=== PATIENT | male | born 1945 | race Caucasian/White ===

== ENCOUNTER 2019-12-05 07:46 | Outpatient (REF) | payer OTHER, SELFPAY ==
[2019-12-05 11:26] LABS: Estimated Average Glucose 100 mg/dL; Hemoglobin A1c % 5.1 %
[2019-12-05 11:37] LABS: Alanine Aminotransferase 22 U/L (0-40); Albumin Level 4.4 g/dL (3.5-5.0); Alkaline Phosphatase 109 U/L (39-117); Aspartate Amino Transferase 16 U/L (5-37); Bilirubin Direct 0.2 mg/dL (0.0-0.5); Bilirubin Total 0.6 mg/dL (0.0-1.0); Cholesterol 131 mg/dL; Glucose Fasting 94 mg/dL (60-99); HDL Cholesterol 46 mg/dL; LDL Cholesterol Calculated 72 mg/dl; Total Protein 6.6 g/dL (6.5-8.0); Triglycerides 68 mg/dL
[2019-12-05 13:56] LABS: Reflex LDLD? No
== END 2019-12-05 07:47 | disposition home or self-care (01) ==
LOC: HO.HMGCLDS 07:46
PROVIDERS: PCP Internal Medicine; Visit Provider Internal Medicine
DX: R73.03 Prediabetes (principal); E78.00 Pure hypercholesterolemia, unspecified
CPT/HCPCS: 80061; 80076; 82947; 83036

== ENCOUNTER 2020-03-18 10:19 | Outpatient (REF) | payer BC, SELFPAY ==
[2020-03-18 11:34] LABS: Estimated Average Glucose 103 mg/dL; Hemoglobin A1c % 5.2 %
[2020-03-18 11:42] LABS: Alanine Aminotransferase 14 U/L (0-40); Albumin Level 4.2 g/dL (3.5-5.0); Alkaline Phosphatase 122 U/L (39-117); Aspartate Amino Transferase 12 U/L (5-37); Bilirubin Direct 0.3 mg/dL (0.0-0.5); Bilirubin Total 0.4 mg/dL (0.0-1.0); Cholesterol 114 mg/dL; Glucose Fasting 106 mg/dL (60-99); HDL Cholesterol 47 mg/dL; LDL Cholesterol Calculated 57 mg/dl; Total Protein 6.6 g/dL (6.5-8.0); Triglycerides 53 mg/dL
[2020-03-18 12:26] LABS: Reflex LDLD? No
== END 2020-03-18 10:20 | disposition home or self-care (01) ==
LOC: HO.HMGCLDS 10:19
PROVIDERS: PCP Internal Medicine; Visit Provider Internal Medicine
DX: R73.03 Prediabetes (principal); E78.00 Pure hypercholesterolemia, unspecified
CPT/HCPCS: 36415; 80061; 80076; 82947; 83036

== ENCOUNTER 2020-04-26 10:26 | Outpatient (REF) | payer BC, SELFPAY ==
[2020-04-26 10:38] LABS: MANUAL DIFF FLAG NO
[2020-04-26 10:53] LABS: Basophils Percent Auto 0.3 % (0-2); Eosinophils Absolute Auto 0.2 X10*3/uL (0.0-0.4); Eosinophils Percent Auto 2.5 % (0-4); Hematocrit 43.3 % (42-52); Hemoglobin 14.3 g/dl (14.0-18.0); Imm Gran Abs Auto 0.01 X10*3/uL (0.00-0.03); Imm Gran Pct Auto 0.1 % (0.0-0.4); Lymphocytes Absolute Auto 2.3 X10*3/uL (1.2-4.9); Lymphocytes Percent Auto 34.5 % (20-40); Mean Corpuscular Hemoglobin 30.8 pg (27.0-33.0); Mean Corpuscular Volume 93.3 fL (80-98); Mean Platelet Volume 10.3 fL (9.4-12.4); Monocytes Absolute Auto 0.7 X10*3/uL (0.1-1.2); Monocytes Percent Auto 10.4 % (2-11); Neutrophils Absolute Auto 3.5 X10*3/uL (2.0-8.3); Neutrophils Percent Auto 52.2 % (45-73); Platelet Count 173 X10*3/uL (160-400); Red Blood Count 4.64 X10*6/uL (4.60-5.80); Red Cell Distribution Width 14.6 % (11.0-16.0); White Blood Count 6.7 X10*3/uL (4.8-10.8)
[2020-04-26 11:05] LABS: Estimated Average Glucose 103 mg/dL; Hemoglobin A1C 120.1109 umol/L; Hemoglobin A1c % 5.2 %
[2020-04-26 11:06] LABS: Glucose Urine UA NEG (NEG); Leukocyte Esterase Urine NEG (NEG); Nitrite Urine NEG (NEG); PH 6.5 (5.0-8.0); Urine Blood NEG (NEG); Urine Ketones NEG (NEG); Urine Protein NEG (NEG-TRACE)
[2020-04-26 11:09] LABS: Appearance Urine CLEAR; Color Urine YELLOW
[2020-04-26 11:37] LABS: Alanine Aminotransferase 16 U/L (0-40); Alkaline Phosphatase 110 U/L (39-117); Anion Gap 13 (12-20); Aspartate Amino Transferase 14 U/L (5-37); Bilirubin Total 0.5 mg/dL (0.0-1.0); Blood Urea Nitrogen 10 mg/dL (9-16); Calcium 8.4 mg/dL (8.4-10.2); Carbon Dioxide 28 mmol/L (22-29); Chloride 102 mmol/L (96-108); Cholesterol 117 mg/dL; Estimated Glomerular Filt Rate > 60; Glucose Fasting 90 mg/dL (60-99); HDL Cholesterol 45 mg/dL; LDL Cholesterol Calculated 59 mg/dl; Potassium 3.5 mmol/L (3.3-5.1); Sodium 139 mmol/L (135-145); Total Protein 6.2 g/dL (6.5-8.0); Triglycerides 68 mg/dL
[2020-04-26 11:58] LABS: PSA,Total (Free>4and<10) 0.81 ng/mL (0.00-4.00)
[2020-04-26 13:15] LABS: Reflex LDLD? No
== END 2020-04-26 10:27 | disposition home or self-care (01) ==
LOC: HO.LNP 10:26
PROVIDERS: Visit Provider Internal Medicine
DX: Z00.00 Encounter for general adult medical examination without abnormal findings (principal); R73.03 Prediabetes; E78.00 Pure hypercholesterolemia, unspecified; Z12.5 Encounter for screening for malignant neoplasm of prostate
CPT/HCPCS: 80053; 80061; 81003; 83036; 84153; 85025

== ENCOUNTER 2020-10-31 10:02 | Outpatient (REF) | payer BC, SELFPAY ==
[2020-10-31 11:52] LABS: Alanine Aminotransferase 8 U/L (0-40); Albumin Level 4.1 g/dL (3.5-5.0); Alkaline Phosphatase 98 U/L (39-117); Aspartate Amino Transferase 11 U/L (5-37); Bilirubin Direct 0.3 mg/dL (0.0-0.5); Bilirubin Total 0.7 mg/dL (0.0-1.0); Cholesterol 170 mg/dL; Glucose Fasting 97 mg/dL (60-99); HDL Cholesterol 45 mg/dL; LDL Cholesterol Calculated 109 mg/dl; Total Protein 6.3 g/dL (6.5-8.0); Triglycerides 83 mg/dL
[2020-10-31 11:59] LABS: Estimated Average Glucose 94 mg/dL; Hemoglobin A1c % 4.9 %
[2020-10-31 12:12] LABS: Reflex LDLD? No
== END 2020-10-31 10:03 | disposition home or self-care (01) ==
LOC: HO.HMGCLDS 10:02
PROVIDERS: PCP Internal Medicine; Visit Provider Internal Medicine
DX: R73.03 Prediabetes (principal); E78.00 Pure hypercholesterolemia, unspecified
CPT/HCPCS: 36415; 80061; 80076; 82947; 83036

== ENCOUNTER 2020-12-05 12:47 | Outpatient (REF) | payer BC, SELFPAY ==
--- NOTE | ~2020-12-05 | CT_ITS ---
EXAMINATION: CT CHEST WITHOUT CONTRAST CLINICAL INFORMATION: Solitary pulmonary nodule COMPARISON: Prior CT exams from 10/12/2017 and 10/10/2018 TECHNIQUE: Multidetector volumetric CT imaging of the chest was done. Axial MIP volume rendering provided. Sagittal and coronal reformatted images were obtained. This CT examination was performed using dose optimization techniques as appropriate, variously including the following: *Automated exposure control *Adjustment of mA and/or kV according to patient size (this includes techniques or standardized protocols for targeted exams where dose is matched to indication/reason for exam; i.e. extremities or head) *Use of iterative reconstruction technique DLP: 196 mGy-cm FINDINGS: LUNGS AND PLEURA: Chronic centrilobular and paraseptal emphysema. 0.2 cm noncalcified nodule of the posterior right upper lobe is unchanged compared to 10/12/2017 (image 271, series 7). Also, a 0.3 cm noncalcified nodule of the lateral basal segment right lower lobe at the costophrenic sulcus is stable compared to 10/12/2017 (image 521, series 7). No new nodules are seen. No pulmonary mass or pleural effusion. CARDIOVASCULAR: The heart size is normal. There is three-vessel coronary artery atherosclerotic calcification. No pericardial effusion. Pulmonary arteries are normal in size. Thoracic aorta atherosclerosis without aneurysm. MEDIASTINUM AND LOWER NECK: The esophagus and thyroid gland are grossly unremarkable. No mediastinal mass. LYMPHATICS: No pathologic sized lymph nodes. UPPER ABDOMEN: Adrenal glands are normal. Small, 0.6 cm cyst in the right hepatic lobe. Atherosclerotic calcification of the partially visualized abdominal aorta. Small calcified gallstone. No gallbladder wall thickening. SKELETAL AND CHEST WALL: Chronic multilevel disc vertebral changes of the visualized lower cervical and thoracic spine. No aggressive osseous lesions. 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 CT/CT chest wo con IMPRESSION: * Moderate pulmonary emphysema. * Small nodules of the right lung are stable compared to 10/12/2017, consistent with benign nodules. No additional follow-up imaging is recommended for these particular nodules. No new nodule, mass or lymphadenopathy. * Three-vessel coronary artery atherosclerotic calcification. * Cholelithiasis.
--- NOTE | 2020-12-05 13:08 | HM_ITS ---
ENROLLMENT PERIOD: 12/05/2020 to 01/04/2021-30 days. INDICATION: Syncope and collapse. FINDINGS: In the above monitoring period, the underlying rhythm is sinus. Recorded sample rate is 71 beats per minute. There were no arrhythmias or any other abnormalities recorded during this time. There is also no mention of any patient symptoms either. CONCLUSION: Normal 30-day cardiac cath rn showing sinus rhythm only and no arrhythmias. MD CORA Beckford/ANEL / [id number]
== END 2020-12-05 12:48 | disposition home or self-care (01) ==
LOC: HO.CT 12:47
PROVIDERS: PCP Internal Medicine; Visit Provider Internal Medicine
DX: R91.1 Solitary pulmonary nodule (principal); R55 Syncope and collapse
CPT/HCPCS: 71250; 93270

== ENCOUNTER 2020-12-27 17:09 | Outpatient (REF) | payer BC, SELFPAY ==
[2020-12-27 17:58] LABS: Influenza A PCR NEGATIVE (Negative); Influenza B PCR NEGATIVE (Negative); Resp Syncy Virus RNA Qual PCR NEGATIVE (Negative); SARS COV2 PCR INHOUSE POSITIVE (Negative)
== END 2020-12-27 17:10 | disposition home or self-care (01) ==
LOC: HO.LNP 17:09
PROVIDERS: Visit Provider Internal Medicine
DX: R05.9 Cough, unspecified (principal); Z20.822 Contact with and (suspected) exposure to COVID-19
CPT/HCPCS: 0241U

== ENCOUNTER 2021-01-03 12:31 | Inpatient (IN) | payer BC, SELFPAY ==
[2021-01-03] VITALS (11 sets, daily range): BP systolic 96–173; BP diastolic 49–74; PULSE 77–94; RESP 16–30; TEMP 36.7; O2SAT 86–96; BMI 26.6
--- NOTE | ~2021-01-03 | XR_ITS ---
EXAMINATION: XR CHEST CLINICAL INFORMATION: Shortness of breath COMPARISON: Chest radiographs 02/27/2019, 12/06/2018 TECHNIQUE: Portable upright AP view of the chest was obtained. FINDINGS: There are patchy bilateral predominantly perihilar airspace opacities, slightly greater in distribution on left. There is no associated effusion. No engorgement of the central vasculature or currently lines. The heart is within normal size. No acute bony abnormality. XR/XR chest 1V IMPRESSION: Nonspecific bilateral perihilar airspace opacities, slightly greater in distribution on left. No associated vascular engorgement or effusion.
--- NOTE | ~2021-01-03 | NM_ITS ---
EXAMINATION: NM LUNG IMAGE PERFUSION CLINICAL INFORMATION: Shortness of breath. COPD. Covid positive. COMPARISON: Chest x-ray 01/03/2021 TECHNIQUE: Perfusion imaging performed using 3 mCi of technetium 99m MAA. No ventilation performed. Chest x-ray available for comparison. FINDINGS: There are multiple perfusion defects involving both lungs. These are segmental and subsegmental defects. These did not however specifically correlate to the abnormality of the chest x-ray. Chest x-ray shows multifocal airspace disease in the mid and lower lungs: The perfusion defects are primarily involving the mid and upper lung bilaterally. By the modified PIOPED 2 criteria this is a high probability for pulmonary embolism. NM/NM pul perfusion IMPRESSION: Greater than 2 segmental mismatches between chest x-ray and perfusion imaging consistent with high probability of pulmonary embolism. This critical result was discussed with Dr Corral on 01/03/2021, 6:25 PM and it was ascertained that the content and urgency of the report was understood at the time of direct communication.
--- NOTE | ~2021-01-03 | US_ITS ---
EXAMINATION: US RETROPERITONEAL LIMITED (RENAL ONLY) CLINICAL INFORMATION: AYESHA. COMPARISON: CT abdomen and pelvis 12/20/2012. TECHNIQUE: Real-time imaging of the kidneys. Technically limited due to patient mobility and inability to suspend respirations. FINDINGS: RIGHT KIDNEY: 9.5 x 3.7 x 5.0 cm (SAG x AP x TRV). The kidney is normal in size, contour, and echogenicity. Renal cortical thickness is normal. No calculi or focal parenchymal lesions. No hydronephrosis. LEFT KIDNEY: 10.6 x 5.3 x 5.5 cm (SAG x AP x TRV). The kidney is normal in size, contour, and echogenicity. Renal cortical thickness is normal. No calculi or focal parenchymal lesions. No hydronephrosis. US/US renal BI IMPRESSION: Unremarkable exam.
--- NOTE | 2021-01-03 12:42 | ECG_ITS ---
Test Reason : SOB Blood Pressure : / mmHG Vent. Rate : 079 BPM Atrial Rate : 079 BPM P-R Int : 260 ms QRS Dur : 088 ms QT Int : 394 ms P-R-T Axes : 057 046 052 degrees QTc Int : 451 ms Sinus rhythm with 1st degree A-V block with occasional Premature ventricular complexes Abnormal ECG When compared with ECG of 13-MAY-2018 15:52, Premature ventricular complexes are now Present Referred By: Nikki Valdez Electronically Signed By:MARGARET RICH MD
[2021-01-03 13:02] LABS: Hematocrit 39.5 % (42.0-52.0); Hemoglobin 14.1 g/dl (14.0-18.0); Mean Corpuscular HGB Conc 35.7 g/dl (31.0-36.0); Mean Corpuscular Hemoglobin 31.1 pg (27.0-33.0); Red Blood Count 4.54 X10*6/uL (4.60-5.80)
[2021-01-03 13:03] LABS: WBC ABN SCTR FOR CBC 1
--- NOTE | 2021-01-03 13:05 | ED.SOB ---
HPI - SOB/Dyspnea General Chief Complaint: Dyspnea Stated Complaint: copd, covid + Time Seen by Provider: 01/03/21 13:00 History of Present Illness HPI Narrative: Patient is 75 years old with a history of COPD long history of smoking quit approximately 1 week ago. Presents today with having coughing congestion upper respiratory symptoms that been ongoing for about a week. Patient had a COVID test done about a week ago it was positive. Patient also received full vaccination in May. Baseline not on oxygen at home. Never been intubated in the past. No history of congestive heart failure. No history of heart attack. No fever no chills. Positive coughing upper respiratory symptoms positive generalized malaise. No leg swelling noted. Related Data Home Medications Medication Instructions Recorded Confirmed omeprazole 20 mg capsule,delayed 20 mg PO DAILY 12/27/20 01/03/21 release albuterol sulfate 90 mcg/actuation 2 puff INHALATION Q4H PRN 01/03/21 01/03/21 aerosol inhaler atorvastatin 80 mg tablet 80 mg PO DAILY 01/03/21 01/03/21 dexamethasone 4 mg tablet 4 mg PO TID 01/03/21 01/03/21 fluticasone 250 mcg-salmeterol 50 1 puff INHALATION BID 01/03/21 01/03/21 mcg/dose blistr powdr for inhalation (Advair Diskus) zinc 50 mg tablet 50 mg PO DAILY 01/03/21 01/03/21 Allergies Allergy/AdvReac Type Severity Reaction Status Date / Time No Known Allergies Allergy Unverified 12/27/20 14:01 [No Known Allergies*] Review of Systems Review of Systems: Positive shortness of breath Positive coughing upper respiratory symptoms Yes all other systems are reviewed and are negative [facility] Past Medical History Attestation statement: The following information was validated with the patient. Medical History COPD (chronic obstructive pulmonary disease) Social History Social History Alcohol intake: current Alcohol intake frequency: 0-2 drinks per day Alcohol type: beer Patient Tobacco Use Status: Former Tobacco user Smoked in Last 30 Days: Yes Use of substances other than those prescribed or required for medical reasons: No Advance Directives: No Advance Directives Information Provided: No Physical Exam Vital Signs: Vital Signs: Last Vital Signs Temp 98.1 F 01/03/21 12:38 Pulse 78 01/03/21 13:57 Resp 18 01/03/21 13:57 BP 103/54 L 01/03/21 13:57 Pulse Ox 90 L 01/03/21 13:57 Oxygen Flow Rate 6 01/03/21 12:38 Body Mass Index 26.6 Appearance: Alert. Oriented X3. No acute distress. Eyes: Pupils equal, round and reactive to light. ENT: Pharynx normal. Neck: Normal inspection. Neck supple. No lymph nodes noted. No crepitus CVS: Normal heart rate and rhythm. Pulses normal. Normal S1 and S2 Respiratory: Diminished breath sounds bilaterally with crackles at the bases. Abdomen: Soft and nontender. No rigidity. No distention. good BS x4 Skin: Skin warm and dry. Normal skin color. Normal skin turgor. Extremities: No lower extremity edema. Neurovascular intact to all extremities. No Lacerations. No Rash Neuro: Oriented X 3. No motor deficit. No sensory deficit. Moving all extermities. No slurred speech MDM - SOB/Dyspnea MDM Narrative Medical decision making narrative: Patient's chest x-ray consistent with COVID. Patient's BUN and creatinine elevated consistent with dehydration. In the settin of tachycardic generalized malaise cultures obtained antibiotics started patient given Rocephin for possible pneumonia. More likely consistent with having COVID. Steroids started for COPD and for COVID. Patient lactate came back to be 4.0 30 cc/kilos IV fluid given. Patient case discussed with hospitalist team. Patient will require admission. EKG showed a sinus rhythm heart rate is 80 first-degree heart block noted. PVC noted. QRS QT within normal limits is no acute ST segment elevation noted Differential Diagnosis Differential diagnosis: Likely acute exacerbation of chronic obstructive airways disease, pneumonia and asthma with exacerbation Medical Records Attestation: I reviewed the patient's medical records. Lab Data Attestation: I reviewed the patient's lab results. Result diagrams: 01/03/21 12:52 01/03/21 12:52 Labs: Lab Results 01/03/21 01/03/21 01/03/21 Range/Units 12:52 12:52 12:52 WBC 3.6 L (4.8-10.8) X10*3/uL RBC 4.54 L (4.60-5.80) X10*6/uL Hgb 14.1 (14.0-18.0) g/dl Hct 39.5 L (42.0-52.0) % MCV 87.0 (80.0-98.0) fL MCH 31.1 (27.0-33.0) pg MCHC 35.7 (31.0-36.0) g/dl RDW 14.0 (11.0-16.0) % Plt Count 74 L (160-400) X10*3/uL MPV 11.7 (9.4-12.4) fL Immature Gran % (Auto) Cancelled Neut % (Auto) Cancelled Lymph % (Auto) Cancelled [place] % (Auto) Cancelled Eos % (Auto) Cancelled Baso % (Auto) Cancelled Lymph # (Auto) Cancelled [place] # (Auto) Cancelled Eos # (Auto) Cancelled Baso # (Auto) Cancelled Abs Immat Gran (auto) Cancelled Absolute Neuts (auto) Cancelled Absolute Nucleated RBC 0.000 (0.0-0.012) X10*3/uL Nucleated RBC % (auto) 0.0 (0.0-0.2) /100WBC Neutrophils % (Manual) 75 H (45-73) % Band Neutrophils % 20 H (3-5) % Lymphocytes % (Manual) 2 L (20-40) % Monocytes % (Manual) 2 (2-11) % Metamyelocytes % 1 % Abs Neuts (Manual) 3.4 (2.0-8.3) X10*3/uL Lymphocytes # (Manual) 0.1 L (1.2-4.9) X10*3/uL Monocytes # (Manual) 0.1 (0.1-1.2) X10*3/uL Toxic Vacuolation PRESENT Platelet Estimate DECREASED (NORMAL) Large Platelets PRESENT Plt Morphology Comment NOTED RBC Morphology NOTED Ovalocytes 1+ (5-14) /OIF [place] Cells 3+ (>5) /OIF Acanthocytes (Spur) 1+ (0-2) /OIF Sodium 125 L (135-145) mmol/L Potassium 4.1 (3.3-5.1) mmol/L Chloride 87 L (96-108) mmol/L Carbon Dioxide 24 (22-29) mmol/L Anion Gap 18 (12-20) BUN 43 H D (9-16) mg/dL Creatinine 2.26 H (0.5-1.4) mg/dL Estim Creat Clear Calc 28.2 Estimated GFR 28 Random Glucose 112 (60-115) mg/dL Lactic Acid (0.5-2.0) mmol/L Calcium 7.7 L D (8.4-10.2) mg/dL Troponin I High Sens 13.3 (<3.5-35.0) ng/L B-Natriuretic Peptide 165 H (<100) pg/mL 01/03/21 Range/Units 12:54 WBC (4.8-10.8) X10*3/uL RBC (4.60-5.80) X10*6/uL Hgb (14.0-18.0) g/dl Hct (42.0-52.0) % MCV (80.0-98.0) fL MCH (27.0-33.0) pg MCHC (31.0-36.0) g/dl RDW (11.0-16.0) % Plt Count (160-400) X10*3/uL MPV (9.4-12.4) fL Immature Gran % (Auto) Neut % (Auto) Lymph % (Auto) [place] % (Auto) Eos % (Auto) Baso % (Auto) Lymph # (Auto) [place] # (Auto) Eos # (Auto) Baso # (Auto) Abs Immat Gran (auto) Absolute Neuts (auto) Absolute Nucleated RBC (0.0-0.012) X10*3/uL Nucleated RBC % (auto) (0.0-0.2) /100WBC Neutrophils % (Manual) (45-73) % Band Neutrophils % (3-5) % Lymphocytes % (Manual) (20-40) % Monocytes % (Manual) (2-11) % Metamyelocytes % % Abs Neuts (Manual) (2.0-8.3) X10*3/uL Lymphocytes # (Manual) (1.2-4.9) X10*3/uL Monocytes # (Manual) (0.1-1.2) X10*3/uL Toxic Vacuolation Platelet Estimate (NORMAL) Large Platelets Plt Morphology Comment RBC Morphology Ovalocytes /OIF [place] Cells /OIF Acanthocytes (Spur) /OIF Sodium (135-145) mmol/L Potassium (3.3-5.1) mmol/L Chloride (96-108) mmol/L Carbon Dioxide (22-29) mmol/L Anion Gap (12-20) BUN (9-16) mg/dL Creatinine (0.5-1.4) mg/dL Estim Creat Clear Calc Estimated GFR Random Glucose (60-115) mg/dL Lactic Acid 4.0 H* (0.5-2.0) mmol/L Calcium (8.4-10.2) mg/dL Troponin I High Sens (<3.5-35.0) ng/L B-Natriuretic Peptide (<100) pg/mL Critical Care Time Critical Care Time Critical Care Time: Yes Total Critical Care Time: 40 Attestation: I have personally provided 40 minutes of critical care time exclusive of time spent on separately billable procedures. Time includes review of lab data, radiology results, discussion with consultants, and monitoring for potential decompensation. Interventions were performed as documented above Discharge Plan Discharge Clinical Impression: COVID-19 Patient Disposition: Admitted As Inpatient
[2021-01-03] MEDS: dexAMETHasone sod phosphate 10 MG/ML VIAL IVPUSH (13:16)
[2021-01-03] MEDS: Albuterol Sulfate 90 MCG 8 GM INHALER 2 PUFF INHALE (13:25)
[2021-01-03 13:26] LABS: B Type Natriuretic Peptide 165 pg/mL (<100); Troponin-I High Sensitivity 13.3 ng/L (<3.5-35.0)
[2021-01-03 13:28] LABS: Anion Gap 18 (12-20); Band Neutrophils Percent 20 % (3-5); Blood Urea Nitrogen 43 mg/dL (9-16); Calcium 7.7 mg/dL (8.4-10.2); Carbon Dioxide 24 mmol/L (22-29); Chloride 87 mmol/L (96-108); Creatinine Clr Calc Pharmacy 28.2; Estimated Glomerular Filt Rate 28; Glucose Random 112 mg/dL (60-115); Lymphocytes Percent Manual 2 % (20-40); Metamyelocytes Percent 1 %; Monocytes Percent Manual 2 % (2-11); Neutrophils Percent Manual 75 % (45-73); Potassium 4.1 mmol/L (3.3-5.1); Sodium 125 mmol/L (135-145)
[2021-01-03 13:29] LABS: RBC Morphology NOTED; Toxic Vacuolation PRESENT
[2021-01-03 13:30] LABS: Acanthocytes 1+ (0-2) /OIF; Platelet Estimate DECREASED (NORMAL)
[2021-01-03 13:31] LABS: Burr Cells 3+ (>5) /OIF; Large Platelet PRESENT; Lymphocytes Absolute Manual 0.1 X10*3/uL (1.2-4.9); Monocytes Absolute Manual 0.1 X10*3/uL (0.1-1.2); Neutrophils Absolute Manual 3.4 X10*3/uL (2.0-8.3); Ovalocytes 1+ (5-14) /OIF; Platelet Morphology Comment NOTED; White Blood Count 3.6 X10*3/uL (4.8-10.8)
[2021-01-03 13:32] LABS: Mean Platelet Volume 11.7 fL (9.4-12.4); Platelet Count 74 X10*3/uL (160-400)
[2021-01-03] MEDS: cefTRIAXone sodium 1 GM in 0.9 % Sodium Chloride 50 ML IV (13:51)
--- NOTE | 2021-01-03 13:51 | PHA.MEDREC ---
Pharmacy Consult ? Medication Reconciliation Pharmacy has completed the medication reconciliation. There are no remarkable issues for provider's attention. Denise Calle, JoanneD
[2021-01-03] MEDS: 0.9 % Sodium Chloride 2,449.41 ML 2449.41 ML IV (13:53)
[2021-01-03 14:59] LABS: Reflex Lactate? Lactic Acid Added
[2021-01-03 15:03] LABS: Influenza A PCR NEGATIVE (Negative); Influenza B PCR NEGATIVE (Negative); Resp Syncy Virus RNA Qual PCR NEGATIVE (Negative); SARS COV2 PCR INHOUSE POSITIVE (Negative)
[2021-01-03 15:42] LABS: ~Lactic Acid-LAB USE ONLY 3.2 mmol/L (0.5-2.0)
[2021-01-03] MEDS: Doxycycline Hyclate 100 MG in 0.9 % Sodium Chloride 250 ML 166.67 MG IV (16:54)
[2021-01-03 16:58] LABS: C Reactive Protein 26.44 mg/dL (< or = 0.50)
[2021-01-03 17:00] LABS: Lactate Dehydrogenase 363 U/L (118-273)
[2021-01-03 17:19] LABS: Appearance Urine CLEAR; Color Urine YELLOW; Glucose Urine UA NEG (NEG); Leukocyte Esterase Urine NEG (NEG); Nitrite Urine NEG (NEG); Specific Gravity - Urine <= 1.005 (1.005-1.025); UACC Culture Trigger NO; Urine Blood 1+ (NEG); Urine Ketones NEG (NEG); Urine Protein 1+ MG/DL (NEG-TRACE)
[2021-01-03 17:25] LABS: Procalcitonin 6.08 ng/mL
[2021-01-03 17:28] LABS: Reflex Lactate? 2 Y
--- NOTE | 2021-01-03 17:32 | P.HPHOSP_ITS ---
History of Present Illness Date of Service: 01/03/21 Chief Complaint: cough, fatigue 75yo M with COPD + tobacco abuse, fully vaccinated against COVID-19 with 2 doses of Pfizer mRNA vaccine with last dose in May but no booster since, exposed to COVID case 2 wk ago and presented to urgent care 1 wk ago with 1d of dry cough, myalgias, and fatigue. He tested positive for COVID-19 and was prescribed dexamethasone. He presents today to the ED with worsening dyspnea and ongoing dry cough. No fever. No chest pain. is also positive but asymptomatic. Today is the 8th day of illness for him. He presented hypoxic and tachypneic and was found to have leukopenia, thrombocytopenia, lactic acidosis, hyponatr emia, and renal failure. He was given dexamethasone, ceftriaxone, and 30 cc/kg of normal saline. Review of Systems Review of Systems: Yes all other systems are reviewed and are negative [facility] Medical History (Updated 01/03/21 @ 17:42 by Montana Lino MD) COPD (chronic obstructive pulmonary disease) Dyslipidemia Pertinent family history: no cardiac disease Surgical History (Updated 01/03/21 @ 17:36 by Montana Lino MD) History of partial colectomy Social History Alcohol intake: current Alcohol intake frequency: 0-2 drinks per day Alcohol type: beer Patient Tobacco Use Status: Former Tobacco user Smoked in Last 30 Days: Yes Use of substances other than those prescribed or required for medical reasons: No Advance Directives: No Advance Directives Information Provided: No Meds Allergies Allergy/AdvReac Type Severity Reaction Status Date / Time No Known Allergies Allergy Unverified 12/27/20 14:01 [No Known Allergies*] Active Medications: Current Medications Albuterol Sulfate (Albuterol Sulfate 90 Mcg 8 Gm Inhaler) 2 puff INHALE RQ4H PRN PRN Reason: shortness of breath/wheeze Atorvastatin Calcium (Atorvastatin Calcium 80 Mg Tablet) 80 mg PO BEDTIME MEGHAN Enoxaparin Sodium (Enoxaparin Sodium 40 Mg/0.4 Ml Syringe) 40 mg SUBCUT Q24H MEGHAN Fluticasone/Vilanterol (Fluticasone/Vilanterol 100/25 Blst.W.Dev) 1 puff INHALE RDAILY MEGHAN Ceftriaxone Sodium 1 gm/ (Sodium Chloride) 50 mls @ 100 mls/hr IV Q24H [facility] Doxycycline Hyclate 100 mg/ (Sodium Chloride) 250 mls @ 166.67 mls/hr IV Q12H [facility] Last Admin: 01/03/21 16:54 Dose: 166.67 mls/hr Documented by: Methylprednisolone Sodium Succinate (Methylprednisolone Sod Succ 125 Mg/2 Ml Vial) 60 mg IVPUSH Q8H [facility] Omeprazole (Omeprazole 20 Mg Capsule.) 20 mg PO DAILY@0630 [facility] Pharmacy Consult (Consult Rx Perform Med Rec) 1 each MISCELLANE ONCE PRN PRN Reason: Consult order Home Medications Medication Instructions Recorded Confirmed Last Taken Type omeprazole 20 mg capsule,delayed 20 mg PO DAILY 12/27/20 01/03/21 01/03/21 History release albuterol sulfate 90 mcg/actuation 2 puff INHALATION Q4H PRN 01/03/21 01/03/21 01/03/21 History aerosol inhaler atorvastatin 80 mg tablet 80 mg PO DAILY 01/03/21 01/03/21 01/03/21 History dexamethasone 4 mg tablet 4 mg PO TID 01/03/21 01/03/21 01/03/21 History fluticasone 250 mcg-salmeterol 50 1 puff INHALATION BID 01/03/21 01/03/21 01/03/21 History mcg/dose blistr powdr for inhalation (Advair Diskus) zinc 50 mg tablet 50 mg PO DAILY 01/03/21 01/03/21 01/03/21 History Physical Exam Vital Signs and Narrative: Vital Signs: Last Vital Signs Temp 98.1 F 01/03/21 15:21 Pulse 77 01/03/21 16:00 Resp 22 H 01/03/21 16:00 BP 123/52 L 01/03/21 16:00 Pulse Ox 90 L 01/03/21 16:00 Oxygen Flow Rate 6 01/03/21 12:38 Body Mass Index 26.6 Gen: tachypneic, dyspneic HEENT: sclera anicteric, moist mucus membranes Neck: supple Lungs: clear to auscultation bilaterally Heart: regular rate and rhythm, no murmurs Abd: soft, non-tender, non-distended Ext: no edema Skin: warm/well-perfused Neuro: alert and oriented x3, no focal findings Psych: appropriate affect Results Labs CBC and Chem 7: 01/03/21 12:52 01/03/21 12:52 Labs: Laboratory Results - last 24 hr 01/03/21 01/03/21 01/03/21 12:52 12:52 12:52 MCV 87.0 MCH 31.1 MCHC 35.7 RDW 14.0 Plt Count 74 L MPV 11.7 Immature Gran % (Auto) Cancelled Neut % (Auto) Cancelled Lymph % (Auto) Cancelled [place] % (Auto) Cancelled Eos % (Auto) Cancelled Baso % (Auto) Cancelled Lymph # (Auto) Cancelled [place] # (Auto) Cancelled Eos # (Auto) Cancelled Baso # (Auto) Cancelled Abs Immat Gran (auto) Cancelled Absolute Neuts (auto) Cancelled Absolute Nucleated RBC 0.000 Nucleated RBC % (auto) 0.0 Neutrophils % (Manual) 75 H Band Neutrophils % 20 H Lymphocytes % (Manual) 2 L Monocytes % (Manual) 2 Metamyelocytes % 1 Abs Neuts (Manual) 3.4 Lymphocytes # (Manual) 0.1 L Monocytes # (Manual) 0.1 Toxic Vacuolation PRESENT Platelet Estimate DECREASED Large Platelets PRESENT Plt Morphology Comment NOTED RBC Morphology NOTED Ovalocytes 1+ (5-14) [place] Cells 3+ (>5) Acanthocytes (Spur) 1+ (0-2) Anion Gap 18 Estim Creat Clear Calc 28.2 Estimated GFR 28 Random Glucose 112 Lactic Acid Lactic Acid Fup @ 2Hr Calcium 7.7 L D Lactate Dehydrogenase 363 H Troponin I High Sens 13.3 C-Reactive Protein 26.44 H B-Natriuretic Peptide 165 H Carcinoembryonic Ag 6.90 Procalcitonin Urine Color Urine Appearance Urine pH Ur Specific [place] Urine Protein Urine Glucose (UA) Urine Ketones Urine Blood Urine Nitrite Ur Leukocyte Esterase Influenza Type A (PCR) Influenza Type B (PCR) RSV RNA Qual (PCR) SARS-CoV-2 RNA (RT-PCR) 01/03/21 01/03/21 01/03/21 12:52 12:54 13:40 MCV MCH MCHC RDW Plt Count MPV Immature Gran % (Auto) Neut % (Auto) Lymph % (Auto) Petroleum % (Auto) Eos % (Auto) Baso % (Auto) Lymph # (Auto) [place] # (Auto) Eos # (Auto) Baso # (Auto) Abs Immat Gran (auto) Absolute Neuts (auto) Absolute Nucleated RBC Nucleated RBC % (auto) Neutrophils % (Manual) Band Neutrophils % Lymphocytes % (Manual) Monocytes % (Manual) Metamyelocytes % Abs Neuts (Manual) Lymphocytes # (Manual) Monocytes # (Manual) Toxic Vacuolation Platelet Estimate Large Platelets Plt Morphology Comment RBC Morphology Ovalocytes [place] Cells Acanthocytes (Spur) Anion Gap Estim Creat Clear Calc Estimated GFR Random Glucose Lactic Acid 4.0 H* Lactic Acid Fup @ 2Hr Calcium Lactate Dehydrogenase Troponin I High Sens C-Reactive Protein B-Natriuretic Peptide Carcinoembryonic Ag Procalcitonin 6.08 Urine Color Urine Appearance Urine pH Ur Specific [place] Urine Protein Urine Glucose (UA) Urine Ketones Urine Blood Urine Nitrite Ur Leukocyte Esterase Influenza Type A (PCR) NEGATIVE Influenza Type B (PCR) NEGATIVE RSV RNA Qual (PCR) NEGATIVE SARS-CoV-2 RNA (RT-PCR) POSITIVE A 01/03/21 01/03/21 15:22 17:02 MCV MCH MCHC RDW Plt Count MPV Immature Gran % (Auto) Neut % (Auto) Lymph % (Auto) Pet[place] % (Auto) Eos % (Auto) Baso % (Auto) Lymph # (Auto) [place] # (Auto) Eos # (Auto) Baso # (Auto) Abs Immat Gran (auto) Absolute Neuts (auto) Absolute Nucleated RBC Nucleated RBC % (auto) Neutrophils % (Manual) Band Neutrophils % Lymphocytes % (Manual) Monocytes % (Manual) Metamyelocytes % Abs Neuts (Manual) Lymphocytes # (Manual) Monocytes # (Manual) Toxic Vacuolation Platelet Estimate Large Platelets Plt Morphology Comment RBC Morphology Ovalocytes Kanwal Cells Acanthocytes (Spur) Anion Gap Estim Creat Clear Calc Estimated GFR Random Glucose Lactic Acid Lactic Acid Fup @ 2Hr 3.2 H* Calcium Lactate Dehydrogenase Troponin I High Sens C-Reactive Protein B-Natriuretic Peptide Carcinoembryonic Ag Procalcitonin Urine Color YELLOW Urine Appearance CLEAR Urine pH 6.0 Ur Specific [place] <= 1.005 Urine Protein 1+ H Urine Glucose (UA) NEG Urine Ketones NEG Urine Blood 1+ H Urine Nitrite NEG Ur Leukocyte Esterase NEG Influenza Type A (PCR) Influenza Type B (PCR) RSV RNA Qual (PCR) SARS-CoV-2 RNA (RT-PCR) Impressions Chest X-Ray 01/03/21 12:42 IMPRESSION: Nonspecific bilateral perihilar airspace opacities, slightly greater in distribution on left. No associated vascular engorgement or effusion. Imaging Radiologist's Impressions: Impressions Chest X-Ray 01/03/21 12:42 IMPRESSION: Nonspecific bilateral perihilar airspace opacities, slightly greater in distribution on left. No associated vascular engorgement or effusion. Assessment and Plan (1) COVID-19: Status: Acute (2) Acute respiratory failure with hypoxia: Status: Acute 75yo M with COPD presenting on 8th day of breakthrough COVID-19 infection with hypoxia, severe sepsis, thrombocytopenia, acute kidney injury, and hyponatremia. # severe COVID-19 PNA - admit to IMC/[facility], IV methylprednisolone, ID consultation - trend inflammatory markers - V/Q scan to r/o PE # severe sepsis - likely viral but PCT is markedly elevated- will follow BCx and check Legionella + pneumococcal urinary antigens and cover bacterial pathogens with ceftriaxone + doxycycline # acute hypoxic respiratory failure - supplemental O2 via NC, currently on 6L with SaO2 90%- will place on HFNC - encourage awake proning # AYESHA # hyponatremia - appears prerenal/hypovolemic. got 30 cc/kg NS in ED. recheck BMP in am. check FENa, UA, renal US # thrombocytopenia - likely due to sepsis/COVID-19. monitor CBC. # COPD exacerbation - continue ICS/LABA. prn ELAINE inhalers. steroids as above # dyslipdemia - continue statin # code - FULL # VTE ppx - high risk; LMWH + SCDs Quality Stroke Does the patient have a stroke diagnosis?: No VTE Prior VTE?: No VTE Risk Level:: Medical - moderate - high VTE Device Contraindication: N/A - Device Ordered VTE Drug Contraindication: N/A - Med Ordered
[2021-01-03 17:33] LABS: Creatinine Urine 30.42 mg/dL
[2021-01-03 17:41] LABS: Creatinine Urine 30.68 mg/dL; Protein/Creatinine Ratio, Ur 0.78 (<0.2); Sodium Urine Random < 20.0 mmol/L; Total Protein Urine Random 24 mg/dL (<12)
[2021-01-03 17:45] LABS: Amorphous Sediment Urine TRACE /LPF; Mucus Urine 1+ /LPF; Squamous Epithelial Cell Urine TRACE /LPF
[2021-01-03 17:46] LABS: Bacteria Urine 1+ /LPF; RBC Urine 0-2 /HPF (0); WBC Urine 0 /HPF (0-4)
[2021-01-03] MEDS: methylPREDNISolone Sod Succ 125 MG/2 ML VIAL 60 MG IVPUSH (17:58)
[2021-01-03] MEDS: Enoxaparin Sodium 40 MG/0.4 ML SYRINGE SUBCUT ×2 (17:58→19:28)
[2021-01-03 18:25] LABS: Ferritin 1683 ng/mL (20-250)
[2021-01-03 18:29] LABS: ~Lactic Acid-LAB USE ONLY 3.3 mmol/L (0.5-2.0)
[2021-01-03 19:25] LABS: Troponin-I High Sensitivity 9.4 ng/L (<3.5-35.0)
--- NOTE | 2021-01-03 20:55 | PC.NURSE ---
Pt O2 sat noted to be 82% on 6L, endorses increased dyspnea. MD Monson notified. Respiratory to bedside to place pt on high flow NC
--- NOTE | 2021-01-03 23:38 | PC.NURSE ---
Report called to shaun GARCIA. Pt transported to floor via Charlene EDT and RT Gary via stretcher. Sent in stable condtion w/ all belongings, attached to portable gypsum roofer for transport
[2021-01-04] VITALS (15 sets, daily range): BP systolic 122–171; BP diastolic 63–94; PULSE 71–100; RESP 18–20; TEMP 36.1–36.9; O2SAT 93–98; BMI 26.6
[2021-01-04] MEDS: 0.9 % Sodium Chloride Flush 3 ML SYRINGE IVFLUSH ×2 (00:17→21:22)
[2021-01-04] MEDS: methylPREDNISolone Sod Succ 125 MG/2 ML VIAL 60 MG IVPUSH ×3 (01:41→15:52)
[2021-01-04] MEDS: Doxycycline Hyclate 100 MG in 0.9 % Sodium Chloride 250 ML 166.67 MG IV ×2 (04:06→15:52)
[2021-01-04] MEDS: Omeprazole 20 MG CAPSULE.DR PO (05:50)
[2021-01-04 06:34] LABS: Hematocrit 38.2 % (42.0-52.0); Hemoglobin 13.8 g/dl (14.0-18.0); Mean Corpuscular HGB Conc 36.1 g/dl (31.0-36.0); Mean Corpuscular Hemoglobin 31.8 pg (27.0-33.0); Mean Platelet Volume 12.5 fL (9.4-12.4); Red Blood Count 4.34 X10*6/uL (4.60-5.80); Red Cell Distribution Width 13.5 % (11.0-16.0); White Blood Count 7.3 X10*3/uL (4.8-10.8)
[2021-01-04 06:39] LABS: Platelet Count 68 X10*3/uL (160-400)
[2021-01-04 07:14] LABS: Alanine Aminotransferase 34 U/L (0-40); Albumin Level 2.7 g/dL (3.5-5.0); Alkaline Phosphatase 106 U/L (39-117); Anion Gap 13 (12-20); Aspartate Amino Transferase 34 U/L (5-37); Bilirubin Total 1.2 mg/dL (0.0-1.0); Blood Urea Nitrogen 35 mg/dL (9-16); Calcium 7.4 mg/dL (8.4-10.2); Carbon Dioxide 27 mmol/L (22-29); Chloride 99 mmol/L (96-108); Creatinine Clr Calc Pharmacy 47.2; Estimated Glomerular Filt Rate 52; Glucose Random 119 mg/dL (60-115); Potassium 4.1 mmol/L (3.3-5.1); Sodium 135 mmol/L (135-145); Total Protein 4.9 g/dL (6.5-8.0)
[2021-01-04] MEDS: Fluticasone/Vilanterol 100/25 BLST.W.DEV 1 PUFF INHALE (08:05)
[2021-01-04] MEDS: Enoxaparin Sodium 80 MG/0.8 ML SYRINGE SUBCUT ×2 (08:49→21:22)
--- NOTE | 2021-01-04 11:41 | MHC.CM.PN ---
Patient is Covid (+) and not reachable by phone at this time; CM spoke with /HCP/Celina @ [phone]. Patient lives with his in a trailer and he is functionally independent and still working.Home/no services is the goal for dc and CM has initiated and will follow for dc planning.PCP is DR.Glen Benoit.
--- NOTE | 2021-01-04 11:53 | P.PNIM_ITS ---
Subjective Subjective Date of Service: 01/04/21 Interval History: Dyspneic, coughing. No chest pain No fever Review of Systems Review of Systems: Yes all other systems are reviewed and are negative Physical Exam Vital Signs: Vital Signs: Last Vital Signs Temp 98.5 F 01/04/21 11:35 Pulse 88 01/04/21 11:35 Resp 20 01/04/21 11:35 BP 155/76 H 01/04/21 11:35 Pulse Ox 96 01/04/21 11:35 Oxygen Flow Rate 6 01/03/21 12:38 Body Mass Index 26.6 Gen: mild dyspneic HEENT: sclera anicteric, moist mucus membranes Neck: supple Lungs: clear to auscultation bilaterally Heart: regular rate and rhythm, no murmurs Abd: soft, non-tender, non-distended Ext: no edema Skin: warm/well-perfused Neuro: alert and oriented x3, no focal findings Psych: appropriate affect Objective Data Active Medications Acetaminophen (Acetaminophen 325 Mg Tablet) 650 mg PO Q6H PRN PRN Reason: Pain, Mild (Pain Scale 1-3) Albuterol Sulfate (Albuterol Sulfate 90 Mcg 8 Gm Inhaler) 2 puff INHALE RQ4H PRN PRN Reason: shortness of breath/wheeze Atorvastatin Calcium (Atorvastatin Calcium 80 Mg Tablet) 80 mg PO BEDTIME [facility] Enoxaparin Sodium (Enoxaparin Sodium 80 Mg/0.8 Ml Syringe) 80 mg SUBCUT Q12H [facility] Last Admin: 01/04/21 08:49 Dose: 80 mg Documented by: JING Fluticasone/Vilanterol (Fluticasone/Vilanterol 100/25 Blst.W.Dev) 1 puff INHALE RDAILY [facility] Last Admin: 01/04/21 08:05 Dose: 1 puff Documented by: PATRICE Ceftriaxone Sodium 1 gm/ (Sodium Chloride) 50 mls @ 100 mls/hr IV Q24H [facility] Doxycycline Hyclate 100 mg/ (Sodium Chloride) 250 mls @ 166.67 mls/hr IV Q12H [facility] Last Infusion: 01/04/21 06:15 Dose: 0 mls/hr Documented by: VAISHALI Methylprednisolone Sodium Succinate (Methylprednisolone Sod Succ 125 Mg/2 Ml Vial) 60 mg IVPUSH Q8H [facility] Last Admin: 01/04/21 08:49 Dose: 60 mg Documented by: JING Omeprazole (Omeprazole 20 Mg Capsule.Dr) 20 mg PO DAILY@0630 [facility] Last Admin: 01/04/21 05:50 Dose: 20 mg Documented by: VAISHALI Ondansetron HCl (Ondansetron Hcl 4 Mg/2 Ml Vial) 4 mg IVPUSH Q8H PRN PRN Reason: Nausea and Vomiting Pharmacy Consult (Consult Rx Perform Med Rec) 1 each MISCELLANE ONCE PRN PRN Reason: Consult order Sodium Chloride (0.9 % Sodium Chloride Flush 3 Ml Syringe) 3 ml IVFLUSH QSHIFT [facility] Last Admin: 01/04/21 09:46 Dose: Not Given Documented by: JING Non-Admin Reason: IVF Labs CBC & Chem 7: 01/04/21 06:08 01/04/21 06:08 Labs: Laboratory Results - last 24 hr 01/03/21 01/03/21 01/03/21 12:52 12:52 12:52 MCV 87.0 MCH 31.1 MCHC 35.7 RDW 14.0 Plt Count 74 L MPV 11.7 Immature Gran % (Auto) Cancelled Neut % (Auto) Cancelled Lymph % (Auto) Cancelled [place] % (Auto) Cancelled Eos % (Auto) Cancelled Baso % (Auto) Cancelled Lymph # (Auto) Cancelled [place] # (Auto) Cancelled Eos # (Auto) Cancelled Baso # (Auto) Cancelled Abs Immat Gran (auto) Cancelled Absolute Neuts (auto) Cancelled Absolute Nucleated RBC 0.000 Nucleated RBC % (auto) 0.0 Neutrophils % (Manual) 75 H Band Neutrophils % 20 H Lymphocytes % (Manual) 2 L Monocytes % (Manual) 2 Metamyelocytes % 1 Abs Neuts (Manual) 3.4 Lymphocytes # (Manual) 0.1 L Monocytes # (Manual) 0.1 Toxic Vacuolation PRESENT Platelet Estimate DECREASED Large Platelets PRESENT Plt Morphology Comment NOTED RBC Morphology NOTED Ovalocytes 1+ (5-14) [place] Cells 3+ (>5) Acanthocytes (Spur) 1+ (0-2) Anion Gap 18 Estim Creat Clear Calc 28.2 Estimated GFR 28 Random Glucose 112 Lactic Acid Lactic Acid Fup @ 2Hr Lactic Acid Fup @ 4Hr Calcium 7.7 L D Ferritin 1683 H Total Bilirubin AST ALT Alkaline Phosphatase Lactate Dehydrogenase 363 H Troponin I High Sens 13.3 C-Reactive Protein 26.44 H B-Natriuretic Peptide 165 H Total Protein Albumin Carcinoembryonic Ag 6.90 Procalcitonin Urine Color Urine Appearance Urine pH Ur Specific [place] Urine Protein Urine Glucose (UA) Urine Ketones Urine Blood Urine Nitrite Ur Leukocyte Esterase Urine RBC Urine WBC Ur Squamous Epith Cells Amorphous Sediment Urine Bacteria Urine Mucus U Random Total Protein Ur Random Sodium Urine Creatinine Protein/Creatinin Ratio Influenza Type A (PCR) Influenza Type B (PCR) RSV RNA Qual (PCR) SARS-CoV-2 RNA (RT-PCR) 01/03/21 01/03/21 01/03/21 12:52 12:54 13:40 MCV MCH MCHC RDW Plt Count MPV Immature Gran % (Auto) Neut % (Auto) Lymph % (Auto) [place] % (Auto) Eos % (Auto) Baso % (Auto) Lymph # (Auto) [place] # (Auto) Eos # (Auto) Baso # (Auto) Abs Immat Gran (auto) Absolute Neuts (auto) Absolute Nucleated RBC Nucleated RBC % (auto) Neutrophils % (Manual) Band Neutrophils % Lymphocytes % (Manual) Monocytes % (Manual) Metamyelocytes % Abs Neuts (Manual) Lymphocytes # (Manual) Monocytes # (Manual) Toxic Vacuolation Platelet Estimate Large Platelets Plt Morphology Comment RBC Morphology Ovalocytes [place] Cells Acanthocytes (Spur) Anion Gap Estim Creat Clear Calc Estimated GFR Random Glucose Lactic Acid 4.0 H* Lactic Acid Fup @ 2Hr Lactic Acid Fup @ 4Hr Calcium Ferritin Total Bilirubin AST ALT Alkaline Phosphatase Lactate Dehydrogenase Troponin I High Sens C-Reactive Protein B-Natriuretic Peptide Total Protein Albumin Carcinoembryonic Ag Procalcitonin 6.08 Urine Color Urine Appearance Urine pH Ur Specific [place] Urine Protein Urine Glucose (UA) Urine Ketones Urine Blood Urine Nitrite Ur Leukocyte Esterase Urine RBC Urine WBC Ur Squamous Epith Cells Amorphous Sediment Urine Bacteria Urine Mucus U Random Total Protein Ur Random Sodium Urine Creatinine Protein/Creatinin Ratio Influenza Type A (PCR) NEGATIVE Influenza Type B (PCR) NEGATIVE RSV RNA Qual (PCR) NEGATIVE SARS-CoV-2 RNA (RT-PCR) POSITIVE A 01/03/21 01/03/21 01/03/21 15:22 17:02 17:02 MCV MCH MCHC RDW Plt Count MPV Immature Gran % (Auto) Neut % (Auto) Lymph % (Auto) [place] % (Auto) Eos % (Auto) Baso % (Auto) Lymph # (Auto) [place] # (Auto) Eos # (Auto) Baso # (Auto) Abs Immat Gran (auto) Absolute Neuts (auto) Absolute Nucleated RBC Nucleated RBC % (auto) Neutrophils % (Manual) Band Neutrophils % Lymphocytes % (Manual) Monocytes % (Manual) Metamyelocytes % Abs Neuts (Manual) Lymphocytes # (Manual) Monocytes # (Manual) Toxic Vacuolation Platelet Estimate Large Platelets Plt Morphology Comment RBC Morphology Ovalocytes [place] Cells Acanthocytes (Spur) Anion Gap Estim Creat Clear Calc Estimated GFR Random Glucose Lactic Acid Lactic Acid Fup @ 2Hr 3.2 H* Lactic Acid Fup @ 4Hr Calcium Ferritin Total Bilirubin AST ALT Alkaline Phosphatase Lactate Dehydrogenase Troponin I High Sens C-Reactive Protein B-Natriuretic Peptide Total Protein Albumin Carcinoembryonic Ag Procalcitonin Urine Color YELLOW Urine Appearance CLEAR Urine pH 6.0 Ur Specific [place] <= 1.005 Urine Protein 1+ H Urine Glucose (UA) NEG Urine Ketones NEG Urine Blood 1+ H Urine Nitrite NEG Ur Leukocyte Esterase NEG Urine RBC 0-2 Urine WBC 0 Ur Squamous Epith Cells TRACE Amorphous Sediment TRACE Urine Bacteria 1+ Urine Mucus 1+ U Random Total Protein 24 H Ur Random Sodium < 20.0 Urine Creatinine 30.68 Protein/Creatinin Ratio 0.78 H Influenza Type A (PCR) Influenza Type B (PCR) RSV RNA Qual (PCR) SARS-CoV-2 RNA (RT-PCR) 01/03/21 01/03/21 01/03/21 17:02 18:00 18:54 MCV MCH MCHC RDW Plt Count MPV Immature Gran % (Auto) Neut % (Auto) Lymph % (Auto) [place] % (Auto) Eos % (Auto) Baso % (Auto) Lymph # (Auto) [place] # (Auto) Eos # (Auto) Baso # (Auto) Abs Immat Gran (auto) Absolute Neuts (auto) Absolute Nucleated RBC Nucleated RBC % (auto) Neutrophils % (Manual) Band Neutrophils % Lymphocytes % (Manual) Monocytes % (Manual) Metamyelocytes % Abs Neuts (Manual) Lymphocytes # (Manual) Monocytes # (Manual) Toxic Vacuolation Platelet Estimate Large Platelets Plt Morphology Comment RBC Morphology Ovalocytes [place] Cells Acanthocytes (Spur) Anion Gap Estim Creat Clear Calc Estimated GFR Random Glucose Lactic Acid Lactic Acid Fup @ 2Hr Lactic Acid Fup @ 4Hr 3.3 H* Calcium Ferritin Total Bilirubin AST ALT Alkaline Phosphatase Lactate Dehydrogenase Troponin I High Sens 9.4 C-Reactive Protein B-Natriuretic Peptide Total Protein Albumin Carcinoembryonic Ag Procalcitonin Urine Color Urine Appearance Urine pH Ur Specific [place] Urine Protein Urine Glucose (UA) Urine Ketones Urine Blood Urine Nitrite Ur Leukocyte Esterase Urine RBC Urine WBC Ur Squamous Epith Cells Amorphous Sediment Urine Bacteria Urine Mucus U Random Total Protein Ur Random Sodium Urine Creatinine 30.42 Protein/Creatinin Ratio Influenza Type A (PCR) Influenza Type B (PCR) RSV RNA Qual (PCR) SARS-CoV-2 RNA (RT-PCR) 01/04/21 01/04/21 06:08 06:08 MCV 88.0 MCH 31.8 MCHC 36.1 H RDW 13.5 Plt Count 68 L MPV 12.5 H Immature Gran % (Auto) Neut % (Auto) Lymph % (Auto) [place] % (Auto) Eos % (Auto) Baso % (Auto) Lymph # (Auto) [place] # (Auto) Eos # (Auto) Baso # (Auto) Abs Immat Gran (auto) Absolute Neuts (auto) Absolute Nucleated RBC 0.000 Nucleated RBC % (auto) 0.0 Neutrophils % (Manual) Band Neutrophils % Lymphocytes % (Manual) Monocytes % (Manual) Metamyelocytes % Abs Neuts (Manual) Lymphocytes # (Manual) Monocytes # (Manual) Toxic Vacuolation Platelet Estimate Large Platelets Plt Morphology Comment RBC Morphology Ovalocytes [place] Cells Acanthocytes (Spur) Anion Gap 13 Estim Creat Clear Calc 47.2 Estimated GFR 52 Random Glucose 119 H Lactic Acid Lactic Acid Fup @ 2Hr Lactic Acid Fup @ 4Hr Calcium 7.4 L Ferritin Total Bilirubin 1.2 H AST 34 D ALT 34 Alkaline Phosphatase 106 Lactate Dehydrogenase Troponin I High Sens C-Reactive Protein B-Natriuretic Peptide Total Protein 4.9 L D Albumin 2.7 L D Carcinoembryonic Ag Procalcitonin Urine Color Urine Appearance Urine pH Ur Specific [place] Urine Protein Urine Glucose (UA) Urine Ketones Urine Blood Urine Nitrite Ur Leukocyte Esterase Urine RBC Urine WBC Ur Squamous Epith Cells Amorphous Sediment Urine Bacteria Urine Mucus U Random Total Protein Ur Random Sodium Urine Creatinine Protein/Creatinin Ratio Influenza Type A (PCR) Influenza Type B (PCR) RSV RNA Qual (PCR) SARS-CoV-2 RNA (RT-PCR) Microbiology Microbiology Results: Microbiology 01/03/21 13:41 Blood Culture - Preliminary Blood - Venous Prelim: GPC Gram Stain only 01/03/21 12:54 Blood Culture - Preliminary Blood - Venous Prelim: GPC Gram Stain only Assessment and Plan (1) Acute respiratory failure with hypoxia: Status: Acute (2) COVID-19: Status: Acute (3) Pulmonary embolism: Status: Acute (4) Severe sepsis: Status: Acute Assessment and Plan: hospital d#2 75yo M with COPD presenting on 8th day of breakthrough COVID-19 infection with hypoxia, severe sepsis, thrombocytopenia, acute kidney injury, and hyponatremia. Found to have PE by V/Q scan. # acute PE - enoxaparin 1 mg/kg q12h, TTE to assess for R heart strain # severe COVID-19 PNA - continue IV methylprednisolone, ID consultation, trend inflammatory markers # severe sepsis - likely viral but PCT is markedly elevated- will follow BCx and check Legionella + pneumococcal urinary antigens and cover bacterial pathogens with ceftriaxone + doxycycline d#2 # acute hypoxic respiratory failure - supplemental O2 via HFNC - encourage awake proning # AYESHA # hyponatremia - prerenal/hypovolemic, improved after IV hydration # thrombocytopenia - likely due to sepsis/COVID-19.? monitor CBC. # COPD exacerbation - continue ICS/LABA.? prn ELAINE inhalers.? steroids as above Updated pt's Celina by phone Quality Stroke Does the patient have a stroke diagnosis?: No VTE Prior VTE?: No VTE Risk Level:: Medical - moderate - high VTE Device Contraindication: N/A - Device Ordered VTE Drug Contraindication: N/A - Med Ordered
[2021-01-04] MEDS: cefTRIAXone sodium 1 GM in 0.9 % Sodium Chloride 50 ML IV (13:24)
[2021-01-04] MEDS: Atorvastatin Calcium 80 MG TABLET PO (21:21)
--- NOTE | 2021-01-04 23:27 | PM.EVENT ---
Event Note Date of Service: 01/18/21 Event Note: COVID positive at least 10 days, no Remdesivir Agree CTX/Doxycycline with high procalcitonin Would agree check PE
[2021-01-05] VITALS (8 sets, daily range): BP systolic 147–181; BP diastolic 58–100; PULSE 60–81; RESP 17–20; TEMP 36.2–36.7; O2SAT 92–96
[2021-01-05] MEDS: methylPREDNISolone Sod Succ 125 MG/2 ML VIAL 60 MG IVPUSH ×3 (01:15→17:35)
[2021-01-05] MEDS: Omeprazole 20 MG CAPSULE.DR PO (05:13)
[2021-01-05] MEDS: Doxycycline Hyclate 100 MG in 0.9 % Sodium Chloride 250 ML 166.67 MG IV ×2 (05:14→17:07)
[2021-01-05 07:13] LABS: Mean Corpuscular HGB Conc 34.9 g/dl (31.0-36.0); PLT CLUMP 1
[2021-01-05 07:15] LABS: Hematocrit 37.5 % (42.0-52.0); Hemoglobin 13.1 g/dl (14.0-18.0); Mean Corpuscular Volume 88.9 fL (80.0-98.0); Red Blood Count 4.22 X10*6/uL (4.60-5.80); Red Cell Distribution Width 14.2 % (11.0-16.0); White Blood Count 4.9 X10*3/uL (4.8-10.8)
[2021-01-05 07:16] LABS: Platelet Count 76 X10*3/uL (160-400)
[2021-01-05 07:27] LABS: D Dimer 630 NG/ML
[2021-01-05] MEDS: Fluticasone/Vilanterol 100/25 BLST.W.DEV 1 PUFF INHALE (08:12)
[2021-01-05 08:26] LABS: Alanine Aminotransferase 27 U/L (0-40); Albumin Level 2.7 g/dL (3.5-5.0); Alkaline Phosphatase 116 U/L (39-117); Anion Gap 10 (12-20); Aspartate Amino Transferase 21 U/L (5-37); Blood Urea Nitrogen 40 mg/dL (9-16); C Reactive Protein 16.82 mg/dL (< or = 0.50); Calcium 7.8 mg/dL (8.4-10.2); Carbon Dioxide 29 mmol/L (22-29); Chloride 101 mmol/L (96-108); Estimated Glomerular Filt Rate > 60; Glucose Random 132 mg/dL (60-115); Sodium 136 mmol/L (135-145); Total Protein 4.9 g/dL (6.5-8.0)
[2021-01-05 08:40] LABS: Procalcitonin 2.61 ng/mL
[2021-01-05] MEDS: 0.9 % Sodium Chloride Flush 3 ML SYRINGE IVFLUSH ×3 (09:07→20:45)
[2021-01-05] MEDS: Enoxaparin Sodium 80 MG/0.8 ML SYRINGE SUBCUT ×2 (09:11→20:44)
--- NOTE | 2021-01-05 11:18 | HO.PM.IMPN ---
Subjective Subjective Date of Service: 01/05/21 Interval History: Dyspnea much improved No chest pain No fever Wants to go home but still on HFNC Review of Systems Review of Systems: Yes all other systems are reviewed and are negative Physical Exam Vital Signs: Vital Signs: Last Vital Signs Temp 97.5 F 01/05/21 08:00 Pulse 78 01/05/21 08:00 Resp 20 01/05/21 08:12 BP 158/58 H 01/05/21 08:00 Pulse Ox 93 01/05/21 08:00 Oxygen Flow Rate 6 01/03/21 12:38 Body Mass Index 26.6 Gen: NAD on HFNC 50% fiO2 @ 45 Lpm HEENT: sclera anicteric, moist mucus membranes Neck: supple Lungs: clear to auscultation bilaterally Heart: regular rate and rhythm, no murmurs Abd: soft, non-tender, non-distended Ext: no edema Skin: warm/well-perfused Neuro: alert and oriented x3, no focal findings Psych: appropriate affect Objective Data Active Medications Acetaminophen (Acetaminophen 325 Mg Tablet) 650 mg PO Q6H PRN PRN Reason: Pain, Mild (Pain Scale 1-3) Albuterol Sulfate (Albuterol Sulfate 90 Mcg 8 Gm Inhaler) 2 puff INHALE RQ4H PRN PRN Reason: shortness of breath/wheeze Atorvastatin Calcium (Atorvastatin Calcium 80 Mg Tablet) 80 mg PO BEDTIME [facility] Last Admin: 01/04/21 21:21 Dose: 80 mg Documented by: GHULAM Enoxaparin Sodium (Enoxaparin Sodium 80 Mg/0.8 Ml Syringe) 80 mg SUBCUT Q12H [facility] Last Admin: 01/05/21 09:11 Dose: 80 mg Documented by: ANGIE Fluticasone/Vilanterol (Fluticasone/Vilanterol 100/25 Blst.W.Dev) 1 puff INHALE RDAILY [facility] Last Admin: 01/05/21 08:12 Dose: 1 puff Documented by: PATRICE Ceftriaxone Sodium 1 gm/ (Sodium Chloride) 50 mls @ 100 mls/hr IV Q24H [facility] Last Infusion: 01/04/21 14:56 Dose: 0 mls/hr Documented by: JING Doxycycline Hyclate 100 mg/ (Sodium Chloride) 250 mls @ 166.67 mls/hr IV Q12H [facility] Last Infusion: 01/05/21 07:58 Dose: 0 mls/hr Documented by: GHULAM Methylprednisolone Sodium Succinate (Methylprednisolone Sod Succ 125 Mg/2 Ml Vial) 60 mg IVPUSH Q8H [facility] Last Admin: 01/05/21 09:06 Dose: 60 mg Documented by: ANGIE Omeprazole (Omeprazole 20 Mg Capsule.Dr) 20 mg PO DAILY@0630 [facility] Last Admin: 01/05/21 05:13 Dose: 20 mg Documented by: GHULAM Ondansetron HCl (Ondansetron Hcl 4 Mg/2 Ml Vial) 4 mg IVPUSH Q8H PRN PRN Reason: Nausea and Vomiting Pharmacy Consult (Consult Rx Perform Med Rec) 1 each MISCELLANE ONCE PRN PRN Reason: Consult order Sodium Chloride (0.9 % Sodium Chloride Flush 3 Ml Syringe) 3 ml IVFLUSH QSHIFT [facility] Last Admin: 01/05/21 09:07 Dose: 3 ml Documented by: ANGIE Labs CBC & Chem 7: 01/05/21 06:19 01/05/21 06:19 Labs: Laboratory Results - last 24 hr 01/04/21 01/05/21 01/05/21 10:44 06:19 06:19 MCV 88.9 MCH 31.0 MCHC 34.9 RDW 14.2 Plt Count 76 L MPV 12.0 Absolute Nucleated RBC 0.000 Nucleated RBC % (auto) 0.0 D-Dimer 630 Anion Gap Estim Creat Clear Calc Estimated GFR Random Glucose Calcium Total Bilirubin AST ALT Alkaline Phosphatase C-Reactive Protein Total Protein Albumin Procalcitonin Ur Strep pneumoniae Ag Cancelled 01/05/21 01/05/21 06:19 06:19 MCV MCH MCHC RDW Plt Count MPV Absolute Nucleated RBC Nucleated RBC % (auto) D-Dimer Anion Gap 10 L Estim Creat Clear Calc 55.0 Estimated GFR > 60 Random Glucose 132 H Calcium 7.8 L Total Bilirubin 1.0 AST 21 ALT 27 Alkaline Phosphatase 116 C-Reactive Protein 16.82 H Total Protein 4.9 L Albumin 2.7 L Procalcitonin 2.61 Ur Strep pneumoniae Ag Microbiology Microbiology Results: Microbiology 01/03/21 13:41 Blood Culture - Preliminary Blood - Venous Streptococcus pneumoniae 11/12/21 12:54 Blood Culture - Preliminary Blood - Venous Streptococcus pneumoniae Assessment and Plan (1) Acute respiratory failure with hypoxia: Status: Acute (2) COVID-19: Status: Acute (3) Pulmonary embolism: Status: Acute (4) Severe sepsis: Status: Acute Assessment and Plan: hospital d#3 75yo M with COPD presenting on 8th day of breakthrough COVID-19 infection with hypoxia, severe sepsis, thrombocytopenia, acute kidney injury, and hyponatremia. Found to have PE by V/Q scan. # acute PE - continue enoxaparin 1 mg/kg q12h, TTE to assess for R heart strain pending, Heme consult pending # severe COVID-19 PNA - continue IV methylprednisolone, ID consulted- no remdesivir, trend inflammatory markers # severe sepsis - likely viral but PCT markedly elevated- follow BCx and Legionella + pneumococcal urinary antigens pending. covering bacterial pathogens with ceftriaxone + doxycycline d#3 # acute hypoxic respiratory failure - supplemental O2 via HFNC- try to wean to NC - encourage awake proning # AYESHA # hyponatremia - prerenal/hypovolemic, resolved after IV hydration # thrombocytopenia - likely due to sepsis/COVID-19.? monitor CBC. # COPD exacerbation - continue ICS/LABA.? prn ELAINE inhalers.? steroids as above Quality Stroke Does the patient have a stroke diagnosis?: No VTE Prior VTE?: No VTE Risk Level:: Medical - moderate - high VTE Device Contraindication: N/A - Device Ordered VTE Drug Contraindication: N/A - Med Ordered
[2021-01-05] MEDS: cefTRIAXone sodium 1 GM in 0.9 % Sodium Chloride 50 ML IV (13:43)
--- NOTE | 2021-01-05 20:25 | P.CNHO_ITS ---
Subjective - Subjective Chief complaint: Consult for P.E, Thrombocytopenia. Patient: new to practice Consult date: 01/05/21 Requesting Physician: Zoie. Primary Care Provider: Donal Benoit MD Medical Summary: DIAGNOSIS: 1. P.E. 2. Thrombocytopenia. HPI - Consult Narrative Reason for consult: Consult for: 1. PE. 2. Thrombocytopenia. In the setting of COVID infect Narrative: William Fang is a pleasant 75 year old gentleman, presented with cough and fatigue. He has an underlying history of COPD, + tobacco abuse, fully vaccinated against COVID-19 with 2 doses of Pfizer mRNA vaccine with last dose in May but no booster since. He was exposed to COVID case 2 wk ago and presented to urgent care 1 wk ago with one day of dry cough, myalgias, and fatigue. He actually tested positive for COVID-19 and was prescribed dexamethasone. He presented to the ED, with worsening dyspnea and ongoing dry cough. No fever. No chest pain. He presented hypoxic and tachypneic and was found to have leukopenia, thrombocytopenia, lactic acidosis, hyponatremia, and renal failure. He was given dexamethasone, ceftriaxone, and 30 cc/kg of normal saline. His is also positive but asymptomatic. Today is the 10th day of illness for him. Review of Systems All other systems are reviewed and are negative [facility] Medical History (Updated 01/03/21 @ 17:42 by Montana Lino MD) COPD (chronic obstructive pulmonary disease) Dyslipidemia Pertinent family history: no cardiac disease Surgical History: History of partial colectomy Review of Systems - Constitutional Reports system reviewed and no additional complaints, except as documented, Reports fatigue, Reports fever(s), Reports headache(s), Reports lack of energy, Reports malaise, Reports weakness, Reports weight loss - Eyes Reports system reviewed and no additional complaints, except as documented, Denies blurry vision - ENT Reports system reviewed and no additional complaints, except as documented - Cardiovascular Reports system reviewed and no additional complaints, except as documented, Reports chest pain, Reports shortness of breath with activity - Respiratory Reports no additional respiratory complaints, Reports chest congestion - Gastrointestinal Reports system reviewed and no additional complaints, except as documented, Reports nausea, Denies abdominal pain, Denies belching, Denies diarrhea, Denies vomiting - Genitourinary Genitourinary: Reports no additional male genitourinary complaints - Musculoskeletal Reports system reviewed and no additional complaints, except as documented, Reports back pain - Integumentary/Breasts Skin/Breast: Reports no additional skin complaints, Denies bleeding lesions - Neurologic Reports system reviewed and no additional complaints, except as documented - Psychiatric Reports system reviewed and no additional complaints, except as documented, Reports anxiety - Endocrine Reports no additional endocrine complaints, Denies excessive sweating - Hematologic/Lymphatic Reports system reviewed and no additional complaints, except as documented, Denies easy bruising - Allergic/Immunologic Reports system reviewed and no additional complaints, except as documented, Reports GI upset with certain foods Oncology Screenings - ECOG Performance Status ECOG Performance Status: 1 [facility] Medical History: Medical History (Last Reviewed 01/06/21 @ 16:09 by Neisha Gill MD) COPD (chronic obstructive pulmonary disease) Dyslipidemia Encounter for competency evaluation Severe sepsis Functional capacity: independent ambulation Patient : No Surgical History: Surgical History (Last Reviewed 01/06/21 @ 16:09 by Neisha Gill MD) History of partial colectomy Social History: Social History (Last Reviewed 01/06/21 @ 16:09 by Neisha Gill MD) Living Situation History: Household Members: Spouse Housing: House Do you presently have visiting nurse or other home services: No Alcohol History: Alcohol intake: current Alcohol History Details: Alcohol intake frequency: 0-2 drinks per day Alcohol type: beer Tobacco History: Patient Tobacco Use Status: Former Tobacco user 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 Home Medications and Allergies Current Medications: Current Medications Acetaminophen (Acetaminophen 325 Mg Tablet) 650 mg PO Q6H PRN PRN Reason: Pain, Mild (Pain Scale 1-3) Albuterol Sulfate (Albuterol Sulfate 90 Mcg 8 Gm Inhaler) 2 puff INHALE RQ4H PRN PRN Reason: shortness of breath/wheeze Atorvastatin Calcium (Atorvastatin Calcium 80 Mg Tablet) 80 mg PO BEDTIME [facility] Last Admin: 01/04/21 21:21 Dose: 80 mg Documented by: Enoxaparin Sodium (Enoxaparin Sodium 80 Mg/0.8 Ml Syringe) 80 mg SUBCUT Q12H [facility] Last Admin: 01/05/21 09:11 Dose: 80 mg Documented by: Fluticasone/Vilanterol (Fluticasone/Vilanterol 100/25 Blst.W.Dev) 1 puff INHALE RDAILY [facility] Last Admin: 01/05/21 08:12 Dose: 1 puff Documented by: Ceftriaxone Sodium 1 gm/ (Sodium Chloride) 50 mls @ 100 mls/hr IV Q24H [facility] Last Infusion: 01/05/21 14:58 Dose: Infused Documented by: Doxycycline Hyclate 100 mg/ (Sodium Chloride) 250 mls @ 166.67 mls/hr IV Q12H [facility] Last Admin: 01/05/21 17:07 Dose: 166.67 mls/hr Documented by: Methylprednisolone Sodium Succinate (Methylprednisolone Sod Succ 125 Mg/2 Ml V ial) 60 mg IVPUSH Q8H [facility] Last Admin: 01/05/21 17:35 Dose: 60 mg Documented by: Omeprazole (Omeprazole 20 Mg Capsule.) 20 mg PO DAILY@0630 [facility] Last Admin: 01/05/21 05:13 Dose: 20 mg Documented by: Ondansetron HCl (Ondansetron Hcl 4 Mg/2 Ml Vial) 4 mg IVPUSH Q8H PRN PRN Reason: Nausea and Vomiting Pharmacy Consult (Consult Rx Perform Med Rec) 1 each MISCELLANE ONCE PRN PRN Reason: Consult order Sodium Chloride (0.9 % Sodium Chloride Flush 3 Ml Syringe) 3 ml IVFLUSH QSHIFT [facility] Last Admin: 01/05/21 17:09 Dose: 3 ml Documented by: Home Medications Medication Instructions Recorded Confirmed Type omeprazole 20 mg capsule,delayed 20 mg PO DAILY 12/27/20 01/03/21 History release albuterol sulfate 90 mcg/actuation 2 puff INHALATION Q4H PRN 01/03/21 01/03/21 History aerosol inhaler atorvastatin 80 mg tablet 80 mg PO DAILY 01/03/21 01/03/21 History dexamethasone 4 mg tablet 4 mg PO TID 01/03/21 01/03/21 History fluticasone 250 mcg-salmeterol 50 1 puff INHALATION BID 01/03/21 01/03/21 History mcg/dose blistr powdr for inhalation (Advair Diskus) zinc 50 mg tablet 50 mg PO DAILY 01/03/21 01/03/21 History Allergies Allergy/AdvReac Type Severity Reaction Status Date / Time No Known Allergies Allergy Unverified 12/27/20 14:01 [No Known Allergies*] Physical Exam Vital signs: Vital Signs Temp 97.1 F 01/05/21 19:13 Pulse 70 01/05/21 19:13 Resp 20 01/05/21 19:13 BP 181/84 H 01/05/21 19:13 Pulse Ox 93 01/05/21 19:13 Intake & Output 01/05/21 01/05/21 01/06/21 06:59 18:59 06:59 Intake Total 800 / 1100 780 / 780 Output Total 900 / 1800 975 / 975 Balance -100 / -700 -195 / -195 Urine Output (Average ml/kg/hr) 0.91 0.99 Intake: Intake, Oral Amount 800 / 800 480 / 480 Intake, IV Amount 300 / 300 Doxycycline Hyclate 100 mg In 0 250 / 250 .9 % Sodium Chloride 250 ml @ 166.67 mls/hr IV Q12H [facility] Rx#: [id number] cefTRIAXone sodium 1 gm In 0.9 50 / 50 % Sodium Chloride 50 ml @ 100 mls/hr IV Q24H [facility] Rx#: [id number] Output: Output, Urine Amount 900 / 1800 975 / 975 Other: Breakfast % Eaten 100% Lunch % Eaten 100% Urine Urinal Urinal Urine Color Concentrated Weight 82 kg - Constitutional Present: mild distress - Routine HEENT Exam Head: Present: normal inspection ENT: Present: normal exam - Routine Neck Exam Present: supple. Absent: lymphadenopathy - Routine Respiratory Exam Present: decreased breath sounds - Routine Cardiovascular Exam Cardiovascular: Present: RRR, S1, S2 - Routine Skin Exam Present: intact - Routine Neurological Exam Present: alert, oriented X3 - Detailed Neurological Exam: Coma Scale Eye Opening: Spontaneous (4) Motor Response: Obeys commands (6) Hem/Onc Consult Result - Labs CBC & Chem 7: 01/07/21 06:28 01/07/21 06:28 Labs: Short CBC 01/05/21 Range/Units 06:19 WBC 4.9 (4.8-10.8) X10*3/uL Hgb 13.1 L (14.0-18.0) g/dl Hct 37.5 L (42.0-52.0) % Plt Count 76 L (160-400) X10*3/uL BMP 01/05/21 06:19 Sodium 136 Potassium 4.0 Chloride 101 Carbon Dioxide 29 BUN 40 H Creatinine 1.16 Calcium 7.8 L Liver Function 01/05/21 Range/Units 06:19 Total Bilirubin 1.0 (0.0-1.0) mg/dL AST 21 (5-37) U/L ALT 27 (0-40) U/L Alkaline Phosphatase 116 (39-117) U/L Albumin 2.7 L (3.5-5.0) g/dL Assessment and Plan Patient Active problem list reviewed?: Yes (1) Pulmonary embolism Status: Acute Assessment and plan: 75 year old gentleman, with recent Covid infection, with resulting Pulmonary Embolism, sepsis, and thrombocytopenia. He is on Lovenox, renally adjusted, antibiotics: Ceftriaxone and Doxycycline, for the infection. Thrombocytopenia likely related to ALL OF THE ABOVE. Platelet count is holding stable, a bit on the upswing. PLAN: Continue supportive care. To continue to monitor, the counts. Will follow, Thanks, Addendum: Plt count improved:84,000 on 01/07. - Time Spent With Patient Time Spent with Patient (in minutes): 30
[2021-01-05] MEDS: Atorvastatin Calcium 80 MG TABLET PO (20:44)
[2021-01-05] MEDS: Melatonin 3 MG TABLET 6 MG PO (22:03)
[2021-01-06] VITALS (8 sets, daily range): BP systolic 130–170; BP diastolic 58–83; PULSE 66–91; RESP 17–23; TEMP 36–36.6; O2SAT 95–98; BMI 27.6
[2021-01-06] MEDS: methylPREDNISolone Sod Succ 125 MG/2 ML VIAL 60 MG IVPUSH (01:54)
[2021-01-06] MEDS: Doxycycline Hyclate 100 MG in 0.9 % Sodium Chloride 250 ML 166.67 MG IV (03:54)
--- NOTE | 2021-01-06 07:18 | PC.NURSE ---
pt with difficulty sleeping overnight, contacted Dr. Monson for sleep med. melatonin ordered & given with some effect. pt upset with timing of receiving med (estim 15-20 from order received until acknowledged and given) but settled with emotional support but made aware that interruptions for vitals and iv abx would occur, verbalized understanding and agreed with plan.
--- NOTE | 2021-01-06 08:12 | PHA.PROG ---
Admission Date/Time: January 03, 2021 17:30 Indication: BACTEREMIA Weight in k kg Adjusted body weight in Kg: [place] body weight in Kg: Obesity Dosing Indication % IBW: Serum Creatinine - Last 168 Hours 01/03/21 01/04/21 01/05/21 12:52 06:08 06:19 Creatinine 2.26 H 1.35 1.16 Estimated CrCl and GFR - Last 168 Hours 01/03/21 01/04/21 01/05/21 12:52 06:08 06:19 Estim Creat Clear Calc 28.2 47.2 55.0 Estimated GFR 28 52 > 60 Vancomycin Loading Dose: N/A Current Vancomycin Dosing Regimen: 1500MG Q24H Vancomycin Monitoring using AUC goal of 400 - 600 range with trough as surrogate marker: AUC 488, TROUGH 14.3 Date and Time for next Vancomycin Level to be drawn: DRAW AT 01/08 AT 0800 Pharmacist Comments on Vancomycin Plan: Vancomycin dosing will take advantage of [employer] as a clinical decision support tool that uses Bayesian modeling to calculate individual patient's pharmacokinetic parameters and forecast the patient's drug concentration time course with the target goal AUC 24 range of 400 - 600 mg/L/hr.
[2021-01-06] MEDS: Fluticasone/Vilanterol 100/25 BLST.W.DEV 1 PUFF INHALE (08:19)
[2021-01-06] MEDS: Enoxaparin Sodium 80 MG/0.8 ML SYRINGE SUBCUT (08:34)
[2021-01-06] MEDS: Omeprazole 20 MG CAPSULE.DR PO (08:35)
[2021-01-06] MEDS: 0.9 % Sodium Chloride Flush 3 ML SYRINGE IVFLUSH ×2 (08:35→15:50)
[2021-01-06] MEDS: cefTRIAXone sodium 2 GM in 0.9 % Sodium Chloride 50 ML IV ×2 (08:35→20:12)
[2021-01-06] MEDS: methylPREDNISolone Sod Succ 125 MG/2 ML VIAL 40 MG IVPUSH ×2 (08:35→15:50)
[2021-01-06 09:06] LABS: Anion Gap 16 (12-20); Blood Urea Nitrogen 39 mg/dL (9-16); Carbon Dioxide 26 mmol/L (22-29); Chloride 100 mmol/L (96-108); Creatinine Clr Calc Pharmacy 59.9; Estimated Glomerular Filt Rate > 60; Glucose Random 201 mg/dL (60-115); Potassium 4.2 mmol/L (3.3-5.1); Sodium 138 mmol/L (135-145)
--- NOTE | 2021-01-06 09:25 | MHC.CDI.CONC ---
CDI Concurrent Query Documentation Clarification: PHYSICIAN'S DOCUMENTATION REQUEST Date of Query: 01/06/21 0927 Patient Name: William Fang Admit Date: 01/03/21 Dear Doctor, A review of the medical record indicates additional documentation may be needed. Please review below and update the documentation accordingly. Risk Factors/Clinical Indicators/Treatments PN 01/05: Acute pulmonary embolism - continue enoxaparin 1mg/kg q12h TTE to assess R heart strain. Severe sepsis due to covid-19 pneumonia. Vancomycin, Ceftriaxone, IV fluids. Based on the above, could you clarify in the Progress Notes the appropriate diagnosis, if significant, that supports the above abnormalities and additional evaluation, monitoring, and/or treatment rendered: Pulmonary embolism, acute Pulmonary embolism with/without acute cor pulmonale Septic pulmonary embolism Saddle pulmonary embolism Traumatic pulmonary embolism Other (please specify) Unable to determine Use of terms such as suspected, likely, concern for, or probable (associated with a specific diagnosis that is being evaluated, monitored, or treated as if it exists) are acceptable and can be coded in the inpatient setting, when documented at the time of discharge. Thank you, Michelle Angulo [facility], CDIS Extension: [phone] Please use your independent medical judgment in providing your response. THIS QUERY IS PART OF THE PERMANENT MEDICAL RECORD Provider Response: Other Other Diagnosis: acute PE
--- NOTE | 2021-01-06 09:36 | MHC.CM.PN ---
Male patient threatening to leave AMA. He was sob. Instructed him to focus on breathing thru his nose and to exhale thru his mouth for 10 min. So that he can calm down and regroup. Pt returned demo of Purse lip breathing. He requested assist, to chair and with set up for his Laptop. He also received assist from Maru Romero, patient experience management, connecting to [facility] internet. T/W explained that we can not set him up with oxygen or services if he leaves AMA.
[2021-01-06] MEDS: vancomycin HCL 1,500 MG in 0.9 % Sodium Chloride 500 ML 333.33 MG IV (09:53)
--- NOTE | 2021-01-06 11:20 | P.PNIM_ITS ---
Subjective Subjective Date of Service: 01/06/21 Interval History: 2/2 BCx POSITIVE for Streptococcus pneumoniae Weaned from HFNC to 5L via NC today Very agitated and insists he leaves the hospital despite counseling on his hypoxia and bacteremia Review of Systems Review of Systems: Yes all other systems are reviewed and are negative Physical Exam Vital Signs: Vital Signs: Last Vital Signs Temp 96.8 F 01/06/21 08:00 Pulse 79 01/06/21 08:00 Resp 23 H 01/06/21 08:00 BP 130/83 01/06/21 08:00 Pulse Ox 95 01/06/21 08:52 Oxygen Flow Rate 6 01/03/21 12:38 Body Mass Index 27.6 Gen: agitated, short of breath HEENT: sclera anicteric, moist mucus membranes Neck: supple Lungs: tachypneic, clear to auscultation bilaterally Heart: regular rate and rhythm, no murmurs Abd: soft, non-tender, non-distended Ext: no edema Skin: warm/well-perfused Neuro: alert and oriented x3, no focal findings Psych: anxious, agitated Objective Data Active Medications Acetaminophen (Acetaminophen 325 Mg Tablet) 650 mg PO Q6H PRN PRN Reason: Pain, Mild (Pain Scale 1-3) Albuterol Sulfate (Albuterol Sulfate 90 Mcg 8 Gm Inhaler) 2 puff INHALE RQ4H PRN PRN Reason: shortness of breath/wheeze Atorvastatin Calcium (Atorvastatin Calcium 80 Mg Tablet) 80 mg PO BEDTIME [facility] Last Admin: 01/05/21 20:44 Dose: 80 mg Documented by: NACHO Enoxaparin Sodium (Enoxaparin Sodium 80 Mg/0.8 Ml Syringe) 80 mg SUBCUT Q12H [facility] Last Admin: 01/06/21 08:34 Dose: 80 mg Documented by: AYANNA Fluticasone/Vilanterol (Fluticasone/Vilanterol 100/25 Blst.W.Dev) 1 puff INHALE RDAILY [facility] Last Admin: 01/06/21 08:19 Dose: 1 puff Documented by: PATRICE Vancomycin HCl 1,500 mg/ (Sodium Chloride) 500 mls @ 333.333 mls/hr IV Q24H [facility] Last Admin: 01/06/21 09:53 Dose: 333.33 mls/hr Documented by: AYANNA Ceftriaxone Sodium 2 gm/ (Sodium Chloride) 50 mls @ 100 mls/hr IV Q12H [facility] Last Infusion: 01/06/21 09:47 Dose: 0 mls/hr Documented by: AYANNA Melatonin (Melatonin 3 Mg Tablet) 6 mg PO BEDTIME PRN PRN Reason: Insomnia Last Admin: 01/05/21 22:03 Dose: 6 mg Documented by: NACHO Methylprednisolone Sodium Succinate (Methylprednisolone Sod Succ 125 Mg/2 Ml Vial) 40 mg IVPUSH Q8H [facility] Last Admin: 01/06/21 08:35 Dose: 40 mg Documented by: AYANNA Omeprazole (Omeprazole 20 Mg Capsule.Dr) 20 mg PO DAILY@0630 [facility] Last Admin: 01/06/21 08:35 Dose: 20 mg Documented by: AYANNA Ondansetron HCl (Ondansetron Hcl 4 Mg/2 Ml Vial) 4 mg IVPUSH Q8H PRN PRN Reason: Nausea and Vomiting Pharmacy Consult (Consult Rx Perform Med Rec) 1 each MISCELLANE ONCE PRN PRN Reason: Consult order Pharmacy Consult (Consult Rx Vancomycin Dosing) 1 each MISCELLANE DAILY [facility] Sodium Chloride (0.9 % Sodium Chloride Flush 3 Ml Syringe) 3 ml IVFLUSH QSHIFT [facility] Last Admin: 01/06/21 08:35 Dose: 3 ml Documented by: AYANNA Labs CBC & Chem 7: 01/05/21 06:19 01/06/21 08:34 Labs: Laboratory Results - last 24 hr 01/06/21 08:34 Anion Gap 16 Estim Creat Clear Calc 59.9 Estimated GFR > 60 Random Glucose 201 H D Calcium 8.0 L Microbiology Microbiology Results: Microbiology 01/03/21 13:41 Blood Culture - Final Blood - Venous Streptococcus pneumoniae 01/03/21 12:54 Blood Culture - Final Blood - Venous Streptococcus pneumoniae Assessment and Plan (1) Acute respiratory failure with hypoxia: Status: Acute (2) COVID-19: Status: Acute (3) Pulmonary embolism: Status: Acute (4) Severe sepsis: Status: Acute Assessment and Plan: hospital d#4 75yo M with COPD presenting on 8th day of breakthrough COVID-19 infection with hypoxia, severe sepsis, thrombocytopenia, acute kidney injury, and hyponatremia. Found to have PE by V/Q scan. Subsequently found to have pneumococcal bacteremia # invasive pneumococcal disease/bacteremia - continue ceftriaxone- increase dose. added vancomycin. follow susceptibilities. will need 14d therapy which can be completed PO once bloodstream clears and we have susceptibilities. ID consult. TTE pending. repeat BCx to ensure clearance. # acute PE - transition from enoxaparin 1 mg/kg q12h to apixaban # severe COVID-19 PNA - taper IV methylprednisolone, trend inflammatory markers # severe sepsis - due to COVID-19 and pneumococcal bacteremia # acute hypoxic respiratory failure - supplemental O2, wean as tolerated - encourage awake proning # AYESHA # hyponatremia - prerenal/hypovolemic, resolved after IV hydration # thrombocytopenia - likely due to sepsis/COVID-19.? stable. # COPD exacerbation - continue ICS/LABA.? prn ELAINE inhalers.? steroids as above # dispo - psych consult to assess competency to leave AMA - pt and informed that cannot have home O2 if he signs out AMA Quality Stroke Does the patient have a stroke diagnosis?: No VTE Prior VTE?: No VTE Risk Level:: Medical - moderate - high VTE Device Contraindication: N/A - Device Ordered VTE Drug Contraindication: N/A - Med Ordered
--- NOTE | 2021-01-06 11:32 | MHC.CM.PN ---
Per ROUNDS discussion,Patient is possibly leaving AMA.Per MD,Psych will eval for capacity.CM will follow.
--- NOTE | 2021-01-06 14:43 | P.CNPS_ITS ---
History of Present Illness Date of Service: 01/06/21 Chief Complaint: covid-19 pneumonia, AYESHA Reason for Consult: Capacity evaluation, attempting to leave AMA Requesting physician: Montana Lino Discussed with referring provider: Yes Sources of Information: patient interviewed and chart reviewed Additional Sources of Information: spoke with on phone while meeting with patient. HPI Narrative: Patient is a 75yo M with COPD + tobacco abuse, fully vaccinated against COVID-19 with 2 doses of Pfizer mRNA vaccine with last dose in May but no booster since, admitted for further care and management r/t worsening dyspnea and ongoing dry cough.? Has been hypoxic and tachypneic, and was found to have leukopenia, thrombocytopenia, lactic acidosis, hyponatremia, and renal failure.? Psychiatry consult service was asked to meet with patient regarding his insistence this morning to leave AMA. Past Psychiatric History: None known / reported. Medical Evaluation Reviewed: Yes Personal & Social History: , lives with . Works full-time. Review of Systems Review of Systems A full review of systems was completed and was negative with the exception of pertinent positives noted in history of the presenting illness (HPI). Constitutional: Reports as per HPI Eyes: Reports as per HPI Reports as per HPI Cardiovascular: Reports as per HPI Respiratory: Reports as per HPI Gastrointestinal: Reports as per HPI Genitourinary: Reports as per HPI Musculoskeletal: Reports as per HPI Skin/Breast: Reports as per HPI Reports as per HPI Psychiatric: Reports as per HPI and Reports irritability Endocrine: Reports as per HPI Hematologic/Lymphatic: Reports as per HPI Allergic/Immunologic: Reports as per HPI [facility] Medical History COPD (chronic obstructive pulmonary disease) Dyslipidemia Surgical History History of partial colectomy Family History: Unknown at this time. Social History: , lives with spouse. Works full-time. Substance History: Tobacco use. No other substances reported to this provider. Trauma History: None reported. Diagnostics Vital Signs (24Hr): Vital Signs - 24 hr 01/05/21 15:24 01/05/21 19:13 01/05/21 20:50 Temperature 98.0 F 97.1 F Pulse Rate 60 70 Respiratory Rate 20 20 Blood Pressure 160/100 H 181/84 H 154/74 H Pulse Oximetry 96 93 01/05/21 23:39 01/06/21 03:37 01/06/21 08:00 Temperature 97.9 F 97.9 F 96.8 F Pulse Rate 75 81 79 Respiratory Rate 17 17 23 H Blood Pressure 147/67 H 140/67 H 130/83 Pulse Oximetry 95 98 96 01/06/21 08:52 01/06/21 12:00 Temperature 97.8 F Pulse Rate 68 Respiratory Rate 20 Blood Pressure 141/69 H Pulse Oximetry 95 95 Body Mass Index 27.6 Labs Results: 01/05/21 06:19 01/06/21 08:34 Labs: Laboratory Results - last 48 hr 01/05/21 01/05/21 01/05/21 06:19 06:19 06:19 WBC 4.9 RBC 4.22 L Hgb 13.1 L Hct 37.5 L MCV 88.9 MCH 31.0 MCHC 34.9 RDW 14.2 Plt Count 76 L MPV 12.0 Absolute Nucleated RBC 0.000 Nucleated RBC % (auto) 0.0 D-Dimer 630 Sodium 136 Potassium 4.0 Chloride 101 Carbon Dioxide 29 Anion Gap 10 L BUN 40 H Creatinine 1.16 Estim Creat Clear Calc 55.0 Estimated GFR > 60 Random Glucose 132 H Calcium 7.8 L Total Bilirubin 1.0 AST 21 ALT 27 Alkaline Phosphatase 116 C-Reactive Protein 16.82 H Total Protein 4.9 L Albumin 2.7 L Procalcitonin 01/05/21 01/06/21 06:19 08:34 WBC RBC Hgb Hct MCV MCH MCHC RDW Plt Count MPV Absolute Nucleated RBC Nucleated RBC % (auto) D-Dimer Sodium 138 Potassium 4.2 Chloride 100 Carbon Dioxide 26 Anion Gap 16 BUN 39 H Creatinine 1.15 Estim Creat Clear Calc 59.9 Estimated GFR > 60 Random Glucose 201 H D Calcium 8.0 L Total Bilirubin AST ALT Alkaline Phosphatase C-Reactive Protein Total Protein Albumin Procalcitonin 2.61 Imaging Radiology Impressions: ITS Impressions Chest X-Ray 01/03/21 12:42 IMPRESSION: Nonspecific bilateral perihilar airspace opacities, slightly greater in distribution on left. No associated vascular engorgement or effusion. Renal Ultrasound 01/03/21 17:06 IMPRESSION: Unremarkable exam. Pulmonary Perfusion Imaging 01/03/21 17:57 IMPRESSION: Greater than 2 segmental mismatches between chest x-ray and perfusion imaging consistent with high probability of pulmonary embolism. This critical result was discussed with Dr Corral on 01/03/2021, 6:25 PM and it was ascertained that the content and urgency of the report was understood at the time of direct communication. Mental Status Exam Mental Status Exam Narrative: Well-developed well-nourished male, in no apparent distress. Sitting up in chair at bedside, posture erect. No evidence of any type of delirium or dementia noted. Fairly groomed, hospital attire. Eye contact within normal limits. Alert and oriented x4. No involuntary movements noted, motor activity calm, posture within normal limits. Manner and behavior , cooperative. Speech fluent, unimpaired, normal rate and volume. Attention, cognition/memory grossly intact. Mood: I'm okay, I just want to be in my own home ?. Affect somewhat anxious, irritable. Thought process and associations linear, goal-directed. Thought content was normal, future oriented. No evidence of any type of delusional thought noted, no hallucinations noted, did not appear to be responding to internal stimuli in any way. No evidence of any type of suicidal or homicidal ideation. Appears to be reliable historian. Judgment and insight appear grossly intact at this time. Ambulation not observed, no cogwheeling or rigidity noted. Medications Medications Current Medications Acetaminophen (Acetaminophen 325 Mg Tablet) 650 mg PO Q6H PRN PRN Reason: Pain, Mild (Pain Scale 1-3) Albuterol Sulfate (Albuterol Sulfate 90 Mcg 8 Gm Inhaler) 2 puff INHALE RQ4H PRN PRN Reason: shortness of breath/wheeze Apixaban (Apixaban 5 Mg Tablet) 10 mg PO BID [facility] Stop: 01/13/21 09:01 Atorvastatin Calcium (Atorvastatin Calcium 80 Mg Tablet) 80 mg PO BEDTIME [facility] Last Admin: 01/05/21 20:44 Dose: 80 mg Documented by: Fluticasone/Vilanterol (Fluticasone/Vilanterol 100/25 Blst.W.Dev) 1 puff INHALE RDAILY [facility] Last Admin: 01/06/21 08:19 Dose: 1 puff Documented by: Vancomycin HCl 1,500 mg/ (Sodium Chloride) 500 mls @ 333.333 mls/hr IV Q24H [facility] Last Infusion: 01/06/21 12:33 Dose: Infused Documented by: Ceftriaxone Sodium 2 gm/ (Sodium Chloride) 50 mls @ 100 mls/hr IV Q12H [facility] Last Infusion: 01/06/21 09:47 Dose: Infused Documented by: Melatonin (Melatonin 3 Mg Tablet) 6 mg PO BEDTIME PRN PRN Reason: Insomnia Last Admin: 01/05/21 22:03 Dose: 6 mg Documented by: Methylprednisolone Sodium Succinate (Methylprednisolone Sod Succ 125 Mg/2 Ml Vial) 40 mg IVPUSH Q8H [facility] Last Admin: 01/06/21 08:35 Dose: 40 mg Documented by: Omeprazole (Omeprazole 20 Mg Capsule.) 20 mg PO DAILY@0630 [facility] Last Admin: 01/06/21 08:35 Dose: 20 mg Documented by: Ondansetron HCl (Ondansetron Hcl 4 Mg/2 Ml Vial) 4 mg IVPUSH Q8H PRN PRN Reason: Nausea and Vomiting Pharmacy Consult (Consult Rx Perform Med Rec) 1 each MISCELLANE ONCE PRN PRN Reason: Consult order Pharmacy Consult (Consult Rx Vancomycin Dosing) 1 each MISCELLANE DAILY [facility] Sodium Chloride (0.9 % Sodium Chloride Flush 3 Ml Syringe) 3 ml IVFLUSH QSHIFT [facility] Last Admin: 01/06/21 08:35 Dose: 3 ml Documented by: Allergies Allergies Allergy/AdvReac Type Severity Reaction Status Date / Time No Known Allergies Allergy Unverified 12/27/20 14:01 [No Known Allergies*] Assessment & Plan Assessment & Plan (1) Encounter for competency evaluation: Status: Acute Code(s): Z01.89 - Encounter for other specified special examinations Assessment and Plan: Upon approach, patient was sitting up in chair at bedside, with laptop open, connected to Internet. Patient was on phone with , she participated in conversation. Patient was fully able to state date, place, and situation. He was fully able to explain his current health status, the treatment involved including antibiotic therapy and supplemental O2. He was able to state the rationale for remaining inpatient. He stated that although he would prefer to go home, he has discussed this with his , and he understands he needs to remain in the hospital. He states he no longer wishes to leave AMA at this time. His was in agreement, and reported that patient has told her he is willing to stay to receive treatment. He did state that he was happy to have his computer and the Internet available, as he was concerned about this earlier. Assessment and Plan: Patient was completely able to take in information regarding his current medical condition, he was able to process it in a meaningful way, and therefore make appropriate healthcare decisions. At this time he appears to have full capacity. I have shared my thoughts and conclusions with Dr. Montana Lino, via secure messaging system. Thank you for this consultation. If you have any further questions or concerns please do not hesitate to contact Psychiatry Service. I spent minutes with the patient and/or on the patient floor today, greater than?50% of which was spent counseling/coordinating care. Patient educated on: diagnosis and medical condition Informed Consent: understands
--- NOTE | 2021-01-06 16:08 | P.CNID_ITS ---
History of Present Illness Data of Consult Service Date: 01/06/21 Requesting physician: Montana Lino Primary Care Provider: Donal Benoit MD [facility] Reason for consult: COVID,pneumococcal bacteremia He presents with cough for 10 days Cough is nonproductive He has fever He has positive urine pneumococcus Review of Systems Review of Systems: Yes all other systems are reviewed and are negative PMFSH Past Medical History Medical History COPD (chronic obstructive pulmonary disease) Dyslipidemia Functional capacity: independent ambulation Surgical History Surgical History History of partial colectomy Social History Social History Household Members: Spouse Housing: House Do you presently have visiting nurse or other home services: No Alcohol intake: current Alcohol intake frequency: 0-2 drinks per day Alcohol type: beer Patient Tobacco Use Status: Former Tobacco user service: Yes Current occupational status: employed Meds Allergies Allergy/AdvReac Type Severity Reaction Status Date / Time No Known Allergies Allergy Unverified 12/27/20 14:01 [No Known Allergies*] Active Medications: Current Medications Acetaminophen (Acetaminophen 325 Mg Tablet) 650 mg PO Q6H PRN PRN Reason: Pain, Mild (Pain Scale 1-3) Albuterol Sulfate (Albuterol Sulfate 90 Mcg 8 Gm Inhaler) 2 puff INHALE RQ4H PRN PRN Reason: shortness of breath/wheeze Apixaban (Apixaban 5 Mg Tablet) 10 mg PO BID [facility] Stop: 01/13/21 09:01 Atorvastatin Calcium (Atorvastatin Calcium 80 Mg Tablet) 80 mg PO BEDTIME [facility] Last Admin: 01/05/21 20:44 Dose: 80 mg Documented by: Fluticasone/Vilanterol (Fluticasone/Vilanterol 100/25 Blst.W.Dev) 1 puff INHALE RDAILY [facility] Last Admin: 01/06/21 08:19 Dose: 1 puff Documented by: Vancomycin HCl 1,500 mg/ (Sodium Chloride) 500 mls @ 333.333 mls/hr IV Q24H [facility] Last Infusion: 01/06/21 12:33 Dose: Infused Documented by: Ceftriaxone Sodium 2 gm/ (Sodium Chloride) 50 mls @ 100 mls/hr IV Q12H [facility] Last Infusion: 01/06/21 09:47 Dose: Infused Documented by: Melatonin (Melatonin 3 Mg Tablet) 6 mg PO BEDTIME PRN PRN Reason: Insomnia Last Admin: 01/05/21 22:03 Dose: 6 mg Documented by: Methylprednisolone Sodium Succinate (Methylprednisolone Sod Succ 125 Mg/2 Ml Vial) 40 mg IVPUSH Q8H [facility] Last Admin: 01/06/21 15:50 Dose: 40 mg Documented by: Omeprazole (Omeprazole 20 Mg Capsule.) 20 mg PO DAILY@0630 [facility] Last Admin: 01/06/21 08:35 Dose: 20 mg Documented by: Ondansetron HCl (Ondansetron Hcl 4 Mg/2 Ml Vial) 4 mg IVPUSH Q8H PRN PRN Reason: Nausea and Vomiting Pharmacy Consult (Consult Rx Perform Med Rec) 1 each MISCELLANE ONCE PRN PRN Reason: Consult order Pharmacy Consult (Consult Rx Vancomycin Dosing) 1 each MISCELLANE DAILY [facility] Sodium Chloride (0.9 % Sodium Chloride Flush 3 Ml Syringe) 3 ml IVFLUSH QSHIFT [facility] Last Admin: 01/06/21 15:50 Dose: 3 ml Documented by: Home Medications Medication Instructions Recorded Confirmed Last Taken Type omeprazole 20 mg capsule,delayed 20 mg PO DAILY 12/27/20 01/03/21 01/03/21 History release albuterol sulfate 90 mcg/actuation 2 puff INHALATION Q4H PRN 01/03/21 01/03/21 01/03/21 History aerosol inhaler atorvastatin 80 mg tablet 80 mg PO DAILY 01/03/21 01/03/21 01/03/21 History dexamethasone 4 mg tablet 4 mg PO TID 01/03/21 01/03/21 01/03/21 History fluticasone 250 mcg-salmeterol 50 1 puff INHALATION BID 01/03/21 01/03/21 01/03/21 History mcg/dose blistr powdr for inhalation (Advair Diskus) zinc 50 mg tablet 50 mg PO DAILY 01/03/21 01/03/21 01/03/21 History Physical Exam Vital Signs: Vital Signs: Last Vital Signs Temp 97.1 F 01/06/21 15:15 Pulse 66 01/06/21 15:15 Resp 20 01/06/21 15:15 BP 148/58 H 01/06/21 15:15 Pulse Ox 95 01/06/21 15:15 Oxygen Flow Rate 6 01/03/21 12:38 Body Mass Index 27.6 Const: General: cooperative Eyes: General: appearance normal, both eyes and all related structures Resp: Other: decrease bs bases Cardio: Rate: regular rate Rhythm: regular rhythm GI: Palpation (GI): Soft to palpation and nontender Extrem: General: Yes normal to inspection Results Labs CBC & Chem 7: 01/07/21 06:28 01/07/21 06:28 Labs: BMP 01/06/21 08:34 Sodium 138 Potassium 4.2 Chloride 100 Carbon Dioxide 26 BUN 39 H Creatinine 1.15 Calcium 8.0 L Microbiology Microbiology Results: Microbiology 01/03/21 13:41 Blood - Venous Blood Culture - Final Streptococcus pneumoniae 01/03/21 12:54 Blood - Venous Blood Culture - Final Streptococcus pneumoniae Assessment and Plan (1) Acute respiratory failure with hypoxia: Status: Acute COVID 10 days No Remdesivr Steroids and oxygen Pneumococcus may be cause of renal insufficiency IV Ceftriaxone 2 g daily cover pneumococcus,IV for now and possible 14 d If improves off oxygen po Ceftin or Levaquin finish course (2) COVID-19: Status: Acute (3) Severe sepsis:
[2021-01-06] MEDS: Apixaban 5 MG TABLET 10 MG PO (20:12)
[2021-01-06] MEDS: Atorvastatin Calcium 80 MG TABLET PO (20:12)
[2021-01-07] VITALS (7 sets, daily range): BP systolic 152–182; BP diastolic 67–81; PULSE 48–82; RESP 16–20; TEMP 36.1–36.8; O2SAT 92–98; BMI 26.5
[2021-01-07] MEDS: 0.9 % Sodium Chloride Flush 3 ML SYRINGE IVFLUSH ×4 (00:05→20:22)
[2021-01-07] MEDS: methylPREDNISolone Sod Succ 125 MG/2 ML VIAL 40 MG IVPUSH ×4 (00:05→22:23)
[2021-01-07] MEDS: Melatonin 3 MG TABLET 6 MG PO ×2 (00:06→20:22)
[2021-01-07] MEDS: Albuterol/Iprat 2.5/0.5MG 3 ML AMPUL.NEB INHALE (01:05)
[2021-01-07] MEDS: Omeprazole 20 MG CAPSULE.DR PO (05:27)
[2021-01-07 06:39] LABS: Hematocrit 33.6 % (42.0-52.0); Hemoglobin 11.6 g/dl (14.0-18.0); Mean Corpuscular HGB Conc 34.5 g/dl (31.0-36.0); Mean Corpuscular Hemoglobin 30.9 pg (27.0-33.0); Mean Corpuscular Volume 89.4 fL (80.0-98.0); Mean Platelet Volume 12.1 fL (9.4-12.4); Red Blood Count 3.76 X10*6/uL (4.60-5.80); Red Cell Distribution Width 14.1 % (11.0-16.0); White Blood Count 6.2 X10*3/uL (4.8-10.8)
[2021-01-07 06:48] LABS: D Dimer 314 NG/ML
[2021-01-07 06:57] LABS: Alanine Aminotransferase 80 U/L (0-40); Albumin Level 2.8 g/dL (3.5-5.0); Alkaline Phosphatase 148 U/L (39-117); Anion Gap 11 (12-20); Aspartate Amino Transferase 55 U/L (5-37); Bilirubin Total 0.9 mg/dL (0.0-1.0); Blood Urea Nitrogen 36 mg/dL (9-16); C Reactive Protein 4.18 mg/dL (< or = 0.50); Calcium 8.1 mg/dL (8.4-10.2); Carbon Dioxide 29 mmol/L (22-29); Chloride 102 mmol/L (96-108); Creatinine Clr Calc Pharmacy 63.1; Estimated Glomerular Filt Rate > 60; Glucose Random 184 mg/dL (60-115); Potassium 4.5 mmol/L (3.3-5.1); Sodium 137 mmol/L (135-145)
[2021-01-07 07:01] LABS: Platelet Count 87 X10*3/uL (160-400)
[2021-01-07 07:14] LABS: Procalcitonin 0.61 ng/mL
--- NOTE | 2021-01-07 07:30 | CA_ITS ---
Transthoracic Echocardiogram Patient (Last, First, Middle): William Fang C Gender: Male Date of : 1945 Age: 75 Procedure Date: 01/07/2021 Procedure Type: Transthoracic Echocardiogram [place] [facility] [place]: 175.26 cm Weight: 84.82 kg BSA: 2.01 m2 Heart Rate: bpm BP: 140 / 67 mmHg [employer]er: Referring MD: Montana Lino MD Symptoms: PE, COVID+ Study Quality: Technically Difficult due to pt un-cooporation ECG Rhythm: Sinus Conclusions: - Normal left ventricular size and systolic function. - Diastolic function is normal for age. - Normal right ventricular cavity size and systolic function. - Tricuspid regurgitation envelope is inadequate for calculation of right ventricular systolic pressure. Significantly elevated right atrial pressure. - The inferior vena cava is dilated and does not collapse with inspiration. Findings Left Ventricle Normal left ventricular size and systolic function. The visually estimated ejection fraction is between 55-60%. There is no evidence of regional wall motion abnormalities. Diastolic function is normal for age. Right Ventricle Normal right ventricular cavity size and systolic function. Atria The left atrium is normal in size. Aortic Valve The aortic valve was not well visualized. There is no aortic valve stenosis. There is trace (trivial) aortic valve regurgitation. Mitral Valve Normal mitral valve structure and function. There is no mitral valve regurgitation. There is no mitral valve stenosis. Pulmonic Valve The pulmonic valve was not well visualized. Tricuspid Valve Likely normal tricuspid valve structure and function. There is trace tricuspid valve regurgitation. Tricuspid regurgitation envelope is inadequate for calculation of right ventricular systolic pressure. Significantly elevated right atrial pressure. Great Vessels The pulmonary artery was not well visualized. There is mild dilatation of the ascending aorta measuring 3.70 cm. Venous The inferior vena cava is dilated and does not collapse with inspiration. Pericardium/Pleural There is no evidence of pericardial effusion. Prior Study Comparison No prior study available for comparison. Measurements 2D Linear Measurements LVIDd: 4.88 3.9-5.3/4.2-5.9 cm LVIDd Index: 2.43 2.4-3.2/2.2-3.1 cm/m2 LVIDs: 3.46 2.0-3.6 cm Ao Root: 4.00 2.1-3.5 cm LA Diam: 3.20 2.7-3.8/3.0-4.0 cm LAIDs Index: 1.59 1.5-2.3 cm/m2 LV Mass: 378.39 67-162/88-224 g LV Mass Index: 188.25 43-95/49-115 g/m2 LVOT Diam: 2.20 3.0+(-)1.3 cm 2D Systolic Function EF 4C: 54.10 >55% EF 2C: 55.00 >55% EF BiP: 53.10 >55% Mitral Valve MV Pk E: 0.81 MV PK A: 0.99 MV Decel Time: 163.00 E/A: 0.80 E'Lateral: 11.10 E'Medial: 7.18 E/E' Med: 11.30 E/E' Lat: 7.30 PHT: 48.00 MVA PHT: 4.58 Decel [place]: 5.00 Aortic Valve AoV Pk Kvng: 1.18 AoV Mn Kvng: 0.71 AoV VTI: 0.33 AoV Pk Grad: 6.00 Aov Mn Grad: 3.00 LVOT LVOT Diam: 2.20 LVOT Area: 3.80 Diastolic Function MV Pk E: 0.81 MV Pk A: 0.99 E/A: 0.80 E'Medial: 7.18 E/E' Med: 11.30 E' Laterial: 11.10 E/E' Lat: 7.30 Tricuspid Valve TR Pk Kvng: 1.59 TR Pk Grad: 10.00 Great Vessels Aorta Ao Root-2D: 4.00 2.0-3.7 cm Ao Asc: 3.70 2.1-3.4 cm Pulmonary Valve PV Pk Kvng: 0.88 Peak PV Grad: 3.00 Updated in Other Vendor System with Status of Final Brayan Prakash MD electronically signed on 01/07/2021 4:46:33 PM with status of Final
[2021-01-07] MEDS: Apixaban 5 MG TABLET 10 MG PO ×2 (08:26→20:22)
[2021-01-07] MEDS: cefTRIAXone sodium 2 GM in 0.9 % Sodium Chloride 50 ML IV ×2 (08:26→20:21)
[2021-01-07] MEDS: vancomycin HCL 1,500 MG in 0.9 % Sodium Chloride 500 ML 333.33 MG IV (09:21)
--- NOTE | 2021-01-07 18:07 | PC.NURSE ---
This evening, when patient was having an echo completed by a staff person from cardiology, patient began to yell, swear, say racist slurs, and demand that the staff person get the hell out from his room. This nurse entered the room after hearing him yelling at this staff person, and immediately addressed his behavior. This nurse told this patient that this type of language and disrespect towards staff is not tolerated here. Patient was angry and did not seem like he was willing to listen to this nurse, so I called security to have security address his behavior. Security reported that patient apologized for his actions.
--- NOTE | 2021-01-07 18:15 | P.PNIM_ITS ---
Subjective Subjective Date of Service: 01/07/21 Interval History: Strep pneumo bacteremia Review of Systems Shortness of breath seems to be improving, oxygen is also improving slowly tapering down. Denies any chest pain or abdominal pain or nausea or vomiting or fever chills. Physical Exam Vital Signs: Vital Signs: Last Vital Signs Temp 97.3 F 01/07/21 15:06 Pulse 80 01/07/21 15:06 Resp 20 01/07/21 15:06 BP 182/81 H 01/07/21 15:06 Pulse Ox 92 01/07/21 15:06 Oxygen Flow Rate 6 01/03/21 12:38 Body Mass Index 26.5 Gen: Seems come, slightly short of breath HEENT: sclera anicteric, moist mucus membranes Neck: supple Lungs: Fair air entry by auscultation bilaterally, no rales or wheezing Heart: regular rate and rhythm, no murmurs Abd: soft, non-tender, non-distended Ext: no edema Skin: warm/well-perfused Neuro: alert and oriented x3, no focal findings Psych: anxious, agitated Objective Data Active Medications Acetaminophen (Acetaminophen 325 Mg Tablet) 650 mg PO Q6H PRN PRN Reason: Pain, Mild (Pain Scale 1-3) Albuterol Sulfate (Albuterol Sulfate 90 Mcg 8 Gm Inhaler) 2 puff INHALE RQ4H PRN PRN Reason: shortness of breath/wheeze Albuterol/Ipratropium (Albuterol/Iprat 2.5/0.5mg 3 Ml Ampul.Neb) 3 ml INHALE RQ4H PRN PRN Reason: Shortness of Breath/Wheezing Last Admin: 01/07/21 01:05 Dose: 3 ml Documented by: TIEN Apixaban (Apixaban 5 Mg Tablet) 10 mg PO BID [facility] Stop: 01/13/21 09:01 Last Admin: 01/07/21 08:26 Dose: 10 mg Documented by: ADELA Atorvastatin Calcium (Atorvastatin Calcium 80 Mg Tablet) 80 mg PO BEDTIME [facility] Last Admin: 01/06/21 20:12 Dose: 80 mg Documented by: NACHO Fluticasone/Vilanterol (Fluticasone/Vilanterol 100/25 Blst.W.Dev) 1 puff INHALE RDAILY [facility] Last Admin: 01/07/21 07:34 Dose: Not Given Documented by: FERDINAND Non-Admin Reason: Patient Refused Vancomycin HCl 1,500 mg/ (Sodium Chloride) 500 mls @ 333.333 mls/hr IV Q24H [facility] Last Infusion: 01/07/21 11:15 Dose: 0 mls/hr Documented by: ADELA Ceftriaxone Sodium 2 gm/ (Sodium Chloride) 50 mls @ 100 mls/hr IV Q12H [facility] Last Infusion: 01/07/21 09:26 Dose: 0 mls/hr Documented by: ADELA Melatonin (Melatonin 3 Mg Tablet) 6 mg PO BEDTIME PRN PRN Reason: Insomnia Last Admin: 01/07/21 00:06 Dose: 6 mg Documented by: NACHO Methylprednisolone Sodium Succinate (Methylprednisolone Sod Succ 125 Mg/2 Ml Vial) 40 mg IVPUSH Q8H [facility] Last Admin: 01/07/21 17:07 Dose: 40 mg Documented by: ADELA Omeprazole (Omeprazole 20 Mg Capsule.) 20 mg PO DAILY@0630 [facility] Last Admin: 01/07/21 05:27 Dose: 20 mg Documented by: NACHO Ondansetron HCl (Ondansetron Hcl 4 Mg/2 Ml Vial) 4 mg IVPUSH Q8H PRN PRN Reason: Nausea and Vomiting Pharmacy Consult (Consult Rx Perform Med Rec) 1 each MISCELLANE ONCE PRN PRN Reason: Consult order Pharmacy Consult (Consult Rx Vancomycin Dosing) 1 each MISCELLANE DAILY [facility] Sodium Chloride (0.9 % Sodium Chloride Flush 3 Ml Syringe) 3 ml IVFLUSH QSHIFT [facility] Last Admin: 01/07/21 17:07 Dose: 3 ml Documented by: ADELA Labs CBC & Chem 7: 01/07/21 06:28 01/07/21 06:28 Labs: Laboratory Results - last 24 hr 01/07/21 01/07/21 01/07/21 06:28 06:28 06:28 MCV 89.4 MCH 30.9 MCHC 34.5 RDW 14.1 Plt Count 87 L MPV 12.1 Absolute Nucleated RBC 0.000 Nucleated RBC % (auto) 0.0 D-Dimer 314 Anion Gap 11 L Estim Creat Clear Calc 63.1 Estimated GFR > 60 Random Glucose 184 H Calcium 8.1 L Total Bilirubin 0.9 AST 55 H ALT 80 H Alkaline Phosphatase 148 H D C-Reactive Protein 4.18 H Total Protein 5.0 L Albumin 2.8 L Procalcitonin 01/07/21 06:28 MCV MCH MCHC RDW Plt Count MPV Absolute Nucleated RBC Nucleated RBC % (auto) D-Dimer Anion Gap Estim Creat Clear Calc Estimated GFR Random Glucose Calcium Total Bilirubin AST ALT Alkaline Phosphatase C-Reactive Protein Total Protein Albumin Procalcitonin 0.61 Microbiology Microbiology Results: Microbiology 01/06/21 11:50 Blood Culture - Preliminary Blood - Venous No growth after 24 hours. 01/06/21 11:50 Blood Culture - Preliminary Blood - Venous No growth after 24 hours. Assessment and Plan (1) Severe sepsis: Status: Acute (2) Pulmonary embolism: Status: Acute (3) Acute respiratory failure with hypoxia: Status: Acute (4) COVID-19: Status: Acute Assessment and Plan: 75yo M with COPD presenting on 8th day of breakthrough COVID-19 infection with hypoxia, severe sepsis, thrombocytopenia, acute kidney injury, and hyponatremia.? Found to have PE by V/Q scan.? Subsequently found to have pneumococcal bacteremia 1. invasive pneumococcal disease/bacteremia - continue ceftriaxone- increase dose.? Of vancomycin since Streptococcus pneumoniae is sensitive to penicillin. follow susceptibilities.? will need 14d therapy which can be completed PO once bloodstream clears and we have susceptibilities.? TTE :Normal left ventricular size and systolic function.? - Diastolic function is normal for age.? - Normal right ventricular cavity size and systolic function.? ? - Tricuspid regurgitation envelope is inadequate for calculation of right ventricular systolic pressure.? Significantly elevated? right atrial pressure.? repeat BCx -negative at 24 hour 2. acute PE - transition from enoxaparin 1 mg/kg q12h to apixaban #3.severe COVID-19 PNA - taper IV methylprednisolone, trend inflammatory markers 4. severe sepsis - due to COVID-19 and pneumococcal bacteremia 5. acute hypoxic respiratory failure - supplemental O2, wean as tolerated - encourage awake proning 6. AYESHA # hyponatremia - prerenal/hypovolemic, resolved after IV hydration 7. thrombocytopenia: improving - likely due to sepsis/COVID-19.? stable. 8. COPD exacerbation - continue ICS/LABA.? prn ELAINE inhalers.? steroids as above 9. dispo Continue tapered out oxygen, may need all oxygen evaluation upon discharge. Quality Stroke Does the patient have a stroke diagnosis?: No VTE Prior VTE?: No VTE Risk Level:: Medical - moderate - high VTE Device Contraindication: N/A - Device Ordered VTE Drug Contraindication: N/A - Med Ordered
[2021-01-07] MEDS: Atorvastatin Calcium 80 MG TABLET PO (20:22)
[2021-01-08 03:24] VITALS: BP 161/69; PULSE 58; RESP 20; TEMP 36.7; O2SAT 92
--- NOTE | 2021-01-08 03:57 | PC.NURSE ---
pt o2 titrated from 3L NC to 1.5L NC. Tolerating titration well, currently satting 96%. Will continue to reassess situation
[2021-01-08] MEDS: Omeprazole 20 MG CAPSULE.DR PO (05:38)
[2021-01-08 06:00] VITALS: BMI 28.3
[2021-01-08 06:55] VITALS: O2SAT 95
[2021-01-08 07:18] VITALS: BP 176/75; PULSE 61; RESP 18; TEMP 36.8; O2SAT 95
[2021-01-08] MEDS: Fluticasone/Vilanterol 100/25 BLST.W.DEV 1 PUFF INHALE (08:23)
[2021-01-08 08:26] VITALS: PULSE 72; O2SAT 89
--- NOTE | 2021-01-08 08:52 | PM.DS ---
DS: Providers Provider Date of Service: 01/08/21 Date of admission: 01/03/21 17:30 Date of discharge: 01/08/21 Primary care physician: Donal Benoit MD Consults: 01/03/21 16:18 Consult to Infectious Diseases Routine Consulting Provider: Neisha Gill Reason for consultation: breakthrough COVID 01/03/21 18:40 Consult to Hematology / Oncology [place]ine [place] [facility] [place] Reason for consultation: PE with thrombocytopenia, COVID+ 01/06/21 09:17 Consult to Psychiatry Stat Consulting Provider: Psych Covering Reason for consultation: competent?COVID,PE,bacteremia trying to AMA DS: Diagnosis Discharge Diagnosis (1) Severe sepsis: Status: Acute (2) Pulmonary embolism: Status: Acute (3) Acute respiratory failure with hypoxia: Status: Acute (4) COVID-19: Status: Acute DS: Summary Hospital Course Hospital Course: 75yo M with COPD + tobacco abuse, fully vaccinated against COVID-19 with 2 doses of PhytoCeutica mRNA vaccine with last dose in May but no booster since, exposed to COVID case 2 wk ago and presented to urgent care 1 wk ago with 1d of dry cough, myalgias, and fatigue.? He tested positive for COVID-19 and was prescribed dexamethasone.? He presents today to the ED with worsening dyspnea and ongoing dry cough.? No fever.? No chest pain.? is also positive but asymptomatic.? Today is the 8th day of illness for him.? He presented hypoxic and tachypneic and was found to have leukopenia, thrombocytopenia, lactic acidosis, hyponatremia, and renal failure.? He was given dexamethasone, ceftriaxone, and 30 cc/kg of normal saline. Hospital course: Patient was admitted for COVID pneumonia and hypoxemic respiratory failure also found to have streptococcal bacteremia/sepsis severe:In addition to steroids, started on IV antibiotics, subsequently his hypoxemia -seems to be improving, initial blood culture showed stab pneumonia, but repeated blood culture seems to be-24 hour. Case discussed with infectious disease and patient was started on p.o. Ceftin upon discharge. Patient says he has dexamethasone at home. Patient was also found to have acute pulmonary embolism: Initially was on Lovenox and subsequently switched to p.o. apixaban man upon discharge. Patient is to take apixaban 10 mg by mouth twice daily until 01/13 and then switched to apixaban 5 mg by mouth twice daily on 01/14. Further management outpatient as per PCP. Patient has AYESHA and hyponatremia which was resolved with hydration. Thrombocytopenia: It was thought to be related to sepsis/COVID, platelet counts are stable around 87 range. No bleeding . Monitor CBC closely with PCP as well as BMP for above-mentioned reasons. Above management discussed with the patient in detail length he understand and in agreement with the above plan, time spent 50 minutes and 50% time spent on counseling. Significant findings: As above. Procedures performed: None. Treatment and response: As above. Complications: None. Time Spent with Patient Time attestation: Total time spent providing and/or coordinating discharge services: Discharge coordination time: Greater than 30 minutes Quality: Stroke Does the patient have a stroke diagnosis?: No Physical Exam Vital Signs: Vital Signs: Last Vital Signs Temp 98.2 F 01/08/21 07:18 Pulse 61 01/08/21 07:18 Resp 18 01/08/21 07:18 BP 176/75 H 01/08/21 07:18 Pulse Ox 95 01/08/21 07:18 Oxygen Flow Rate 6 01/03/21 12:38 Body Mass Index 28.3 Gen:? Seems come, slightly short of breath HEENT: sclera anicteric, moist mucus membranes Neck: supple Lungs:? Fair air entry by auscultation bilaterally, no rales or wheezing Heart: regular rate and rhythm, no murmurs Abd: soft, non-tender, non-distended Ext: no edema Skin: warm/well-perfused Neuro: alert and oriented x3, no focal findings Psych: anxious, agitated DS: Data Data Completed and Pending Labs on day of discharge: Preliminary micro results at discharge 01/06/21 11:50 Blood Culture - Preliminary Blood - Venous No growth after 24 hours. 01/06/21 11:50 Blood Culture - Preliminary Blood - Venous No growth after 24 hours. Organism 1 Streptococcus pneumoniae Results of Blood Culture gram stain sent by a secure message and confirmed by VAISHALI on 01/04/21 at 0154 by SHAKIRA. S pneumoni M.I.C. RX --------- --- Ceftriaxone <=0.12 S Penicillin-G <=0.06 S Additional Comments Additional comments: CBC & Chem 7: 01/07/21 06:28? 01/07/21 06:28? Labs: Laboratory Results - last 24 hr ? 01/07/21 01/07/21 01/07/21 ? 06:28 06:28 06:28 MCV ?89.4 ? ? MCH ?30.9 ? ? MCHC ?34.5 ? ? RDW ?14.1 ? ? Plt Count ?87 L ? ? MPV ?12.1 ? ? Absolute Nucleated RBC ?0.000 ? ? Nucleated RBC % (auto) ?0.0 ? ? D-Dimer ? ?314 ? Anion Gap ? ? ?11 L Estim Creat Clear Calc ? ? ?63.1 Estimated GFR ? ? ?> 60 Random Glucose ? ? ?184 H Calcium ? ? ?8.1 L Total Bilirubin ? ? ?0.9 AST ? ? ?55 H ALT ? ? ?80 H Alkaline Phosphatase ? ? ?148 H D C-Reactive Protein ? ? ?4.18 H Total Protein ? ? ?5.0 L Albumin ? ? ?2.8 L Procalcitonin ? 01/07/21 ? 06:28 MCV ? MCH ? MCHC ? RDW ? Plt Count ? MPV ? Absolute Nucleated RBC ? Nucleated RBC % (auto) ? D-Dimer ? Anion Gap ? Estim Creat Clear Calc ? Estimated GFR ? Random Glucose ? Calcium ? Total Bilirubin ? AST ? ALT ? Alkaline Phosphatase ? C-Reactive Protein ? Total Protein ? Albumin ? Procalcitonin ?0.61 TTE :Normal left ventricular size and systolic function.? - Diastolic function is normal for age.? - Normal right ventricular cavity size and systolic function.? ? - Tricuspid regurgitation envelope is inadequate for calculation of right ventricular systolic pressure.? Significantly elevated? right atrial pressure.? Pulm perfusion scan: IMPRESSION: Greater than 2 segmental mismatches between chest x-ray and perfusion imaging consistent with high probability of pulmonary embolism. cxr: IMPRESSION: Nonspecific bilateral perihilar airspace opacities, slightly greater in distribution on left. No associated vascular engorgement or effusion. Discharge Plan Discharge Patient Disposition: Home, Self-Care Discharge Diagnosis: Strep pneumo bacteremia, acute hypoxemic respiratory failure secondary to COVID Referrals: Donal Benoit MD [Primary Care Provider] - 1 Week Beth Grier MD [Physician] - 1 Week (fu in 2weeks) Discharge Medications: New cefuroxime axetil 500 mg tablet 500 mg PO BID Qty: 22 RF: 0 Eliquis 5 mg Tablet 10 mg PO BID Qty: 55 RF: 0 Continued fluticasone propion-salmeterol [Advair Diskus] 250-50 mcg/dose blister with device 1 puff inhalation BID RF: 0 atorvastatin 80 mg tablet 80 mg PO DAILY RF: 0 dexamethasone 4 mg tablet 4 mg PO TID RF: 0 zinc 50 mg Tablet 50 mg PO DAILY RF: 0 albuterol sulfate 90 mcg/actuation HFA aerosol inhaler 2 puff inhalation Q4H PRN (Reason: Wheezing) RF: 0 omeprazole 20 mg capsule,delayed release(DR/EC) 20 mg PO DAILY RF: 0 Discharge Orders: Discharge Order (Routine); Ordered 01/08/21 Ordered By: Beth Morfin Diet: advance to usual diet Activity on Discharge: As tolerated Stand Alone Forms: Patient Portal Discharge page Other Ambulatory Orders: Basic Metabolic Panel Fasting (Routine) Timeframe: 1 Week Facility: [facility] - Location: Laboratory Ordered By: Beth Morfin Complete Blood Count no Diff (Routine) Timeframe: 1 Week Facility: [facility] - Location: Laboratory Ordered By: Beth Morfin Care Plan Goals: Patient was admitted for COVID pneumonia and hypoxemic respiratory failure also found to have streptococcal bacteremia/sepsis severe:In addition to steroids, started on IV antibiotics, subsequently his hypoxemia -seems to be improving, initial blood culture showed stab pneumonia, but repeated blood culture seems to be-24 hour. Case discussed with infectious disease and patient was started on p.o. Ceftin upon discharge. Patient was also found to have acute pulmonary embolism: Initially was on Lovenox and subsequently switched to p.o. apixaban man upon discharge. Patient is to take apixaban 10 mg by mouth twice daily until 01/13 and then switched to apixaban 5 mg by mouth twice daily on 01/14. Further management outpatient as per PCP. Discussed with the patient apixaban-he may need to pay he said in condition he needs to pay for prescription he will Pay , so patient is going home with apixaban. A Patient has AYESHA and hyponatremia which was resolved with hydration. Thrombocytopenia: It was thought to be related to sepsis/COVID, platelet counts are stable around 87 range. No bleeding . Monitor CBC closely with PCP as well as BMP for above-mentioned reasons. Health Concerns: As above. Plan of Treatment: As above. Assessment: As above. Patient Instructions: Apixaban (By mouth)
[2021-01-08 08:53] LABS: HIV AB/AG Nonreactive (Nonreactive); HIV Num 1 0.06 S/CO (0.00-0.99)
[2021-01-08 09:12] LABS: Vancomycin Trough 9.3 mcg/mL (10.0-20.0)
[2021-01-08 10:06] VITALS: PULSE 72; O2SAT 93
[2021-01-08] MEDS: methylPREDNISolone Sod Succ 125 MG/2 ML VIAL 40 MG IVPUSH (10:25)
[2021-01-08] MEDS: Apixaban 5 MG TABLET 10 MG PO (10:25)
[2021-01-08] MEDS: cefTRIAXone sodium 2 GM in 0.9 % Sodium Chloride 50 ML IV (10:25)
[2021-01-08] MEDS: 0.9 % Sodium Chloride Flush 3 ML SYRINGE IVFLUSH (10:26)
[2021-01-08 11:39] VITALS: BP 155/65; PULSE 55; RESP 18; TEMP 36.6; O2SAT 91
--- NOTE | 2021-01-08 13:47 | MHC.CM.PN ---
Patient has been medically cleared for dc to home today, self care.Per MD's request, CM will give Patient a $10 Co-pay card/coupon and RADHA SERRANO is looking into what the initial cost will be for this med.
--- NOTE | 2021-01-08 14:12 | MHC.CM.PN ---
RN MAGGIE called Patient's pharmacy after MD faxed Eliquis script to them.Pharmacy is unable to determine the cost of the copay for this med at this time.Per MD's request, MAGGIE spoke with patient, who agrees that cost is not an issue and that the script will be picked up on the way home. MAGGIE emphasized that it could be very serious if Patient does not fill script in the future (per MD order)should he find out that the copay is costly.Patient expressed X2 that the cost is not a problem and that the script will be filled per MD orders.MAGGIE has relayed this message to Patient's MD & RN.Patient has been given the Eliquis card/coupon that will allow the first Eliquis script to come with only a $10.00 copay. has cleared Patient to dc to home today.
[2021-01-09 16:11] LABS: Legionella Ag Urine Not Detected (Not Detected)
== END 2021-01-08 14:36 | disposition home or self-care (01) | DRG 720 ==
LOC: HO.ED 14:57 → HO.EDOVER 17:40 → HO.IMC 23:04
PROVIDERS: Admitting Provider Family Medicine; Emergency Provider Emergency Medicine Emergency Medical Services; PCP Internal Medicine; Visit Provider Internal Medicine
DX: A41.89 Other specified sepsis (principal); I26.99 Other pulmonary embolism without acute cor pulmonale; J96.01 Acute respiratory failure with hypoxia; N17.9 Acute kidney failure, unspecified; A40.3 Sepsis due to Streptococcus pneumoniae; U07.1 COVID-19; J12.82 Pneumonia due to coronavirus disease 2019; E87.1 Hypo-osmolality and hyponatremia; D69.6 Thrombocytopenia, unspecified; J44.1 Chronic obstructive pulmonary disease with (acute) exacerbation; R65.20 Severe sepsis without septic shock; E78.5 Hyperlipidemia, unspecified; Z87.891 Personal history of nicotine dependence; Z79.01 Long term (current) use of anticoagulants; Z79.51 Long term (current) use of inhaled steroids; Z79.899 Other long term (current) drug therapy
CPT/HCPCS: 0241U; 36415; 71045; 76775; 78580; 80048; 80053; 80202; 81001; 82378; 82728; 83605; 83615; 83880; 84145; 84156; 84300; 84484; 85007; 85025; 85027; 85379; 86140; 87040; 87147; 87186; 87205; 87389; 87449; 87899; 93005; 93306; 94640; 96365; 96375; 99285; 99291; A9540; J0696; J1100; J1650; J2930; J3370

== ENCOUNTER 2021-01-15 07:02 | Outpatient (REF) | payer BC, SELFPAY ==
[2021-01-15 11:30] LABS: Hematocrit 37.7 % (42.0-52.0); Hemoglobin 12.8 g/dl (14.0-18.0); Mean Corpuscular Hemoglobin 31.1 pg (27.0-33.0); Mean Corpuscular Volume 91.5 fL (80.0-98.0); Mean Platelet Volume 11.9 fL (9.4-12.4); Platelet Count 189 X10*3/uL (160-400); Red Blood Count 4.12 X10*6/uL (4.60-5.80); Red Cell Distribution Width 14.3 % (11.0-16.0); White Blood Count 9.9 X10*3/uL (4.8-10.8)
[2021-01-15 11:58] LABS: Anion Gap 12 (12-20); Blood Urea Nitrogen 16 mg/dL (9-16); Calcium 8.1 mg/dL (8.4-10.2); Carbon Dioxide 30 mmol/L (22-29); Chloride 97 mmol/L (96-108); Estimated Glomerular Filt Rate > 60; Glucose Fasting 70 mg/dL (60-99); Potassium 4.4 mmol/L (3.3-5.1); Sodium 135 mmol/L (135-145)
== END 2021-01-15 07:03 | disposition home or self-care (01) ==
LOC: HO.HMGCLDS 07:02
PROVIDERS: PCP Internal Medicine; Visit Provider Internal Medicine
DX: A41.9 Sepsis, unspecified organism (principal); D69.6 Thrombocytopenia, unspecified; R65.20 Severe sepsis without septic shock; U07.1 COVID-19
CPT/HCPCS: 36415; 80048; 85027

== ENCOUNTER 2021-01-20 10:03 | Outpatient (REF) | payer BC, SELFPAY ==
--- NOTE | ~2021-01-20 | XR_ITS ---
EXAMINATION: XR CHEST CLINICAL INFORMATION: PNA. COMPARISON: Chest x-ray 01/03/2021 TECHNIQUE: 2 views of the chest were obtained. FINDINGS: There is a patchy density seen in both middle lobes likely resolving infiltrates from before. No recurrent pneumonia seen. There is no pleural effusion. The heart size and pulmonary vascularity is normal. No gross bony abnormality seen except for moderate spondylosis dorsal spine. XR/XR chest 2V IMPRESSION: Interval improvement in bilateral midlung infiltrates with some residual changes and/or atelectasis noted.
[2021-01-20 11:22] LABS: MANUAL DIFF FLAG NO
[2021-01-20 12:01] LABS: Basophils Percent Auto 0.2 % (0-2); Eosinophils Absolute Auto 0.3 X10*3/uL (0.0-0.4); Eosinophils Percent Auto 4.4 % (0-4); Hematocrit 37.1 % (42.0-52.0); Hemoglobin 12.2 g/dl (14.0-18.0); Imm Gran Abs Auto 0.05 X10*3/uL (0.00-0.03); Imm Gran Pct Auto 0.8 % (0.0-0.4); Lymphocytes Percent Auto 14.4 % (20-40); Mean Corpuscular HGB Conc 32.9 g/dl (31.0-36.0); Mean Corpuscular Hemoglobin 30.2 pg (27.0-33.0); Mean Corpuscular Volume 91.8 fL (80.0-98.0); Mean Platelet Volume 10.8 fL (9.4-12.4); Monocytes Absolute Auto 0.6 X10*3/uL (0.1-1.2); Monocytes Percent Auto 9.5 % (2-11); Neutrophils Absolute Auto 4.7 x10*3/uL (2.0-8.3); Neutrophils Percent Auto 70.7 % (45-73); Platelet Count 198 X10*3/uL (160-400); Red Blood Count 4.04 X10*6/uL (4.60-5.80); Red Cell Distribution Width 14.1 % (11.0-16.0); White Blood Count 6.6 X10*3/uL (4.8-10.8)
[2021-01-20 12:04] LABS: Blood Urea Nitrogen 13 mg/dL (9-16); Estimated Glomerular Filt Rate > 60
== END 2021-01-20 10:04 | disposition home or self-care (01) ==
LOC: HO.HMGCLDS 10:03
PROVIDERS: Visit Provider Internal Medicine
DX: N17.9 Acute kidney failure, unspecified (principal); D69.6 Thrombocytopenia, unspecified; J18.9 Pneumonia, unspecified organism
CPT/HCPCS: 36415; 71046; 82565; 84520; 85025

== ENCOUNTER 2021-03-03 09:00 | Outpatient (REF) | payer BC, SELFPAY ==
--- NOTE | ~2021-03-03 | XR_ITS ---
EXAMINATION: XR CHEST CLINICAL INFORMATION: Pneumonia. COMPARISON: Chest 01/20/2021 TECHNIQUE: 2 views of the chest were obtained. FINDINGS: The lungs are well-expanded and clear of acute process. There is platelike atelectatic changes left upper lobe. Heart size and progress clarities normal. There is moderate spondylosis dorsal spine. No lytic process. XR/XR chest 2V IMPRESSION: Platelike atelectasis left upper lobe.
== END 2021-03-03 09:01 | disposition home or self-care (01) ==
LOC: HO.HMGCX 09:00
PROVIDERS: PCP Internal Medicine; Visit Provider Internal Medicine
DX: J18.9 Pneumonia, unspecified organism (principal)
CPT/HCPCS: 71046

== ENCOUNTER 2021-05-05 08:53 | Outpatient (REF) | payer BC, SELFPAY ==
[2021-05-05 11:23] LABS: MANUAL DIFF FLAG NO
[2021-05-05 11:30] LABS: Appearance Urine CLEAR; Color Urine YELLOW; Glucose Urine UA NEG (NEG); Leukocyte Esterase Urine NEG (NEG); Nitrite Urine NEG (NEG); PH 5.5 (5.0-8.0); Specific Gravity - Urine 1.015 (1.005-1.025); Urine Blood NEG (NEG); Urine Ketones NEG (NEG); Urine Protein NEG (NEG-TRACE)
[2021-05-05 11:48] LABS: Basophils Percent Auto 0.1 % (0-2); Eosinophils Absolute Auto 0.1 X10*3/uL (0.0-0.4); Eosinophils Percent Auto 1.1 % (0-4); Hematocrit 44.3 % (42.0-52.0); Hemoglobin 14.3 g/dl (14.0-18.0); Imm Gran Abs Auto 0.03 X10*3/uL (0.00-0.03); Imm Gran Pct Auto 0.3 % (0.0-0.4); Lymphocytes Absolute Auto 1.9 X10*3/uL (1.2-4.9); Lymphocytes Percent Auto 20.9 % (20-40); Mean Corpuscular HGB Conc 32.3 g/dl (31.0-36.0); Mean Corpuscular Volume 95.9 fL (80.0-98.0); Mean Platelet Volume 10.7 fL (9.4-12.4); Monocytes Percent Auto 10.6 % (2-11); Neutrophils Absolute Auto 6.1 x10*3/uL (2.0-8.3); Platelet Count 214 X10*3/uL (160-400); Red Blood Count 4.62 X10*6/uL (4.60-5.80); White Blood Count 9.2 X10*3/uL (4.8-10.8)
[2021-05-05 12:17] LABS: Alanine Aminotransferase 9 U/L (0-40); Alkaline Phosphatase 101 U/L (39-117); Anion Gap 12 (12-20); Aspartate Amino Transferase 10 U/L (5-37); Bilirubin Total 0.5 mg/dL (0.0-1.0); Blood Urea Nitrogen 10 mg/dL (9-16); Calcium 9.4 mg/dL (8.4-10.2); Carbon Dioxide 29 mmol/L (22-29); Chloride 101 mmol/L (96-108); Cholesterol 190 mg/dL; Estimated Glomerular Filt Rate > 60; Glucose Fasting 108 mg/dL (60-99); HDL Cholesterol 43 mg/dL; LDL Cholesterol Calculated 120 mg/dl; Potassium 4.4 mmol/L (3.3-5.1); Sodium 138 mmol/L (135-145); Total Protein 6.6 g/dL (6.5-8.0); Triglycerides 136 mg/dL
[2021-05-05 12:33] LABS: Creatinine Urine 126.61 mg/dL; Microalbum/Creatinine Ratio Ur 7.8 ug/mg cr
[2021-05-05 13:46] LABS: Estimated Average Glucose 97 mg/dL
== END 2021-05-05 08:54 | disposition home or self-care (01) ==
LOC: HO.HMGCLDS 08:53
PROVIDERS: PCP Internal Medicine; Visit Provider Internal Medicine
DX: Z00.00 Encounter for general adult medical examination without abnormal findings (principal); Z12.5 Encounter for screening for malignant neoplasm of prostate; R73.03 Prediabetes; E78.00 Pure hypercholesterolemia, unspecified; D69.6 Thrombocytopenia, unspecified; N17.9 Acute kidney failure, unspecified
CPT/HCPCS: 36415; 80053; 80061; 81003; 82043; 83036; 84153; 85025

== ENCOUNTER 2021-11-04 10:55 | Outpatient (REF) | payer BC, SELFPAY ==
[2021-11-04 12:15] LABS: Alanine Aminotransferase 10 U/L (0-40); Albumin Level 3.9 g/dL (3.5-5.0); Alkaline Phosphatase 103 U/L (39-117); Aspartate Amino Transferase 11 U/L (5-37); Bilirubin Direct 0.2 mg/dL (0.0-0.5); Bilirubin Total 0.5 mg/dL (0.0-1.0); Cholesterol 172 mg/dL; Estimated Average Glucose 94 mg/dL; HDL Cholesterol 43 mg/dL; Hemoglobin A1c % 4.9 %; LDL Cholesterol Calculated 114 mg/dl; Total Protein 6.2 g/dL (6.5-8.0); Triglycerides 78 mg/dL
[2021-11-04 13:09] LABS: Reflex LDLD? No
== END 2021-11-04 10:56 | disposition home or self-care (01) ==
LOC: HO.LNP 10:55
PROVIDERS: Visit Provider Internal Medicine
DX: R73.03 Prediabetes (principal); E78.00 Pure hypercholesterolemia, unspecified
CPT/HCPCS: 80061; 80076; 82043; 83036

== ENCOUNTER 2022-05-08 10:56 | Outpatient (REF) | payer BC, SELFPAY ==
[2022-05-08 11:05] LABS: MANUAL DIFF FLAG NO
[2022-05-08 11:38] LABS: Basophils Percent Auto 0.5 % (0-2); Eosinophils Absolute Auto 0.2 X10*3/uL (0.0-0.4); Eosinophils Percent Auto 1.9 % (0-4); Hematocrit 41.3 % (42.0-52.0); Hemoglobin 13.9 g/dl (14.0-18.0); Imm Gran Abs Auto 0.02 X10*3/uL (0.00-0.03); Imm Gran Pct Auto 0.2 % (0.0-0.4); Lymphocytes Absolute Auto 2.3 X10*3/uL (1.2-4.9); Lymphocytes Percent Auto 26.8 % (20-40); Mean Corpuscular HGB Conc 33.7 g/dl (31.0-36.0); Mean Corpuscular Hemoglobin 31.7 pg (27.0-33.0); Mean Corpuscular Volume 94.3 fL (80.0-98.0); Mean Platelet Volume 10.7 fL (9.4-12.4); Monocytes Absolute Auto 0.9 X10*3/uL (0.1-1.2); Monocytes Percent Auto 10.6 % (2-11); Neutrophils Absolute Auto 5.1 x10*3/uL (2.0-8.3); Platelet Count 186 X10*3/uL (160-400); Red Blood Count 4.38 X10*6/uL (4.60-5.80); Red Cell Distribution Width 14.9 % (11.0-16.0); White Blood Count 8.6 X10*3/uL (4.8-10.8)
[2022-05-08 11:50] LABS: Appearance Urine Clear; Color Urine Yellow; Glucose Urine UA Negative (Negative); Leukocyte Esterase Urine Negative (Negative); Nitrite Urine Negative (Negative); Urine Blood Negative (Negative); Urine Ketones Negative (Negative); Urine Protein Negative (Neg-Trace)
[2022-05-08 11:52] LABS: Estimated Average Glucose 91 mg/dL; Hemoglobin A1c % 4.8 %
[2022-05-08 11:55] LABS: Bacteria Urine None Seen (None Seen); Hyaline Casts Urine 0-2 /LPF (0-2); RBC Urine 0-2 /HPF (0-2); Squamous Epithelial Cell Urine 0-2 /HPF (0-2); WBC Urine 0-5 /HPF (0-5)
[2022-05-08 12:09] LABS: Alanine Aminotransferase 10 U/L (0-40); Albumin Level 4.1 g/dL (3.5-5.0); Alkaline Phosphatase 102 U/L (39-117); Anion Gap 11 (12-20); Aspartate Amino Transferase 10 U/L (5-37); Bilirubin Total 0.7 mg/dL (0.0-1.0); Blood Urea Nitrogen 12 mg/dL (9-16); Calcium 8.9 mg/dL (8.4-10.2); Carbon Dioxide 29 mmol/L (22-29); Chloride 103 mmol/L (96-108); Cholesterol 175 mg/dL; Estimated Glomerular Filt Rate 54; Glucose Fasting 99 mg/dL (60-99); HDL Cholesterol 42 mg/dL; LDL Cholesterol Calculated 117 mg/dl; Potassium 4.3 mmol/L (3.3-5.1); Sodium 139 mmol/L (135-145); Total Protein 6.2 g/dL (6.5-8.0); Triglycerides 80 mg/dL
[2022-05-08 12:14] LABS: PSA,Total (Free>4and<10) 1.17 ng/mL (0.00-4.00)
[2022-05-08 12:37] LABS: Creatinine Urine 44.95 mg/dL; Microalbumin Urine < 5.0 mg/L
== END 2022-05-08 10:57 | disposition home or self-care (01) ==
LOC: HO.LNP 10:56
PROVIDERS: Visit Provider Internal Medicine
DX: Z00.00 Encounter for general adult medical examination without abnormal findings (principal); Z12.5 Encounter for screening for malignant neoplasm of prostate; E78.00 Pure hypercholesterolemia, unspecified; R73.03 Prediabetes; D69.6 Thrombocytopenia, unspecified
CPT/HCPCS: 80053; 80061; 81001; 82043; 83036; 84153; 85025

== ENCOUNTER 2022-05-20 14:15 | Outpatient (REF) | payer BC, SELFPAY ==
--- NOTE | ~2022-05-20 | US_ITS ---
EXAMINATION: US VENOUS WITH DOPPLER UPPER EXTREMITY, RIGHT CLINICAL INFORMATION: Right arm DVT. COMPARISON: None available. TECHNIQUE: Ultrasound of the upper extremity is performed using compression sonography and color and pulse Doppler flow with assessment of augmentation of flow. There is also imaging and Doppler assessment of the jugular and subclavian veins. Spectral analysis with color-flow imaging is performed. FINDINGS: Respiratory variation, normal compression, and augmented flow are noted within the upper extremity including the axillary, brachial, cubital, and radial and ulnar veins. There is normal flow in the internal jugular and subclavian veins. In the region indicated by patient about the right median fossa laterally, there is a superficial vein which is noncompressible and without internal flow consistent with thrombosis. Question whether this represents accessory cephalic vein or other superficial vein. In the area indicated by the patient about the medial fossa medially, patient is pointing to the right brachial artery which appears unremarkable. US/US venous duplex UE RT IMPRESSION: No acute DVT demonstrated in the right upper extremity. Segmental thrombosis of a peripheral vein in the lateral median fossa which may represent an accessory cephalic vein with the cephalic vein being patent.
== END 2022-05-20 14:16 | disposition home or self-care (01) ==
LOC: HO.HMGCX 14:15
PROVIDERS: PCP Internal Medicine; Visit Provider Internal Medicine
DX: Z86.718 Personal history of other venous thrombosis and embolism (principal)
CPT/HCPCS: 93971

== ENCOUNTER 2022-11-09 10:59 | Outpatient (REF) | payer BC, SELFPAY ==
[2022-11-09 12:42] LABS: Estimated Average Glucose 88 mg/dL; Hemoglobin A1c % 4.7 % (<6.0)
[2022-11-09 12:58] LABS: Alanine Aminotransferase 10 U/L (0-40); Albumin Level 4.4 g/dL (3.5-5.0); Alkaline Phosphatase 98 U/L (39-117); Aspartate Amino Transferase 13 U/L (5-37); Bilirubin Direct 0.2 mg/dL (0.0-0.5); Bilirubin Total 0.6 mg/dL (0.0-1.0); Cholesterol 172 mg/dL (<200); Glucose Fasting 97 mg/dL (60-99); HDL Cholesterol 51 mg/dL (>40); LDL Cholesterol Calculated 107 mg/dL (<100); Total Protein 7.2 g/dL (6.5-8.0); Triglycerides 72 mg/dL (<150)
[2022-11-09 13:38] LABS: Reflex LDLD? No
== END 2022-11-09 11:00 | disposition home or self-care (01) ==
LOC: HO.LNP 10:59
PROVIDERS: Visit Provider Internal Medicine
DX: E78.00 Pure hypercholesterolemia, unspecified (principal); R73.09 Other abnormal glucose
CPT/HCPCS: 80061; 80076; 82947; 83036

== ENCOUNTER 2022-12-09 09:54 | Outpatient (REF) | payer BC, SELFPAY ==
[2022-12-09 13:31] LABS: MANUAL DIFF FLAG NO
[2022-12-09 13:56] LABS: Basophils Percent Auto 0.3 % (0-2); Eosinophils Absolute Auto 0.2 X10*3/uL (0.0-0.4); Eosinophils Percent Auto 2.4 % (0-4); Hematocrit 42.1 % (42.0-52.0); Hemoglobin 14.2 g/dl (14.0-18.0); Imm Gran Abs Auto 0.04 X10*3/uL (0.00-0.03); Imm Gran Pct Auto 0.5 % (0.0-0.4); Lymphocytes Absolute Auto 1.8 X10*3/uL (1.2-4.9); Lymphocytes Percent Auto 20.6 % (20-40); Mean Corpuscular HGB Conc 33.7 g/dl (31.0-36.0); Mean Corpuscular Hemoglobin 31.3 pg (27.0-33.0); Mean Corpuscular Volume 92.7 fL (80.0-98.0); Mean Platelet Volume 10.7 fL (9.4-12.4); Monocytes Absolute Auto 0.8 X10*3/uL (0.1-1.2); Monocytes Percent Auto 9.4 % (2-11); Neutrophils Absolute Auto 5.8 x10*3/uL (2.0-8.3); Neutrophils Percent Auto 66.8 % (45-73); Platelet Count 216 X10*3/uL (160-400); Red Blood Count 4.54 X10*6/uL (4.60-5.80); Red Cell Distribution Width 14.4 % (11.0-16.0); White Blood Count 8.7 X10*3/uL (4.8-10.8)
[2022-12-09 14:42] LABS: Iron 106 mcg/dL (45-160); Percent Iron Saturation 40 % (15-50); Total Iron Binding Capacity 266 mcg/dL (228-428); Unsaturated Iron Binding 160 ug/dL
== END 2022-12-09 09:55 | disposition home or self-care (01) ==
LOC: HO.HMGCLDS 09:54
PROVIDERS: PCP Internal Medicine; Visit Provider Internal Medicine
DX: R53.83 Other fatigue (principal)
CPT/HCPCS: 36415; 83540; 85025

== ENCOUNTER 2023-01-06 14:15 | Outpatient (AMB) | payer BC, SELFPAY ==
--- NOTE | 2023-01-06 14:39 | A.OFFVIS_ITS ---
Intake Vital Signs 01/06/23 14:40 Height 5 ft 8 in Weight 178 lb 0.5 oz BMI 27.1 BP 140/62 H Blood Pressure Location Lt brachial Position Sitting Pulse 69 Pulse Source Pulse Oximeter Pulse Oximetry (%) 98 Oxygen Delivery Method Room Air Intake Visit Reasons: Somnolence Intake Note: pt is here as a new patient, he is getting PA for Ct scan by Dr. Osborne, occasional lightheaded, and close to passing out. Vp Account Director Required: No Allergies No Known Allergies [No Known Allergies*] Allergy (Unverified 01/06/23 15:23) Medication List - Last Reconciled 01/06/23 by Sanford Gonsales MD albuterol sulfate 90 mcg/actuation 2 puffs inhalation Q4H PRN fluticasone propion-salmeterol 250-50 mcg/dose (Advair Diskus) 1 inh inhalation DAILY omeprazole 20 mg PO DAILY zinc 50 mg PO DAILY Do you need a note to return to daycare/school/sports/work: No HPI Somnolence HPI Details THIS 77 YEARS OLD GENTLEMAN IS REFERRED FOR PULMONARY/SLEEP EVALUATION, HE COMPLAINS OF DAYTIME FATIGUE AND SOMNOLENCE. THIS HAS BEEN GOING ON FOR A FEW YEARS BUT MORE PRONOUNCED DURING THE PAST 3-4 MONTHS. HE HAS DIFFICULTY IN FALLING ASLEEP, IT TAKES ABOUT 30-45 MINUTES BEFORE HE FALLS ASLEEP. AND THEN HE WAKES UP 2 OR 3 TIMES DURING THE NIGHT FROM HIS SLEEP. THIS IS MAINLY TO GO TO THE BATHROOM. HE ALSO STATES THAT HIS IS A LOUD SNORER AND THAT DISTURBS HIS SLEEP. HE HIMSELF IS NOT AWARE OF HIS OWN SNORING. HIS WEIGHT HAS BEEN STABLE OVER THE PAST MANY YEARS. 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 AND CURRENTLY HE IS WORKING ONLY 4-6 HOURS PER DAY. HE COMES HOME AND SOON HE SITS DOWN ON THE COUCH HE GOES TO SLEEP. HE HAS TO TAKE 1 OR 2 HOURS NAP DURING THE AFTERNOON. HE ALSO FEELS LIGHTHEADED ESPECIALLY WHEN HE STANDS UP AND WALKS. HE IS BEING WORKED UP BY HIS PRIMARY CARE PHYSICIAN DR. ERYN MUSA . HE SMOKES HALF PACK OF CIGARETTES A DAY. HE DOES HAVE CHRONIC OBSTRUCTIVE PULMONARY DISEASE AND IS BEING TREATED WITH ADVAIR 250-50 1 INHALATION B.I.D. PLUS ALBUTEROL P.R.N.. DENIES ANY CHEST PAIN PALPITATIONS. [facility] SLEEPINESS SCALE 11/[facility] Medical History (Updated 01/06/23 @ 16:52 by Sanford Gonsales MD) MAGGY (obstructive sleep apnea) Somnolence, daytime Smoker Encounter for competency evaluation Severe sepsis Dyslipidemia COPD (chronic obstructive pulmonary disease) Surgical History History of partial colectomy Social History Household Members: Spouse Housing: House Do you presently have visiting nurse or other home services: No Alcohol intake: current Alcohol intake frequency: 0-2 drinks per day Alcohol type: beer Patient Tobacco Use Status: Current everyday Tobacco user Cigarette Packs Per Day: 0.5 Cigarettes Per Day: 10 service: Yes Current occupational status: employed Review of Systems Const All systems reviewed & are unremarkable except as noted in HPI and below Eyes Reports no additional complaints ENT Reports no additional complaints and Reports dizziness (ON GETTING UP FAST) Card Denies chest pain, Denies irregular heart rhythm and Denies leg edema Resp Reports as per HPI GI Reports heartburn (CONTROLLED WITH MED) Reports nocturia Musc Reports no additional complaints Skin/Breast Reports system reviewed and no additional complaints, except as documented Neuro Reports dizziness (ON GETTING UP FAST) Endo Reports no additional complaints Aller/Immun Reports no additional complaints Physical Exam Vital Signs: Last Vital Signs Pulse 69 01/06/23 14:40 BP 140/62 H 01/06/23 14:40 Pulse Ox 98 01/06/23 14:40 Oxygen Delivery Method Room Air 01/06/23 14:40 BMI result Body Mass Index 27.1 Const General: comfortable, no acute distress, alert and awake Orientation/consciousness: patient oriented x3 HEENT Head: Yes normal to inspection General nose exam: No nasal polyps present and No nasal discharge present Face and sinus: Yes sinuses nontender Mouth: oropharynx normal Teeth and gingiva: dentures and other (THERE IS MILD REGRESSION OF THE LOWER JAW) Throat: Yes posterior oropharynx normal Eyes General: appearance normal, both eyes and all related structures Neck Neck: Yes normal visual inspection, Yes no lymphadenopathy, Yes trachea midline, Yes no JVD and Yes other (NECK SIZE 18 IN) Thyroid: Thyroid normal Chest Chest palpation & inspection: normal inspection of the chest, normal palpation of entire chest wall and no tenderness Resp Effort & Inspection: normal respiratory effort Auscultation: clear to auscultation bilaterally, no crackles, no wheezes and diminished lung sounds Cardio Palpation: normal PMI Rate: regular rate Rhythm: regular rhythm Heart sounds: no gallops and no murmurs GI Palpation (GI): Soft to palpation, nontender, No hepatosplenomegaly present and no masses Auscultation: normal bowel sounds Back/Spine/Pelvis Thoracic/Lumbar Spine: thoracic and lumbar spine normal to inspection Skin General skin exam: no rashes or lesions noted Neuro General: patient oriented x3 and no focal motor deficits Cranial nerves: Yes CN's II-XII intact bilaterally Extrem General: Yes normal to inspection, Yes no clubbing, cyanosis or edema and Yes no calf tenderness Psych Appearance: grossly normal and well kempt Speech and movement: Normal speech and movement present Assessment & Plan Assessment & Plan (1) Smoker: Code(s): F17.200 - Nicotine dependence, unspecified, uncomplicated (2) Somnolence, daytime: Code(s): R40.0 - Somnolence (3) COPD (chronic obstructive pulmonary disease): Code(s): J44.9 - Chronic obstructive pulmonary disease, unspecified (4) MAGGY (obstructive sleep apnea): Code(s): G47.33 - Obstructive sleep apnea (adult) (pediatric) Plan: THIS GENTLEMAN IS A LIFELONG SMOKER, NOW DOWN TO 10 CIGARETTES A DAY. HE DOES HAVE COPD, MODERATELY SEVERE WHICH IS WELL CONTROLLED WITH CURRENT REGIMEN. ADVISED TO CONTINUE ADVAIR 250-50 1 INHALATION B.I.D., AND USE ALBUTEROL HFA 2 PUFFS Q 6 HOURS P.R.N. TOLD ABOUT THE RISKS OF CONTINUED SMOKING AND HE SHOULD TRY TO CUT DOWN THE NUMBER. OF CIGARETTES HOPEFULLY QUIT IN THE NEAR FUTURE HE PRESENTS WITH THE DAYTIME SOMNOLENCE/FATTY. THIS IS PROBABLY DUE TO HIS INSUFFICIENT SLEEP AT NIGHT,. OR SLEEP UP POOR QUALITY HE IS NOT OVERLY OBESE BUT HE DOES HAVE SOME REGRESSION OF THE LOWER JAW, AND THERE IS A GOOD POSSIBILITY THAT HE MAY HAVE OBSTRUCTIVE SLEEP APNEA. ESS 11/15 , HOWEVER IF HE IS NOT ACTIVE AND AT HOME HE TENDS TO SLEEP MORE OFTEN DURING THE DAYTIME. FOR THIS REASON HE SHOULD HAVE A HOME SLEEP STUDY , WHICH IS EXPLAINED TO HIM. IF SLEEP APNEA IS RULED OUT THEN HE WOULD, NEED LOT OF COUNSELING FOR SLEEP HYGIENE MEASURES. HE WILL BE SEEN FOR FOLLOW-UP AFTER THE SLEEP STUDY. *BECAUSE OF HIS ONGOING SMOKING I WOULD TALKED TO HIM ABOUT ANNUAL LUNG SCREENING PROGRAM *AND ALSO ON HIS NEXT STUDY HE SHOULD BE SCHEDULED FOR PULMONARY FUNCTION TEST. Orders: Orders RT home sleep study Today G47.33 - Obstructive sleep apnea (adult) (pediatric), R40.0 - Somnolence Coding Level of Care Code New Pt Level 3 (25013) Diagnoses Smoker F17.200 Somnolence, daytime R40.0 COPD (chronic obstructive pulmonary disease) J44.9 MAGGY (obstructive sleep apnea) G47.33
[2023-01-06 14:40] VITALS: BP 140/62; PULSE 69; O2SAT 98; BMI 27.1
== END 2023-01-06 15:21 | disposition home or self-care (01) ==
PROVIDERS: PCP Internal Medicine; Referring Provider Internal Medicine; Visit Provider Internal Medicine
DX: F17.200 Nicotine dependence, unspecified, uncomplicated (principal); R40.0 Somnolence; J44.9 Chronic obstructive pulmonary disease, unspecified; G47.33 Obstructive sleep apnea (adult) (pediatric)
CPT/HCPCS: 99203; 99213

== ENCOUNTER → 2023-01-06 14:15 | Outpatient (BNVA) | payer BC, SELFPAY | PROVIDERS: PCP Internal Medicine; Referring Provider Internal Medicine; Visit Provider Internal Medicine ==

== ENCOUNTER 2023-02-12 10:04 | Outpatient (REF) | payer BC, SELFPAY ==
--- NOTE | ~2023-02-12 | MR_ITS ---
EXAMINATION: MR BRAIN WITHOUT CONTRAST CLINICAL INFORMATION: Parkinson's COMPARISON: None TECHNIQUE: Multiplanar multisequence MR imaging of the brain was obtained without intravenous contrast. FINDINGS: There is no acute infarct on diffusion-weighted imaging. There is no intracranial hemorrhage on iron-sensitive imaging. No extra-axial collection or mass effect/herniation. Scattered periventricular and deep white matter T2 FLAIR hyperintensities consistent with mild underlying microangiopathy. No hydrocephalus. Mild age-appropriate generalized cerebral volume loss with commensurate sulcal and ventricular prominence. The major flow voids at the skull base are preserved. The midline structures are normal. The cerebellar tonsils are normally positioned. The craniocervical junction is normal. Degenerative changes of the cervical spine. Marrow signal is within normal limits. The visualized soft tissues are without significant abnormality. Left mastoid effusion. Small right mastoid fluid. MR/MR head/brain wo con IMPRESSION: 1. Mild chronic white matter microangiopathy and generalized cerebral volume loss. Otherwise unremarkable noncontrast MRI of the brain. 2. Left mastoid effusion
== END 2023-02-12 10:05 | disposition home or self-care (01) ==
LOC: HO.MRI 10:04
PROVIDERS: PCP Internal Medicine; Visit Provider Psychiatry & Neurology Neurology
DX: G20.A1 Parkinson's disease without dyskinesia, without mention of fluctuations (principal)
CPT/HCPCS: 70551

== ENCOUNTER → 2023-02-16 09:43 | Outpatient (REF) | payer BC, SELFPAY | LOC: HO.SL 09:43 | PROVIDERS: PCP Internal Medicine; Visit Provider Internal Medicine | DX: G47.33 Obstructive sleep apnea (adult) (pediatric) (principal); R40.0 Somnolence | CPT/HCPCS: 95806 ==

== ENCOUNTER → 2023-02-16 09:55 | Outpatient (BNV) | payer BC, SELFPAY | PROVIDERS: PCP Internal Medicine; Visit Provider Internal Medicine | DX: R06.83 Snoring (principal) | CPT/HCPCS: 95806 ==

== ENCOUNTER 2023-03-09 13:24 | Outpatient (AMB) | payer BC, SELFPAY ==
--- NOTE | 2023-03-09 13:32 | A.OFFVIS_ITS ---
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 Required: No Allergies No Known Allergies [No Known Allergies*] Allergy (Unverified 03/09/23 14:14) Medication List - Last Reconciled 03/09/23 by Sanford Gonsales MD albuterol sulfate 90 mcg/actuation 2 puffs inhalation Q4H PRN fluticasone propion-salmeterol 250-50 mcg/dose (Advair Diskus) 1 inh inhalation DAILY omeprazole 20 mg PO DAILY zinc 50 mg PO DAILY Do you need a note to return to daycare/school/sports/work: No HPI Somnolence HPI Details 77 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 HE DOES HAVE HISTORY OF CHRONIC OBSTRUCTIVE PULMONARY DISEASE. COMPLAINS OF INTERMITTENT COUGH WHICH IS MOSTLY DRY AND ESPECIALLY IN THE MORNING. GETS SHORT OF BREATH ONLY WHEN HE CLIMBS STAIRS OR WALKS UP HILL, NOT ON LEVEL GROUND. HE DESCRIBES THAT SOMETIMES HIS O2 SAT DOES FALL DOWN INTO HIGH 80S, BUT QUICKLY COMES UP TO 95 AND AT 6%. HE SLEEPS FAIRLY WELL, NOT AWARE OF ANY SIGNIFICANT SNORING. HE HAD DESCRIBED TO HIS DAYTIME SLEEPINESS, AND HE HAS UNDERGONE HOME-BASED SLEEP STUDY WHICH WILL BE DESCRIBED BELOW. [facility] Medical History MAGGY (obstructive sleep apnea) Somnolence, daytime Smoker Encounter for competency evaluation Severe sepsis Dyslipidemia COPD (chronic obstructive pulmonary disease) Surgical History History of partial colectomy Social History Household Members: Spouse Housing: House Do you presently have visiting nurse or other home services: No Alcohol intake: current Alcohol intake frequency: 0-2 drinks per day Alcohol type: beer Comment: refusing bed alarm Patient Tobacco Use Status: Current everyday Tobacco user Cigarette Packs Per Day: 0.5 Cigarettes Per Day: 10 service: Yes Current occupational status: employed Review of Systems Const All systems reviewed & are unremarkable except as noted in HPI and below Eyes Reports no additional complaints ENT Reports no additional complaints and Reports dizziness (ON GETTING UP FAST) Card Denies chest pain, Denies irregular heart rhythm and Denies leg edema Resp Reports as per HPI GI Reports heartburn (CONTROLLED WITH MED) Reports nocturia Musc Reports no additional complaints Skin/Breast Reports system reviewed and no additional complaints, except as documented Neuro Reports dizziness (ON GETTING UP FAST) Endo Reports no additional complaints Aller/Immun Reports no additional complaints Physical Exam Vital Signs: Last Vital Signs Pulse 81 03/09/23 13:34 BP 140/74 H 03/09/23 13:34 Pulse Ox 94 03/09/23 13:34 Oxygen Delivery Method Room Air 03/09/23 13:34 BMI result Body Mass Index 27.4 Const General: comfortable, no acute distress, alert and awake Orientation/consciousness: patient oriented x3 HEENT Head: Yes normal to inspection General nose exam: No nasal polyps present and No nasal discharge present Face and sinus: Yes sinuses nontender Mouth: oropharynx normal Teeth and gingiva: dentures and other (THERE IS MILD REGRESSION OF THE LOWER JAW) Throat: Yes posterior oropharynx normal Eyes General: appearance normal, both eyes and all related structures Neck Neck: Yes normal visual inspection, Yes no lymphadenopathy, Yes trachea midline, Yes no JVD and Yes other (NECK SIZE 18 IN) Thyroid: Thyroid normal Chest Chest palpation & inspection: normal inspection of the chest, normal palpation of entire chest wall and no tenderness Resp Effort & Inspection: normal respiratory effort Auscultation: clear to auscultation bilaterally, no crackles, no wheezes and diminished lung sounds Cardio Palpation: normal PMI Rate: regular rate Rhythm: regular rhythm Heart sounds: no gallops and no murmurs GI Palpation (GI): Soft to palpation, nontender, No hepatosplenomegaly present and no masses Auscultation: normal bowel sounds Back/Spine/Pelvis Thoracic/Lumbar Spine: thoracic and lumbar spine normal to inspection Skin General skin exam: no rashes or lesions noted Neuro General: patient oriented x3 and no focal motor deficits Cranial nerves: Yes CN's II-XII intact bilaterally Extrem General: Yes normal to inspection, Yes no clubbing, cyanosis or edema and Yes no calf tenderness Psych Appearance: grossly normal and well kempt Speech and movement: Normal speech and movement present Results Reviewed Results Reviewed: HOME-BASED SLEEP STUDY, IS NORMAL. TOTAL SLEEP TIME AHI ONLY 0.6 , NO NOCTURNAL HYPOXEMIA I WALKED WITH HIM FOR 5 MINUTES IN THE HALLWAY. O2 SAT AT REST 96% O2 SAT AFTER WALKING 95% AND THERE WAS NO SIGNIFICANT DROP. Assessment & Plan Assessment & Plan (1) Somnolence, daytime: Comment: HE HAD DESCRIBED VERY NONSPECIFIC FATIGUE AND SLEEPINESS TOWARDS THE AFTERNOON. SLEEP STUDY PERFORMED WHICH IS NEGATIVE FOR SLEEP APNEA. NOW HE ACTUALLY DESCRIBES THAT HE IS NOT SLEEPY BUT JUST FEELS TIRED IN THE AFTERNOONS. Code(s): R40.0 - Somnolence Plan: NO TREATMENT NEEDED, TRY TO STAY ACTIVE AND SLEEP AT LEAST FOR 6 HOURS EVERY NIGHT. (2) COPD (chronic obstructive pulmonary disease): Comment: HE HAS LONGSTANDING DIAGNOSIS OF COPD, RELATED TO HIS SMOKING. IT HAS REMAINED RELATIVELY STABLE WITHOUT ANY ACUTE EXACERBATION. Code(s): J44.9 - Chronic obstructive pulmonary disease, unspecified Plan: CONTINUE ADVAIR 250-51 INHALATION B.I.D.. USE ALBUTEROL HFA 2 PUFFS Q 4-6 HOURS P.R.N. ( HE IS USING MOSTLY 1 OR 2 PUFFS BEFORE HE GOES TO SLEEP) PULMONARY FUNCTION TEST IS TO BE SCHEDULED, AND FURTHER ADJUSTMENT IN HIS MEDICAL REGIMEN WILL BE MADE AFTER THE PFT IS DONE I CHECKED HIM FOR POSSIBILITY OF EXERCISE INDUCED HYPOXEMIA AND IT IS NOT. HE DID NOT HAVE ANY SIGNIFICANT DROP IN O2 SAT (3) Smoker: Comment: HAS BEEN SMOKER THROUGHOUT HIS ADULT LIFE, NOW SMOKES 1/2 PK A DAY TALKED TO HIM IN DETAIL AND HE IS NOT MOTIVATED TO QUIT SMOKING. HOWEVER HE WOULD TRY TO CUT THE NUMBER OF CIGARETTES. Code(s): F17.200 - Nicotine dependence, unspecified, uncomplicated Plan: EXPLAINED ABOUT ANNUAL LUNG SCREENING PROGRAM AND HE IS AGREEABLE TO JOIN THE PROGRAM REFERRAL IS MADE. Orders: Orders PFT pulmonary function test Today F17.200 - Nicotine dependence, unspecified, uncomplicated, J44.9 - Chronic obstructive pulmonary disease, unspecified Referrals Thoracic Surgery Referral F17.200 - Nicotine dependence, unspecified, uncomplicated, J44.9 - Chronic obstructive pulmonary disease, unspecified Coding Level of Care Code Est Pt Level 3 (17595) Diagnoses Somnolence, daytime R40.0 COPD (chronic obstructive pulmonary disease) J44.9 Smoker F17.200
[2023-03-09 13:34] VITALS: BP 140/74; PULSE 81; O2SAT 94; BMI 27.4
== END 2023-03-09 14:02 | disposition home or self-care (01) ==
PROVIDERS: PCP Internal Medicine; Visit Provider Internal Medicine
DX: R40.0 Somnolence (principal); J44.9 Chronic obstructive pulmonary disease, unspecified; F17.200 Nicotine dependence, unspecified, uncomplicated
CPT/HCPCS: 99213

== ENCOUNTER → 2023-03-09 13:24 | Outpatient (BNVA) | payer BC, SELFPAY | PROVIDERS: PCP Internal Medicine; Visit Provider Internal Medicine ==

== ENCOUNTER 2023-03-20 08:48 | Outpatient (REF) | payer BC, SELFPAY ==
--- NOTE | 2023-03-20 09:33 | PFT_ITS ---
Flows: FEV1: 69 % of predicted at 1.90 L FVC: 110 % of predicted at 3.72 L FEV1/FVC: 51 % Bronchodilator response: Absent Volumes: Total lung capacity: 84 % of predicted at 5.59 L Residual volume: 82 % of predicted at 2.10 L Slow vital capacity: 90 % of predicted at 3.50 L Expiratory reserve volume: 100 % of predicted at 1.12 L Diffusion capacity: Moderately decreased, adjusts to being mildly decreased after correction for alveolar ventilation. Impression: Moderate obstructive ventilatory defect with no bronchodilator response. Decreased diffusion capacity suggests emphysema. MTDD
== END 2023-03-20 08:49 | disposition home or self-care (01) ==
LOC: HO.RESP 08:48
PROVIDERS: PCP Internal Medicine; Visit Provider Internal Medicine
DX: J44.9 Chronic obstructive pulmonary disease, unspecified (principal); F17.200 Nicotine dependence, unspecified, uncomplicated
CPT/HCPCS: 94010; 94727; 94729

== ENCOUNTER → 2023-03-20 09:33 | Outpatient (BNV) | payer BC, SELFPAY | PROVIDERS: PCP Internal Medicine; Visit Provider Internal Medicine Pulmonary Disease | DX: J44.9 Chronic obstructive pulmonary disease, unspecified (principal); F17.210 Nicotine dependence, cigarettes, uncomplicated | CPT/HCPCS: 94060; 94727; 94729 ==

== ENCOUNTER 2023-04-27 13:45 | Outpatient (AMB) | payer BC, SELFPAY ==
--- NOTE | 2023-04-27 13:52 | MHC.OFFVIS ---
Intake Vital Signs 04/27/23 13:53 Height 5 ft 8 in Weight 178 lb BMI 27.1 BP 150/76 H Blood Pressure Location Lt brachial Position Sitting Respiration 20 Pulse 72 Pulse Source Pulse Oximeter Pulse Oximetry (%) 98 Oxygen Delivery Method Room Air Intake Visit Reasons: Somnolence Intake Note: 77 years old gentleman, past smoker, has chronic obstructive pulmonary disease. He was checked for obstructive sleep apnea and his home sleep study was negative. He has had pulmonary function test to which shows mild to moderate degree of obstructive airway disorder but without any response to bronchodilator therapy. His main symptom is getting short of breath if he walks fast, if he walks on an incline or climbs stairs, or if he is carrying some load. .He has very little cough He has been on Advair 250-50 1 inhalation b.i.d. but does not think it makes any difference. Allergies No Known Allergies [No Known Allergies*] Allergy (Verified 04/27/23 13:51) [facility] Medical History MAGGY (obstructive sleep apnea) Somnolence, daytime Smoker Encounter for competency evaluation Severe sepsis Dyslipidemia COPD (chronic obstructive pulmonary disease) Surgical History History of partial colectomy Social History Household Members: Spouse Housing: House Do you presently have visiting nurse or other home services: No Alcohol intake: current Alcohol intake frequency: 0-2 drinks per day Alcohol type: beer Comment: refusing bed alarm Patient Tobacco Use Status: Current everyday Tobacco user Cigarette Packs Per Day: 0.5 Cigarettes Per Day: 10 service: Yes Current occupational status: employed Review of Systems Const All systems reviewed & are unremarkable except as noted in HPI and below Eyes Reports no additional complaints ENT Reports no additional complaints and Reports dizziness (ON GETTING UP FAST) Card Denies chest pain, Denies irregular heart rhythm and Denies leg edema Resp Reports as per HPI GI Reports heartburn (CONTROLLED WITH MED) Reports nocturia Musc Reports no additional complaints Skin/Breast Reports system reviewed and no additional complaints, except as documented Neuro Reports dizziness (ON GETTING UP FAST) Endo Reports no additional complaints Aller/Immun Reports no additional complaints Physical Exam Vital Signs: Last Vital Signs Pulse 72 04/27/23 13:53 Resp 20 04/27/23 13:53 BP 150/76 H 04/27/23 13:53 Pulse Ox 98 04/27/23 13:53 Oxygen Delivery Method Room Air 04/27/23 13:53 BMI result Body Mass Index 27.1 Const General: comfortable, no acute distress, alert and awake Orientation/consciousness: patient oriented x3 HEENT Head: Yes normal to inspection General nose exam: No nasal polyps present and No nasal discharge present Face and sinus: Yes sinuses nontender Mouth: oropharynx normal Teeth and gingiva: dentures and other (THERE IS MILD REGRESSION OF THE LOWER JAW) Throat: Yes posterior oropharynx normal Eyes General: appearance normal, both eyes and all related structures Neck Neck: Yes normal visual inspection, Yes no lymphadenopathy, Yes trachea midline, Yes no JVD and Yes other (NECK SIZE 18 IN) Thyroid: Thyroid normal Chest Chest palpation & inspection: normal inspection of the chest, normal palpation of entire chest wall and no tenderness Resp Effort & Inspection: normal respiratory effort Auscultation: clear to auscultation bilaterally, no crackles, no wheezes and diminished lung sounds Cardio Palpation: normal PMI Rate: regular rate Rhythm: regular rhythm Heart sounds: no gallops and no murmurs GI Palpation (GI): Soft to palpation, nontender, No hepatosplenomegaly present and no masses Auscultation: normal bowel sounds Back/Spine/Pelvis Thoracic/Lumbar Spine: thoracic and lumbar spine normal to inspection Skin General skin exam: no rashes or lesions noted Neuro General: patient oriented x3 and no focal motor deficits Cranial nerves: Yes CN's II-XII intact bilaterally Extrem General: Yes normal to inspection, Yes no clubbing, cyanosis or edema and Yes no calf tenderness Psych Appearance: grossly normal and well kempt Speech and movement: Normal speech and movement present Results Reviewed Results Reviewed: Pulmonary function test on 03/20/2023. FVC 91%, FEV1 70%, FEV1/FVC ratio is 57 FEF 25-75 40%, MVV 60%. THERE IS THE NO RESPONSE TO BD THERAPY I WALKED WITH HIM IN THE HALLWAY FOR 5 MINUTES. RESTING O2 SAT 97% AND AFTER 5 MINUTES WALK 96% .SO THERE IS NO EXERCISE INDUCED HYPOXEMIA Assessment & Plan Assessment & Plan (1) COPD (chronic obstructive pulmonary disease): Comment: HE HAS LONGSTANDING DIAGNOSIS OF COPD, RELATED TO HIS SMOKING. IT HAS REMAINED RELATIVELY STABLE WITHOUT ANY ACUTE EXACERBATION. Code(s): J44.9 - Chronic obstructive pulmonary disease, unspecified Plan: HE MAY STOP USING ADVAIR/ WIXELA , IT IS NOT MAKING ANY DIFFERENCE. KEEP USING ALBUTEROL HFA 1 OR 2 PUFFS Q 6 HOURS ONLY P.R.N.. IF HIS SHORTNESS OF BREATH ON EXERTION GETS ANY WORSE THEN HE WOULD BE STARTED ON A LAMA AGENT. (2) Smoker: Comment: HAS BEEN SMOKER THROUGHOUT HIS ADULT LIFE. HE TELLS ME THAT HE QUIT SMOKING CIGARETTES. ONLY SMOKES A SMALL PIECE OF CIGAR ONCE IN A WHILE, Code(s): F17.200 - Nicotine dependence, unspecified, uncomplicated Plan: COMMENDED FOR S STOPPING SMOKING CIGARETTES. ALSO RECOMMENDED THAT HE SHOULD NOT TOUCH ANY CIGARS. Coding Level of Care Code Est Pt Level 3 (93310) Diagnoses COPD (chronic obstructive pulmonary disease) J44.9 Smoker F17.200
[2023-04-27 13:53] VITALS: BP 150/76; PULSE 72; RESP 20; O2SAT 98; BMI 27.1
== END 2023-04-27 14:16 | disposition home or self-care (01) ==
PROVIDERS: PCP Internal Medicine; Visit Provider Internal Medicine
DX: J44.9 Chronic obstructive pulmonary disease, unspecified (principal); F17.200 Nicotine dependence, unspecified, uncomplicated
CPT/HCPCS: 99213

== ENCOUNTER → 2023-04-27 13:45 | Outpatient (BNVA) | payer BC, SELFPAY | PROVIDERS: PCP Internal Medicine; Visit Provider Internal Medicine ==

== ENCOUNTER 2023-05-07 10:25 | Outpatient (AMB) | payer BC, SELFPAY ==
--- NOTE | 2023-05-07 10:38 | A.OFFVIS_ITS ---
Intake Intake Visit Reasons: LDCT [place] Allergies No Known Allergies [No Known Allergies*] Allergy (Verified 04/27/23 13:51) HPI HPI Comments History of Present Illness Details William is a pleasant 77 year old male, current smoker with a 61 PYH. Patient has been smoking since age 16 for 61 years at 1 ppd, recently decreased to 1/2 ppd. Denies marijuana use. Denies exposure to chemicals or substances like asbestos. Admits second hand smoke exposure. Denies known family history of lung cancer. Denies personal history of cancers. Denies chest CT in last year. Last chest CT 2021, 2 mm and 4 mm nodule noted. Denies recent travel outside the [place]. Admits testing positive for COVID. Admits receiving COVID Vaccine. Denies fever, chills, chest pain, new cough, hemoptysis or unintentional weight loss. Lung Cancer Screening Questionnaire reviewed with patient by provider. Shared Decision Making Completed. Discussed in detail with patient, the risk versus benefit of LDCT screening. Patient in agreement of proceeding with scan. [facility] Medical History MAGGY (obstructive sleep apnea) Somnolence, daytime Smoker Encounter for competency evaluation Severe sepsis Dyslipidemia COPD (chronic obstructive pulmonary disease) Surgical History History of partial colectomy Social History Household Members: Spouse Housing: House Do you presently have visiting nurse or other home services: No Alcohol intake: current Alcohol intake frequency: 0-2 drinks per day Alcohol type: beer Comment: refusing bed alarm Patient Tobacco Use Status: Current everyday Tobacco user Cigarette Packs Per Day: 0.5 Cigarettes Per Day: 10 service: Yes Current occupational status: employed Assessment & Plan Assessment & Plan (1) Nicotine dependence, cigarettes, uncomplicated: Code(s): F17.210 - Nicotine dependence, cigarettes, uncomplicated Plan Shared decision-making visit completed today in office. This patient meets criteria for LDCT for lung cancer screening purposes and is asymptomatic. Offered smoking cessation. Patient has been scheduled for a low dose chest CT for screening purposes at [facility]. We discussed how the results will be obtained depending on CT findings. RADS 1 and RADS 2 will receive a letter with results and will follow up for annual LDCT. Patient informed they will be contacted at later date to schedule upcoming LDCT scan. RADS 3 and RADS 4 will receive a telephone call, or an office visit after reviewing case at our Lung Cancer Conference to determine when the next LDCT will be scheduled or further interventions that may be needed. Discussed importance of screening program and compliance with yearly LDCT scan as scheduled. Risks, benefits, and alternatives were discussed in detail and patient agrees to proceed. Risks discussed include but are not limited to: radiation exposure and possibility of additional intervention for benign disease. Benefits include detection of lung cancer at an early stage. A copy of today's visit and LDCT results will be sent to patient's PCP. Incidental findings on LDCT are PCP's responsibility. If there are incidental findings, our office will ensure that PCP office is aware of these findings. All questions were answered and patient is in agreement of plan. Coding Level of Care Code Lung Cancer Screening G0296 Diagnoses Nicotine dependence, cigarettes, uncomplicated F17.210
== END 2023-05-07 10:55 | disposition home or self-care (01) ==
PROVIDERS: PCP Internal Medicine; Visit Provider Nurse Practitioner Family
DX: F17.210 Nicotine dependence, cigarettes, uncomplicated (principal)
CPT/HCPCS: G0296

== ENCOUNTER 2023-05-07 10:47 | Outpatient (REF) | payer BC, SELFPAY ==
--- NOTE | ~2023-05-07 | CT_ITS ---
EXAMINATION: CT CHEST SCREENING CLINICAL INFORMATION: Current smoker one pack per day x 59 years. COMPARISON: CT chest 12/17/2021. TECHNIQUE: Multidetector volumetric CT imaging of the chest is performed without contrast using low dose technique. Additional 2D coronal and sagittal reformatted images and axial 3D maximum intensity projection (MIP) images are generated on the CT workstation. This CT examination was performed using dose optimization techniques as appropriate, variously including the following: *Automated exposure control *Adjustment of mA and/or kV according to patient size (this includes techniques or standardized protocols for targeted exams where dose is matched to indication/reason for exam; i.e. extremities or head) *Use of iterative reconstruction technique DLP: 82 mGy-cm. FINDINGS: LUNGS: Moderate emphysematous changes are present. Mild peribronchial thickening is seen. There is some mild traction bronchiectasis at the right lung base. Bibasilar scarring is seen, left greater than right. Some subpleural reticulation is seen at the left lung base. No suspicious lung masses are seen. Single 2 mm punctate nodule right apex (4:112). MEDIASTINUM: Ascending aorta of 4.1 cm, which is within normal limits for a patient of 77 years of age. Heart size normal. No mediastinal or hilar lymphadenopathy. CORONARY ARTERY CALCIFICATION: Moderate. PLEURA: There is no pleural effusion. No pleural mass or thickening. AXILLA: No lymphadenopathy. UPPER ABDOMEN: Unremarkable. OSSEOUS STRUCTURES: Mild degenerative changes are present in the spine. CT/CT lung screening IMPRESSION: No lung nodules seen suspicious for malignancy. ASSESSMENT: Lung-RADS category 2: Benign. RECOMMENDATION: Routine annual low-dose CT screening in 12 months.
== END 2023-05-07 10:48 | disposition home or self-care (01) ==
LOC: HO.CT 10:47
PROVIDERS: PCP Internal Medicine; Visit Provider Nurse Practitioner Family
DX: Z12.2 Encounter for screening for malignant neoplasm of respiratory organs (principal); F17.210 Nicotine dependence, cigarettes, uncomplicated
CPT/HCPCS: 71271; G0296

== ENCOUNTER 2023-05-11 11:34 | Outpatient (REF) | payer BC, SELFPAY ==
[2023-05-11 11:37] LABS: MANUAL DIFF FLAG NO
[2023-05-11 12:16] LABS: Basophils Percent Auto 0.3 % (0-2); Eosinophils Absolute Auto 0.2 X10*3/uL (0.0-0.4); Eosinophils Percent Auto 2.3 % (0-4); Hematocrit 41.7 % (42.0-52.0); Imm Gran Abs Auto 0.03 X10*3/uL (0.00-0.03); Imm Gran Pct Auto 0.4 % (0.0-0.4); Lymphocytes Absolute Auto 2.1 X10*3/uL (1.2-4.9); Lymphocytes Percent Auto 26.8 % (20-40); Mean Corpuscular HGB Conc 33.6 g/dl (31.0-36.0); Mean Corpuscular Hemoglobin 30.9 pg (27.0-33.0); Mean Corpuscular Volume 92.1 fL (80.0-98.0); Mean Platelet Volume 10.4 fL (9.4-12.4); Monocytes Absolute Auto 0.8 X10*3/uL (0.1-1.2); Monocytes Percent Auto 9.5 % (2-11); Neutrophils Absolute Auto 4.9 x10*3/uL (2.0-8.3); Neutrophils Percent Auto 60.7 % (45-73); Platelet Count 195 X10*3/uL (160-400); Red Blood Count 4.53 X10*6/uL (4.60-5.80); Red Cell Distribution Width 14.6 % (11.0-16.0)
[2023-05-11 12:27] LABS: Appearance Urine Clear; Color Urine Yellow; Glucose Urine UA Negative (Negative); Leukocyte Esterase Urine Negative (Negative); Nitrite Urine Negative (Negative); PH 6.5 (5.0-9.0); Urine Blood Negative (Negative); Urine Ketones Negative (Negative); Urine Protein Negative (Neg-Trace)
[2023-05-11 12:29] LABS: Estimated Average Glucose 94 mg/dL; Hemoglobin A1c % 4.9 % (<6.0)
[2023-05-11 12:32] LABS: Bacteria Urine None Seen (None Seen); Hyaline Casts Urine 0-2 /LPF (0-2); RBC Urine 0-2 /HPF (0-2); Squamous Epithelial Cell Urine 0-2 /HPF (0-2); WBC Urine 0-5 /HPF (0-5)
[2023-05-11 12:41] LABS: Alanine Aminotransferase 10 U/L (0-40); Albumin Level 4.2 g/dL (3.5-5.0); Alkaline Phosphatase 104 U/L (39-117); Anion Gap 13 (12-20); Aspartate Amino Transferase 12 U/L (5-37); Bilirubin Total 0.5 mg/dL (0.0-1.0); Blood Urea Nitrogen 18 mg/dL (9-16); Calcium 9.5 mg/dL (8.4-10.2); Carbon Dioxide 28 mmol/L (22-29); Chloride 103 mmol/L (96-108); Cholesterol 177 mg/dL (<200); Estimated Glomerular Filt Rate 49; Glucose Fasting 115 mg/dL (60-99); HDL Cholesterol 45 mg/dL (>40); LDL Cholesterol Calculated 114 mg/dL (<100); Potassium 4.1 mmol/L (3.3-5.1); Sodium 140 mmol/L (135-145); Total Protein 7.1 g/dL (6.5-8.0); Triglycerides 93 mg/dL (<150)
[2023-05-11 12:52] LABS: PSA,Total (Free>4and<10) 0.81 ng/mL (0.00-4.00)
[2023-05-11 13:09] LABS: Creatinine Urine 52.12 mg/dL; Microalbum/Creatinine Ratio Ur 40.2 ug/mg cr (<30)
== END 2023-05-11 11:35 | disposition home or self-care (01) ==
LOC: HO.LNP 11:34
PROVIDERS: Visit Provider Internal Medicine
DX: Z00.00 Encounter for general adult medical examination without abnormal findings (principal); Z12.5 Encounter for screening for malignant neoplasm of prostate; R73.03 Prediabetes; E78.00 Pure hypercholesterolemia, unspecified; D69.6 Thrombocytopenia, unspecified
CPT/HCPCS: 80053; 80061; 81001; 82043; 82570; 83036; 84153; 85025

== ENCOUNTER 2023-08-31 13:50 | Outpatient (AMB) | payer BC, SELFPAY ==
[2023-08-31 13:59] VITALS: BP 112/78; PULSE 56; O2SAT 97; BMI 27.1
--- NOTE | 2023-08-31 13:59 | MHC.OFFVIS ---
Vital Signs 08/31/23 13:59 Height 5 ft 8 in Weight 178 lb 0.58 oz BMI 27.1 BP 112/78 Blood Pressure Location Lt brachial Position Sitting Pulse 56 Pulse Source Pulse Oximeter Pulse Oximetry (%) 97 Oxygen Delivery Method Room Air Intake Visit Reasons: Somnolence Intake Note: pt is here for follow up and states his breathing is good and bad days, air quality is not helping. 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 HE HAS MILD COPD, WHICH IS MOSTLY UNDER CONTROLLED WITH THE USE OF WIXELA 250-50 1 INHALATION B.I.D., AND HE NEED TO USE ALBUTEROL ONLY ONCE IN A WHILE. LOW-DOSE CT SCAN OF THE CHEST WAS NEGATIVE. 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 HE CLAIMS THAT 2 HE IS BOTHERED BY INTERMITTENT COUGH WHICH IS MOSTLY RELATED TO THE CHANGE IN THE WEATHER. HE DOES NOT HAVE MUCH SHORTNESS OF BREATH ON DOING PHYSICAL WORK. [facility] Medical History MAGGY (obstructive sleep apnea) Somnolence, daytime Smoker Encounter for competency evaluation Severe sepsis Dyslipidemia COPD (chronic obstructive pulmonary disease) Surgical History History of partial colectomy Social History Household Members: Spouse Housing: House Do you presently have visiting nurse or other home services: No Alcohol intake: current Alcohol intake frequency: 0-2 drinks per day Alcohol type: beer Comment: refusing bed alarm Patient Tobacco Use Status: Current everyday Tobacco user Cigarette Packs Per Day: 0.5 Cigarettes Per Day: 10 service: Yes Current occupational status: employed Review of Systems Const All systems reviewed & are unremarkable except as noted in HPI and below Eyes Reports no additional complaints ENT Reports no additional complaints and Reports dizziness (ON GETTING UP FAST) Card Denies chest pain, Denies irregular heart rhythm and Denies leg edema Resp Reports as per HPI GI Reports heartburn (CONTROLLED WITH MED) Reports nocturia Musc Reports no additional complaints Skin/Breast Reports system reviewed and no additional complaints, except as documented Neuro Reports dizziness (ON GETTING UP FAST) Endo Reports no additional complaints Aller/Immun Reports no additional complaints Physical Exam Vital Signs: Last Vital Signs Pulse 56 08/31/23 13:59 BP 112/78 08/31/23 13:59 Pulse Ox 97 08/31/23 13:59 Oxygen Delivery Method Room Air 08/31/23 13:59 BMI result Body Mass Index 27.1 Const General: comfortable, no acute distress, alert and awake Orientation/consciousness: patient oriented x3 HEENT Head: Yes normal to inspection General nose exam: No nasal polyps present and No nasal discharge present Face and sinus: Yes sinuses nontender Mouth: oropharynx normal Teeth and gingiva: dentures and other (THERE IS MILD REGRESSION OF THE LOWER JAW) Throat: Yes posterior oropharynx normal Eyes General: appearance normal, both eyes and all related structures Neck Neck: Yes normal visual inspection, Yes no lymphadenopathy, Yes trachea midline, Yes no JVD and Yes other (NECK SIZE 18 IN) Thyroid: Thyroid normal Chest Chest palpation & inspection: normal inspection of the chest, normal palpation of entire chest wall and no tenderness Resp Effort & Inspection: normal respiratory effort Auscultation: clear to auscultation bilaterally, no crackles, no wheezes and diminished lung sounds Cardio Palpation: normal PMI Rate: regular rate Rhythm: regular rhythm Heart sounds: no gallops and no murmurs GI Palpation (GI): Soft to palpation, nontender, No hepatosplenomegaly present and no masses Auscultation: normal bowel sounds Back/Spine/Pelvis Thoracic/Lumbar Spine: thoracic and lumbar spine normal to inspection Skin General skin exam: no rashes or lesions noted Neuro General: patient oriented x3 and no focal motor deficits Cranial nerves: Yes CN's II-XII intact bilaterally Extrem General: Yes normal to inspection, Yes no clubbing, cyanosis or edema and Yes no calf tenderness Psych Appearance: grossly normal and well kempt Speech and movement: Normal speech and movement present Results Reviewed Results Reviewed: LDCT OF THE CHEST ON 05/07/23 WAS NEGATIVE FOR ANY PULMONARY NODULES. Assessment & Plan Assessment & Plan (1) COPD (chronic obstructive pulmonary disease): Comment: HE HAS LONGSTANDING DIAGNOSIS OF COPD, RELATED TO HIS SMOKING. IT HAS REMAINED RELATIVELY STABLE WITHOUT ANY ACUTE EXACERBATION. Code(s): J44.9 - Chronic obstructive pulmonary disease, unspecified Category: Medical Plan: CONTINUE USING WIXELA 250-51 INHALATION B.I.D.. AND ALBUTEROL HFA 2 PUFFS Q 6 HOURS ONLY P.R.N. (2) Smoker: Comment: HAS BEEN SMOKER THROUGHOUT HIS ADULT LIFE. HE HAD QUIT SMOKING CIGARETTES FOR A WHILE BUT UNFORTUNATELY WENT BACK TO SMOKING ABOUT HALF PACK A DAY. CIGARETTES. Code(s): F17.200 - Nicotine dependence, unspecified, uncomplicated Category: Social Hx Plan: HAD A GOOD TALK WITH HIM AND I TRY TO CONVINCE HIM TO STOP SMOKING OR AT LEAST CUT DOWN THE NUMBER INTO HALF. *SMOKES ONLY HALF CIGARETTES AT A TIME. Coding Level of Care Code Est Pt Level 3 (34141) Diagnoses COPD (chronic obstructive pulmonary disease) J44.9 Smoker F17.200
== END 2023-08-31 14:37 | disposition home or self-care (01) ==
PROVIDERS: PCP Internal Medicine; Visit Provider Internal Medicine
DX: J44.9 Chronic obstructive pulmonary disease, unspecified (principal); F17.200 Nicotine dependence, unspecified, uncomplicated
CPT/HCPCS: 99213

== ENCOUNTER → 2023-08-31 13:50 | Outpatient (BNVA) | payer BC, SELFPAY | PROVIDERS: PCP Internal Medicine; Visit Provider Internal Medicine ==

== ENCOUNTER 2023-09-06 15:09 | Outpatient (REF) | payer BC, SELFPAY ==
[2023-09-06 15:36] LABS: MANUAL DIFF FLAG NO
[2023-09-06 16:32] LABS: Basophils Percent Auto 0.4 % (0-2); Eosinophils Absolute Auto 0.2 X10*3/uL (0.0-0.4); Eosinophils Percent Auto 1.9 % (0-4); Hematocrit 40.7 % (42.0-52.0); Hemoglobin 13.6 g/dl (14.0-18.0); Imm Gran Abs Auto 0.03 X10*3/uL (0.00-0.03); Imm Gran Pct Auto 0.4 % (0.0-0.4); Lymphocytes Absolute Auto 2.1 X10*3/uL (1.2-4.9); Lymphocytes Percent Auto 25.4 % (20-40); Mean Corpuscular HGB Conc 33.4 g/dl (31.0-36.0); Mean Corpuscular Hemoglobin 30.8 pg (27.0-33.0); Mean Corpuscular Volume 92.3 fL (80.0-98.0); Mean Platelet Volume 10.7 fL (9.4-12.4); Monocytes Absolute Auto 0.8 X10*3/uL (0.1-1.2); Neutrophils Absolute Auto 5.2 x10*3/uL (2.0-8.3); Neutrophils Percent Auto 61.9 % (45-73); Platelet Count 207 X10*3/uL (160-400); Red Blood Count 4.41 X10*6/uL (4.60-5.80); Red Cell Distribution Width 14.3 % (11.0-16.0); White Blood Count 8.4 X10*3/uL (4.8-10.8)
[2023-09-06 17:18] LABS: C Reactive Protein 0.58 mg/dL (< or = 0.50)
[2023-09-06 17:33] LABS: Erythrocyte Sedimentation Rate 7 MM/HR (0-15)
== END 2023-09-06 15:10 | disposition home or self-care (01) ==
LOC: HO.LAB 15:09
PROVIDERS: Visit Provider Registered Nurse
DX: G43.909 Migraine, unspecified, not intractable, without status migrainosus (principal)
CPT/HCPCS: 36415; 85025; 85652; 86140

== ENCOUNTER 2023-11-12 10:46 | Outpatient (REF) | payer BC, SELFPAY ==
[2023-11-12 11:41] LABS: Estimated Average Glucose 100 mg/dL; Hemoglobin A1c % 5.1 % (<6.0)
[2023-11-12 11:54] LABS: Alanine Aminotransferase 12 U/L (0-40); Alkaline Phosphatase 109 U/L (39-117); Aspartate Amino Transferase 13 U/L (5-37); Bilirubin Direct 0.2 mg/dL (0.0-0.5); Bilirubin Total 0.6 mg/dL (0.0-1.0); Cholesterol 195 mg/dL (<200); Glucose Fasting 88 mg/dL (60-99); HDL Cholesterol 45 mg/dL (>40); LDL Cholesterol Calculated 136 mg/dL (<100); Total Protein 6.8 g/dL (6.5-8.0); Triglycerides 74 mg/dL (<150)
[2023-11-12 12:15] LABS: Reflex LDLD? No
== END 2023-11-12 10:47 | disposition home or self-care (01) ==
LOC: HO.LNP 10:46
PROVIDERS: Visit Provider Internal Medicine
DX: R73.09 Other abnormal glucose (principal); E78.00 Pure hypercholesterolemia, unspecified
CPT/HCPCS: 80061; 80076; 82947; 83036

== ENCOUNTER 2023-11-23 11:39 | Outpatient (REF) | payer BC, SELFPAY ==
--- NOTE | ~2023-11-23 | XR_ITS ---
EXAMINATION: XR CERVICAL SPINE CLINICAL INFORMATION: Acute torticollis COMPARISON: None available. TECHNIQUE: 6 views cervical spine FINDINGS: The cervical spine is visualized from the C1- upper C7 vertebral body level. 4 mm anterolisthesis of C4 on C5. Predens space is maintained. No prevertebral soft tissue swelling. No acute fracture is seen. Multilevel disc degenerative changes, more prominent changes of moderate-severe disc degeneration at C6-7. Multilevel bilateral neural foramen narrowing. Limited evaluation of the dens, by overlapping densities. No suspicious findings in lung apices. XR/XR cervical spine 4V IMPRESSION: No radiographic evidence of acute fracture in the visualized portion of the spine. Cervical spondylosis, more prominent findings of C6-7 moderate-severity disc degeneration. Multilevel bilateral neural foramen narrowing. 4 mm anterolisthesis of C4 on C5, probably degenerative. Study is assigned for dictation on November 30, 2023 Electronically signed by: Everardo Arias MD 11/30/2023 09:24 AM EDT
== END 2023-11-23 11:40 | disposition home or self-care (01) ==
LOC: HO.XRAY 11:39
PROVIDERS: PCP Internal Medicine; Visit Provider Internal Medicine
DX: M43.6 Torticollis (principal)
CPT/HCPCS: 72050

== ENCOUNTER 2023-11-30 13:12 | Outpatient (REF) | payer BC, SELFPAY ==
--- NOTE | ~2023-11-30 | XR_ITS ---
EXAMINATION: XR CERVICAL SPINE CLINICAL INFORMATION: Acute torticollis. COMPARISON: 11/23/2023. TECHNIQUE: 10 views of the cervical spine, inclusive of flexion and extension views, were obtained. FINDINGS: Bilateral multilevel facet arthritis. Multilevel cervical spondylosis. Mild anterior subluxation of C4 on C5 on flexion and extension views with moderate loss of disc space height. Minimal anterior subluxation of C5 on C6 on flexion and extension views with moderate loss of disc space height. Marked degenerative changes with loss of disc space height at C6-C7. Limited visualization of C7 due to overlying bony and soft tissue structures. Bilateral multilevel facet arthritis with neural foraminal encroachment. XR/XR cervical spine w flex/ext IMPRESSION: Advanced multilevel cervical spondylosis. Electronically signed by: Tonia Barrett MD 12/21/2023 12:57 PM EDT
== END 2023-11-30 13:13 | disposition home or self-care (01) ==
LOC: HO.HMGCX 13:12
PROVIDERS: PCP Internal Medicine; Visit Provider Internal Medicine
DX: M43.6 Torticollis (principal)
CPT/HCPCS: 72052

== ENCOUNTER 2024-01-24 13:11 | Day surgery (SDC) | payer BC, SELFPAY ==
[2024-01-18 14:19] VITALS: BMI 26.6
--- NOTE | 2024-01-18 14:29 | P.CONAN_ITS ---
Documented by User: Guillermina Schmidt NP 01/18/24 14:30 HPI - Anesthesia Eval Consult details Narrative: 78yo M for Colonoscopy ETOH Daily PMFSH Active Problems Active Problems: All Active Problems Nicotine dependence, cigarettes, uncomplicated (Acute) Thrombocytopenia (Acute) Pulmonary embolism (Acute) Acute respiratory failure with hypoxia (Acute) COVID-19 (Acute) Upper respiratory tract infection (Acute) MAGGY (obstructive sleep apnea) (Acute) Somnolence, daytime (Acute) COPD (chronic obstructive pulmonary disease) (Acute) Smoker (Acute) Past Medical History Medical History (Updated 01/18/24 @ 14:42 by Belkys Smith RN) Migraines Parkinsons disease Thrombocytopenia Pulmonary embolism MAGGY (obstructive sleep apnea) Somnolence, daytime Smoker Dyslipidemia COPD (chronic obstructive pulmonary disease) Surgical History Surgical History History of back surgery H/O colonoscopy History of partial colectomy Social History Social History Household Members: Spouse Housing: House Are you a primary animal care giver to a significant other at home: No Do you presently have visiting nurse or other home services: No Alcohol intake: current Alcohol intake frequency: holidays/special occasions only Alcohol type: beer Comment: refusing bed alarm Patient Tobacco Use Status: Current everyday Tobacco user Tobacco use type: Cigarette Cigarette Packs Per Day: 0.5 Cigarettes Per Day: 9 Years Smoked: 65 Smoked in Last 30 Days: Yes Use of substances other than those prescribed or required for medical reasons: No Have you been hit, kicked, punched, or otherwise hurt by someone within the past year? If so, by whom?: No Are you DNR?: No Advance Directives: No Advance Directives Information Provided: No Advance Directives on File: No Recently lost weight without trying: No How much weight loss: Not applicable Eating poorly because of decreased appetite: No Nutrition screen score: 0 Nutrition Risks: No Nutritional Risk Poor oral hygiene: Yes (upper and lower full denture) service: Yes Current occupational status: employed Meds Allergies Allergy/AdvReac Type Severity Reaction Status Date / Time No Known Allergies Allergy Verified 01/24/24 15:12 [No Known Allergies*] Home Medications ?Medication ?Instructions ?Recorded ?Confirmed ?Last Taken ?Type albuterol sulfate 90 mcg/actuation 2 puff inhalation Q4H PRN Wheezing 01/03/21 01/24/24 01/03/21 History aerosol inhaler amitriptyline 10 mg tablet 10 mg PO BEDTIME 01/18/24 01/24/24 Unknown History carbidopa 25 mg-levodopa 100 mg 1 tab PO TID 01/18/24 01/24/24 01/24/24 History tablet cyclobenzaprine 5 mg tablet 5 mg PO BID 01/18/24 01/24/24 01/24/24 History fluticasone 250 mcg-salmeterol 50 1 ea inhalation Q12H 01/18/24 01/24/24 01/24/24 History mcg/dose blistr powdr for inhalation (Wixela Inhub) omeprazole 20 mg capsule,delayed 20 mg PO DAILY 01/18/24 01/24/24 01/24/24 History release zinc acetate 50 mg (zinc) capsule 50 mg PO DAILY 01/18/24 01/24/24 01/24/24 History Exam Height,Weight and Vital Signs: Height 5 ft 8 in Weight 79.379 kg Pertinent Lab Results Pertinent Lab Results: Laboratory Tests 09/06/23 15:34 WBC 8.4 Hgb 13.6 L Hct 40.7 L Plt Count 207 Assessment and Plan Assessment Anesthesia Assessment: Chart Reviewed Documented by User: Felipe Wilkins MD 01/24/24 15:32 [facility] Past Medical History Medical History (Updated 01/18/24 @ 14:42 by Belkys Smith RN) Migraines Parkinsons disease Thrombocytopenia Pulmonary embolism MAGGY (obstructive sleep apnea) Somnolence, daytime Smoker Dyslipidemia COPD (chronic obstructive pulmonary disease) Family History Family history of problems with anesthesia: No Surgical History Surgical History History of back surgery H/O colonoscopy History of partial colectomy History of Problems with Anesthesia: No Social History Social History Household Members: Spouse Housing: House Are you a primary animal care giver to a significant other at home: No Do you presently have visiting nurse or other home services: No Alcohol intake: current Alcohol intake frequency: holidays/special occasions only Alcohol type: beer Comment: refusing bed alarm Patient Tobacco Use Status: Current everyday Tobacco user Tobacco use type: Cigarette Cigarette Packs Per Day: 0.5 Cigarettes Per Day: 9 Years Smoked: 65 Smoked in Last 30 Days: Yes Use of substances other than those prescribed or required for medical reasons: No Have you been hit, kicked, punched, or otherwise hurt by someone within the past year? If so, by whom?: No Are you DNR?: No Advance Directives: No Advance Directives Information Provided: No Advance Directives on File: No Recently lost weight without trying: No How much weight loss: Not applicable Eating poorly because of decreased appetite: No Nutrition screen score: 0 Nutrition Risks: No Nutritional Risk Poor oral hygiene: Yes (upper and lower full denture) service: Yes Current occupational status: employed [employer] Allergies Allergy/AdvReac Type Severity Reaction Status Date / Time No Known Allergies Allergy Verified 01/24/24 15:12 [No Known Allergies*] Home Medications ?Medication ?Instructions ?Recorded ?Confirmed ?Last Taken ?Type albuterol sulfate 90 mcg/actuation 2 puff inhalation Q4H PRN Wheezing 01/03/21 01/24/24 01/03/21 History aerosol inhaler amitriptyline 10 mg tablet 10 mg PO BEDTIME 01/18/24 01/24/24 Unknown History carbidopa 25 mg-levodopa 100 mg 1 tab PO TID 01/18/24 01/24/24 01/24/24 History tablet cyclobenzaprine 5 mg tablet 5 mg PO BID 01/18/24 01/24/24 01/24/24 History fluticasone 250 mcg-salmeterol 50 1 ea inhalation Q12H 01/18/24 01/24/24 01/24/24 History mcg/dose blistr powdr for inhalation (Wixela Inhub) omeprazole 20 mg capsule,delayed 20 mg PO DAILY 01/18/24 01/24/24 01/24/24 History release zinc acetate 50 mg (zinc) capsule 50 mg PO DAILY 01/18/24 01/24/24 01/24/24 History Exam Airway Mallampati Class: II TM Dist: <=3cm Neck ROM: Full Denture: Upper and Lower Heart: ok Lungs: clear; Sat 97% on RA Assessment and Plan Assessment Anesthesia Assessment: Anesthesia Plan Discussed Final Anesthetic Review Family History of Problems with Anesthesia: No History of Problems with Anesthesia: No NPO: Yes ASA Class: III Final Preanesthetic Review: No Changes in Pt Med Stat, Meds/Allgs Chart Reviewed, Consent Obtained/Reviewed and Anes Risks/Benef Reviewed Patient Risk: Intermediate Procedure Risk: Low Anesthetic Plan Anesthetic Plan: MAC: and Agree w/ Assess. and Plan Disposition: Standard PACU
[2024-01-24 13:37] VITALS: BMI 26.3
[2024-01-24 13:44] VITALS: BP 171/88; PULSE 79; RESP 18; TEMP 37.1; O2SAT 98
[2024-01-24] MEDS: Lactated Ringers 1,000 ML 100 ML IVCONT (13:52)
[2024-01-24 16:30] VITALS: BP 138/64; PULSE 64; RESP 17; TEMP 36.7; O2SAT 99
--- NOTE | 2024-01-24 16:30 | P.BOP_ITS ---
Brief Operative Note Date of Service: 01/24/24 Pre-op diagnosis: Screening Post-op diagnosis: other (Colon polyps) Procedure: Colonoscopy to the cecum with hot snare polypectomy x 2(Ascending colon polyp not recovered) Surgeon: Moses Pérez MD Anesthesia: MAC Was an Literacy Coach used for this Procedure?: No Estimated blood loss (mL): 0 Pathology: other (A. Polyp at 60cm) Condition: stable Disposition: PACU
[2024-01-24 16:35] VITALS: BP 150/70; PULSE 56; RESP 18; O2SAT 97
[2024-01-24 16:40] VITALS: BP 149/67; PULSE 53; RESP 18; O2SAT 95
[2024-01-24 16:45] VITALS: BP 160/72; PULSE 69; RESP 18; TEMP 36.7; O2SAT 97
--- NOTE | 2024-01-25 00:52 | OP_ITS ---
DATE OF SERVICE: 01/24/2024 SURGEON: Moses Pérez MD INDICATIONS: The patient presents for colorectal cancer screening and personal history of colon polyps. Full consent has been obtained from him for this, including risks of bleeding and perforation. PREOPERATIVE DIAGNOSIS: POSTOPERATIVE DIAGNOSIS: PROCEDURE PERFORMED: Colonoscopy to cecum with hot snare polypectomy x2. ESTIMATED BLOOD LOSS: COMPLICATIONS: ANESTHESIA: Monitored anesthesia care. ASSISTANTS: SPECIMENS: PREOPERATIVE DIAGNOSES: Colorectal cancer screening and personal history of colon polyps. POSTOPERATIVE DIAGNOSES: Colorectal cancer screening and personal history of colon polyps, colon polyps, diverticulosis, internal hemorrhoids. DESCRIPTION OF PROCEDURE: The patient was placed in the left lateral decubitus position. The digital rectal exam revealed no abnormalities. The Olympus video pediatric colonoscope was entered into the rectum and advanced easily to the cecum. However, there was a great deal of peristalsis and he did receive 1 mg of IV glucagon, which did help. Once in the cecum, I did identify normal-appearing cecal pouch with appendiceal orifice and a normal-appearing ileocecal valve. The entire cecum and ileocecal valve appeared normal. There was transillumination of light deep in the right lower quadrant. The scope was slowly withdrawn assessing all mucosal surfaces carefully. Preparation was excellent. In the proximal ascending colon was an approximately 6 to 8 mm polyp, which was removed by hot snare polypectomy but not recovered. The polypectomy site appeared clean, without any sign of residual polyp nor bleeding. At 60 cm was an approximately 1.2 cm polyp on a short stalk, which was removed by hot snare polypectomy and recovered by suction. The polypectomy site appeared clean, without any sign of residual polyp nor bleeding. I did not visualize any other polyps, colitis, nor angiodysplasia. There were occasional diverticula scattered throughout the colon. At 20 cm was his anastomosis, which appeared normal. In the rectum, scope was retroflexed visualizing internal hemorrhoids, but no other pathology. The rectal mucosa appeared normal. The scope was straightened and withdrawn from the patient. He tolerated the procedure well and was returned to the recovery area in stable condition. IMPRESSION: 1. Colon polyps. 2. Diverticulosis. 3. Internal hemorrhoids. PLAN: The results of the pathology will be checked. Given his age and these findings, I do not think we would need any further screening colonoscopies. He was advised not to use any aspirin or NSAIDs for at least a week. He will see me on a p.r.n. basis. This has been discussed with his . MD ELSY Odom/ANEL / [phone]
== END 2024-01-24 17:02 | disposition home or self-care (01) ==
PROVIDERS: PCP Internal Medicine; Visit Provider Internal Medicine
PROC: 0DJD8ZZ Inspection of Lower Intestinal Tract, Via Natural or Artificial Opening Endoscopic (ICD-10-PCS; CPT 45378; principal; 2024-01-24 14:30)
DX: Z12.11 Encounter for screening for malignant neoplasm of colon (principal); Z86.0101 Personal history of adenomatous and serrated colon polyps; D12.4 Benign neoplasm of descending colon; K63.5 Polyp of colon; K57.30 Diverticulosis of large intestine without perforation or abscess without bleeding; K64.8 Other hemorrhoids; G20.A1 Parkinson's disease without dyskinesia, without mention of fluctuations; G47.33 Obstructive sleep apnea (adult) (pediatric); E78.00 Pure hypercholesterolemia, unspecified; J44.9 Chronic obstructive pulmonary disease, unspecified; Z86.711 Personal history of pulmonary embolism; Z87.19 Personal history of other diseases of the digestive system; Z79.51 Long term (current) use of inhaled steroids; Z79.899 Other long term (current) drug therapy; Z90.49 Acquired absence of other specified parts of digestive tract; Z98.890 Other specified postprocedural states; F17.210 Nicotine dependence, cigarettes, uncomplicated
CPT/HCPCS: 45385; 88305; J1100; J1610; J2003; J2704

== ENCOUNTER 2024-03-22 14:13 | Outpatient (AMB) | payer BC, SELFPAY ==
[2024-03-22 14:44] VITALS: BP 130/70; PULSE 67; O2SAT 98; BMI 28.0
--- NOTE | 2024-03-22 14:44 | MHC.OFFVIS ---
Vital Signs 03/22/24 14:44 Height 5 ft 8 in Weight 184 lb 1.376 oz BMI 28.0 BP 130/70 Blood Pressure Location Lt brachial Position Sitting Pulse 67 Pulse Source Pulse Oximeter Pulse Oximetry (%) 98 Oxygen Delivery Method Room Air Intake Visit Reasons: Somnolence Intake Note: pt is here for follow up and states his breathing has been okay Telecommunications Facility Examiner Required: No Allergies No Known Allergies [No Known Allergies*] Allergy (Verified 03/22/24 15:07) Medication List - Last Reconciled 03/22/24 by Sanford Gonsales MD albuterol sulfate 90 mcg/actuation 2 puffs inhalation Q4H PRN amitriptyline 10 mg PO BEDTIME carbidopa-levodopa 25-100 mg 1 tab PO TID cyclobenzaprine 5 mg PO BID fluticasone propion-salmeterol 250-50 mcg/dose (Wixela Inhub) 1 ea inhalation Q12H omeprazole 20 mg PO DAILY zinc acetate 50 mg PO DAILY Do you need a note to return to daycare/school/sports/work: No HPI HPI Somnolence: Details: William is 78 years old very interesting gentleman. 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 He comes for follow-up for his COPD, which has remained under good control with use of Wixela. He hardly needs to use albuterol. He is nonsmoker and tries to avoid exposure to any smoker dust. [facility] Medical History (Updated 03/22/24 @ 15:13 by Sanford Gonsales MD) Migraines Parkinsons disease Thrombocytopenia Pulmonary embolism MAGGY (obstructive sleep apnea) Somnolence, daytime Smoker Dyslipidemia COPD (chronic obstructive pulmonary disease) Surgical History History of back surgery H/O colonoscopy History of partial colectomy Social History Household Members: Spouse Housing: House Are you a primary child day care center worker to a significant other at home: No Do you presently have visiting nurse or other home services: No Alcohol intake: current Alcohol intake frequency: holidays/special occasions only Alcohol type: beer Comment: refusing bed alarm Patient Tobacco Use Status: Current everyday Tobacco user Tobacco use type: Cigarette Cigarette Packs Per Day: 0.5 Cigarettes Per Day: 9 Years Smoked: 65 service: Yes Current occupational status: employed Review of Systems Const All systems reviewed & are unremarkable except as noted in HPI and below Eyes Reports no additional complaints ENT Reports no additional complaints and Reports dizziness (ON GETTING UP FAST) Card Denies chest pain, Denies irregular heart rhythm and Denies leg edema Resp Reports as per HPI GI Reports heartburn (CONTROLLED WITH MED) Reports nocturia Musc Reports no additional complaints Skin/Breast Reports system reviewed and no additional complaints, except as documented Neuro Reports dizziness (ON GETTING UP FAST) Endo Reports no additional complaints Aller/Immun Reports no additional complaints Physical Exam Vital Signs: Last Vital Signs Pulse 67 03/22/24 14:44 BP 130/70 03/22/24 14:44 Pulse Ox 98 03/22/24 14:44 Oxygen Delivery Method Room Air 03/22/24 14:44 BMI result Body Mass Index 28.0 Const General: comfortable, no acute distress, alert and awake Orientation/consciousness: patient oriented x3 HEENT Head: Yes normal to inspection General nose exam: No nasal polyps present and No nasal discharge present Face and sinus: Yes sinuses nontender Mouth: oropharynx normal Teeth and gingiva: dentures and other (THERE IS MILD REGRESSION OF THE LOWER JAW) Throat: Yes posterior oropharynx normal Eyes General: appearance normal, both eyes and all related structures Neck Neck: Yes normal visual inspection, Yes no lymphadenopathy, Yes trachea midline, Yes no JVD and Yes other (NECK SIZE 18 IN) Thyroid: Thyroid normal Chest Chest palpation & inspection: normal inspection of the chest, normal palpation of entire chest wall and no tenderness Resp Effort & Inspection: normal respiratory effort Auscultation: clear to auscultation bilaterally, no crackles, no wheezes and diminished lung sounds Cardio Palpation: normal PMI Rate: regular rate Rhythm: regular rhythm Heart sounds: no gallops and no murmurs GI Palpation (GI): Soft to palpation, nontender, No hepatosplenomegaly present and no masses Auscultation: normal bowel sounds Back/Spine/Pelvis Thoracic/Lumbar Spine: thoracic and lumbar spine normal to inspection Skin General skin exam: no rashes or lesions noted Neuro General: patient oriented x3 and no focal motor deficits Cranial nerves: Yes CN's II-XII intact bilaterally Extrem General: Yes normal to inspection, Yes no clubbing, cyanosis or edema and Yes no calf tenderness Psych Appearance: grossly normal and well kempt Speech and movement: Normal speech and movement present Assessment & Plan Assessment & Plan (1) COPD (chronic obstructive pulmonary disease): Comment: HE HAS LONGSTANDING DIAGNOSIS OF COPD, RELATED TO HIS SMOKING. IT HAS REMAINED RELATIVELY STABLE WITHOUT ANY ACUTE EXACERBATION. Code(s): J44.9 - Chronic obstructive pulmonary disease, unspecified Category: Medical Plan: Continue to use Wixela 250-50 1 inhalation b.i.d.. Albuterol HFA 2 puffs Q 6 hours only p.r.n. (2) Smoker: Comment: HAS BEEN SMOKER THROUGHOUT HIS ADULT LIFE. HE HAD QUIT SMOKING CIGARETTES FOR A WHILE BUT UNFORTUNATELY WENT BACK TO SMOKING ABOUT HALF PACK A DAY. CIGARETTES. Code(s): F17.200 - Nicotine dependence, unspecified, uncomplicated Category: Social Hx Plan: Again had a good talk about his smoking. Advise that he should quit completely or at least cut down the number of cigarettes to less than 5 a day. (3) Somnolence, daytime: Comment: HE HAD DESCRIBED VERY NONSPECIFIC FATIGUE AND SLEEPINESS TOWARDS THE AFTERNOON. SLEEP STUDY PERFORMED WAS NEGATIVE FOR SLEEP APNEA. NOW HE ACTUALLY DESCRIBES THAT HE IS NOT SLEEPY BUT JUST FEELS TIRED IN THE AFTERNOONS. Code(s): R40.0 - Somnolence Category: Medical Plan: DISCUSSED ABOUT GENERAL PRINCIPLES OF SLEEP HYGIENE. HE SEEMS TO BE DOING VERY WELL WITHOUT ANY DAYTIME SLEEPINESS AT THIS TIME. Coding Level of Care Code Est Pt Level 3 (27932) Diagnoses COPD (chronic obstructive pulmonary disease) J44.9 Smoker F17.200 Somnolence, daytime R40.0
--- OUTSIDE RECORDS SUMMARY | 2024-03-22 16:28 | XMS_ITS ---
Author Organization Donal Benoit MD Address [address] [place] [phone] Care Team Providers Care Narcotics Detective Name Role Phone Donal Benoit Primary Care Provider Allergies No Known Allergies REASON FOR VISIT CBACK XRAY, Accompanied by Medications Medication SIG (Take, Route, Frequency, Duration) Notes Start Date End Date Status Ventolin HFA * 108 (90 Base) MCG/ACT 2 puffs as needed Inhalation every 4 hrs for 30 day(s) 05/22/2011 Not-Taking Ipratropium-Albuterol 0.5-2.5 (3) MG/3ML 3 ml Inhalation Four times a day as needed for 30 days 12/12/2018 Not-Taking Meclizine HCl 12.5 MG 1 tablet as needed Orally twice a day for 7 days 12/12/2019 Not-Taking oxyCODONE HCl 5 MG 1 tablet as needed Orally every 6 hrs for 10 days 12/28/2023 Active Ibuprofen 800 MG 1 tablet Orally Thre e times a day for 90 Not-Taking Atorvastatin Calcium 80 MG TAKE 1 TABLET BY MOUTH EVERY DAY for 90 Not-Taking Cyclobenzaprine HCl 5 MG 1 tab Orally tw ice a day for 10 days 12/28/2023 Active Eliquis 5 MG as directed Orally bid for 30 days Not-Taking dexAMETHasone 4 MG 1 tablet Orally twic e a day for 7 days 12/28/2023 Active Carbidopa-Levodopa 10-100 MG 1 tablet Orally Three times a day Active Wixela Inhub 250-50 MCG/ACT INHALE 1 PUF F EVERY 12 HOURS BY MOUTH 90 for 90 Active Tamsulosin HCl 0.4 MG 1 capsule Orally O nce a day for 30 day(s) 11/18/2023 Active Aleve 220 MG 1 tablet with food o r milk as needed Orally every 12 hrs Active Zinc 50 MG 1 tablet Orally Once a day Active Omeprazole 20 MG TAKE 1 CAPSULE BY MOUTH EVERY DAY for 90 Active Albuterol Sulfate HFA 108 (90 Base) MCG/ACT INHALE 2 PUFFS BY MOUTH EVERY 6 HOURS NEEDED Active Social History Sex Assigned At : Social History Observation Description Sex Assigned At Male Vital Signs Blood pressure systolic 162 mm Hg 12/28/19 24 Blood pressure diastolic 70 mm Hg 024 Height 66 in 12/28/2023 Weight 173 lbs 12/28/2023 BMI 27.92 kg/m2 12/28/2023 weight is down 5 pounds [facility] e -7- Encounters Encounter Location Date Provider Diagnosis Donal Benoit MD [address] [place] [address] Drive [address] [place], [place] [phone] 12/28/2023 Donal Benoit Muscle spasm of back M62.830 Assessments Encounter Date Diagnosis (ICD Code) Assessment Notes Treatment Notes Treatment Clinical Notes Section Notes 12/28/2023 Muscle spasm of back (ICD-10 - M62.830) patient verblized understanding of medication and directions for use Plan Of Treatment Medication Medication Name Sig Start Date Stop Date Notes oxyCODONE HCl 5 MG 1 tablet as needed O rally every 6 hrs for 10 days 12/28/2023 Cyclobenzaprine HCl 5 MG 1 tab Orally tw ice a day for 10 days 12/28/2023 dexAMETHasone 4 MG 1 tablet Orally twic e a day for 7 days 12/28/2023 Treatment Notes Assessment Notes Muscle spasm of back patient verblized u nderstanding of medication and directions for use Next Appt Details Follow Up: 2 Weeks, Reason: Provider Name:Donal Montoya ier, 05/15/2024 07:15:00 AM, [address] [place] [address], [address], [place], [place], [phone], Provider Name:Donal Montoya ier, 05/22/2024 01:00:00 PM, [address] [facility], [address], [place], [place], [phone], Progress Notes * William FANG CDOB: (78 yo M)Acc No.[id number]:12/28/2023 Patient:?William Fang C Provider:?Donal Benoit MD :1945???Age:78 Y???Sex:Male Julio e:12/28/2023 Address:[address] [place] [address], [address], [id number] Subjective: * Chief Complaints: * ???CBACK XRAYAccompanied by * HPI: ???Symptom(s):? patient is a 78 yo male having severe back pain and neck is better. went over the results of flexion and extension. * ROS:?General/Constitutional:?Denies?Chills.?Denies?Fatigue.?Denies?Fever.?Denies?Headache.?ENT:?Patient denies?decreased sense of smell , any loss of taste , sore throat.?Denies?Sore throat.?Respiratory:?Denies?Cough.?Denies?Shortness of breath at rest.?Denies?Shortness of breath with exertion.?Gastrointestinal:?Denies?Diarrhea.?Denies?Nausea.?Musculoskeletal:?Patient denies?muscle aches.?Patient complaining of?severe back pain but no radiation.?Peripheral Vascular:?Patient denies?red and blue toes.? * Medical History:? * Surgical History:? * Hospitalization/Major Diagno stic Procedure:? * Medications:?TakingAleve 220 MG Capsule 1 tablet with food or milk as needed Orally every 12 hrsZinc 50 MG Tablet 1 tablet Orally Once a dayOmeprazole 20 MG Capsule Delayed Release TAKE 1 CAPSULE BY MOUTH EVERY DAY Albuterol Sulfate HFA 108 (90 Base) MCG/ACT Aerosol Solution INHALE 2 PUFFS BY MOUTH EVERY 6 HOURS NEEDED Carbidopa-Levodopa 10-100 MG Tablet 1 tablet Orally Three times a dayWixela Inhub 250-50 MCG/ACT Aerosol Powder Breath Activated INHALE 1 PUFF EVERY 12 HOURS BY MOUTH 90 Tamsulosin HCl 0.4 MG Capsule 1 capsule Orally Once a dayTaking Aleve 220 MG Capsule 1 tablet with food or milk as needed Orally every 12 hrsTaking Zinc 50 MG Tablet 1 tablet Orally Once a dayTaking Omeprazole 20 MG Capsule Delayed Release TAKE 1 CAPSULE BY MOUTH EVERY DAY Taking Albuterol Sulfate HFA 108 (90 Base) MCG/ACT Aerosol Solution INHALE 2 PUFFS BY MOUTH EVERY 6 HOURS NEEDED Taking Carbidopa-Levodopa 10-100 MG Tablet 1 tablet Orally Three times a dayTaking Wixela Inhub 250-50 MCG/ACT Aerosol Powder Breath Activated INHALE 1 PUFF EVERY 12 HOURS BY MOUTH 90 Taking Tamsulosin HCl 0.4 MG Capsule 1 capsule Orally Once a dayNot-Taking/PRNEliquis 5 MG Tablet as directed Orally bidAtorvastatin Calcium 80 MG Tablet TAKE 1 TABLET BY MOUTH EVERY DAY Ventolin HFA * 108 (90 Base) MCG/ACT Aerosol Solution 2 puffs as needed Inhalation every 4 hrsIpratropium-Albuterol 0.5-2.5 (3) MG/3ML Solution 3 ml Inhalation Four times a day as neededMeclizine HCl 12.5 MG Tablet 1 tablet as needed Orally twice a dayIbuprofen 800 MG Tablet 1 tablet Orally Three times a dayNot-Taking/PRN Eliquis 5 MG Tablet as directed Orally bidNot-Taking/PRN Atorvastatin Calcium 80 MG Tablet TAKE 1 TABLET BY MOUTH EVERY DAY Not-Taking/PRN Ventolin HFA * 108 (90 Base) MCG/ACT Aerosol Solution 2 puffs as needed Inhalation every 4 hrsNot-Taking/PRN Ipratropium-Albuterol 0.5-2.5 (3) MG/3ML Solution 3 ml Inhalation Four times a day as neededNot-Taking/PRN Meclizine HCl 12.5 MG Tablet 1 tablet as needed Orally twice a dayNot-Taking/PRN Ibuprofen 800 MG Tablet 1 tablet Orally Three times a dayDiscontinuedCyclobenzaprine HCl 5 MG Tablet 1 tablet at bedtime as needed Orally Once a daydexAMETHasone 4 MG Tablet 1 tablet Orally every 12 hrsoxyCODONE HCl 5 MG Tablet 1 tablet as needed Orally every 6 hrs as neededMedication List reviewed and reconciled with the patientDiscontinued Cyclobenzaprine HCl 5 MG Tablet 1 tablet at bedtime as needed Orally Once a dayDiscontinued dexAMETHasone 4 MG Tablet 1 tablet Orally every 12 hrsDiscontinued oxyCODONE HCl 5 MG Tablet 1 tablet as needed Orally every 6 hrs as neededMedication List reviewed and reconciled with the patient * Allergies:?N.K.D.A.yes[Aller gies Verified] Objective: * Vitals:?Ht: 66, Wt:173, BMI: 27.92, BP:162/70, Repeat BP:130/80 weight is down 5 pounds since 11-29-23. * Examination: ???General Examination: ?GENERAL APPEARANCE:?alert, well hydrated, in no distress.?HEAD:?normocephalic.?SKIN:?good turgor.?HEART:?no murmurs, rubs, gallops , regular rate and rhythm.?LUNGS:?no wheezes, rales, rhonchi , good air movement , clear to auscultation bilaterally.?BACK:?abnormal with spasm of the paraspinous muscles.? Assessment: * Assessment: 1.?Muscle spasm of back - M6 2.830 (Primary)? Plan: * Treatment: * Procedure Codes:? * Follow Up:?2 Weeks * * Sign off status: Completed true * Provider:?Donal Benoit MD Date:?02/26/2023 Generated for Beulahi kaity/Naeem/eTransmitting on:?03/22/2024 04:28 PM EST History and Physical Notes * HPI (History of Present Illness) Category Sub-Category Detail Notes Category Not es Symptom(s) patient is a 78 yo male having severe back pain and neck is better. went over the results of flexion and extension Examination Category Sub-Category Detail Notes Category Not es General Examination GENERAL APPEARANCE: alert, w ell hydrated, in no distress HEAD: normocephalic HEART: no murmurs, rubs, ga llops , regular rate and rhythm LUNGS: no wheezes, rales, r honchi , good air movement , clear to auscultation bilaterally SKIN: good turgor BACK: abnormal with spasm of the paraspinous muscles
--- OUTSIDE RECORDS SUMMARY | 2024-03-22 16:28 | XMS_ITS ---
Author Organization [facility] Address [address] [place] [address] Care Team Providers Care Portfolio Specialist Name Role Phone Donal Benoit MD Primary Care Provider Moses Porter [phone] REASON FOR VISIT r/s Encounters Encounter Location Date Provider Diagnosis [facility] [address] [place] [address] 01/07/2024 Moses Pérez PLAN OF TREATMENT No Information
--- OUTSIDE RECORDS SUMMARY | 2024-03-22 16:28 | XMS_ITS ---
Author Organization [facility] Address [address] [place] [address] Care Team Providers Care Asbestos Microscopist Name Role Phone Donal Benoit MD Primary Care Provider Moses Porter [phone] REASON FOR VISIT screening,hx polyps Encounters Encounter Location Date Provider Diagnosis [facility] Outpatient [address] [place], [place] [phone] 01/17/2024 Moses Pérez PLAN OF TREATMENT No Information
--- OUTSIDE RECORDS SUMMARY | 2024-03-22 16:28 | XMS_ITS | Patient Health Record ---
Author Organization [facility] Address [address] [place] [address] Care Team Providers Care Crepe Laminator Operator Name Role Phone Donal Benoit MD Primary Care Provider Moses Porter Unavailable [phone] ALLERGIES No Known Allergies RESULTS Component Value Reference Range Notes Pathology (Not yet reviewed by provider) Interpretation: Performing Lab:[facility], [address] [place] [phone] Notes/Report: REASON FOR REFERRAL No Information MEDICATIONS Medication SIG (Take, Route, Frequency, Duration) Notes Start Date End Date Status Omeprazole 20 MG Oral for 90 A ctive Wixela Inhub 250-50 MCG/ACT Inhalation for 90 Active Zinc 50 MG 1 tablet Orally Once a day for 30 day(s) Active Amitriptyline HCl 10 MG Oral for 30 Active Atorvastatin Calcium 80 MG 1 tablet Oral ly Once a day for 30 day(s) Active Meclizine HCl 25 MG 1 tablet as needed Orally every 12 hrs Not-Taking Eliquis 5 MG as directed Orally Not-Taking Lidoderm 5 % 1 patch remove after 12 hours Externally Once a day Not-Taking Ibuprofen 200 MG 1 tablet with food o r milk as needed Orally Three times a day Not-Taking Albuterol Sulfate HFA 108 (90 Base) MCG/ACT INHALE 2 PUFFS BY MOUTH EVERY 6 HOURS NEEDED 17 Inhalation for 17 Active Advair Diskus 250-50 MCG/ACT Inhalation for 90 Active Carbidopa-Levodopa 25-100 MG Oral for 90 Active SOCIAL HISTORY Tobacco Use: Social History Observation Description Date Details (start date - stop date) Current Smoker NA - NA Sex Assigned At : Social History Observation Description Sex Assigned At Unknown Tobacco Use/Smoking Question Answer Notes Patient is a current smoker How often do you smoke cigarettes? every day How many cigarettes a day do you smoke? 6-10 Alcohol Screen Question Answer Notes Did you have a drink contain ing alcohol in the past year? Yes How often did you have a dri nk containing alcohol in the past year? 4 or more times a week (4 points) How many drinks did you have on a typical day when you were drinking in the past year? 1 or 2 drinks (0 point) How often did you have 6 or more drinks on one occasion in the past year? Never (0 point) Points 4 Interpretation Positive PROBLEMS Problem Type ICD Code Onset Dates Problem Status W/U Status Risk SNOMED Code Notes Problem Encounter for screening for malignant neoplasm of colon (Z12.11) Active confirmed Screening for malignant neoplasm of colon (532369372) Problem Colon cancer screening (Z12.11) Active confirmed Colon can cer screening (562618809) Problem Encounter for other preprocedural examination (Z01.818) Active confirmed Pre-procedure evaluation check (131994231) Problem History of colon polyps (Z86.010) Active confirmed History of polyp of colon (849726012) Problem Diverticulosis of large intestine without perforation or abscess without bleeding (K57.30) Active confirmed Diverticul ar disease of colon (093790125) VITAL SIGNS Blood pressure diastolic 00 mm Hg 10/06/2023 Height 5 ft 8 in in 10/06/2023 Blood pressure systolic 00 mm Hg 10/06/2023 Weight 175 lbs 10/06/2023 BMI 26.61 kg/m2 10/06/2023 Encounters Encounter Location Date Provider Diagnosis [facility] Outpatient [address] [place], [place] [phone] 01/17/2024 Moses Pérez [facility] Outpatient [address] [place], [place] [phone] 01/24/2024 Moses Pérez Colon cancer screeni ng Z12.11 ; Colon polyps K63.5 ; Diverticulosis of large intestine without perforation or abscess without bleeding K57.30 and Other hemorrhoids K64.8 [facility] [address] [place] [address] 10/06/2023 Moess Pérez Encounter for screen ing for malignant neoplasm of colon Z12.11 ; Encounter for other preprocedural examination Z01.818 ; Colon cancer screening Z12.11 and History of colon polyps Z86.010 [facility] [address] [place] [address] 01/07/2024 Moses Pérez ASSESSMENTS Encounter Date Diagnosis Assessment Notes Treatment Notes Treatment Clinical Notes 01/24/2024 Colon cancer screening (ICD-10 - Z12.11) 01/24/2024 Colon polyps (ICD-10 - K63.5) 10/06/2023 Encounter for screening for malignant neoplasm of colon (ICD-10 - Z12.11) 10/06/2023 Encounter for other preprocedural examination (ICD-10 - Z01.818) 01/24/2024 Diverticulosis of large intestine without perforation or abscess without bleeding (ICD-10 - K57.30) 10/06/2023 Colon cancer screening (ICD-10 - Z12.11) 01/24/2024 Other hemorrhoids (ICD-10 - K64.8) 10/06/2023 History of colon polyps (ICD-10 - Z86.010) PLAN OF TREATMENT Pending Test Test Name Order Date Pathology 01/24/2024 Future Test Test Name Order Date COLONOSCOPY 10/06/2023 Insurance Providers Payer Name Payer Address Payer Phone Subscriber Number Group Number Insured Name Patient Relationship to Insured Coverage Start Date Coverage End Date [facility] [address] [place] [address] [id number] FLAQUITO BURLESON Self - patient is the insured MEDICAL (GENERAL) HISTORY Medical History History ICD Code Hypercholesterolemia COPD Parkinson's disease GERD Colon polyps with previous c olonoscopies in Register--last one in 2019 Denies IA,DM,CVA,renal disease Surgical History Surgery Date(Month/Year) 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 Gonzales--didnot require a colostomy Back surgery x 1 for 3 ruptured discs 19 71
--- OUTSIDE RECORDS SUMMARY | 2024-03-22 16:28 | XMS_ITS ---
Author Organization Donal Benoit MD Address [address] [place] [phone] Care Team Providers Care Research Agricultural Engineer Name Role Phone Donal Benoit Primary Care Provider Allergies No Known Allergies Results Component Value Reference Range Notes Hemoglobin A1c Reviewed date:03/14/2024 11:24:21 AM Interpretation: Performing Lab: Notes/Report: Hemoglobin A1c 5.1 Glucose, finger stick Reviewed date:03/14/2024 11:17:02 AM Interpretation: Performing Lab: Notes/Report: Value 110 REASON FOR VISIT 2 month Medications Medication SIG (Take, Route, Frequency, Duration) Notes Start Date End Date Status Albuterol Sulfate HFA 108 (90 Base) MCG/ACT INHALE 2 PUFFS BY MOUTH EVERY 6 HOURS NEEDED 17 Active Meclizine HCl 12.5 MG 1 tablet as needed Orally twice a day for 7 days 12/12/2019 Not-Taking Ipratropium-Albuterol 0.5-2.5 (3) MG/3ML 3 ml Inhalation Four times a day as needed for 30 days 12/12/2018 Not-Taking Ibuprofen 800 MG 1 tablet Orally Thre e times a day for 90 Not-Taking Omeprazole 20 MG TAKE 1 CAPSULE BY MO UTH EVERY DAY for 90 Active Wixela Inhub 250-50 MCG/ACT INHALE 1 PUFF EVERY 12 HOURS BY MOUTH 90 Active Eliquis 5 MG as directed Orally b id for 30 days Not-Taking Ventolin HFA * 108 (90 Base) MCG/ACT 2 puffs as needed Inhalation every 4 hrs for 30 day(s) 05/22/2011 Not-Taking Atorvastatin Calcium 80 MG TAKE 1 TABLET BY MOUTH EVERY DAY for 90 Not-Taking Carbidopa-Levodopa 10-100 MG 1 tablet Orally Three times a day Active Zinc 50 MG 1 tablet Orally Once a day Active Tamsulosin HCl 0.4 MG 1 capsule Orally O nce a day for 30 day(s) 11/18/2023 Active Aleve 220 MG 1 tablet with food o r milk as needed Orally every 12 hrs Active Social History Sex Assigned At : Social History Observation Description Sex Assigned At Male Vital Signs Blood pressure systolic 148 mm Hg 03/14/19 25 Blood pressure diastolic 60 mm Hg 025 Height 66 in 03/14/2024 Weight 180 lbs 03/14/2024 BMI 29.05 kg/m2 03/14/2024 weight is up 3 pounds since 01-13-24 Encounters Encounter Location Date Provider Diagnosis Donal Benoit MD [address] [place], [place] [phone] 03/14/2024 Donal Benoit Prediabetes R73.09 ; Atherosclerosis of [place] coronary artery of [place] heart without angina pectoris I25.10 ; Current smoker F17.200 and Panlobular emphysema J43.1 Assessments Encounter Date Diagnosis (ICD Code) Assessment Notes Treatment Notes Treatment Clinical Notes Section Notes 03/14/2024 Prediabetes (ICD-10 - R73.09) has good a1c and good sujgar, will continue to monitor, no need for medication at this time 03/14/2024 Atherosclerosis of [place] coronary artery of [place] heart without angina pectoris (ICD-10 - I25.10) has stopped taking atorvastatin 03/14/2024 Current smoker (ICD-10 - F17.200) has decrease to 2 cigarettes, will continue to monitor 03/14/2024 Panlobular emphysema (ICD-10 - J43.1) stable with no complaints, will continue current regiment Plan Of Treatment Medication Medication Name Sig Start Date Stop Date Notes Albuterol Sulfate HFA 108 (9 0 Base) MCG/ACT INHALE 2 PUFFS BY MOUTH EVERY 6 HOURS NEEDED 17 Wixela Inhub 250-50 MCG/ACT INHALE 1 PUF F EVERY 12 HOURS BY MOUTH 90 Treatment Notes Assessment Notes Prediabetes has good a1c and goo d sujgar, will continue to monitor, no need for medication at this time Atherosclerosis of [place] co ronary artery of [place] heart without angina pectoris has stopped taking atorvastatin Current smoker has decrease to 2 ci garettes, will continue to monitor Panlobular emphysema stable with no comp laints, will continue current regiment Next Appt Details Follow Up: 3 Months, Reason: Provider Name:Donal martinez, 05/15/2024 07:15:00 AM, [address] [place] [address], [address], [place], [place], [phone], Provider Name:Donal martinez, 05/22/2024 01:00:00 PM, [address] [place] [address], [address], [place], [place], [phone], Progress Notes * William FANG CDOB: 6 (78 yo M)Acc No.[id number]:03/14/2024 Progress Notes Patient:?William FANG Provider:?Donal Benoit MD :1945???Age:78 Y???Sex:Male Julio e:03/14/2024 Address:[address] [place] [address] , [address], [id number] Subjective: * Chief Complaints: * ???1. 2 month. * HPI: ???Symptom(s):? patient is a 78 yo male here for 2 month follow up visit, physical therapy is helping quite a bit. does home program. working on neck and back. going twice a week. * ROS:?General/Constitutional:?Denies?Chills.?Denies?Fatigue.?Denies?Fever.?Denies?Headache.?ENT:?Patient denies?decreased sense of smell , any loss of taste , sore throat.?Denies?Sore throat.?Respiratory:?Denies?Cough.?Denies?Shortness of breath at rest.?Denies?Shortness of breath with exertion.?Gastrointestinal:?Denies?Diarrhea.?Denies?Nausea.?Musculoskeletal:?Patient denies?muscle aches.?Peripheral Vascular:?Patient denies?red and blue toes.? * Medical History:?Supraclavic ular node on lt 2010, colonoscopy 07/24/2011 due in 3 years; colonoscopy done 09/06/14 w/Dr Barajas - repeat 5 years(2019), Yearly chest ct. discussed 2020, colonoscopy done 06/14/20 due 3 yrs with Rafael. * Medications:?Taking Aleve 22 0 MG Capsule 1 tablet with food or milk as needed Orally every 12 hrs , Taking Zinc 50 MG Tablet 1 tablet Orally Once a day , Taking Wixela Inhub 250-50 MCG/ACT Aerosol Powder Breath Activated INHALE 1 PUFF EVERY 12 HOURS BY MOUTH 90 , Taking Tamsulosin HCl 0.4 MG Capsule 1 capsule Orally Once a day , Taking Carbidopa-Levodopa 10-100 MG Tablet 1 tablet Orally Three times a day , Taking Albuterol Sulfate HFA 108 (90 Base) MCG/ACT Aerosol Solution INHALE 2 PUFFS BY MOUTH EVERY 6 HOURS NEEDED 17 , Taking Omeprazole 20 MG Capsule Delayed Release TAKE 1 CAPSULE BY MOUTH EVERY DAY , Not-Taking/PRN Eliquis 5 MG Tablet as directed Orally bid , Not-Taking/PRN Atorvastatin Calcium 80 MG Tablet TAKE 1 TABLET BY MOUTH EVERY DAY , Not-Taking/PRN Ventolin HFA * 108 (90 Base) MCG/ACT Aerosol Solution 2 puffs as needed Inhalation every 4 hrs , Not-Taking/PRN Ipratropium-Albuterol 0.5-2.5 (3) MG/3ML Solution 3 ml Inhalation Four times a day as needed , Not-Taking/PRN Meclizine HCl 12.5 MG Tablet 1 tablet as needed Orally twice a day , Not-Taking/PRN Ibuprofen 800 MG Tablet 1 tablet Orally Three times a day , Discontinued Cyclobenzaprine HCl 5 MG Tablet 1 tab Orally twice a day , Discontinued oxyCODONE HCl 5 MG Tablet 1 tablet as needed Orally every 6 hrs , Discontinued dexAMETHasone 4 MG Tablet 1 tablet Orally twice a day , Medication List reviewed and reconciled with the patient * Allergies:?N.K.D.A. Objective: * Vitals:?Ht: 66, Wt:180, BMI: 29.05, BP:148/60, Repeat BP:140/70. weight is up 3 pounds since 01-13-24. * Examination: ???General Examination: ?GENERAL APPEARANCE:?alert, well hydrated, in no distress.?SKIN:?good turgor.?HEART:?regular rate and rhythm , no murmurs, rubs, gallops.?LUNGS:?no wheezes, rales, rhonchi , diminished breath sounds throughout.? Assessment: * Assessment: 1.?Atherosclerosis of [place] coronary artery of [place] heart without angina pectoris - I25.10???2.?Prediabetes - R73.09???3.?Current smoker - F17.200???4.?Panlobular emphysema - J43.1??? Plan: * Treatment: 2.?Prediabetes?LAB: Hemoglobin A1c (Collection Date & Time - 03/14/2024) ? Value Reference Range ?Hemoglobin A1c 5.1 * Sheila Bruce 5 11:24:19 AM EST > ?LAB: Glucose, finger stick (Collection Date & Time - 03/14/2024)* ? Value Reference Range ?Value 110 * Sheila Bruce 5 11:17:00 AM EST > Notes: has good a1c and good sujgar, will continue to monitor, no need for medication at this time ?3.?Current smoker? Notes: has decrease to 2 cigarettes, will continue to monitor??4.?Panlobular emphysema? Continue Wixela Inhub Aerosol Powder Breath Activated, 250-50 MCG/ACT, INHALE 1 PUFF EVERY 12 HOURSBY MOUTH 90;?Continue Albuterol Sulfate HFA Aerosol Solution, 108 (90 Base) MCG/ACT, INHALE 2 PUFFS BY MOUTH EVERY 6 HOURS NEEDED 17.?? Notes: stable with no complaints, will continue current regiment?? * Procedure Codes:?02407 ASSAY , GLUCOSE, BLOOD QUANT, Modifiers: QW , 08878 GLYCATED HEMOGLOBIN TEST, Modifiers: QW * Follow Up:?3 Months * * The named appointment provid er may or may not be the originator of this progress note, and it is not deemed complete until electronically signed by the appointment provider. Sign off status: Pending * Provider:?Donal Benoit MD Date:?0 03/14/2024 Generated for Reed briceno/Naeem/eTnikitasmitting on:?03/22/2024 04:28 PM EST History and Physical Notes * HPI (History of Present Illness) Category Sub-Category Detail Notes Category Not es Symptom(s) patient is a 78 yo male here for 2 month follow up visit, physical therapy is helping quite a bit. does home program. working on neck and back. going twice a week. Examination Category Sub-Category Detail Notes Category Not es General Examination GENERAL APPEARANCE: alert, w ell hydrated, in no distress HEART: regular rate and rhy thm , no murmurs, rubs, gallops LUNGS: no wheezes, rales, r honchi , diminished breath sounds throughout SKIN: good turgor
--- OUTSIDE RECORDS SUMMARY | 2024-03-22 16:29 | XMS_ITS ---
Author Organization Donal Benoit MD Address [address] [place] [phone] Care Team Providers Care Individual Pension Consultant Name Role Phone Cy Donal Primary Care Provider [phone] Reason For Referral Reason muscle spasm of back please eval and treat for Physical theraphy Diagnosis 1 Muscle spasm of back (M62.830) Referral Organization Donal Benoit MD Referring Provider First Name Donal Referring Provider Last Name Cy Referring Provider Speciality Internal M edicine Referred Provider [facility] Maritza Khan, [facility] Maritza Khan Referred Provider Specialty Physical The rapist General Notes Vane Donahue 10:16:03 AM EST > info faxed and they will call patient with an appt , Vane Donahue 01/17/2024 10:52:07 AM EST > patient is calling to make his own appt Referral Priority Routine Referral Appointment Date 01/26/2024 REASON FOR VISIT 2 week follow up, no improvement back/neck Medications Medication SIG (Take, Route, Frequency, Duration) Notes Start Date End Date Status Wixela Inhub 250-50 MCG/ACT INHALE 1 PUF F EVERY 12 HOURS BY MOUTH 90 for 90 Active Ventolin HFA * 108 (90 Base) MCG/ACT 2 puffs as needed Inhalation every 4 hrs for 30 day(s) 05/22/2011 Not-Taking Eliquis 5 MG as directed Orally bid for 30 days Not-Taking Atorvastatin Calcium 80 MG TAKE 1 TABLET BY MOUTH EVERY DAY for 90 Not-Taking Tamsulosin HCl 0.4 MG 1 capsule Orally O nce a day for 30 day(s) 11/18/2023 Active Omeprazole 20 MG TAKE 1 CAPSULE BY MOUTH EVERY DAY for 90 Active Albuterol Sulfate HFA 108 (90 Base) MCG/ACT INHALE 2 PUFFS BY MOUTH EVERY 6 HOURS NEEDED Active Aleve 220 MG 1 tablet with food o r milk as needed Orally every 12 hrs Active Zinc 50 MG 1 tablet Orally Once a day Active oxyCODONE HCl 5 MG 1 tablet as needed Orally every 6 hrs 12/28/2023 Active Cyclobenzaprine HCl 5 MG 1 tab Orally tw ice a day for 10 days 12/28/2023 Active Meclizine HCl 12.5 MG 1 tablet as needed Orally twice a day for 7 days 12/12/2019 Not-Taking Ibuprofen 800 MG 1 tablet Orally Thre e times a day for 90 Not-Taking Carbidopa-Levodopa 10-100 MG 1 tablet Orally Three times a day Active dexAMETHasone 4 MG 1 tablet Orally twic e a day 12/28/2023 Active Ipratropium-Albuterol 0.5-2.5 (3) MG/3ML 3 ml Inhalation Four times a day as needed for 30 days 12/12/2018 Not-Taking Social History Sex Assigned At : Social History Observation Description Sex Assigned At Male Vital Signs Blood pressure systolic 120 mm Hg 01/13/20 24 Blood pressure diastolic 70 mm Hg 024 Height 66 in 01/13/2024 Weight 177 lbs 01/13/2024 BMI 28.57 kg/m2 01/13/2024 Encounters Encounter Location Date Provider Diagnosis Donal Benoit MD [address] [place], [place] [id number] 01/13/2024 Donal Benoit Muscle spasm of back M62.830 ; Primary parkinsonism G20.C ; Prediabetes R73.09 and Pure hypercholesterolemia E78.00 Assessments Encounter Date Diagnosis (ICD Code) Assessment Notes Treatment Notes Treatment Clinical Notes Section Notes 01/13/2024 Muscle spasm of back (ICD-10 - M62.830) referral to pt 01/13/2024 Primary parkinsonism (ICD-10 - G20.C) taking cbd gummies from internet and helps balance 01/13/2024 Prediabetes (ICD-10 - R73.09) good a1c no treatment needed, will continue to monitor 01/13/2024 Pure hypercholesterolemia (ICD-10 - E78.00) stable Plan Of Treatment Medication Medication Name Sig Start Date Stop Date Notes oxyCODONE HCl 5 MG 1 tablet as needed O rally every 6 hrs 12/28/2023 Carbidopa-Levodopa 10-100 MG 1 tablet Or ally Three times a day dexAMETHasone 4 MG 1 tablet Orally twice a day 12/28/2023 Treatment Notes Assessment Notes Muscle spasm of back referral to pt Primary parkinsonism taking cbd gummies from internet and helps balance Prediabetes good a1c no treatmen t needed, will continue to monitor Pure hypercholesterolemia stable Referrals Referral Date Details 01/13/2024 01/13/2024, muscle s pasm of back please eval and treat for Physical theraphy, [facility] Maritza Khan [facility] Maritza Khan Next Appt Details Follow Up: 2 Months, Reason: Provider Name:Donal martinez, 05/15/2024 07:15:00 AM, [address], [address], [place], [place], [phone], Provider Name:Donal martinez, 05/22/2024 01:00:00 PM, [address], [address], [place], [place], [phone], Progress Notes * William FANG CDOB: 6 (78 yo M)Acc No.[id number]:01/13/2024 Progress Notes Patient:?William Fang Provider:?Donal Benoit MD :1945???Age:78 Y???Sex:Male Julio e:01/13/2024 Address:[address] [place] [address], [address], [id number] Subjective: * Chief Complaints: * ???2 week follow up, no impr ovement back/neck * HPI: ???Symptom(s):? patient is a 78 yo male here for 2 week follow up visit, still with pain in neck and back. back is worse than the neck. * ROS:?General/Constitutional:?Patient denies?chills , fatigue , fever , headache.?ENT:?Patient denies?decreased sense of smell , any loss of taste , sore throat.?Musculoskeletal:?Patient denies?muscle aches.?Peripheral Vascular:?Patient denies?red and blue toes.? [...] MG Capsule 1 capsule Orally Once a dayCyclobenzaprine HCl 5 MG Tablet 1 tab Orally twice a daydexAMETHasone 4 MG Tablet 1 tablet Orally twice a dayoxyCODONE HCl 5 MG Tablet 1 tablet as needed Orally every 6 hrsTaking Aleve 220 MG Capsule 1 tablet with [...] Capsule 1 capsule Orally Once a dayTaking Cyclobenzaprine HCl 5 MG Tablet 1 tab Orally twice a dayTaking dexAMETHasone 4 MG Tablet 1 tablet Orally twice a dayTaking oxyCODONE HCl 5 MG Tablet 1 tablet as needed Orally every 6 hrsNot-Taking/PRNEliquis 5 MG Tablet as directed Orally bidAtorvastatin [...] 1 tablet Orally Three times a day Objective: * Vitals:?Ht: 66, Wt:177, BMI: 28.57, BP:120/70, Wt-k.29. * ???Past Orders: ???Lab:Lipid Panel with Refl ex (Order Date - 11/12/2023) (Collection Date - 11/12/2023) ? Value Reference Range ?Triglycerides 74 <150 - mg/dL ?Cholesterol 195 <200 - m g/dL ?LDL Cholesterol Calculated 136 H <100 - mg/dL ?HDL Cholesterol 45 >40 - mg/dL ???Lab:Hemoglobin A1c (Order 11/12/2023) (Collection - 11/12/2023) ? Value Reference Range ?Hemoglobin A1c % 5.1 <6. 0 - % ?Estimated Average Glucose 100 - mg/dL ???Lab:Liver Panel (Order Da 11/12/2023) (Collection - 11/12/2023) ? Value Reference Range ?Bilirubin Total 0.6 0.0- 1.0 - mg/dL ?Bilirubin Direct 0.2 0.0 -0.5 - mg/dL ?Aspartate Amino Transferase 13 5-37 - U/L ?Alanine Aminotransferase 12 0-40 - U/L ?Total Protein 6.8 6.5-8. 0 - g/dL ?Albumin Level 4.0 3.5-5. 0 - g/dL ?Alkaline Phosphatase 109 39-117 - U/L ???Lab:Glucose Fasting (Orde r 11/12/2023) (Collection - 11/12/2023) ? Value Reference Range ?Glucose Fasting 88 60-9 9 - mg/dL * Examination: ???General Examination: ?GENERAL APPEARANCE:?alert, well hydrated, in no distress.?HEAD:?normocephalic.?SKIN:?good turgor.?HEART:?regular rate and rhythm , no murmurs, rubs, gallops.?LUNGS:?no wheezes, rales, rhonchi , good air movement , clear to auscultation bilaterally.? Assessment: * Assessment: 1.?Muscle spasm of back - M6 2.830 (Primary)?2.?Primary parkinsonism - G20.C?3.?Prediabetes - R73.09?4.?Pure hypercholesterolemia - E78.00? Plan: * Treatment: 2.?Primary parkinsonism? Continue Carbidopa-Levodopa Tablet, 10-100 MG, 1 tablet, Orally, Three times a day.?? Notes: taking cbd gummies from internet and helps balance?? 3.?Prediabetes? Notes: good a1c no treatment needed, will continue to monitor?? 4.?Pure hypercholesterolemia ? Notes: stable?? * Procedure Codes:? * Follow Up:?2 Months * * Sign off status: Completed true * Provider:?Donal Benoit MD Date:?1 03/14/2023 Generated for Reed briceno/Naeem/eTransmitting on:?03/22/2024 04:28 PM EST History and Physical Notes * HPI (History of Present Illness) Category Sub-Category Detail Notes Category Not es Symptom(s) patient is a 78 yo male here for 2 week follow up visit, still with pain in neck and back. back is worse than the neck. Examination Category Sub-Category Detail Notes Category Not es General Examination GENERAL APPEARANCE: alert, w ell hydrated, in no distress HEAD: normocephalic HEART: regular rate and rhy thm , no murmurs, rubs, gallops LUNGS: no wheezes, rales, r honchi , good air movement , clear to auscultation bilaterally SKIN: good turgor Consultation Request Notes Referral Date Referring Provider Referred Provider Not es 01/13/2024 Donal Benoit PT [facility] Maritza Khan muscle spasm of back please eval and treat for Physical theraphy
--- OUTSIDE RECORDS SUMMARY | 2024-03-22 16:29 | XMS_ITS ---
Author Organization [facility] Address [address] [place] [address] Care Team Providers Care Downstairs Maid Name Role Phone Donal Benoit MD Primary Care Provider Moses Porter Unavailable [phone] REASON FOR VISIT screening,hx polys PROBLEMS Problem Type ICD Code Onset Dates Problem Status W/U Status Risk SNOMED Code Notes Problem Diverticulosis of large intestine without perforation or abscess without bleeding (K57.30) Active confirmed Diverticul ar disease of colon (451135807) Encounters Encounter Location Date Provider Diagnosis [facility] [address] [place], [place] [phone] 01/24/2024 Moses Pérez Colon cancer scree marion Z12.11 ; Colon polyps K63.5 ; Diverticulosis of large intestine without perforation or abscess without bleeding K57.30 and Other hemorrhoids K64.8 ASSESSMENTS Encounter Date Diagnosis Assessment Notes Treatment Notes Treatment Clinical Notes 01/24/2024 Colon cancer screening (ICD-10 - Z12.11) 01/24/2024 Colon polyps (ICD-10 - K63.5) 01/24/2024 Diverticulosis of large intestine without perforation or abscess without bleeding (ICD-10 - K57.30) 01/24/2024 Other hemorrhoids (ICD-10 - K64.8) PLAN OF TREATMENT No Information
== END 2024-03-22 15:10 | disposition home or self-care (01) ==
PROVIDERS: PCP Internal Medicine; Visit Provider Internal Medicine
DX: J44.9 Chronic obstructive pulmonary disease, unspecified (principal); F17.200 Nicotine dependence, unspecified, uncomplicated; R40.0 Somnolence
CPT/HCPCS: 99213

== ENCOUNTER 2024-05-15 10:18 | Outpatient (REF) | payer BC, SELFPAY ==
[2024-05-15 10:23] LABS: MANUAL DIFF FLAG NO
[2024-05-15 11:19] LABS: Appearance Urine Clear; Basophils Percent Auto 0.4 % (0-2); Color Urine Yellow; Eosinophils Absolute Auto 0.2 X10*3/uL (0.0-0.4); Eosinophils Percent Auto 2.6 % (0-4); Glucose Urine UA Negative (Negative); Hematocrit 42.1 % (42.0-52.0); Hemoglobin 13.7 g/dl (14.0-18.0); Imm Gran Abs Auto 0.02 X10*3/uL (0.00-0.03); Imm Gran Pct Auto 0.3 % (0.0-0.4); Leukocyte Esterase Urine Negative (Negative); Lymphocytes Absolute Auto 2.3 X10*3/uL (1.2-4.9); Lymphocytes Percent Auto 31.6 % (20-40); Mean Corpuscular HGB Conc 32.5 g/dl (31.0-36.0); Mean Corpuscular Volume 92.3 fL (80.0-98.0); Mean Platelet Volume 10.8 fL (9.4-12.4); Monocytes Absolute Auto 0.7 X10*3/uL (0.1-1.2); Monocytes Percent Auto 10.2 % (2-11); Neutrophils Percent Auto 54.9 % (45-73); Nitrite Urine Negative (Negative); PH 6.5 (5.0-9.0); Platelet Count 205 X10*3/uL (160-400); Red Blood Count 4.56 X10*6/uL (4.60-5.80); Red Cell Distribution Width 14.2 % (11.0-16.0); Urine Blood Negative (Negative); Urine Ketones Negative (Negative); Urine Protein Negative (Neg-Trace); White Blood Count 7.3 X10*3/uL (4.8-10.8)
[2024-05-15 11:24] LABS: Creatinine Urine 93.61 mg/dL; Microalbum/Creatinine Ratio Ur 24.5 ug/mg cr (<30)
[2024-05-15 11:33] LABS: Estimated Average Glucose 103 mg/dL; Hemoglobin A1c % 5.2 % (<6.0)
[2024-05-15 11:45] LABS: Alanine Aminotransferase 11 U/L (0-40); Albumin Level 4.1 g/dL (3.5-5.0); Alkaline Phosphatase 106 U/L (39-117); Anion Gap 13 (12-20); Aspartate Amino Transferase 15 U/L (5-37); Bilirubin Total 0.4 mg/dL (0.0-1.0); Blood Urea Nitrogen 12 mg/dL (9-16); Calcium 9.2 mg/dL (8.4-10.2); Carbon Dioxide 28 mmol/L (22-29); Chloride 107 mmol/L (96-108); Cholesterol 188 mg/dL (<200); Estimated Glomerular Filt Rate 49; Glucose Fasting 87 mg/dL (60-99); HDL Cholesterol 46 mg/dL (>40); LDL Cholesterol Calculated 125 mg/dL (<100); Potassium 3.9 mmol/L (3.3-5.1); Sodium 144 mmol/L (135-145); Total Protein 6.6 g/dL (6.5-8.0); Triglycerides 86 mg/dL (<150)
[2024-05-15 11:56] LABS: PSA,Total (Free>4and<10) 1.24 ng/mL (0.00-4.00)
[2024-05-15 12:23] LABS: Bacteria Urine None Seen (None Seen); Hyaline Casts Urine 0-2 /LPF (0-2); RBC Urine 0-2 /HPF (0-2); Squamous Epithelial Cell Urine 0-2 /HPF (0-2); WBC Urine 0-5 /HPF (0-5)
== END 2024-05-15 10:19 | disposition home or self-care (01) ==
LOC: HO.LNP 10:18
PROVIDERS: Visit Provider Internal Medicine
DX: Z00.00 Encounter for general adult medical examination without abnormal findings (principal); Z12.5 Encounter for screening for malignant neoplasm of prostate; E78.00 Pure hypercholesterolemia, unspecified; R73.03 Prediabetes; D69.6 Thrombocytopenia, unspecified
CPT/HCPCS: 80053; 80061; 81001; 82043; 82570; 83036; 84153; 85025

== ENCOUNTER 2024-09-19 13:54 | Outpatient (AMB) | payer BC, SELFPAY ==
--- OUTSIDE RECORDS SUMMARY | 2024-01-17 07:40 | XMS_ITS ---
Demographics Address [address] [place] [address] [address] [place] [address] Mobile Preferred Language en Marital Status Mu-Ism Affiliation Unknown Race White Ethnic Group Unknown Author Organization [facility] Address [address] [place] [address] Care Team Providers Care Manager Administrative Services Name Role Phone Cy SIMMS, Donal Primary Care Provider Moses Porter [phone] REASON FOR VISIT screening,hx polyps Encounters Encounter Location Date Provider [place] [facility] [place] [address] [place], [place] [phone] 01/17/2024 Moses Pérez Plan Of Treatment No Information Progress Notes * FLAQUITO BURLESON CDOB: [birth year] (79 yo M)Acc No.[id number]:01/17/2024 COLON WITH MAC Patient: FLAQUITO GREER Provider: Tabitha Pérez MD :1945 A ge:78 Y S ex:Male Date:01/17/2024 Address:[address] [place] [address] [address] , [place] [id number] Pcp:Donal Benoit MD Subjective: * Chief Complaints: [...] 03/18/2023 Generated for Beulahi ng/Fadallasg/eTransmitting on: 0 09/19/2024 02:40 PM EDT
[2024-09-19 14:15] VITALS: BP 140/64; PULSE 73; O2SAT 96; BMI 26.1
--- NOTE | 2024-09-19 14:15 | A.OFFVIS_ITS ---
Vital Signs 09/19/24 14:15 Height 5 ft 8 in Weight 171 lb 15.369 oz BMI 26.1 BP 140/64 H Blood Pressure Location Lt brachial Position Sitting Pulse 73 Pulse Source Pulse Oximeter Pulse Oximetry (%) 96 Oxygen Delivery Method Room Air Intake Visit Reasons: Somnolence Intake Note: pt is here for follow up and states he only gets short of breath when he is overworks. Returned Goods Receiving Clerk Required: No Allergies No Known Allergies (No Known Allergies*) Allergy (Verified 09/19/24 14:47) Medication List - Last Reconciled 09/19/24 by Sanford Gonsales MD albuterol sulfate 90 mcg/actuation 2 puffs inhalation Q4H PRN amitriptyline 10 mg PO BEDTIME carbidopa-levodopa 25-100 mg 1 tab PO TID cyclobenzaprine 5 mg PO BID fluticasone propion-salmeterol 250-50 mcg/dose (Wixela Inhub) 1 ea inhalation Q12H omeprazole 20 mg PO DAILY zinc acetate 50 mg PO DAILY Do you need a note to return to daycare/school/sports/work: No HPI HPI Somnolence: Details: Mr. Fang is now 79 years old. He is nonsmoker. He has moderately severe obstructive airway disorder which is controlled with the use of Wixela. He needs rescue inhaler only once a day and that is before he goes to sleep. However this may be because he has been using Wixela only once a day in the morning. He say is he does get good sleep for 6 hours but in between has to go to the bathroom a couple of times. While his breathing has remained fairly stable, he complains of being tired especially towards the evenings, as he puts in about 16 hours of work on a daily basis. 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 He has no help. 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 He claims that this is such as specialized field he has no one else who could come and join his business. He wants to dispose of his business but he is so concerned about the cost murmurs he is compact to continue working. He say is his is about 6-7 years younger than him and she has a good job with [employer]. So many is not a problem [facility] Medical History Migraines Parkinsons disease Thrombocytopenia Pulmonary embolism MAGGY (obstructive sleep apnea) Somnolence, daytime Smoker Dyslipidemia COPD (chronic obstructive pulmonary disease) Surgical History History of back surgery H/O colonoscopy History of partial colectomy Social History Household Members: Spouse Housing: House Are you a primary technical healthcare consultant to a significant other at home: No Do you presently have visiting nurse or other home services: No Alcohol intake: current Alcohol intake frequency: holidays/special occasions only Alcohol type: beer Comment: refusing bed alarm Patient Tobacco Use Status: Current everyday Tobacco user Tobacco use type: Cigarette Cigarette Packs Per Day: 0.5 Cigarettes Per Day: 9 Years Smoked: 65 service: Yes Current occupational status: employed Review of Systems Const All systems reviewed & are unremarkable except as noted in HPI and below Eyes Reports no additional complaints ENT Reports no additional complaints and Reports dizziness (ON GETTING UP FAST) Card Denies chest pain, Denies irregular heart rhythm and Denies leg edema Resp Reports as per HPI GI Reports heartburn (CONTROLLED WITH MED) Reports nocturia Musc Reports no additional complaints Skin/Breast Reports system reviewed and no additional complaints, except as documented Neuro Reports dizziness (ON GETTING UP FAST) Endo Reports no additional complaints Aller/Immun Reports no additional complaints Physical Exam Vital Signs: Last Vital Signs Pulse 73 09/19/24 14:15 BP 140/64 H 09/19/24 14:15 Pulse Ox 96 09/19/24 14:15 Oxygen Delivery Method Room Air 09/19/24 14:15 BMI result Body Mass Index 26.1 Const General: comfortable, no acute distress, alert and awake Orientation/consciousness: patient oriented x3 HEENT Head: Yes normal to inspection General nose exam: No nasal polyps present and No nasal discharge present Face and sinus: Yes sinuses nontender Mouth: oropharynx normal Teeth and gingiva: dentures and other (THERE IS MILD REGRESSION OF THE LOWER JAW) Throat: Yes posterior oropharynx normal Eyes General: appearance normal, both eyes and all related structures Neck Neck: Yes normal visual inspection, Yes no lymphadenopathy, Yes trachea midline, Yes no JVD and Yes other (NECK SIZE 18 IN) Thyroid: Thyroid normal Chest Chest palpation & inspection: normal inspection of the chest, normal palpation of entire chest wall and no tenderness Resp Effort & Inspection: normal respiratory effort Auscultation: clear to auscultation bilaterally, no crackles, no wheezes and diminished lung sounds Cardio Palpation: normal PMI Rate: regular rate Rhythm: regular rhythm Heart sounds: no gallops and no murmurs GI Palpation (GI): Soft to palpation, nontender, No hepatosplenomegaly present and no masses Auscultation: normal bowel sounds Back/Spine/Pelvis Thoracic/Lumbar Spine: thoracic and lumbar spine normal to inspection Skin General skin exam: no rashes or lesions noted Neuro General: patient oriented x3 and no focal motor deficits Cranial nerves: Yes CN's II-XII intact bilaterally Extrem General: Yes normal to inspection, Yes no clubbing, cyanosis or edema and Yes no calf tenderness Psych Appearance: grossly normal and well kempt Speech and movement: Normal speech and movement present Assessment & Plan Assessment & Plan (1) COPD (chronic obstructive pulmonary disease): Comment: HE HAS LONGSTANDING DIAGNOSIS OF COPD, RELATED TO HIS SMOKING. IT HAS REMAINED RELATIVELY STABLE WITHOUT ANY ACUTE EXACERBATION. Code(s): J44.9 - Chronic obstructive pulmonary disease, unspecified Category: Medical Plan: Advised to continue using Wixela 250-50 1 inhalation b.i.d.. He was using it only once a day and then needing to use the rescue inhaler at night . If he starts using b.i.d. may not need to use albuterol before he goes to sleep. (2) Smoker: Comment: HAS BEEN SMOKER THROUGHOUT HIS ADULT LIFE. HE HAD QUIT SMOKING CIGARETTES FOR A WHILE BUT UNFORTUNATELY WENT BACK TO SMOKING ABOUT HALF PACK A DAY. Code(s): F17.200 - Nicotine dependence, unspecified, uncomplicated Category: Social Hx Plan: Advised to quit smoking or at least cut down the number of cigarettes. (3) Somnolence, daytime: Comment: HE HAD DESCRIBED VERY NONSPECIFIC FATIGUE AND SLEEPINESS TOWARDS THE AFTERNOON. SLEEP STUDY PERFORMED WAS NEGATIVE FOR SLEEP APNEA. NOW HE ACTUALLY DESCRIBES THAT HE IS NOT SLEEPY BUT JUST FEELS TIRED IN THE AFTERNOONS. THIS SEEMS TO BE SECONDARY TO PHYSICAL WORK, WHICH HE IS DOING BEYOND HIS CAPACITY. HE HAS ALSO BEEN DIAGNOSED TO HAVE MILD PARKINSONISM AND THAT KEEPS HIM SOMEWHAT SLOW AND STIFF . Code(s): R40.0 - Somnolence Category: Medical Plan: I DID DISCUSS WITH HIM AT LENGTH AND TOLD HIM THAT, HE TO THINK SERIOUSLY TO CUT DOWN THE AMOUNT OF WORK, MAY BE EVEN THINK ABOUT SELLING HIS BUSINESS, AND FIND MORE TIME TO RELAX AND DO ONLY LIGHT DUTY TYPE OF WORK. Coding Level of Care Code Est Pt Level 3 (61286) Diagnoses COPD (chronic obstructive pulmonary disease) J44.9 Smoker F17.200 Somnolence, daytime R40.0
--- OUTSIDE RECORDS SUMMARY | 2024-09-19 14:41 | XMS_ITS | Patient Health Record ---
Author Organization Donal Benoit MD Address [address] [place] [phone] Care Team Providers Care Business Area Manager Name Role Phone Donal Benoit Primary Care Provider Allergies No Known Allergies Results Component Value Reference Range Notes Hemoglobin A1c Reviewed date:03/14/2024 11:24:21 AM Interpretation: Performing Lab: Notes/Report: Hemoglobin A1c 5.1 Liver Panel Reviewed date:11/12/2023 12:22:16 PM Interpretation: Performing Lab:[facility], [address] [place] [phone] Notes/Report: Bilirubin Total 0.6 0.0-1.0 mg/dL Bilirubin Direct 0.2 0.0-0.5 mg/dL Aspartate Amino Transferase 13 5-37 U/L Alanine Aminotransferase 12 0-40 U/L Total Protein 6.8 6.5-8.0 g/dL Albumin Level 4.0 3.5-5.0 g/dL Alkaline Phosphatase 109 39-117 U/L Glucose Fasting Reviewed date:11/12/2023 12:22:24 PM Interpretation: Performing Lab:[facility], [address] [place] [phone] Notes/Report: Glucose Fasting 88 60-99 mg/dL Lipid Panel with Reflex Reviewed date:11/12/2023 12:32:34 PM Interpretation: Performing Lab:[facility], [address] [place] [phone] Notes/Report: Triglycerides 74 <150 mg/dL Desirable Triglyceride: less than 150 mg/dL Borderline High Triglyceride 150-199 mg/dL High Triglyceride: 200-499 mg/dL Very High Triglyceride: greater than or equal to 5OO mg/dL Cholesterol 195 <200 mg/dL Desirable Cholesterol: less than 200 mg/dL Borderline High Cholesterol: 200-239 mg/dL High Cholesterol: greater than 239 mg/dL LDL Cholesterol Calculated 136 <100 mg/dL Desirable LDL: less than 100 mg/dL Near Optimal/Above Optimal LDL: 110-129 mg/dL Borderline High LDL: 130-159 mg/dL High LDL: 160-189 mg/dL Very High LDL: greater than or equal to 190 mg/dL HDL Cholesterol 45 >40 mg/dL Desirable HDL: greater than 40 mg/dL Note: This HDL assay may give artificially low results in patients with liver disease. Hemoglobin A1c Reviewed date:11/12/2023 12:22:32 PM Interpretation: Performing Lab:[facility], [address] [place] [phone] Notes/Report: Hemoglobin A1c % 5.1 <6.0 % Hemoglobin A1C Reference Range Adults: 4.8 - 6.0 % Non diabetic: < 6.0 % Goal: < 7.0 % Additional Action Suggested: > 8.0 % Note: Hemoglobin A1c results are invalid for patients with abnormal amounts of HbF. Blood transfusions may impact the HbA1c concentration in the patient sample. Estimated Average Glucose 100 eAG = Estimated average glucose which is %A1C expressed as average glucose, using the formula of the S0W-Gwavbrb Average Glucose study (ADAG), Diabetes Care, Vol.31,#8, 2007 Complete Blood Count Auto Di ff Reviewed date:05/15/2024 05:18:52 PM Interpretation: Performing Lab:[facility], [address] [place] [phone] Notes/Report: White Blood Count 7.3 4.8-10.8 X10*3/uL Red Blood Count 4.56 4.60-5.80 X10*6/uL Hemoglobin 13.7 14.0-18.0 g/dl Hematocrit 42.1 42.0-52.0 % Mean Corpuscular Volume 92.3 80.0-98.0 fL Mean Corpuscular Hemoglobin 30.0 27.0-33.0 pg Mean Corpuscular HGB Conc 32.5 31.0-36.0 g/dl Red Cell Distribution Width 14.2 11.0-16.0 % Platelet Count 205 160-400 X10*3/uL Mean Platelet Volume 10.8 9.4-12.4 fL Neutrophils Percent Auto 54.9 45-73 % Imm Gran Pct Auto 0.3 0.0-0.4 % Lymphocytes Percent Auto 31.6 20-40 % Monocytes Percent Auto 10.2 2-11 % Eosinophils Percent Auto 2.6 0-4 % Basophils Percent Auto 0.4 0-2 % NRBC Pct Auto 0.0 0.0-0.2 /100WBC Neutrophils Absolute Auto 4.0 2.0-8.3 x10*3/uL Imm Gran Abs Auto 0.02 0.00-0.03 X10*3/uL Lymphocytes Absolute Auto 2.3 1.2-4.9 X10*3/uL Monocytes Absolute Auto 0.7 0.1-1.2 X10*3/uL Eosinophils Absolute Auto 0.2 0.0-0.4 X10*3/uL Basophils Absolute Auto 0.0 0.0-0.2 X10*3/uL NRBC Abs Auto 0.000 0.0-0.012 X10*3/uL Comprehensive Brodnax. Panel Fa st Reviewed date:05/15/2024 05:16:00 PM Interpretation: Performing Lab:[facility] [phone] Notes/Report: Sodium 144 135-145 mmol/L Potassium 3.9 3.3-5.1 mmol/L Chloride 107 96-108 mmol/L Carbon Dioxide 28 22-29 mmol/L Anion Gap 13 12-20 Blood Urea Nitrogen 12 9-16 mg/dL Creatinine 1.41 0.5-1.4 mg/dL Estimated Glomerular Filt Rate 49 Chronic Kidney Disease: Estimated GFR < 60 mL/min/1.73m2 Severe Kidney Disease: Estimated GFR < 15 mL/min/1.73m2 Glucose Fasting 87 60-99 mg/dL Calcium 9.2 8.4-10.2 mg/dL Bilirubin Total 0.4 0.0-1.0 mg/dL Aspartate Amino Transferase 15 5-37 U/L Alanine Aminotransferase 11 0-40 U/L Total Protein 6.6 6.5-8.0 g/dL Albumin Level 4.1 3.5-5.0 g/dL Alkaline Phosphatase 106 39-117 U/L Lipid Panel Reviewed date:05/15/2024 12:41:57 PM Interpretation: Performing Lab:[address] [phone] Notes/Report: Triglycerides 86 <150 mg/dL Desirable Triglyceride: less than 150 mg/dL Borderline High Triglyceride 150-199 mg/dL High Triglyceride: 200-499 mg/dL Very High Triglyceride: greater than or equal to 5OO mg/dL Cholesterol 188 <200 mg/dL Desirable Cholesterol: less than 200 mg/dL Borderline High Cholesterol: 200-239 mg/dL High Cholesterol: greater than 239 mg/dL LDL Cholesterol Calculated 125 <100 mg/dL Desirable LDL: less than 100 mg/dL Near Optimal/Above Optimal LDL: 110-129 mg/dL Borderline High LDL: 130-159 mg/dL High LDL: 160-189 mg/dL Very High LDL: greater than or equal to 190 mg/dL HDL Cholesterol 46 >40 mg/dL Desirable HDL: greater than 40 mg/dL Note: This HDL assay may give artificially low results in patients with liver disease. PSA,Total (Free>4and<10) Reviewed date:05/15/2024 12:41:10 PM Interpretation: Performing Lab:[address] [address] Notes/Report: PSA,Total (Free>4and<10) 1.24 0.00-4.00 ng/mL A Free PSA was not performed: The percentage of Free PSA can be used to enhance the differentiation of prostate cancer from benign prostatic disease in subjects whose PSA levels are between 4.0 and 10.0 ng/mL. For subjects whose PSA levels are below 4.0 or above 10.0 ng/mL, the risk of prostate cancer is determined on the basis of the PSA alone. Therefore the % Free PSA is recommended only for those subjects whose PSA levels are between 4.0 and 10.0 ng/mL. PSA methodology: Smith Alinity i Chemiluminescent Microparticle Immunoassay (CMIA) Microalbumin, Random Reviewed date:05/15/2024 12:41:28 PM Interpretation: Performing Lab:[address] [address] Notes/Report: Creatinine Urine 93.61 Microalbumin Urine 23.0 Microalbum/Creatinine Ratio Ur 24.5 <30 ug/mg cr Albumin/Creatinine Ratio Reference Ranges: Normal: < 30 ug/mg creatinine Microalbuminuria: 30 - 300 ug/mg creatinine Clinical Albuminuria: > 300 ug/mg creatinine Hemoglobin A1c Reviewed date:05/15/2024 12:41:03 PM Interpretation: Performing Lab:[address] [phone] Notes/Report: Hemoglobin A1c % 5.2 <6.0 % Hemoglobin A1C Reference Range Adults: 4.8 - 6.0 % Non diabetic: < 6.0 % Goal: < 7.0 % Additional Action Suggested: > 8.0 % Note: Hemoglobin A1c results are invalid for patients with abnormal amounts of HbF. Blood transfusions may impact the HbA1c concentration in the patient sample. Estimated Average Glucose 103 eAG = Estimated average glucose which is %A1C expressed as average glucose, using the formula of the H4P-Jejpyyg Average Glucose study (ADAG), Diabetes Care, Vol.31,#8, Sep. 2007 UA ClnCatch+Micro w/rflx Cul t Reviewed date:05/15/2024 05:19:28 PM Interpretation: Performing Lab:[address] [address] Notes/Report: Urine, Clean Catch Color Urine Yellow Appearance Urine Clear PH 6.5 5.0-9.0 Glucose Urine UA Negative Negative mg/dL Urine Blood Negative Negative Specific [place] - Urine 1.010 1.005-1.025 Urine Protein Negative Neg-Trace mg/dL Urine Ketones Negative Negative mg/dL Nitrite Urine Negative Negative Leukocyte Esterase Urine Negative Negative RBC Urine 0-2 0-2 /HPF WBC Urine 0-5 0-5 /HPF Squamous Epithelial Cell Urine 0-2 0-2 /HPF Bacteria Urine None Seen None Seen Hyaline Casts Urine 0-2 0-2 /LPF XR cervical spine 4V Reviewed date:11/30/2023 11:05:27 AM Interpretation: Performing Lab: Notes/Report: [address] [address] XRay Report Signed Patient: William Fang MR#: [id number] 64 : 1945 Acct:[id number] Age/Sex: 78 / M ADM Date: 11/23/23 Loc: HO.XRAY Attending Dr: Donal Benoit MD Ordering Physician: Donal Benoit MD Date of Service: 11/23/23 Procedure(s): XR cervical spine 4V Accession Number(s): [id number] cc: Donal Benoit MD EXAMINATION: XR CERVICAL SPINE CLINICAL INFORMATION: Acute torticollis COMPARISON: None available. TECHNIQUE: 6 views cervical spine FINDINGS: The cervical spine is visualized from the C1- upper C7 vertebral body level. 4 mm anterolisthesis of C4 on C5. Predens space is maintained. No prevertebral soft tissue swelling. No acute fracture is seen. Multilevel disc degenerative changes, more prominent changes of moderate-severe disc degeneration at C6-7. Multilevel bilateral neural foramen narrowing. Limited evaluation of the dens, by overlapping densities. No suspicious findings in lung apices. XR/XR cervical spine 4V IMPRESSION: No radiographic evidence of acute fracture in the visualized portion of the spine. Cervical spondylosis, more prominent findings of C6-7 moderate-severity disc degeneration. Multilevel bilateral neural foramen narrowing. 4 mm anterolisthesis of C4 on C5, probably degenerative. Study is assigned for dictation on November 30, 2023 Electronically signed by: Everardo Arias MD 11/30/2023 09:24 AM EDT RP Dictated By: Everardo Arias MD Signed By: <Electronically signed by Everardo Arias MD in OV> 11/30/[address] DD/ 1143 TD/TT: 11/23/23 115 Mycology Teacher: MIRIAM [place] [address] XRay Report Signed Patient: Basim Fang MR#: [id number] 64 : 1945 Acct:[id number] Age/Sex: 78 / M ADM Date: 11/23/23 Loc: HO.XRAY Attending Dr: Donal Benoit MD Ordering Physician: Donal Benoit MD Date of Service: 11/23/23 Procedure(s): XR cervical spine 4V Accession Number(s): [id number] cc: Donal Benoit MD EXAMINATION: XR CERVICAL SPINE CLINICAL INFORMATION: Acute torticollis COMPARISON: None available. TECHNIQUE: 6 views cervical spine FINDINGS: The cervical spine i s visualized from the C1- upper C7 vertebral body level. 4 mm anterolisthesis of C4 on C5. Predens space is maintained. No prevertebral soft tissue swelling. No acute fracture is seen. Multilevel disc degenerative changes, more prominent changes of moderate-severe disc degeneration at C6-7. Multilevel bilateral neural foramen narrowing. Limited evaluation of the dens, by overlapping densities. No suspicious findings in lung apices. XR/XR cervical spine 4V IMPRESSION: No radiographic evidence of acute fracture in the visualized portion of the spine. Cervical spondylosis , more prominent findings of C6-7 moderate-severity disc degeneration. Multilevel bilateral neural foramen narrowing. 4 mm anterolisthesis of C4 on C5, probably degenerative. Study is assigned fo r dictation on November 30, 2023 Electronically donna d by: Everardo Arias MD 11/30/2023 09:24 AM EDT RP Dictated By: Everardo Arias MD Signed By: <Electronically signed by Everardo Arias MD in OV> 11/30/[address] DD/ 1143 TD/TT: 11/23/23 1152 Mycology Teacher: HB Glucose, finger stick Reviewed date:03/14/2024 11:17:02 AM Interpretation: Performing Lab: Notes/Report: Value 110 Hold Gold Reviewed date:11/12/2023 12:24:59 PM Interpretation: Performing Lab:[facility], [address] [place] [address] Notes/Report: Jasmin Gold See Note Specimen held untested for 24 hours; Call to request Chemistry testing. XR cervical spine w flex/ext Reviewed date:12/30/2023 08:43:45 AM Interpretation:CBACK 12/28/23 Performing Lab: Notes/Report: [facility] [place] [address] XRay Report Signed Patient: William Fang MR#: [id number] 64 : 1945 Acct:[id number] Age/Sex: 78 / M ADM Date: 11/30/23 Loc: HO.HMGCX Attending Dr: Donal Benoit MD Ordering Physician: Donal Benoit MD Date of Service: 11/30/23 Procedure(s): XR cervical spine w flex/ext Accession Number(s): [id number] cc: Donal Benoit MD EXAMINATION: XR CERVICAL SPINE CLINICAL INFORMATION: Acute torticollis. COMPARISON: 11/23/2023. TECHNIQUE: 10 views of the cervical spine, inclusive of flexion and extension views, were obtained. FINDINGS: Bilateral multilevel facet arthritis. Multilevel cervical spondylosis. Mild anterior subluxation of C4 on C5 on flexion and extension views with moderate loss of disc space height. Minimal anterior subluxation of C5 on C6 on flexion and extension views with moderate loss of disc space height. Marked degenerative changes with loss of disc space height at C6-C7. Limited visualization of C7 due to overlying bony and soft tissue structures. Bilateral multilevel facet arthritis with neural foraminal encroachment. XR/XR cervical spine w flex/ext IMPRESSION: Advanced multilevel cervical spondylosis. Electronically signed by: Tonia Barrett MD 12/21/2023 12:57 PM EDT Dictated By: Tonia Barrett MD Signed By: <Electronically signed by Tonia Barrett MD in OV> 12/21/23 1257 DD/ 34 TD/TT: 11/30/23 134 Mycology Teacher: [facility] [address] [place] [address] [place] [address] XRay Report Signed Patient: Basim Fang MR#: [id number] 64 : 1945 Acct:[id number] Age/Sex: 78 / M ADM Date: 11/30/23 [facility]: Donal Benoit MD Ordering Physician: Donal Benoit MD Date of Service: 11/30/23 Procedure(s): XR cervical spine w flex/ext Accession Number(s): [id number] cc: Donal Benoit MD EXAMINATION: XR CERVICAL SPINE CLINICAL INFORMATION: Acute torticollis. COMPARISON: 11/23/2023. TECHNIQUE: 10 views of the cervical spine, inclusive of flexion and extension views, were obtained. FINDINGS: Bilateral multilevel facet arthritis. Multilevel cervical spondylosis. Mild anterior subluxation of C4 on C5 on flexion and extension views with moderate loss of disc space height. Minimal anterior subluxation of C5 on C6 on flexion and extension views with moderate loss o f disc space height. Marked degenerative changes with loss of disc space height at C6-C7. Limited visualizatio n of C7 due to overlying bony and soft tissue structures. Bilateral multilevel facet arthritis with neural foraminal encroachment. XR/XR cervical spine w flex/ext IMPRESSION: Advanced multilevel cervical spondylosis. Electronically donna d by: Tonia Barrett MD 12/21/2023 12:57 PM EDT Dictated By: Tonia Barrett MD Signed By: <Electronically signed by Tonia Barrett MD in OV> 12/21/23 1257 DD/ 1335 TD/TT: 11/30/23 134 Mycology Teacher: Pathology Reviewed date:01/26/2024 07:20:34 PM Interpretation: Performing Lab:[facility], [address] [place] [phone] Notes/Report: --- Name: William Fang Age/Sex: 78/M : 1945 Unit#: [id number] Attend Dr: Moses Pérez MD Re01/24/24 Status : [facility] Location: [facility] Disch: --- SPEC : [id number] RECD : 01/25/24 STATUS: RYANN HARTMAN NUM: [id number] JAKE: 01/24/241547 [facility] DR: Moses Pérez MD ENTERED: 01/25/24 52 SP TYPE: Surgical OTHR DR: Donal Benoit MD ORDERED: HE Stain/3, Gross Micro L4 Diagnosis Colon, 60 cm, polypectomy: Fragments of tubular adenoma; negative for high-grade dysplasia or carcinoma. Clinical History Pre-Op Dx: Encounter for screening for malignant neoplasm of colon Post-Op Dx: Polyps, diverticulosis, hemorrhoids Microscopic Description Microscopic sections reviewed. Material Received Polyp at 60 Gross Description Received in formalin labeled ?polyp at 60? are 2 puente-brown papular tissue fragments measuring 0.3 and 0. 6 cm. The resected base larger fragment is inked and the specimen is bisected and entirel y submitted along with the smaller tissue fragment, submitted in toto, in a cassette felice Pickett CEDS Copies To: Donal Benoit MD [facility] [address] [place] [address] Moses Pérez MD [facility] [address] [place], [place] [phone] --- Signed (signature on file) Italo Galvan MD 01/26/24 1528 --- END OF REPORT Reason For Referral Reason TORTICOLLIS Diagnosis 1 Torticollis, acute ( M43.6) Referral Organization Donal Benoit MD Referring Provider First Name Donal Referring Provider Last Name Cy Referring Provider Speciality Internal edicine Referred Provider [facility] Referred Provider Specialty Physical The rapist General Notes Geni Meyer 12/02/2023 12:24:18 PM EDT > PATIENT WISHES TO WAIT TIL RESULTS OF MRI COME IN, Geni Meyer 12/03/2023 11:44:04 AM EDT > MR FANG DOES NOT WISH TO GO FORWARD WITH THE PT, REFERRAL CLOSED Referral Priority Routine Reason muscle spasm of back please eval [...] Referral Priority Routine Referral Appointment Date 01/26/2024 Reason neck pain please lakeshia yañez and treat for physical therapy Diagnosis 1 Neck pain (M54.2) Referral Organization oDnal Benoit MD Referring Provider First Name Donal Referring Provider Last Name Cy Referring Provider Speciality Internal M edicine Referred Provider [facility] Maritza Khan, [facility] Maritza Khan Referred Provider Specialty Physical The rapist General Notes Vane Donahue 0 04/20/2024 01:33:08 PM >patient will be making his own appt, Vane Donahue 04/20/2024 02:09:24 PM > referral faxed Referral Priority Routine Reason PROSTATISM Diagnosis 1 Prostatism (N40.0) Referral Organization Donal Benoit MD Referring Provider First Name Donal Referring Provider Last Name Cy Referring Provider Speciality Internal M edicine Referred Provider Shiva Martinez Referred Provider Specialty Urology General Notes Geni Meyer 09/08/2024 02:18:56 PM >REFERRAL MADE AND FAXED TO UROLOGY, Geni Meyer 09/11/2024 12:00:43 PM >APPT SCHEDULED FOR 10/24/[address] ESPINOSA . PATIENT IS AWARE Referral Priority Routine Referral Appointment Date 10/24/2024 Medications Medication SIG (Take, Route, Frequency, Duration) Notes Start Date End Date Status Aleve 220 MG 1 tablet with food o r milk as needed Orally every 12 hrs Active Sertraline HCl 50 MG 1 tablet Orally Onc e a day Active Atorvastatin Calcium 80 MG TAKE 1 TABLET BY MOUTH EVERY DAY for 90 Not-Taking Eliquis 5 MG as directed Orally b id for 30 days Not-Taking Wixela Inhub 250-50 MCG/ACT INHALE 1 PUFF EVERY 12 HOURS BY MOUTH 90 Active Carbidopa-Levodopa 10-100 MG 1 tablet Orally 4 times a day Active Ibuprofen 800 MG 1 tablet Orally Thre e times a day for 90 Not-Taking Omeprazole 20 MG TAKE 1 CAPSULE BY [facility] EVERY DAY Active Meclizine HCl 12.5 MG 1 tablet as needed Orally twice a day for 7 days 12/12/2019 Not-Taking Zinc 50 MG 1 tablet Orally Once a day Active Ipratropium-Albuterol 0.5-2.5 (3) MG/3ML 3 ml Inhalation Four times a day as needed for 30 days 12/12/2018 Not-Taking Finasteride 5 MG 1 tablet Orally Once a day for 30 days 09/08/2024 Active predniSONE 10 MG 1 tablet with food o r milk Orally 4 tabs for 3 days,3tabs for 3 days, 2 tabs for 3 days, and 1 tab for 3 days for 14 days 08/15/2024 Active Albuterol Sulfate HFA 108 (90 Base) MCG/ACT INHALE 2 PUFFS BY MOUTH EVERY 6 HOURS NEEDED 17 Active Ventolin HFA * 108 (90 Base) MCG/ACT 2 puffs as needed Inhalation every 4 hrs for 30 day(s) 05/22/2011 Not-Taking Immunizations Vaccine Route Administration Date Status Comme nts Flu Vaccine IM Intramuscular 11/10/2010 Administered PPSV23 (Pnemovax) Unknown 12/26/2009 Administered Flu Vaccine IM Intramuscular 12/08/2011 Administered Flu Vaccine Unknown 12/01/2012 Administered Prevnar 13 IM Intramuscular 12/01/2012 Administered Flu Vaccine IM Intramuscular 01/01/2014 Administered zFluzone Quadrivalent IM Intramuscular 01/08/2015 Administ ered PPSV23 (Pnemovax) IM Intramuscular 01/28/2015 Administered Shingles IM Intramuscular 02/11/2015 Administered Fluarix Quadrivalent IM Intramuscular 12/31/2015 Administe red Fluarix Quadrivalent IM Intramuscular 02/09/2017 Administe red TDaP Unknown 02/09/2017 Administered [facility] Fluarix Quadrivalent IM Intramuscular 12/14/2017 Administe red Influenza High Dose IM Intramuscular 12/27/2018 Administer ed Influenza High Dose Unknown 12/12/2019 Administered [facility] PPSV23 (Pnemovax) Unknown 02/13/2020 Administered [facility] SARS-COV-2 Pfizer Unknown 04/29/2020 Administered SARS-COV-2 Pfizer Unknown 06/20/2020 Administered Influenza High Dose IM Intramuscular 11/04/2020 Administer ed SARS-COV-2 Pfizer Unknown 02/13/2021 Administered Influenza High Dose IM Intramuscular 11/04/2021 Administer ed Influenza High Dose IM Intramuscular 11/16/2022 Administer ed Influenza High Dose IM Intramuscular 11/12/2023 Administer ed Social History Tobacco Use: Social History Observation Description Date Details (start date - stop date) Current Smoker NA - NA Sex Assigned At : Social History Observation Description Sex Assigned At Male Tobacco Use/Smoking Question Answer Notes Patient is a current smoker How often do you smoke cigarettes? every day How many cigarettes a day do you smoke? 11-20 How soon after you wake up d o you smoke your first cigarette? 6-30 minutes Are you interested in quitting? Not ready to harlan t Additional Findings: Tobacco User Hildaen t cigarette smoker, not currently using another form of tobacco Alcohol Screen Question Answer Notes Did you [...] Never (0 point) Points 4 Interpretation Positive Section Notes: Has cut back from 3 packs a day to 1 pack for 4 days Has cut back from 3 packs a day to 1 pack for 4 days had one drag this morning, b ut nothing for past 5 days had one drag this morning, b ut nothing for past 5 days Has cut back from 3 packs a day to 1 pack for 4 days Has cut back from 3 packs a day to 1 pack for 4 days Has cut back from 3 packs a day to 1 pack for 4 days Has cut back from 3 packs a day to 1 pack for 4 days Has cut back from 3 packs a day to 1 pack for 4 days had one drag this morning, b ut nothing for past 5 days had one drag this morning, b ut nothing for past 5 days had one drag this morning, b ut nothing for past 5 days had one drag this morning, b ut nothing for past 5 days had one drag this morning, b ut nothing for past 5 days had one drag this morning, b ut nothing for past 5 days had one drag this morning, b ut nothing for past 5 days had one drag this morning, b ut nothing for past 5 days had one drag this morning, b ut nothing for past 5 days had one drag this morning, b ut nothing for past 5 days had one drag this morning, b ut nothing for past 5 days had one drag this morning, b ut nothing for past 5 days Problems Problem Type SNOMED Code ICD Code Onset Dates Problem Status W/U Status Risk Notes Problem Erectile dysfunction (039215270) Erectile Dysfunction (607.84) Active confirmed Problem 186060803 Thrombocytopenia (D69.6) Active confirmed Problem 47599292 Prostatism (N40.0) Active confirmed Problem 393014999 Essential tremor (G25.0) Active confirmed Problem 6609240 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) Active confirmed Problem 407515520 Lumbar disc dise ase (M51.9) Active confirmed Problem 165681393 Gastroesophageal reflux disease without esophagitis (K21.9) Active confirmed Problem 4128726 Prediabetes (R73.09) Active confirmed Problem 799569291 Lung nodule (R91.1) Active confirmed Problem 691867409 Atherosclerosis of [place] coronary artery of [place] heart without angina pectoris (I25.10) Active confirmed Problem 839317191 Cervical disc di sease (M50.90) Active confirmed Problem 43491546 Current smoker (F17.200) Active confirmed Problem 794915853 Acquired spondylolisthesis (M43.10) Active confirmed Problem Chronic obstructive pulmonary disease with acute lower respiratory infection () COPD (chronic obstructive pulmonary disease) with acute bronchitis (J44.0) Active confirmed Problem 35172235 Sciatica of righ t side (M54.31) Active confirmed Problem 092023998 Pure hypercholesterolemia (E78.00) Active confirmed Problem 166793905 COPD with acute exacerbation (J44.1) Active confirmed Problem 072165396 Adenomatous poly p of colon, unspecified part of colon (D12.6) Active confirmed Problem 29935029 Esophageal dysph agia (R13.10) Active confirmed Problem [id number] AYESHA (acute kid ruben injury) (N17.9) Active confirmed Problem 08409476160994309 Brachial arter y aneurysm, 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 Problem 43620671 Multiple subsegm ental pulmonary emboli without acute cor pulmonale (I26.94) Active confirmed Problem 033026510 Cervical arthrit is (M47.812) Active confirmed Problem 355169075 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) Active confirmed Problem 95670380 Retropulsion (R26.89) Active confirmed Problem Parkinson's dise ase with dyskinesia, unspecified whether manifestations fluctuate (G20.B1) Active confirmed Vital Signs Blood pressure diastolic 84 mm Hg 09/08/2024 ingris ght is down 10 pounds since 06-23-24 Height 66 in 09/08/2024 weight is down 10 pounds since 06-23-24 Blood pressure systolic 140 mm Hg 09/08/2024 weig ht is down 10 pounds since 06-23-24 Weight 172 lbs 09/08/2024 weight is down 10 pounds since 06-23-24 BMI 27.76 kg/m2 09/08/2024 weight is down 10 pounds since 06-23-24 Procedures Procedure Date Ordered Date Performed Result Body Sit e Colonoscopy, Screening 01/31/2024 01/31/2024 No fu rther colonoscopy's needed Encounters Encounter Location Date Provider Diagnosis Donal Benoit MD [address] [place] [address] [id number] 11/12/2023 Donal Benoit Prediabetes R73.09 ; Encounter for immunization Z23 and Pure hypercholesterolemia E78.00 Donal Benoit MD [address] [place] [address] [id number] 05/15/2024 Donal Benoit Blood tests for rout ine general physical examination Z00.00 ; Pure hypercholesterolemia E78.00 ; Prediabetes R73.09 ; Thrombocytopenia D69.6 and Prostatism N40.0 Donal Benoit MD [address] [place] [address] [id number] 11/18/2023 Donal Benoit Torticollis, acute M 43.6 ; Parkinson's disease with dyskinesia, unspecified whether manifestations fluctuate G20.B1 and Prostatism N40.0 Donal Benoit MD [address] [place] [address] [id number] 11/23/2023 Donal Benoit Torticollis, acute M 43.6 Donal Benoit MD [address] [place] [address] [id number] 11/29/2023 Donal Benoit Torticollis, acute M 43.6 Donal Benoit MD [address] [place] [address] [id number] 12/03/2023 Donal Benoit Cervical arthritis M 47.812 Donal Benoit MD [address] [place] [address] [id number] 12/28/2023 Donal Benoit Muscle spasm of back M62.830 Donal Benoit MD [address] [place] [address] [id number] 01/13/2024 Donal Benoit Muscle spasm of back M62.830 ; Primary parkinsonism G20.C ; Prediabetes R73.09 and Pure hypercholesterolemia E78.00 Donal Benoit MD [address] [place] [address] [id number] 03/14/2024 Donal Benoit Prediabetes R73.09 ; Atherosclerosis of coquille coronary artery of coqu[place] heart without angina pectoris I25.10 ; Current smoker F17.200 and Panlobular emphysema J43.1 Donal Benoit MD [address] [place] [address] [id number] 05/22/2024 Donal Benoit Pure hypercholestero lemia E78.00 ; Annual physical exam Z00.00 ; Current smoker F17.200 ; Parkinson disease, symptomatic G20.A1 ; Gastroesophageal reflux disease without esophagitis K21.9 ; Prediabetes R73.09 ; Panlobular emphysema J43.1 and Prostatism N40.0 Donal Benoit MD [address] [place] [address] [id number] 05/30/2024 Donal Benoit Headache, unspecifie d R51.9 and Family history of aneurysm Z82.49 Donal Benoit MD [address] [place] [address] [id number] 06/23/2024 Donal Benoit Panlobular emphysema J43.1 ; Parkinson's disease with dyskinesia, unspecified whether manifestations fluctuate G20.B1 and Prostatism N40.0 Donal Benoit MD [address] [place] [address] [id number] 08/15/2024 Donal Benoit COPD (chronic obstru ctive pulmonary disease) with acute bronchitis J44.0 Donal Benoit MD [address] [place] [address] [id number] 09/08/2024 Donal Benoit Prostatism N40.0 and Panlobular emphysema J43.1 Donal Benoit MD [address] [place] [address] [id number] 11/30/2023 Donal Benoit Torticollis, acute M 43.6 Donal Benoit MD [address] [place] [address] [id number] 11/30/2023 Donal Benoit MD [address] [place] [address] [id number] 12/14/2023 Donal Benoit MD [address] [place] [address] [id number] 04/20/2024 Donal Benoit Assessments Encounter Date Diagnosis (ICD Code) Assessment Notes Treatment Notes Treatment Clinical Notes Section Notes 11/12/2023 Prediabetes (ICD-10 - R73.09) 11/12/2023 Encounter for immunization (ICD-10 - Z23) 05/15/20[address] ine general physical examination (ICD-10 - Z00.00) 11/18/2023 Torticollis, acute (ICD-10 - M43.6) patient verbalized understanding of medicatin and directions for use 11/18/2023 Parkinson's disease with dyskinesia, unspecified whether manifestations fluctuate (ICD-10 - G20.B1) being followed by neurology 11/23/2023 Torticollis, acute (ICD-10 - M43.6) order given to patient, patient verbalized understanding of medications and directions for use. 11/29/2023 Torticollis, acute (ICD-10 - M43.6) will start physical therapy after we get the results of his xrays. order it in [place]/ REFERRAL AND PT RE FAXED 12/03/2023 Cervical arthritis (ICD-10 - M47.812) has improved/ will just observe, Total time spent on the date of the encounter is 25 minutes including both face to face time spent and time spent reviewing documentation,, studies and counseling the patient. 12/28/2023 Muscle spasm of back (ICD-10 - M62.830) patient verblized understanding of medication and directions for use 01/13/2024 Muscle spasm of back (ICD-10 - M62.830) referral to pt 01/13/2024 Primary parkinsonism (ICD-10 - G20.C) taking cbd gummies from internet and helps balance 03/14/2024 Prediabetes (ICD-10 - R73.09) has good a1c and good sujgar, will continue to monitor, no need for medication at this time 03/14/2024 Atherosclerosis of coqu[place] coronary artery of [place] heart without angina pectoris (ICD-10 - I25.10) has stopped taking atorvastatin 05/22/2024 Pure hypercholesterolemia (ICD-10 - E78.00) doing well on meds, will continue current regiment 05/22/2024 Annual physical exam (ICD-10 - Z00.00) labs reviewed and discussed with patient 05/30/2024 Headache, unspecifie d (ICD-10 - R51.9) pending diagnostic testing 05/30/2024 Family history of aneurysm (ICD-10 - Z82.49) order faxed to [place] 06/23/2024 Panlobular emphysema (ICD-10 - J43.1) discussed smoking and maybe try vaping 06/23/2024 Parkinson's disease with dyskinesia, unspecified whether manifestations fluctuate (ICD-10 - G20.B1) makes it difficult to do things 08/15/2024 COPD (chronic obstructive pulmonary disease) with acute bronchitis (ICD-10 - J44.0) patient verbalized understanding of medication and directions for use 09/08/2024 Prostatism (ICD-10 - N40.0) patient verbalized understanding of medication and directions for use, referral to urology in [place],. REFERRAL MADE AND FAXED TO UROLOGY, PATIENT AWARE. 11/12/2023 Pure hypercholesterolemia (ICD-10 - E78.00) 05/15/2024 Pure hypercholesterolemia (ICD-10 - E78.00) 11/18/2023 Prostatism (ICD-10 - N40.0) patient verbalized understanding of medication and directions for use 01/13/2024 Prediabetes (ICD-10 - R73.09) good a1c no treatment needed, will continue to monitor 03/14/2024 Current smoker (ICD- 10 - F17.200) has decrease to 2 cigarettes, will continue to monitor 05/22/2024 Current smoker (ICD- 10 - F17.200) not interested in quitting 06/23/2024 Prostatism (ICD-10 - N40.0) 09/08/2024 Panlobular emphysema (ICD-10 - J43.1) having to use inhaler frequently with this hot weather, will contiue current regiment 11/30/2023 Torticollis, acute (ICD-10 - M43.6) 05/15/2024 Prediabetes (ICD-10 - R73.09) 01/13/2024 Pure hypercholesterolemia (ICD-10 - E78.00) stable 03/14/2024 Panlobular emphysema (ICD-10 - J43.1) stable with no complaints, will continue current regiment 05/22/2024 Parkinson disease, symptomatic (ICD-10 - G20.A1) is tired and weak from walking and balance poor, will continue current regiment 05/15/2024 Thrombocytopenia (ICD-10 - D69.6) 05/22/2024 Gastroesophageal ref lux disease without esophagitis (ICD-10 - K21.9) stable, will continue current regiment 05/15/2024 Prostatism (ICD-10 - N40.0) 05/22/2024 Prediabetes (ICD-10 - R73.09) stable, no need for medication at this time 05/22/2024 Panlobular emphysema (ICD-10 - J43.1) stable, will continue current regiment 05/22/2024 Prostatism (ICD-10 - N40.0) stable, will continue current regiment Plan Of Treatment Pending Test Test Name Order Date Electrocardiogram (EKG) 04/15/2018 Electrocardiogram (EKG) 02/11/2015 Electrocardiogram (EKG) 03/12/2016 Electrocardiogram (EKG) 04/09/2017 CT ABD W&WO CONTRAST 09/29/2012 CT CHEST NO CONTRAST 12/12/2019 MRA BRAIN NO CONTRAST 05/30/2024 MRI BRAIN NO CONTRAST 05/15/2022 MRI CERVICAL SPINE NO CONTRAST XR CHEST 2 VIEW PA & LAT 01/20/2021 ECG 30 day event monitor 11/04/2020 XR cervical spine 4V 11/30/2023 Future Test Test Name Order Date CT CHEST NO CONTRAST 12/20/2020 XR CHEST 2 VIEW PA & LAT 03/03/2021 CT chest wo con 01/10/2022 CT CHEST NO CONTRAST 01/04/2023 Next Appt Details Provider Name:Donal Montoya ier, 11/13/2024 07:15:00 AM, [address], [address], [place], [phone], Provider Name:Donal Montoya ier, 11/20/2024 01:45:00 PM, [address], [address], [place], [phone], Provider Name:Donal Montoya ier, 04/23/2025 07:30:00 AM, [address], [address], [place], [phone], Provider Name:Donal Montoya ier, 05/24/2025 01:00:00 PM, [address], [address], [place], [phone], Insurance Providers Payer Name Payer Address Payer Phone Subscriber Number Group Number Insured Name Patient Relationship to Insured Coverage Start Date Coverage End Date [employer] [facility] [address] [place], [place] [id number] William Fang Self - patient is the insured Medical (General) History Medical History History ICD Code supraclavicular node on lt 2010 colonoscopy 07/24/2011 due in 3 years; colonoscopy done 09/06/14 w/Dr Hall - repeat 5 years(2019) yearly chest ct. discussed 2020 colonoscopy done 06/14/20 due 3 yrs with [facility]
== END 2024-09-19 14:48 | disposition home or self-care (01) ==
PROVIDERS: PCP Internal Medicine; Visit Provider Internal Medicine
DX: J44.9 Chronic obstructive pulmonary disease, unspecified (principal); F17.200 Nicotine dependence, unspecified, uncomplicated; R40.0 Somnolence
CPT/HCPCS: 99213

== ENCOUNTER 2024-09-27 05:32 | Inpatient (IN) | payer BC, SELFPAY ==
--- OUTSIDE RECORDS SUMMARY | 2024-01-17 07:40 | XMS_ITS ---
Demographics Address [address] [place] [address] [address] [place] [address] Mobile Preferred Language en Marital Status Confucianism Affiliation Unknown Race White Ethnic Group Unknown Author Organization [facility] Address [address] [place] [address] Care Team Providers Care Assistant Printer Floor Covering Name Role Phone Cy SIMMS, Donal Primary Care Provider Moses Porter [phone] REASON FOR VISIT screening,hx polyps Encounters Encounter Location Date Provider Diagnosis [facility] [place] [address] [place], [place] [phone] 01/17/2024 Moses Pérez Plan Of Treatment No Information Progress Notes * FLAQUITO BURLESON CDOB: [birth year] (79 yo M)Acc No.[id number]:01/17/2024 COLON WITH MAC Patient: FLAQUITO GREER Provider: Tabitha Pérez MD :1945 A ge:78 Y S ex:Male Date:01/17/2024 Address:[address] [place] [address] [address] , [place] [id number] Pcp:Donal Benoit MD Subjective: * Chief Complaints: [...] 03/18/2023 Generated for Beulahi ng/Fadallasg/eTransmitting on: 0 09/27/2024 06:44 AM EDT
[2024-09-27] VITALS (13 sets, daily range): BP systolic 131–181; BP diastolic 52–80; PULSE 60–82; RESP 14–24; TEMP 36.7–37.9; O2SAT 88–99; BMI 27.4
--- NOTE | 2024-09-27 | ECG_ITS ---
Test Reason : CHEST PAIN Blood Pressure : */* mmHG Vent. Rate : 57 BPM Atrial Rate : 57 BPM P-R Int : 352 ms QRS Dur : 86 ms QT Int : 480 ms P-R-T Axes : 70 45 55 degrees QTcB Int : 467 ms Sinus bradycardia with marked sinus arrhythmia with 1st degree A-V block Abnormal ECG No previous ECGs available Referred By: Generic ED Physician Electronically Signed By: SONIYA STUART
--- NOTE | ~2024-09-27 | CT_ITS ---
EXAMINATION: CT CHEST ANGIOGRAPHY WITH IV CONTRAST INDICATION: SOB, chest pain COMPARISON: Comparison is made with the prior examination dated 05/07/2023. TECHNIQUE: Helical CT scan of the chest was performed following administration of intravenous contrast (65 mL Omnipaque 350). The contrast bolus was timed to optimally opacify the pulmonary arteries. Thin sections were obtained through the pulmonary arteries. Coronal and sagittal reformatted images were generated. 3D/MIP reconstructed images are also obtained and reviewed. This CT exam was performed with one or more of the following dose reduction techniques: automated exposure control, adjustment of the mA and/or kV according to patient size, use of iterative reconstruction technique. DLP: 178 mGy-cm CHEST: THYROID: The thyroid gland is unremarkable. PULMONARY ARTERIES: No intraluminal filling defects are identified within the pulmonary arteries to suggest pulmonary emboli. LUNGS: Again seen is mild emphysema. There is airspace opacity in both lower lobes, consistent with atelectasis or pneumonia. MEDIASTINUM: There is no mediastinal lymphadenopathy. HOLLI: There is no hilar lymphadenopathy. CARDIOVASCULATURE: The heart is normal in size. There is no pericardial effusion. The thoracic aorta is normal in caliber. DEGREE OF CORONARY CALCIFICATION: not evaluable, due to dense contrast in the coronary arteries. PLEURA: There is no pleural effusion. No pneumothorax. MAIN AIRWAYS: The mainstem bronchi and proximal branches are patent. AXILLA: There is no axillary lymphadenopathy. UPPER ABDOMEN: The visualized portions of the liver, spleen, and adrenals are unremarkable. BONES AND SOFT TISSUES: There is degenerative disc disease of the spine. CT/CT angio chest PE protocol IMPRESSION: No evidence of pulmonary emboli. Emphysema. Bilateral lower lobe airspace opacities consistent with atelectasis or pneumonia. Electronically signed by: Moses Johnson MD 09/27/2024 12:10 PM EDT
--- NOTE | ~2024-09-27 | XR_ITS ---
EXAMINATION: XR CHEST 2 VIEWS HISTORY: chest pain COMPARISON: Comparison is made with the prior examination dated 03/03/2021. FINDINGS: PA and lateral views of the chest are submitted. There is prominence of the pulmonary vasculature, cyst with congestion. There is no pleural effusion, pneumothorax, or pulmonary vascular congestion. The heart is top normal in size. The aorta is calcified. There is degenerative disc disease of the spine. XR/XR chest 2V IMPRESSION: Mild pulmonary vascular congestion. Electronically signed by: Moses Johnson MD 09/27/2024 08:25 AM EDT
--- OUTSIDE RECORDS SUMMARY | 2024-09-27 06:45 | XMS_ITS | Patient Health Record ---
Author Organization Donal Benoit MD Address [address] [place] [phone] Care Team Providers Care Batchmaker Name Role Phone Donal Benoit Primary Care Provider Allergies No Known Allergies Results Component Value Reference Range Notes Hemoglobin A1c Reviewed date:03/14/2024 11:24:21 AM Interpretation: Performing Lab: Notes/Report: Hemoglobin A1c 5.1 Liver Panel Reviewed date:11/12/2023 12:22:16 PM Interpretation: Performing Lab:[facility], [address] [place] [address] Notes/Report: Bilirubin Total 0.6 0.0-1.0 mg/dL Bilirubin Direct 0.2 0.0-0.5 mg/dL Aspartate Amino Transferase 13 5-37 U/L Alanine Aminotransferase 12 0-40 U/L Total Protein 6.8 6.5-8.0 g/dL Albumin Level 4.0 3.5-5.0 g/dL Alkaline Phosphatase 109 39-117 U/L Glucose Fasting Reviewed date:11/12/2023 12:22:24 PM Interpretation: Performing Lab:[facility], [address] [place] [address] Notes/Report: Glucose Fasting 88 60-99 mg/dL Lipid Panel with Reflex Reviewed date:11/12/2023 12:32:34 PM Interpretation: Performing Lab:[facility], [address] [place] [address] Notes/Report: Triglycerides 74 <150 mg/dL Desirable Triglyceride: [...] A1c Reviewed date:11/12/2023 12:22:32 PM Interpretation: Performing Lab:[facility], [address] [place] [address] Notes/Report: Hemoglobin A1c % 5.1 <6.0 % [...] average glucose, using the formula of the L7B-Mncjhzz Average Glucose study (ADAG), Diabetes Care, Vol.31,#8, 2007 Complete Blood Count Auto Di ff Reviewed date:05/15/2024 05:18:52 PM Interpretation: Performing Lab:[facility], [address] [place] [address] Notes/Report: White Blood Count 7.3 4.8-10.8 X10*3/uL [...] NRBC Abs Auto 0.000 0.0-0.012 X10*3/uL Comprehensive [place]. Panel Fa st Reviewed date:05/15/2024 05:16:00 PM Interpretation: Performing Lab:[facility] [address] Notes/Report: Sodium 144 135-145 mmol/L Potassium 3.9 [...] Panel Reviewed date:05/15/2024 12:41:57 PM Interpretation: Performing Lab:[address] [address] Notes/Report: Triglycerides 86 <150 mg/dL Desirable Triglyceride: [...] (Free>4and<10) Reviewed date:05/15/2024 12:41:10 PM Interpretation: Performing Lab:[address] [address] Notes/Report: PSA,Total (Free>4and<10) 1.24 0.00-4.00 ng/mL A [...] Random Reviewed date:05/15/2024 12:41:28 PM Interpretation: Performing Lab:[address] [address] Notes/Report: Creatinine Urine 93.61 Microalbumin Urine 23.0 Microalbum/Creatinine Ratio Ur 24.5 <30 ug/mg cr Albumin/Creatinine Ratio Reference Ranges: Normal: < 30 ug/mg creatinine Microalbuminuria: 30 - 300 ug/mg creatinine Clinical Albuminuria: > 300 ug/mg creatinine Hemoglobin A1c Reviewed date:05/15/2024 12:41:03 PM Interpretation: Performing Lab:[address] [address] Notes/Report: Hemoglobin A1c % 5.2 <6.0 % [...] average glucose, using the formula of the Q9F-Qdhkter Average Glucose study (ADAG), Diabetes Care, Vol.31,#8, Sep. 2007 UA ClnCatch+Micro w/rflx Cul t Reviewed date:05/15/2024 05:19:28 PM Interpretation: Performing Lab:[address] [address] Notes/Report: Urine, Clean Catch Color Urine Yellow Appearance Urine Clear PH 6.5 5.0-9.0 Glucose Urine UA Negative Negative mg/dL Urine Blood Negative Negative Specific [place] - Urine 1.010 1.005-1.025 Urine Protein Negative [...] date:11/30/2023 11:05:27 AM Interpretation: Performing Lab: Notes/Report: [address] [address] XRay Report Signed Patient: William Fang MR#: [id number] 64 : 1945 Acct:[id number] Age/Sex: 78 / M ADM Date: 11/23/23 Loc: HO.XRAY Attending Dr: Donal Benoit MD Ordering Physician: Donal Benoit MD Date of Service: 11/23/23 Procedure(s): XR cervical spine 4V Accession Number(s): [id number] cc: Donal Benoit MD EXAMINATION: XR CERVICAL [...] OV> 11/30/23923 DD/ 1143 TD/TT: 11/23/23 115 Bid Writer: MIRIAM [place] [address] XRay Report Signed Patient: Basim Fang MR#: [id number] 64 : 1945 Acct:[id number] Age/Sex: 78 / M ADM Date: 11/23/23 Loc: HO.XRAY Attending Dr: Donal Benoti MD Ordering Physician: Donal Benoit MD Date of Service: 11/23/23 Procedure(s): XR cervical spine 4V Accession Number(s): [id number] cc: Donal Benoit MD EXAMINATION: XR CERVICAL [...] r dictation on November 30, 2023 Electronically dnona d by: Everardo Arias MD 11/30/2023 09:24 AM EDT RP Dictated By: Everardo Arias MD Signed By: <Electronically signed by Everardo Arias MD in OV> 11/30/23923 DD/ 1143 TD/TT: 11/23/23 1152 Bid Writer: HB Glucose, finger stick Reviewed date:03/14/2024 11:17:02 AM Interpretation: Performing Lab: Notes/Report: Value 110 Hold Gold Reviewed date:11/12/2023 12:24:59 PM Interpretation: Performing Lab:[facility], [address] [place] [address] Notes/Report: Jasmin Gold See Note Specimen held untested for 24 hours; Call to request Chemistry testing. XR cervical spine w flex/ext Reviewed date:12/30/2023 08:43:45 AM Interpretation:CBACK 12/28/23 Performing Lab: Notes/Report: [facility] [place] [address] XRay Report Signed Patient: William Fang MR#: [id number] [birth year] : 1945 Acct:[id number] Age/Sex: 78 / M ADM Date: 11/30/23 Loc: HO.HMGCX Attending Dr: Donal Benoit MD Ordering Physician: Donal Benoit MD Date of Service: 11/30/23 Procedure(s): XR cervical spine w flex/ext Accession Number(s): [id number] cc: Donal Benoit MD EXAMINATION: XR CERVICAL [...] 12/21/23 1257 DD/ 34 TD/TT: 11/30/23 134 Bid Writer: [facility] [address] [place] [address] [place] [address] XRay Report Signed Patient: Basim Fang MR#: [id number] [birth year] : 1945 Acct:[id number] Age/Sex: 78 / M ADM Date: 11/30/23 [facility] Dr: Donal Benoit MD Ordering Physician: Donal Benoit MD Date of Service: 11/30/23 Procedure(s): XR cervical spine w flex/ext Accession Number(s): [id number] cc: Donal Benoit MD EXAMINATION: XR CERVICAL [...] 12/21/23 1257 DD/ 1335 TD/TT: 11/30/23 134 Bid Writer: Pathology Reviewed date:01/26/2024 07:20:34 PM Interpretation: Performing Lab:[facility], [address] [place] [address] Notes/Report: --- Name: William Fang Age/Sex: 78/M : 1945 Unit#: [id number] Attend Dr: Moses Pérez MD Re01/24/24 Status : [facility] Location: [facility] Disch: --- SPEC : [id number] RECD : 01/25/24 STATUS: RYANN HARTMAN NUM: [id number] JAKE: 01/24/241547 [facility] DR: Moses Pérez MD ENTERED: 01/25/24 52 [...] Donal Benoit MD [facility] [address] [place] [address] Moses Pérez MD [facility] [address] [place], [place] [phone] --- Signed (signature on file) Italo Galvan MD 01/26/24 1528 --- END OF REPORT Reason For Referral Reason TORTICOLLIS Diagnosis 1 Torticollis, acute ( M43.6) Referral Organization Donal Benoit MD Referring Provider First Name Donal Referring Provider Last Name Cy Referring Provider Speciality Internal edicine Referred Provider [facility] Referred Provider Specialty Physical The rapist [...] Diagnosis 1 Neck pain (M54.2) Referral Organization Donal Benoit MD Referring Provider [...] Omeprazole 20 MG TAKE 1 CAPSULE BY [facility] EVERY DAY Active Meclizine HCl 12.5 MG [...] W/U Status Risk Notes Problem Erectile dysfunction (024652061) Erectile Dysfunction (607.84) Active confirmed Problem 443077350 Thrombocytopenia (D69.6) Active confirmed Problem 93363012 Prostatism (N40.0) Active confirmed Problem 936613136 Essential tremor (G25.0) Active confirmed Problem 7648637 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) Active confirmed Problem 356758348 Lumbar disc dise ase (M51.9) Active confirmed Problem 447471452 Gastroesophageal reflux disease without esophagitis (K21.9) Active confirmed Problem 5229949 Prediabetes (R73.09) Active confirmed Problem 253076854 Lung nodule (R91.1) Active confirmed Problem 180370110 Atherosclerosis of ruby coronary artery of ruby heart without angina pectoris (I25.10) Active confirmed Problem 026555294 Cervical disc di sease (M50.90) Active confirmed Problem 90540027 Current smoker (F17.200) Active confirmed Problem 978731059 Acquired spondylolisthesis (M43.10) Active confirmed Problem Chronic obstructive pulmonary disease with acute lower respiratory infection () COPD (chronic obstructive pulmonary disease) with acute bronchitis (J44.0) Active confirmed Problem 77380135 Sciatica of righ t side (M54.31) Active confirmed Problem 040361923 Pure hypercholesterolemia (E78.00) Active confirmed Problem 589764747 COPD with acute exacerbation (J44.1) Active confirmed Problem 116217279 Adenomatous poly p of colon, unspecified part of colon (D12.6) Active confirmed Problem 97756524 Esophageal dysph agia (R13.10) Active confirmed Problem 92520826511057304 AYESHA (acute kid ruben injury) (N17.9) Active confirmed Problem 39373335402702018 Brachial arter y aneurysm, 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 Problem 93672305 Multiple subsegm ental pulmonary emboli without acute cor pulmonale (I26.94) Active confirmed Problem 274279750 Cervical arthrit is (M47.812) Active confirmed Problem 040050124 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) Active confirmed Problem 80616351 Retropulsion (R26.89) Active confirmed Problem Parkinson's dise [...] Donal Benoit MD [address] [place] [id number] 11/12/2023 Donal Benoit Prediabetes R73.09 ; Encounter for immunization Z23 and Pure hypercholesterolemia E78.00 Donal Benoit MD [address] [place] [id number] 05/15/2024 Donal Benoit Blood tests for rout ine general physical examination Z00.00 ; Pure hypercholesterolemia E78.00 ; Prediabetes R73.09 ; Thrombocytopenia D69.6 and Prostatism N40.0 Donal Benoit MD [address] [place] [id number] 11/18/2023 Donal Benoit Torticollis, acute M 43.6 ; Parkinson's disease with dyskinesia, unspecified whether manifestations fluctuate G20.B1 and Prostatism N40.0 Donal Benoit MD [address] [place] [id number] 11/23/2023 Donal Benoit Torticollis, acute M 43.6 Donal Benoit MD [address] [place] [address] [id number] 11/29/2023 Donal Benoit Torticollis, acute M 43.6 Donal Benoit MD [address] [place] [address] [id number] 12/03/2023 Donal Benoit Cervical arthritis M 47.812 Donal Benoit MD [address] [place] [address] [id number] 12/28/2023 Donal Benoit Muscle spasm of back M62.830 Donal Benoit MD [address] [place] [address] [id number] 01/13/2024 Donal Benoit Muscle spasm of back M62.830 ; Primary parkinsonism G20.C ; Prediabetes R73.09 and Pure hypercholesterolemia E78.00 Donal Benoit MD [address] [place] [id number] 03/14/2024 Donal Benoit Prediabetes R73.09 ; Atherosclerosis of ruby coronary artery of ruby heart without angina pectoris I25.10 ; Current smoker F17.200 and Panlobular emphysema J43.1 Donal Benoit MD [address] [place] [id number] 05/22/2024 Donal Benoit Pure hypercholestero lemia E78.00 ; Annual physical exam Z00.00 ; Current smoker F17.200 ; Parkinson disease, symptomatic G20.A1 ; Gastroesophageal reflux disease without esophagitis K21.9 ; Prediabetes R73.09 ; Panlobular emphysema J43.1 and Prostatism N40.0 Donal Benoit MD [address] [place] [id number] 05/30/2024 Donal Benoit Headache, unspecifie d R51.9 and Family history of aneurysm Z82.49 Donal Benoit MD [address] [place] [address] [id number] 06/23/2024 Donal Benoit Panlobular emphysema J43.1 ; Parkinson's disease with dyskinesia, unspecified whether manifestations fluctuate G20.B1 and Prostatism N40.0 Donal Benoit MD [address] [place] [id number] 08/15/2024 Donal Benoit COPD (chronic obstru ctive pulmonary disease) with acute bronchitis J44.0 Donal Benoit MD [address] [place] [address] [id number] 09/08/2024 Donal Benoit Prostatism N40.0 and Panlobular emphysema J43.1 Donal Benoit MD [address] [place] [address] [id number] 11/30/2023 Donal Benoit Torticollis, acute M 43.6 Donal Benoit MD [address] [place] [address] [id number] 11/30/2023 Donal Benoit MD [address] [place] [address] [id number] 12/14/2023 Donal Benoit MD [address] [place] [address] [id number] 04/20/2024 Donal Benoit Assessments Encounter Date Diagnosis [...] medication at this time 03/14/2024 Atherosclerosis of ruby coronary artery of ruby heart without angina pectoris (ICD-10 - I25.10) [...] directions for use, referral to urology in [place],. REFERRAL MADE AND FAXED TO UROLOGY, PATIENT [...] AM, [address], [address], [place], [phone], Provider Name:Donal Montoya ier, 11/20/2024 01:45:00 PM, [address], [address], [place], [phone], Provider Name:Donal Montoya ier, 04/23/2025 07:30:00 AM, [address], [address], [place], [phone], Provider Name:Donal Montoya ier, 05/24/2025 01:00:00 PM, [address], [address], [place], [id number], Insurance Providers Payer Name Payer Address Payer Phone Subscriber Number Group Number Insured Name Patient Relationship to Insured Coverage Start Date Coverage End Date [employer] [facility] [address] [place], [place] [phone] [id number] William Fang Self - patient is the insured Medical (General) History Medical History History ICD Code supraclavicular node on lt 2010 colonoscopy 07/24/2011 due in 3 years; colonoscopy done 09/06/14 w/Dr Hall - repeat 5 years(2019) yearly chest ct. discussed 2020 colonoscopy done 06/14/20 due 3 yrs with Rafael
[2024-09-27 06:49] LABS: MANUAL DIFF FLAG NO
[2024-09-27 06:50] LABS: Hematocrit 33.2 % (42.0-52.0); Hemoglobin 11.5 g/dl (14.0-18.0); Imm Gran Abs Auto 0.03 X10*3/uL (0.00-0.03); Imm Gran Pct Auto 0.3 % (0.0-0.4); Lymphocytes Absolute Auto 1.2 X10*3/uL (1.2-4.9); Mean Corpuscular HGB Conc 34.6 g/dl (31.0-36.0); Mean Corpuscular Hemoglobin 31.3 pg (27.0-33.0); Mean Corpuscular Volume 90.2 fL (80.0-98.0); NRBC Abs Auto 0.000 X10*3/uL (0.0-0.012); NRBC Pct Auto 0.0 /100WBC (0.0-0.2); Platelet Count 180 X10*3/uL (160-400); Red Blood Count 3.68 X10*6/uL (4.60-5.80); White Blood Count 8.6 X10*3/uL (4.8-10.8)
[2024-09-27 07:04] LABS: Alanine Aminotransferase 21 U/L (0-40); Albumin Level 4.0 g/dL (3.5-5.0); Alkaline Phosphatase 94 U/L (39-117); Anion Gap 11 (12-20); Aspartate Amino Transferase 16 U/L (5-37); Blood Urea Nitrogen 18 mg/dL (9-16); Calcium 8.8 mg/dL (8.4-10.2); Carbon Dioxide 29 mmol/L (22-29); Chloride 104 mmol/L (96-108); Creatinine Clr Calc Pharmacy 43.9; Estimated Glomerular Filt Rate 52; Potassium 3.9 mmol/L (3.3-5.1); Sodium 140 mmol/L (135-145); Total Protein 6.4 g/dL (6.5-8.0)
[2024-09-27 07:07] LABS: Troponin-I High Sensitivity 22.9 ng/L (<3.5-35.0)
--- NOTE | 2024-09-27 09:04 | ED_ITS ---
HPI - Chest Pain General Chief Complaint: Chest Pain Stated Complaint: cp Time Seen by Provider: 09/27/24 08:59 Source: patient, family (patient's ) and EMS Mode of arrival: EMS Limitations: no limitations History of Present Illness ED Provider: [place] Bartlett PA-C HPI narrative: Patient is a 79 year old assigned male at with a history of tobacco use, COPD - NOT on home oxygen, GA, Parkinson's, and PE for which he is not on any anti-coagulation medication presenting to the emergency department today with shortness of breath and chest pain. Patient states that starting last night he began to have central chest pain and increased shortness of breath. Patient states that the shortness of breath is getting worse. Patient denies any dizziness, lightheadedness, abdominal pain, nausea, vomiting, fever, chills, blurry vision, double vision, loss of vision, back pain, night sweats, pain with urination, increased urinary frequency, increased urinary urgency, blood in his urine or stool, syncope or a near syncopal episode, recent trauma or falls, bowel incontinence, bladder incontinence, or any other complaints at this time. Pain radiation: none Relieving factors: nothing Exacerbating factors: exertion Related Data Home Medications ?Medication ?Instructions ?Recorded ?Confirmed albuterol sulfate 90 mcg/actuation 2 puff inhalation Q 4H PRN Wheezing 01/03/21 09/19/24 aerosol inhaler amitriptyline 10 mg tablet 10 mg PO BEDTIME 01/18/24 0 09/19/24 carbidopa 25 mg-levodopa 100 mg 1 tab PO TID 01/18/24 09/19/24 tablet cyclobenzaprine 5 mg tablet 5 mg PO BID 01/18/2409/19 fluticasone 250 mcg-salmeterol 50 1 ea inhalation Q12H 01/18/24 09/19/24 mcg/dose blistr powdr for inhalation ([facility]) omeprazole 20 mg capsule,delayed 20 mg PO DAILY@0630 1 03/19/23 09/19/24 release zinc acetate 50 mg (zinc) capsule 50 mg PO DAILY 01/1709/19/24 finasteride 5 mg tablet 5 mg PO DAILY 09/27/24 sertraline 50 mg tablet 50 mg PO DAILY 09/27/24 tamsulosin 0.4 mg capsule 0.4 mg PO DAILY 09/27/24 Allergies Allergy/AdvReac Type Severity Reaction Status Date / Time No Known Allergies (No Known Allergy Verified 09/27/24 05:58 Allergies*) Review of Systems 2 Constitutional: Constitutional: Reports no additional constitutional complaints, Denies chills, Denies fever(s) and Denies night sweats Eyes: Eyes: Reports no additional eye complaints, Denies blurry vision, Denies change in vision, Denies diplopia, Denies eye discharge, Denies loss of vision and Denies eye pain ENT: Denies dizziness Cardiovascular: Cardiovascular: Reports no additional cardiovascular complaints, Reports chest pain, Denies lightheadedness, Denies Loss of Consciousness and Reports dyspnea Respiratory: Respiratory: Reports no additional respiratory complaints and Reports dyspnea Gastrointestinal: Gastrointestinal: Reports no additional gastrointestinal complaints, Denies abdominal pain, Denies melena, Denies hematochezia, Denies change in bowel habits and Denies change in stool character Genitourinary: Genitourinary: Reports no additional male genitourinary complaints, Denies hematuria, Denies oliguria, Denies difficulty urinating, Denies dysuria, Denies urinary frequency, Denies urinary hesitancy, Denies urinary incontinence and Denies urinary urgency Musculoskeletal: Musculoskeletal: Reports no additional musculoskeletal complaints, Denies numbness and Denies tingling Neurologic: Denies dizziness, Denies loss of vision, Denies numbness and Denies tingling Psychiatric: Psychiatric: Reports no additional psychiatric complaints Endocrine: Endocrine: Reports no additional endocrine complaints Hematologic/Lymphatic: Hematologic/Lymphatic: Reports no additional hematologic/lymphatic complaints Allergic/Immunologic: Allergic/Immunologic: Reports no additional allergic/immunologic complaints [facility] Past Medical History Attestation statement: The following information was validated with the patient. (all information validated with the patient's ) Source: old records reviewed, obtained from family (patient's provided additional history and confirmed the history provided by the patient) and nursing notes reviewed Medical History Migraines Parkinsons disease Thrombocytopenia Pulmonary embolism MAGGY (obstructive sleep apnea) Somnolence, daytime Smoker Dyslipidemia COPD (chronic obstructive pulmonary disease) Surgical History History of back surgery H/O colonoscopy History of partial colectomy Social History Social History Household Members: Spouse Housing: House Are you a primary direct care supervisor to a significant other at home: No Do you presently have visiting nurse or other home services: No Alcohol intake: current Alcohol intake frequency: holidays/special occasions only Alcohol type: beer Comment: refusing bed alarm Patient Tobacco Use Status: Current everyday Tobacco user Tobacco use type: Cigarette Cigarette Packs Per Day: 0.5 Cigarettes Per Day: 9 Years Smoked: 65 Use of substances other than those prescribed or required for medical reasons: No Advance Directives: No Advance Directives Information Provided: Yes service: Yes Current occupational status: employed Physical Exam 2 Vital Signs: Vital Signs: Last Vital Signs Temp 98.2 F 09/27/24 12:28 Pulse 79 09/27/24 12:28 Resp 24 H 09/27/24 12:28 BP 155/52 H 09/27/24 12:28 Pulse Ox 88 L 09/27/24 12:28 O2 Del Method Nasal Cannula 09/27/24 12:28 O2 Flow Rate 2 09/27/24 12:28 Oxygen Flow Rate 2 09/27/24 05:54 BMI result Body Mass Index 27.4 Const: General: cooperative, no acute distress, alert and awake Nutritional Appearance: well nourished Orientation/consciousness: patient oriented x3 HEENT: Head: Yes normal to inspection and Yes atraumatic Ears: hearing grossly normal bilaterally and external ears normal General nose exam: Normal external nose present, no nasal discharge noted and no epistaxis Face and sinus: Yes normal facial exam, No abrasion and No laceration Mouth: Normal oral and palatal mucosa present, no drooling and no muffled voice Eyes: General: appearance normal, both eyes and all related structures P eriorbital: periorbital findings normal Eyelids: Yes eyelids normal C onjunctivae: conjunctivae normal Pupils: Equal, round and reactive pupils present EOM: EOMs intact bilaterally Neck: Neck: Yes normal visual inspection, Yes full ROM and Yes no lymphadenopathy Resp: Effort & Inspection: able to speak in complete sentences and labored Neuro: General: patient oriented x3, moves all extremities and CN's II-XI intact bilaterally Cranial nerves: Yes Equal, round and reactive pupils present Cognition (Neuro): normal cognition Extrem: General: Yes normal to inspection, Yes full ROM and Yes capillary refill normal Psych: Appearance: grossly normal Mental Status: mental status grossly normal Affect: normal affect Attitude: cooperative Thought process: N ormal thought process present Thought content: Normal thought content present Insight: Good insight present (Psych) Medications Administered Discontinued Medications Generic Name Dose Route Start Last Admin Trade Name Basilioq PRN Reason Stop Dose Admin Albuterol Sulfate 5 mg/ 0 mg 09/27/24 10:22 09/27/24 10:27 Albuterol/Ipratropium 3 ml INHALE 09/27/24 10:23 1 each ONCE ONE Administration Iohexol 100 ml 09/27/24 10:03 09/27/24 10:04 Iohexol 350 Mg/Ml 100 Ml Infus..Btl IV 09/27/24 10:04 65 ml ONCE ONE Administration Methylprednisolone Sodium Succinate 60 mg 09/27/24 11:57 09/27/24 12:15 Methylprednisolone Sod Succ 125 Mg/2 Ml Vial IVPUSH 09/27/24 11:58 60 mg ONCE ONE Administration Morphine Sulfate 4 mg 09/27/24 09:40 09/27/24 09:51 Morphine Sulfate 4 Mg/Ml Cartridge IVPUSH 09/27/24 09:41 4 mg ONCE ONE Administration Protocol Ondansetron HCl 4 mg 09/27/24 09:40 09/27/24 09:51 Ondansetron Hcl 4 Mg/2 Ml Vial IVPUSH 09/27/24 09:41 4 mg ONCE ONE Administration Pantoprazole Sodium 40 mg 09/27/24 09:46 09/27/24 10:23 Pantoprazole Sodium 40 Mg/10 Ml Vial IVPUSH 09/27/24 09:47 40 mg ONCE ONE Administration Medical Decision Making Medical Decision Making MDM Narrative: Patient is a 79 year old assigned male at with a history of tobacco use, COPD - NOT on home oxygen, GA, Parkinson's, and PE for which he is not on any anti-coagulation medication presenting to the emergency department today with shortness of breath and chest pain. Patient's physical exam was as noted in the physical exam portion of this note. Patient's breathing was somewhat labored. On room air saturating at 88% - placed on 2 liters of oxygen saturating at 94%. Patient's blood work showed a BNP of 586, initial trop of 22.9 and a repeat trop of 19.9. Patient's EKG was unremarkable. Patient's chest x-ray showed mild pulmonary congestion. Patient's CT PE study of the chest showed bilateral emphysema vs. PNA. Given the patient's acute onset of symptoms - will treat as PNA. Patient given IV Ceftriaxone. Patient's clinical presentation is most consistent with COPD exacerbation vs. PNA but is NOT consistent with sepsis (@1235). I spoke with the hospitalist team who agreed to admission. I explained my physical exam findings as well as all test results to the patient and the patient's . I answered all questions asked by the patient and the patient's . Patient and the patient's verbalized agreement and understanding with this treatment plan and admission. Differential Diagnosis Differential Diagnoses: The differential diagnosis associated with the presentation includes PNA Emphysema COPD exacerbation Hypoxia NSTEMI STEMI Admission/Observation Consideration of admission/observation: Escalation of care including admission/observation considered Patient admitted as noted in the MDM Rationale portion of this note. Consult Healthcare Provider Management of the patient was discussed with: Hospitalist (agreed to admission as noted in the MDM Rationale portion of this note. ) Lab Data [facility] Lab Attestation statement: I reviewed the patient's lab results. My interpretation of these results are in the MDM Rationale portion of this note. 09/27/24 06:42 09/27/24 06:42 Labs: Lab Results 09/27/24 09/27/24 09/27/24 Range/Units 06:42 09:15 10:19 WBC 8.6 (4.8-10.8) X10*3/uL RBC 3.68 L (4.60-5.80) X10*6/uL Hgb 11.5 L (14.0-18.0) g/dl Hct 33.2 L D (42.0-52.0) % MCV 90.2 (80.0-98.0) fL MCH 31.3 (27.0-33.0) pg MCHC 34.6 (31.0-36.0) g/dl RDW 15.6 (11.0-16.0) % Plt Count 180 (160-400) X10*3/uL MPV 9.8 (9.4-12.4) fL Immature Gran % (Auto) 0.3 (0.0-0.4) % Neut % (Auto) 73.7 H (45-73) % Lymph % (Auto) 14.0 L (20-40) % [place] % (Auto) 10.5 (2-11) % Eos % (Auto) 1.3 (0-4) % Baso % (Auto) 0.2 (0-2) % Lymph # (Auto) 1.2 (1.2-4.9) X10*3/uL [place] # (Auto) 0.9 (0.1-1.2) X10*3/uL Eos # (Auto) 0.1 (0.0-0.4) X10*3/uL Baso # (Auto) 0.0 (0.0-0.2) X10*3/uL Abs Immat Gran (auto) 0.03 (0.00-0.03) X10*3/uL Absolute Neuts (auto) 6.3 (2.0-8.3) x10*3/uL Absolute Nucleated RBC 0.000 (0.0-0.012) X10*3/uL Nucleated RBC % (auto) 0.0 (0.0-0.2) /100WBC VBG pH (7.32-7.43) VBG pCO2 mmHg VBG pO2 mmHg VBG HCO3 (22-26) mmol/L VBG O2 Saturation % VBG Base Excess mmol/L Sodium 140 (135-145) mmol/L Potassium 3.9 (3.3-5.1) mmol/L Chloride 104 (96-108) mmol/L Carbon Dioxide 29 (22-29) mmol/L Anion Gap 11 L (12-20) BUN 18 H (9-16) mg/dL Creatinine 1.32 (0.5-1.4) mg/dL Estim Creat Clear Calc 43.9 Estimated GFR 52 Random Glucose 100 (60-115) mg/dL Calcium 8.8 (8.4-10.2) mg/dL Total Bilirubin 0.5 (0.0-1.0) mg/dL AST 16 (5-37) U/L ALT 21 (0-40) U/L Alkaline Phosphatase 94 (39-117) U/L Troponin I High Sens 22.9 19.9 (<3.5-35.0) ng/L B-Natriuretic Peptide 586 H (<100) pg/mL Total Protein 6.4 L (6.5-8.0) g/dL Albumin 4.0 (3.5-5.0) g/dL Lipase 26 (8-78) U/L Respiratory Panel [place] See Note Adenovirus (Rapid PCR) Not Detected (Not Detect.) B.pert (TEM-PCR) Not Detected (Not Detect.) B.parapertussis DNA PCR Not Detected (Not Detect.) C. pneumoniae DNA (PCR) Not Detected (Not Detect.) Coronavirus OC43 (PCR) Not Detected (Not Detect.) Coronavirus HKU1 (PCR) Not Detected (Not Detect.) Coronavirus 229E (PCR) Not Detected (Not Detect.) Coronavirus NL63 (PCR) Not Detected (Not Detect.) Human Metapneumovir PCR Not Detected (Not Detect.) Influenza A (RT-PCR) Not Detected (Not Detect.) Influenza A (H1) PCR Not Detected (Not Detect.) Influ A (H1/09) PCR Not Detected (Not Detect.) Influenza A (H3) PCR Not Detected (Not Detect.) Influenza Type A (PCR) NEGATIVE (Negative) Influenza B (RT-PCR) Not Detected (Not Detect.) Influenza Type B (PCR) NEGATIVE (Negative) M. pneumoniae (PCR) Not Detected (Not Detect.) Parainfluenza 1 (PCR) Not Detected (Not Detect.) Parainfluenza 2 (PCR) Not Detected (Not Detect.) Parainfluenza 3 (PCR) Not Detected (Not Detect.) Parainfluenza 4 (PCR) Not Detected (Not Detect.) RSV (PCR) Not Detected (Not Detect.) RSV RNA Qual (PCR) NEGATIVE (Negative) Entero/Rhino (PCR) Not Detected (Not Detect.) SARS-CoV-2 RNA (RT-PCR) NEGATIVE Not Detected (Negative) 09/27/24 Range/Units 10:23 WBC (4.8-10.8) X10*3/uL RBC (4.60-5.80) X10*6/uL Hgb (14.0-18.0) g/dl Hct (42.0-52.0) % MCV (80.0-98.0) fL MCH (27.0-33.0) pg MCHC (31.0-36.0) g/dl RDW (11.0-16.0) % Plt Count (160-400) X10*3/uL MPV (9.4-12.4) fL Immature Gran % (Auto) (0.0-0.4) % Neut % (Auto) (45-73) % Lymph % (Auto) (20-40) % [place] % (Auto) (2-11) % Eos % (Auto) (0-4) % Baso % (Auto) (0-2) % Lymph # (Auto) (1.2-4.9) X10*3/uL [place] # (Auto) (0.1-1.2) X10*3/uL Eos # (Auto) (0.0-0.4) X10*3/uL Baso # (Auto) (0.0-0.2) X10*3/uL Abs Immat Gran (auto) (0.00-0.03) X10*3/uL Absolute Neuts (auto) (2.0-8.3) x10*3/uL Absolute Nucleated RBC (0.0-0.012) X10*3/uL Nucleated RBC % (auto) (0.0-0.2) /100WBC VBG pH 7.39 (7.32-7.43) VBG pCO2 47 mmHg VBG pO2 58 mmHg VBG HCO3 29 H (22-26) mmol/L VBG O2 Saturation 87.0 % VBG Base Excess 3.7 mmol/L Sodium (135-145) mmol/L Potassium (3.3-5.1) mmol/L Chloride (96-108) mmol/L Carbon Dioxide (22-29) mmol/L Anion Gap (12-20) BUN (9-16) mg/dL Creatinine (0.5-1.4) mg/dL Estim Creat Clear Calc Estimated GFR Random Glucose (60-115) mg/dL Calcium (8.4-10.2) mg/dL Total Bilirubin (0.0-1.0) mg/dL AST (5-37) U/L ALT (0-40) U/L Alkaline Phosphatase (39-117) U/L Troponin I High Sens (<3.5-35.0) ng/L B-Natriuretic Peptide (<100) pg/mL Total Protein (6.5-8.0) g/dL Albumin (3.5-5.0) g/dL Lipase (8-78) U/L Respiratory Panel [place] Adenovirus (Rapid PCR) (Not Detect.) B.pert (TEM-PCR) (Not Detect.) B.parapertussis DNA PCR (Not Detect.) C. pneumoniae DNA (PCR) (Not Detect.) Coronavirus OC43 (PCR) (Not Detect.) Coronavirus HKU1 (PCR) (Not Detect.) Coronavirus 229E (PCR) (Not Detect.) Coronavirus NL63 (PCR) (Not Detect.) Human Metapneumovir PCR (Not Detect.) Influenza A (RT-PCR) (Not Detect.) Influenza A (H1) PCR (Not Detect.) Influ A (H1/09) PCR (Not Detect.) Influenza A (H3) PCR (Not Detect.) Influenza Type A (PCR) (Negative) Influenza B (RT-PCR) (Not Detect.) Influenza Type B (PCR) (Negative) M. pneumoniae (PCR) (Not Detect.) Parainfluenza 1 (PCR) (Not Detect.) Parainfluenza 2 (PCR) (Not Detect.) Parainfluenza 3 (PCR) (Not Detect.) Parainfluenza 4 (PCR) (Not Detect.) RSV (PCR) (Not Detect.) RSV RNA Qual (PCR) (Negative) Entero/Rhino (PCR) (Not Detect.) SARS-CoV-2 RNA (RT-PCR) (Negative) Independent Interpretation I performed an independent interpretation of an: EKG, Plain X-Ray and CT Scan Interpretation: My interpretation is in agreement with the radiologist's impression of these imaging studies. L Report Number: [id number]: Total DLP = 178.00 mGy-cm EXAMINATION: CT CHEST ANGIOGRAPHY WITH IV CONTRAST INDICATION: SOB, chest pain COMPARISON: Comparison is made with the prior examination dated 05/07/2023. TECHNIQUE: Helical CT scan of the chest was performed following administration of intravenous contrast (65 mL Omnipaque 350). The contrast bolus was timed to optimally opacify the pulmonary arteries. Thin sections were obtained through the pulmonary arteries. Coronal and sagittal reformatted images were generated. 3D/MIP reconstructed images are also obtained and reviewed. This CT exam was performed with one or more of the following dose reduction techniques: automated exposure control, adjustment of the mA and/or kV according to patient size, use of iterative reconstruction technique. DLP: 178 mGy-cm CHEST: THYROID: The thyroid gland is unremarkable. PULMONARY ARTERIES: No intraluminal filling defects are identified within the pulmonary arteries to suggest pulmonary emboli. LUNGS: Again seen is mild emphysema. There is airspace opacity in both lower lobes, consistent with atelectasis or pneumonia. MEDIASTINUM: There is no mediastinal lymphadenopathy. HOLLI: There is no hilar lymphadenopathy. CARDIOVASCULATURE: The heart is normal in size. There is no pericardial effusion. The thoracic aorta is normal in caliber. DEGREE OF CORONARY CALCIFICATION: not evaluable, due to dense contrast in the coronary arteries. PLEURA: There is no pleural effusion. No pneumothorax. MAIN AIRWAYS: The mainstem bronchi and proximal branches are patent. AXILLA: There is no axillary lymphadenopathy. UPPER ABDOMEN: The visualized portions of the liver, spleen, and adrenals are unremarkable. BONES AND SOFT TISSUES: There is degenerative disc disease of the spine. CT/CT angio chest PE protocol IMPRESSION: No evidence of pulmonary emboli. Emphysema. Bilateral lower lobe airspace opacities consistent with atelectasis or pneumonia. Electronically signed by: Moses Johnson MD 09/27/2024 12:10 PM EDT Dictated By: Moses Johnson MD Signed By: Electronically signed by Moses Johnson MD 09/27/24 1210 EXAMINATION: XR CHEST 2 VIEWS HISTORY: chest pain COMPARISON: Comparison is made with the prior examination dated 03/03/2021. FINDINGS: PA and lateral views of the chest are submitted. There is prominence of the pulmonary vasculature, cyst with congestion. There is no pleural effusion, pneumothorax, or pulmonary vascular congestion. The heart is top normal in size. The aorta is calcified. There is degenerative disc disease of the spine. XR/XR chest 2V IMPRESSION: Mild pulmonary vascular congestion. Electronically signed by: Moses Johnson MD 09/27/2024 08:25 AM EDT RP Dictated By: Moses Johnson MD Signed By: Electronically signed by Moses Johnson MD 09/27/24824 I independently interpreted this EKG and am in agreement with the below findings: Vent. Rate: 57 BPM Atrial Rate: 57 BPM P-R Int: 352 ms QRS Dur: 86 ms QT Int: 480 ms P-R-T Axes: 70 45 55 degrees QTcB Int: 467 ms Sinus bradycardia with marked sinus arrhythmia with 1st degree A-V block DD/ [id number] Radiology Impression Discussion of test interpretation with radiology: I have reviewed the radiologist's reading. Independent Historian Clinical information obtained from an independent historian. History obtained from or confirmed by: Spouse (Patient's provided additional history and confirmed the history provided by the patient. ) and EMS (EMS provided additional history and confirmed the history provided by the patient. ) Critical Care Time Critical Care Time Critical Care Time: Yes Total Critical Care Time: 38 Attestation: I spent 38 minutes of Critical Care Time with this patient. This does not include time spent on separately reported billable procedures. Discharge Plan Discharge Clinical Impression: Pneumonia, Hypoxia Patient Disposition: Admitted As Inpatient Print Language: Yi
[2024-09-27 09:24] LABS: Lipase 26 U/L (8-78)
[2024-09-27 09:33] LABS: B Type Natriuretic Peptide 586 pg/mL (<100)
[2024-09-27 09:50] LABS: Troponin-I High Sensitivity 19.9 ng/L (<3.5-35.0)
--- NOTE | 2024-09-27 09:52 | PC.NURSE ---
Pt medicated per orders for CP; pt to CT scan per orders at this time
[2024-09-27] MEDS: iohexoL 350 MG/ML 100 ML INFUS..BTL IV (10:04)
[2024-09-27 10:05] LABS: Resp Syncy Virus RNA Qual PCR NEGATIVE (Negative); SARS COV2 PCR INHOUSE NEGATIVE (Negative)
[2024-09-27 10:23] LABS: Venous Blood Gas Refer to POC result
[2024-09-27 10:27] LABS: VBG HCO3 29 mmol/L (22-26); VBG O2 % Saturation 87.0 %
[2024-09-27] MEDS: Albuterol Sulfate 5 MG, Albuterol/Iprat 2.5/0.5MG 3 ML 3 ML INHALE (10:27)
[2024-09-27 11:51] LABS: Chlamydia pneumoniae PCR Not Detected (Not Detect.); Coronavirus 229E PCR Not Detected (Not Detect.); Coronavirus HKU1 PCR Not Detected (Not Detect.); Coronavirus NL63 PCR Not Detected (Not Detect.); Coronavirus OC43 PCR Not Detected (Not Detect.); RSV PCR Not Detected (Not Detect.); Rhino/Enterovirus PCR Not Detected (Not Detect.)
[2024-09-27 12:53] LABS: Influenza A H1 PCR Not Detected (Not Detect.); Influenza A H1-2009 PCR Not Detected (Not Detect.); Influenza A H3 PCR Not Detected (Not Detect.); SARS-CoV-2 PCR Not Detected (Not Detect.)
--- NOTE | 2024-09-27 13:34 | P.HPHOSP_ITS ---
History of Present Illness Date of Service: 09/27/24 Attending physician on admission: Beth Morfin Chief Complaint: copd excerebation 79y/o M with past medical history of COPD not on home oxygen, COVID and pulmonary embolismin 2020 (not on ac), current smoker ,[place], Parkinson's came with shortness of breath and chest pain. Patient states that starting last night he began to have central chest pain and increased shortness of breath, he says shortness of breath is getting worse. Patient has dry cough, no fever. Patient is poor historian, tried home COPD meds but did not help, shortness of breath was getting worse so decided come to the hospital. Seems generalized weak. Denies any new complaint of chest pain or abdominal pain or fever or chills or nausea or vomiting. Lab imaging, EKG reviewed: No leukocytosis, creatinine of 1.32, EKG sinus Shashank at 57 beats per minute. CTA:No evidence of pulmonary emboli. Emphysema. Bilateral lower lobe airspace opacities consistent with atelectasis or pneumonia. Patient received nebs, steroids, antibiotics in the emergency room and requested admission for COPD exacerbation/pneumonia. Review of Systems 2 Review of Systems: as above. Yes all other systems are reviewed and are negative [facility] Medical History Migraines Parkinsons disease Thrombocytopenia Pulmonary embolism MAGGY (obstructive sleep apnea) Somnolence, daytime Smoker Dyslipidemia COPD (chronic obstructive pulmonary disease) Surgical History History of back surgery H/O colonoscopy History of partial colectomy Social History Household Members: Spouse Housing: House Are you a primary critical care nurse to a significant other at home: No Do you presently have visiting nurse or other home services: No Alcohol intake: current Alcohol intake frequency: holidays/special occasions only Alcohol type: beer Comment: refusing bed alarm Patient Tobacco Use Status: Current everyday Tobacco user Tobacco use type: Cigarette Cigarette Packs Per Day: 0.5 Cigarettes Per Day: 9 Years Smoked: 65 Smoked in Last 30 Days: No Patient Interested in Nicotine Replacement: Yes Patient Given Instructions on How to Stop Smoking: Yes Date Education Initiated: 09/28/24 Second Hand Smoke Exposure: No Use of substances other than those prescribed or required for medical reasons: No Have you been hit, kicked, punched, or otherwise hurt by someone within the past year? If so, by whom?: No Do you feel safe in your current relationship?: Yes Is there a partner from a previous relationship who is making you feel unsafe now?: No Are you made to feel afraid or neglected: No Advance Directives: No Advance Directives Information Provided: Yes Do you have a plan to hurt others: No Plan Recently lost weight without trying: No Eating poorly because of decreased appetite: No Nutrition Risks: No Nutritional Risk Poor oral hygiene: No service: Yes Current occupational status: employed Meds Allergies Allergy/AdvReac Type Severity Reaction Status Date / Time No Known Allergies (No Known Allergy Verified 09/27/24 05:58 Allergies*) Active Medications: Current Medications Albuterol/Ipratropium (Albuterol/Iprat 2.5/0.5mg 3 Ml Ampul.Neb) 3 ml INHALE RQ4H WHILE AWAKE [facility] Albuterol/Ipratropium (Albuterol/Iprat 2.5/0.5mg 3 Ml Ampul.Neb) 3 ml INHALE Q3H PRN PRN Reason: sob Methylprednisolone Sodium Succinate (Methylprednisolone Sod Succ 40 Mg/Ml Vial) 40 mg IVPUSH Q12H [facility] Home Medications ?Medication ?Instructions ?Recorded ?Confirmed ?Last Taken ?Type albuterol sulfate 90 mcg/actuation 2 puff inhalation Q 4H PRN Wheezing 01/03/21 09/27/24 09/26/24 History aerosol inhaler carbidopa 25 mg-levodopa 100 mg 1 tab PO TID 01/18/24 09/27/24 09/26/24 History tablet fluticasone 250 mcg-salmeterol 50 1 ea inhalation Q12H 01/18/24 09/27/24 09/26/24 History mcg/dose blistr powdr for inhalation (Eliot Inhub) omeprazole 20 mg capsule,delayed 20 mg PO DAILY@0630 1 03/19/23 09/27/24 09/26/24 History release zinc acetate 50 mg (zinc) capsule 50 mg PO DAILY 01/1709/27/24 09/26/24 History finasteride 5 mg tablet 5 mg PO DAILY 09/27/2409/2709/26/24 History sertraline 50 mg tablet 50 mg PO DAILY 09/27/24 0808/1609/26/24 History tamsulosin 0.4 mg capsule 0.4 mg PO DAILY 09/27/2408/1609/26/24 History Physical Exam 2 Vital Signs and Narrative: Vital Signs: Last Vital Signs Temp 98.2 F 09/27/24 12:28 Pulse 79 09/27/24 12:28 Resp 24 H 09/27/24 12:28 BP 155/52 H 09/27/24 12:28 Pulse Ox 88 L 09/27/24 12:28 O2 Del Method Nasal Cannula 09/27/24 12:28 O2 Flow Rate 2 09/27/24 12:28 Oxygen Flow Rate 2 09/27/24 05:54 BMI result Body Mass Index 27.4 Appearance: Alert.? Oriented X3.? sob seems slightly improving cvs: rrr, [id number] , no murmur res: air netry diminshed , abd: no rebound or guarding ,nt, bs present. ext pulses present , no cyanosis . neuro: axo3 , nonfocal. Results Labs 09/27/24 06:42 09/27/24 06:42 Labs: Laboratory Results - last 24 hr 09/27/24 09/27/24 09/27/24 06:42 09:15 10:19 MCV 90.2 MCH 31.3 MCHC 34.6 RDW 15.6 Plt Count 180 MPV 9.8 Immature Gran % (Auto) 0.3 Neut % (Auto) 73.7 H Lymph % (Auto) 14.0 L [place] % (Auto) 10.5 Eos % (Auto) 1.3 Baso % (Auto) 0.2 Lymph # (Auto) 1.2 [place] # (Auto) 0.9 Eos # (Auto) 0.1 Baso # (Auto) 0.0 Abs Immat Gran (auto) 0.03 Absolute Neuts (auto) 6.3 Absolute Nucleated RBC 0.000 Nucleated RBC % (auto) 0.0 VBG pH VBG pCO2 VBG pO2 VBG HCO3 VBG O2 Saturation VBG Base Excess Anion Gap 11 L Estim Creat Clear Calc 43.9 Estimated GFR 52 Random Glucose 100 Calcium 8.8 Total Bilirubin 0.5 AST 16 ALT 21 Alkaline Phosphatase 94 B-Natriuretic Peptide 586 H Total Protein 6.4 L Albumin 4.0 Lipase 26 Respiratory Panel [place] See Note Adenovirus (Rapid PCR) Not Detected B.pert (TEM-PCR) Not Detected B.parapertussis DNA PCR Not Detected C. pneumoniae DNA (PCR) Not Detected Coronavirus OC43 (PCR) Not Detected Coronavirus HKU1 (PCR) Not Detected Coronavirus 229E (PCR) Not Detected Coronavirus NL63 (PCR) Not Detected Human Metapneumovir PCR Not Detected Influenza A (RT-PCR) Not Detected Influenza A (H1) PCR Not Detected Influ A () PCR Not Detected Influenza A (H3) PCR Not Detected Influenza Type A (PCR) NEGATIVE Influenza B (RT-PCR) Not Detected Influenza Type B (PCR) NEGATIVE M. pneumoniae (PCR) Not Detected Parainfluenza 1 (PCR) Not Detected Parainfluenza 2 (PCR) Not Detected Parainfluenza 3 (PCR) Not Detected Parainfluenza 4 (PCR) Not Detected RSV (PCR) Not Detected RSV RNA Qual (PCR) NEGATIVE Entero/Rhino (PCR) Not Detected SARS-CoV-2 RNA (RT-PCR) NEGATIVE Not Detected 09/27/24 10:23 MCV MCH MCHC RDW Plt Count MPV Immature Gran % (Auto) Neut % (Auto) Lymph % (Auto) [place] % (Auto) Eos % (Auto) Baso % (Auto) Lymph # (Auto) [place] # (Auto) Eos # (Auto) Baso # (Auto) Abs Immat Gran (auto) Absolute Neuts (auto) Absolute Nucleated RBC Nucleated RBC % (auto) VBG pH 7.39 VBG pCO2 47 VBG pO2 58 VBG HCO3 29 H VBG O2 Saturation 87.0 VBG Base Excess 3.7 Anion Gap Estim Creat Clear Calc Estimated GFR Random Glucose Calcium Total Bilirubin AST ALT Alkaline Phosphatase B-Natriuretic Peptide Total Protein Albumin Lipase Respiratory Panel [place] Adenovirus (Rapid PCR) B.pert (TEM-PCR) B.parapertussis DNA PCR C. pneumoniae DNA (PCR) Coronavirus OC43 (PCR) Coronavirus HKU1 (PCR) Coronavirus 229E (PCR) Coronavirus NL63 (PCR) Human Metapneumovir PCR Influenza A (RT-PCR) Influenza A (H1) PCR Influ A () PCR Influenza A (H3) PCR Influenza Type A (PCR) Influenza B (RT-PCR) Influenza Type B (PCR) M. pneumoniae (PCR) Parainfluenza 1 (PCR) Parainfluenza 2 (PCR) Parainfluenza 3 (PCR) Parainfluenza 4 (PCR) RSV (PCR) RSV RNA Qual (PCR) Entero/Rhino (PCR) SARS-CoV-2 RNA (RT-PCR) Imaging Radiologist's Impressions: Impressions Chest X-Ray 09/27/24 07:16 IMPRESSION: Mild pulmonary vascular congestion. Electronically signed by: Moses Johnson MD 09/27/2024 08:25 AM EDT RP Chest CTA 09/27/24 09:53 IMPRESSION: No evidence of pulmonary emboli. Emphysema. Bilateral lower lobe airspace opacities consistent with atelectasis or pneumonia. Electronically signed by: Moses Johnson MD 09/27/2024 12:10 PM EDT RP Assessment and Plan (1) COPD (chronic obstructive pulmonary disease): Qualifiers: COPD type: COPD with acute exacerbation Qualified Code(s): J44.1 - Chronic obstructive pulmonary disease with (acute) exacerbation Status: Acute Plan 79y/o M with past medical history of COPD not on home oxygen, COVID and pulmonary embolismin 2020 (not on ac), current smoker ,[place], Parkinson's came with shortness of breaths found to have a COPD exacerbation. Acute hypoxemic respiratory failure in the setting COPD with acute exacerbation, possible pneumonia. Monitor pulse oximetry, respiratory pathogen panel. Started on nebs, steroids, antibiotics, continue oxygen. Parkinson: continue home medications. History of pulmonary embolism and COVID: Off ac as per his PCP(as per patient patient received appox.6 months of anticoagulation), cta negative for pulmonary embolism. mood dis/Anxiety: Continue home medication BPH: Continue home meds. Current smoker: Added nicotine patch. Patient will benefit from 2 midnight stay consideringAcute hypoxemic respiratory failure in the setting COPD with acute exacerbation, possible pneumonia-need oxygen, antibiotics, nebs, steroids, respiratory status is not optimal yet. Above management discussed with the patient in detail length he understand and in agreement with the above plan, time spent 70 minutes and 50% time spent on counseling. Patient is full code. Patient and healthcare proxy updated in detail also. Quality Stroke Does the patient have a stroke diagnosis?: No VTE Prior VTE?: No VTE Risk Level:: Medical - moderate - high VTE Device Contraindication: N/A - Device Ordered VTE Drug Contraindication: N/A - Med Ordered
--- NOTE | 2024-09-27 15:16 | PHA.MEDREC ---
Addendum entered by Armand Alston PharmD 09/27/24 16:05: spoke with Dr Morfin, he is okay with changing Carbidopa-Levodopa to 1 tab TID as that is what was filled and on the previous office visit records. Original Note: Pharmacy Consult ? Medication Reconciliation Pharmacy has completed the medication reconciliation. Spoke with pt spouse over the phone and she was able to confirm pt medications. Per spouse, pt takes Carbidopa-Levodopa 4 tabs daily instead of 1 TID as written, he takes his Zinc 50mg tab 2 tabs (100mg) QD, he still has Wixella he takes every 12 hours; pt spouse states pt takes on and off , she confirmed he takes Finasteride now and is not taking Tamsulosin and he is taking a Preservision 1 QD but the spouse didnt now the dose at this time.
[2024-09-27] MEDS: Albuterol/Iprat 2.5/0.5MG 3 ML AMPUL.NEB INHALE (15:44)
[2024-09-27] MEDS: Nicotine 21 MG PATCH.TD24 TRANSDERMA (18:28)
--- NOTE | 2024-09-27 18:32 | PC.NURSE ---
Pt afebrile; resting quietly at this time; denies CP currently; awaiting beds for admission
[2024-09-28] VITALS (13 sets, daily range): BP systolic 156–181; BP diastolic 67–77; PULSE 51–78; RESP 15–20; TEMP 36.2–37.2; O2SAT 90–96; BMI 26.7; BMI 27.5
[2024-09-28] MEDS: 0.9 % Sodium Chloride Flush 3 ML SYRINGE IVFLUSH ×4 (00:44→20:11)
[2024-09-28] MEDS: Nicotine 21 MG PATCH.TD24 TRANSDERMA (07:43)
[2024-09-28] MEDS: Albuterol/Iprat 2.5/0.5MG 3 ML AMPUL.NEB INHALE ×4 (08:11→20:18)
[2024-09-28] MEDS: guaiFENesin 200 MG/10 ML 10 ML LIQUID PO (09:20)
--- NOTE | 2024-09-28 12:49 | PC.NURSE ---
Pt ambulated in boothe on room air. Denied SOB. O2 sat 93%
--- NOTE | 2024-09-28 14:26 | MHC.CM.PN ---
CM MET WITH PT AT BEDSIDE. 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 NO SERVICES OR DMR. + HCP PCP DR. ASTRID MUSA DP: HOME, NO SERVICES ANTICIPATED. [facility] WILL TRANSPORT HOME. CM WILL CONTINUE TO FOLLOW FOR ANY CHANGE IN DC PLAN/NEEDS.
--- NOTE | 2024-09-28 17:45 | HO.PM.IMPN ---
Subjective Subjective Date of Service: 09/28/24 Interval History: copd exacerbation Review of Systems Shortness of breaths and cough improving Review of Systems: Yes all other systems are reviewed and are negative Physical Exam Exam: Exam: Appearance: Alert.? Oriented X3.? sob seems slightly improving cvs: rrr, [id number]. res: air netry diminshed , abd: no rebound or guarding ,nt, bs present. ext pulses present , no cyanosis . neuro: axo3 , nonfocal Vital Signs: Vital Signs: Last Vital Signs Temp 98.9 F 09/28/24 15:25 Pulse 68 09/28/24 15:37 Resp 16 09/28/24 15:37 BP 169/75 H 09/28/24 15:25 Pulse Ox 90 L 09/28/24 15:25 O2 Del Method Room Air 09/28/24 15:25 O2 Flow Rate 1 09/28/24 11:26 Oxygen Flow Rate 2 09/27/24 05:54 BMI result Body Mass Index 27.5 Objective Data Active Medications Acetaminophen (Acetaminophen 325 Mg Tablet) 650 mg PO Q6H PRN PRN Reason: Fever Last Admin: 09/27/24 21:51 Dose: 650 mg Documented By: JOSE Albuterol/Ipratropium (Albuterol/Iprat 2.5/0.5mg 3 Ml Ampul.Neb) 3 ml INHALE RQ4H WHILE AWAKE [facility] Last Admin: 09/28/24 15:33 Dose: 3 ml Documented By: HUMZA Albuterol/Ipratropium (Albuterol/Iprat 2.5/0.5mg 3 Ml Ampul.Neb) 3 ml INHALE Q3H PRN PRN Reason: sob Benzonatate (Benzonatate 100 Mg Capsule) 100 mg PO TID PRN PRN Reason: Cough Carbidopa/Levodopa (Carbidopa/Levodopa 25/100 Tablet) 1 tab PO TID [facility] [place] Last Admin: 09/28/24 14:12 Dose: 1 tab Documented By: STEFFANY Ceftriaxone Sodium (Ceftriaxone Sodium 1 Gm Vial) 1 gm IVPUSH Q24H [facility] [place] Last Admin: 09/28/24 12:09 Dose: 1 gm Documented By: STEFFANY Enoxaparin Sodium (Enoxaparin Sodium 40 Mg/0.4 Ml Syringe) 40 mg SUBCUT Q24H [facility] [place] Last Admin: 09/28/24 16:46 Dose: 40 mg Documented By: YONY Finasteride (Finasteride 5 Mg Tablet) 5 mg PO DAILY [facility] [place] Last Admin: 09/28/24 07:43 Dose: 5 mg Documented By: STEFFANY Guaifenesin (Guaifenesin 200 Mg/10 Ml 10 Ml Liquid) 10 ml PO Q4H PRN PRN Reason: Cough Last Admin: 09/28/24 09:20 Dose: 10 ml Documented By: STEFFANY Azithromycin 500 mg/ Sodium (Chloride) 250 mls @ 125 mls/hr IV Q24H [facility] [place] Last Admin: 09/28/24 16:46 Dose: 125 mls/hr Documented By: YONY Melatonin (Melatonin 3 Mg Tablet) 6 mg PO BEDTIME PRN PRN Reason: Insomnia Methylprednisolone Sodium Succinate (Methylprednisolone Sod Succ 40 Mg/Ml Vial) 40 mg IVPUSH Q12H [facility] [place] Last Admin: 09/28/24 12:08 Dose: 40 mg Documented By: STEFFANY Nicotine (Nicotine 21 Mg Patch.Td24) 21 mg TRANSDERMA DAILY [facility] [place] Last Admin: 09/28/24 07:43 Dose: 21 mg Documented By: STEFFANY Omeprazole (Omeprazole 20 Mg Capsule.Dr) 20 mg PO DAILY@0630 [facility] [place] Last Admin: 09/28/24 05:52 Dose: 20 mg Documented By: KIYA Sertraline HCl (Sertraline Hcl 50 Mg Tablet) 50 mg PO DAILY [facility] [place] Last Admin: 09/28/24 07:42 Dose: 50 mg Documented By: STEFFANY Sodium Chloride (0.9 % Sodium Chloride Flush 3 Ml Syringe) 3 ml IVFLUSH QSHIFT [facility] [place] Last Admin: 09/28/24 16:46 Dose: 3 ml Documented By: YONY Tamsulosin HCl (Tamsulosin Hcl 0.4 Mg Capsule) 0.4 mg PO DAILY [facility] [place] Last Admin: 09/28/24 07:42 Dose: 0.4 mg Documented By: STEFFANY Zinc Sulfate (Zinc Sulfate 220 Mg Capsule) 220 mg PO DAILY [facility] [place] Last Admin: 09/28/24 07:42 Dose: 220 mg Documented By: STEFFANY Labs 09/27/24 06:42 09/27/24 06:42 Assessment and Plan (1) COPD (chronic obstructive pulmonary disease): Status: Acute Plan 79y/o M with past medical history of COPD not on home oxygen, COVID and pulmonary embolismin 2020 (not on ac), current smoker ,[place], Parkinson's came with shortness of breaths found to have a COPD exacerbation. Acute hypoxemic respiratory failure in the setting COPD with acute exacerbation, possible pneumonia. Monitor pulse oximetry, respiratory pathogen panel. Started on nebs, steroids, antibiotics, continue oxygen. Parkinson: continue home medications. History of pulmonary embolism and COVID: Off ac as per his PCP(as per patient patient received appox.6 months of anticoagulation), cta negative for pulmonary embolism. mood dis/Anxiety: Continue home medication BPH: Continue home meds. Current smoker: Added nicotine patch. Ongoing need of stay: Acute hypoxemic respiratory failure in the setting COPD with acute exacerbation, possible pneumonia-need oxygen, antibiotics, nebs, steroids, respiratory status is not optimal yet. Quality Stroke Does the patient have a stroke diagnosis?: No VTE Prior VTE?: No VTE Risk Level:: Medical - moderate - high VTE Device Contraindication: N/A - Device Ordered VTE Drug Contraindication: N/A - Med Ordered
[2024-09-29] VITALS (7 sets, daily range): BP systolic 144–189; BP diastolic 63–84; PULSE 68–86; RESP 17–18; TEMP 36.2–36.7; O2SAT 93–96
[2024-09-29] MEDS: Nicotine 21 MG PATCH.TD24 TRANSDERMA (07:09)
[2024-09-29] MEDS: 0.9 % Sodium Chloride Flush 3 ML SYRINGE IVFLUSH (07:09)
[2024-09-29] MEDS: Albuterol/Iprat 2.5/0.5MG 3 ML AMPUL.NEB INHALE ×2 (08:06→11:42)
--- NOTE | 2024-09-29 13:02 | P.DS_ITS ---
DS: Providers Provider Date of Service: 09/29/24 Date of admission: 09/27/24 13:00 Date of discharge: 09/29/24 Primary care physician: Donal Benoit MD Attending physician on discharge: Beth Morfin Discharging clinician: Beth Morfin DS: Diagnosis Discharge Diagnosis (1) COPD (chronic obstructive pulmonary disease): Status: Acute DS: Summary Hospital Course Hospital Course: HPI:79y/o M with past medical history of COPD not on home oxygen, COVID and pulmonary embolismin 2020 (not on ac), current smoker ,[place], Parkinson's came with shortness of breath and chest pain. Patient states that starting last night he began to have central chest pain and increased shortness of breath, he says shortness of breath is getting worse. Patient has dry cough, no fever. Patient is poor historian, tried home COPD meds but did not help, shortness of breath was getting worse so decided come to the hospital. Seems generalized weak. Denies any new complaint of chest pain or abdominal pain or fever or chills or nausea or vomiting. Lab imaging, EKG reviewed: No leukocytosis, creatinine of 1.32, EKG sinus Shashank at 57 beats per minute. CTA:No evidence of pulmonary emboli. Emphysema. Bilateral lower lobe airspace opacities consistent with atelectasis or pneumonia. Patient received nebs, steroids, antibiotics in the emergency room and requested admission for COPD exacerbation/pneumonia. Hospital course: 79y/o M with past medical history of COPD not on home oxygen, COVID and pulmonary embolismin 2020 (not on ac-taken of per pcp), current smoker ,[place], Parkinson's came with shortness of breaths found to have a COPD exacerbation. Acute hypoxemic respiratory failure in the setting COPD with acute exacerbation, possible pneumonia. Respiratory viral panel negative, Patient is started on Monitor pulse oximetry, nebs, steroids, antibiotics, continue oxygen: Patient clinically improved significantly, off oxygen, ambulating fine without oxygen also. Currently asymptomatic. Sats are 94% on room air. Patient will be going home with p.o. antibiotics and prednisone. Current smoker: Advised Abstain from smoking, nicotine patch. plan: Complete Ceftin 500 mg p.o. b.i.d. for 7 days, azithromycin 500 mg p.o. daily for 5 days. Repeat chest imaging in 3-4 weeks to see resolution pneumonia. Follow-up with Pulmonary and PCP outpatient. Above management discussed with the patient and his in detail length they both understand in agreement with the above plan, time spent 45 minute. All questions answered. Staff was present during conversation. Time Attestation Total time managing care of this patient today: 45 mintues. Discharge Coordination Time (in mins): 45 min Quality: Safe Use of Opioids Does Pt have an Active Cancer Diagnosis on the Problem List?: No Quality: Stroke Does the patient have a stroke diagnosis?: No Physical Exam Exam: Exam: Appearance: Alert.? Oriented X3. cvs: rrr, [id number]. res: air entry fair , no rales or wheezing abd: no rebound or guarding ,nt, bs present. ext pulses present , no cyanosis . neuro: axo3 , nonfocal Vital Signs: Vital Signs: Last Vital Signs Temp 98.1 F 09/29/24 11:37 Pulse 75 09/29/24 11:42 Resp 17 09/29/24 11:42 BP 165/72 H 09/29/24 11:37 Pulse Ox 94 09/29/24 11:37 O2 Del Method Room Air 09/29/24 11:37 O2 Flow Rate 1 09/28/24 11:26 Oxygen Flow Rate 2 09/27/24 05:54 BMI result Body Mass Index 27.5 DS: Data Imaging Chest x-ray: Radiologist's impression: ITS Impressions Chest X-Ray 09/27/24 07:16 IMPRESSION: Mild pulmonary vascular congestion. Chest CTA 09/27/24 09:53 IMPRESSION: No evidence of pulmonary emboli. Emphysema. Bilateral lower lobe airspace opacities consistent with atelectasis or pneumonia. Discharge Plan Discharge Anticipated Discharge Date/Time: 09/29/24 12:53 Patient Disposition: Home, Self-Care Discharge Diagnosis: copd execerebation ,pneumonia Referrals: Donal Benoit MD [Primary Care Provider, Medical] - 1 Week Discharge Medications: New cefuroxime axetil 500 mg Tablet 500 mg PO Q12H Qty: 14 0RF azithromycin 500 mg Tablet 500 mg PO Q24H Qty: 5 0RF nicotine 21 mg/24 hr Patch 24 Hour 21 mg transdermal DAILY Qty: 7 0RF prednisone 20 mg Tablet 40 mg PO DAILY Qty: 8 0RF Continued albuterol sulfate 90 mcg/actuation HFA aerosol inhaler 2 puff inhalation Q4H PRN (Reason: Wheezing) fluticasone propion-salmeterol [Wixela Inhub] 250-50 mcg/dose blister with device 1 ea inhalation Q12H omeprazole 20 mg capsule,delayed release(DR/EC) 20 mg PO DAILY@0630 carbidopa-levodopa 25-100 mg tablet 1 tab PO TID zinc acetate 50 mg (zinc) Capsule 50 mg PO DAILY tamsulosin 0.4 mg capsule 0.4 mg PO DAILY sertraline 50 mg tablet 50 mg PO DAILY finasteride 5 mg tablet 5 mg PO DAILY Discharge Orders: Discharge Order (Routine); Ordered 09/29/24 Ordered By: Beth Morfin Diet: Advance to usual diet Activity on Discharge: As tolerated Stand Alone Forms: Patient Portal Discharge page Print Language: Moroccan Care Plan Goals: As below. Health Concerns: Complete Ceftin 500 mg p.o. b.i.d. for 7 days, azithromycin 500 mg p.o. daily for 5 days. Repeat chest imaging in 3-4 weeks to see resolution pneumonia. Follow-up with Pulmonary and PCP outpatient. Plan of Treatment: As above. Assessment: As above. Patient Instructions: Pneumonia (DC)
--- NOTE | 2024-09-29 13:51 | MHC.CM.PN ---
Patient medically cleared for dc home self care via private transport.
== END 2024-09-29 13:49 | disposition home or self-care (01) | DRG 139 ==
LOC: HO.ED 13:06 → HO.EDOVER 13:08 → HO.S3 23:29
PROVIDERS: Physician Assistant Medical; Admitting Provider Hospitalist; Emergency Provider Emergency Medicine; PCP Internal Medicine; Visit Provider Internal Medicine
DX: J18.9 Pneumonia, unspecified organism (principal); J96.01 Acute respiratory failure with hypoxia; J44.0 Chronic obstructive pulmonary disease with (acute) lower respiratory infection; J44.1 Chronic obstructive pulmonary disease with (acute) exacerbation; G20.A1 Parkinson's disease without dyskinesia, without mention of fluctuations; N40.0 Benign prostatic hyperplasia without lower urinary tract symptoms; F17.210 Nicotine dependence, cigarettes, uncomplicated; Z20.822 Contact with and (suspected) exposure to COVID-19; Z71.6 Tobacco abuse counseling; Z86.711 Personal history of pulmonary embolism; Z79.51 Long term (current) use of inhaled steroids; Z79.899 Other long term (current) drug therapy
CPT/HCPCS: 36415; 71046; 71275; 80053; 82803; 83690; 83880; 84484; 85025; 87633; 87637; 93005; 94640; 99285; J0456; J0696; J1650; J2270; J2405; J2470; J2919; Q9967

== ENCOUNTER → 2024-09-27 05:38 | Outpatient (BNV) | payer BC, SELFPAY | PROVIDERS: Admitting Provider Hospitalist; Emergency Provider Emergency Medicine; Visit Provider Internal Medicine | DX: I44.0 Atrioventricular block, first degree (principal); I49.9 Cardiac arrhythmia, unspecified; R00.1 Bradycardia, unspecified | CPT/HCPCS: 93010 ==

== ENCOUNTER → 2024-09-27 07:50 | Outpatient (BNV) | payer BC, SELFPAY | PROVIDERS: Visit Provider Radiology Diagnostic Radiology | DX: J43.9 Emphysema, unspecified (principal); R07.9 Chest pain, unspecified | CPT/HCPCS: 71046; 71275 ==

== ENCOUNTER → 2024-09-27 13:00 | Outpatient (BNV) | payer BC, SELFPAY | PROVIDERS: Admitting Provider Hospitalist; Emergency Provider Emergency Medicine; Visit Provider Internal Medicine | DX: J44.1 Chronic obstructive pulmonary disease with (acute) exacerbation (principal) | CPT/HCPCS: 99222; 99232; 99239 ==

== ENCOUNTER 2024-10-26 11:32 | Outpatient (REF) | payer BC, SELFPAY ==
--- OUTSIDE RECORDS SUMMARY | 2024-01-17 07:40 | XMS_ITS ---
Demographics Address [address] [place] [address] [address] [place] [address] Mobile Preferred Language en Marital Status Christian Affiliation Unknown Race White Ethnic Group Unknown Author Organization [facility] Address [address] [place] [address] Care Team Providers Care Beam Warper Name Role Phone Cy SIMMS, Donal Primary Care Provider Moses Porter [phone] REASON FOR VISIT screening,hx polyps Encounters Encounter Location Date Provider Diagnosis [facility] [place] [address] [place], [place] [phone] 01/17/2024 Moses Pérez Plan Of Treatment No Information Progress Notes * BENJY FLAQUITO CDOB: 6 (79 yo M)Acc No.[id number]:01/17/2024 COLON WITH MAC Patient: FLAQUITO GREER Provider: Tabitha Pérez MD :1945 A ge:78 Y S ex:Male Date:01/17/2024 Address:[address] [place] [address] [address] , [place] [id number] Pcp:Donal Benoit MD Subjective: * Chief Complaints: [...] Tabitha Pérez MD Date: 03/18/2023 Generated for Beualhi ng/Fadallasg/eTransmitting on: 0 10/26/2024 01:14 PM EDT
--- OUTSIDE RECORDS SUMMARY | 2024-01-24 10:30 | XMS_ITS ---
Author Organization [facility] Address [address] [place] [address] Care Team Providers Care Application Development Project Manager Name Role Phone Donal Bneoit MD Primary Care Provider Moses Porter Unavailable [phone] REASON FOR VISIT screening,hx polys Problems Problem Type SNOMED Code ICD Code Onset Dates Problem Status W/U Status Risk Notes Problem Diverticular disease of colon (637139989) Diverticulosis of large intestine without perforation or abscess without bleeding (K57.30) Active confirmed Encounters Encounter Location Date Provider Diagnosis [facility] [place] Out[facility] [address] [place] [phone] 01/24/2024 Moses Pérez Colon cancer scree marion [...] FLAQUITO BURLESON CDOB: 6 (79 yo M)Acc No.[id number]:01/24/2024 COLON WITH MAC Patient: FLAQUITO GREER Provider: Tabitha Pérez MD :1945 A ge:78 Y S ex:Male Date:01/24/2024 Address:[address] [place] [address] [place] , [address] [id number] Pcp:Donal Benoit MD Subjective: * Chief Complaints: [...] MD Date: 1 03/26/2023 Generated for Reed briceno/Naeem/Omarismitting on: 0 10/26/2024 01:15 PM EDT
--- OUTSIDE RECORDS SUMMARY | 2024-06-23 07:45 | XMS_ITS ---
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 Name Role Phone Donal Benoit Primary Care Provider Allergies No Known Allergies REASON FOR VISIT pain back of head x 2 months Medications Medication SIG (Take, Route, Frequency, Duration) Notes Start Date End Date Status Ventolin HFA * 108 (90 Base) MCG/ACT 2 puffs as needed Inhalation every 4 hrs for 30 day(s) 05/22/2011 Not-Taking Atorvastatin Calcium 80 MG TAKE 1 TABLET BY MOUTH EVERY DAY for 90 Not-Taking Ipratropium-Albuterol 0.5-2.5 (3) MG/3ML 3 ml Inhalation Four times a day as needed for 30 days 12/12/2018 Not-Taking Ibuprofen 800 MG 1 tablet Orally Thre e times a day for 90 Not-Taking Meclizine HCl 12.5 MG 1 tablet as needed Orally twice a day for 7 days 12/12/2019 Not-Taking Carbidopa-Levodopa 10-100 MG 1 tablet Orally 4 times a day Active Albuterol Sulfate HFA 108 (90 Base) MCG/ACT INHALE 2 PUFFS BY MOUTH EVERY 6 HOURS NEEDED 17 Active Wixela Inhub 250-50 MCG/ACT INHALE 1 PUFF EVERY 12 HOURS BY MOUTH 90 Active Eliquis 5 MG as directed Orally b id for 30 days Not-Taking Tamsulosin HCl 0.4 MG TAKE 1 CAPSULE BY MOUTH EVERY DAY FOR 30 DAYS for 90 Active Aleve 220 MG 1 tablet with food o r milk as needed Orally every 12 hrs Active Zinc 50 MG 1 tablet Orally Once a day Active Omeprazole 20 MG TAKE 1 CAPSULE BY MO UT EVERY DAY Active Social History Sex Assigned At : Social History Observation Description Sex Assigned At Male Problems Problem Type SNOMED Code ICD Code Onset Dates Problem Status W/U Status Risk Notes Problem Parkinson's dise ase with dyskinesia, unspecified whether manifestations fluctuate (G20.B1) Active confirmed Vital Signs Blood pressure systolic 158 mm Hg 06/24/19 25 Blood pressure diastolic 60 mm Hg 025 Height 66 in 06/23/2024 Weight 182 lbs 06/23/2024 BMI 29.37 kg/m2 06/23/2024 Encounters Encounter Location Date Provider Diagnosis Donal Benoit MD [address] [place] [address] [place] [phone] 06/23/2024 Donal Benoit Panlobular emphysema J43.1 ; Parkinson's disease with dyskinesia, unspecified whether manifestations fluctuate G20.B1 and Prostatism N40.0 Assessments Encounter Date Diagnosis (ICD Code) Assessment Notes Treatment Notes Treatment Clinical Notes Section Notes 06/23/2024 Panlobular emphysema (ICD-10 - J43.1) discussed smoking and maybe try vaping 06/23/2024 Parkinson's disease with dyskinesia, unspecified whether manifestations fluctuate (ICD-10 - G20.B1) makes it difficult to do things 06/23/2024 Prostatism (ICD-10 - N40.0) Plan Of Treatment Treatment Notes Assessment Notes Panlobular emphysema discussed smoking a nd maybe try vaping Parkinson's disease with dys kinesia, unspecified whether manifestations fluctuate makes it difficult to do things Next Appt Details Provider Name:Donal Montoya ier, 11/13/2024 07:15:00 AM, [address], [address], [place], [place], [phone], Provider Name:Donal Montoya ier, 11/20/2024 01:45:00 PM, [address] [place] [address] Drive, [address], [place], [place], [phone], Provider Name:Donal Montoya ier, 04/23/2025 07:30:00 AM, [address] [place] [address] Drive, Suite [facility], [place], [place], [phone], Provider Name:Donal Montoya ier, 05/24/2025 01:00:00 PM, [address] [place] [address] Drive, [address], [place], [place], [phone], Progress Notes * William FANG CDOB: (78 yo M)Acc No.[id number]:06/23/2024 Progress Notes Patient: William GREER Provider: Adan Benoit MD :1945 A ge:78 Y S ex:Male Date:06/23/2024 Address:[address] [place] [address] , [address], [place], [id number] Subjective: * Chief Complaints: * P ain back of head x 2 months * HPI: S ymptom(s): patient is a 78 yo male here with complaint of pain in the back of the head. * ROS: G eneral/Constitutional: Denies C hills. D enies F atigue. D enies F ever. D enies H eadache. E NT: Denies S ore throat. R espiratory: Denies C ough. D enies S hortness of breath at rest. D enies S hortness of breath with exertion. G astrointestinal: Denies D iarrhea. D nikunj N ausea. * Medical History: * Surgical History: * Hospitalization/Major Diagno stic Procedure: * Medications: T akingAleve 220 MG Capsule 1 tablet with food or milk as needed Orally every 12 hrs Zinc 50 MG Tablet 1 tablet Orally Once a day Omeprazole 20 MG Capsule Delayed Release TAKE 1 CAPSULE BY MOUTH EVERY DAY Carbidopa-Levodopa 10-100 MG Tablet 1 tablet Orally 4 times a day Wixela Inhub 250-50 MCG/ACT Aerosol Powder Breath Activated INHALE 1 PUFF EVERY 12 HOURS BY MOUTH 90 Albuterol Sulfate HFA 108 (90 Base) MCG/ACT Aerosol Solution INHALE 2 PUFFS BY MOUTH EVERY 6 HOURS NEEDED 17 Tamsulosin HCl 0.4 MG Capsule TAKE 1 CAPSULE BY MOUTH EVERY DAY FOR 30 DAYS Taking Aleve 220 MG Capsule 1 tablet with food or milk as needed Orally every 12 hrs Taking Zinc 50 MG Tablet 1 tablet Orally Once a day Taking Omeprazole 20 MG Capsule Delayed Release TAKE 1 CAPSULE BY MOUTH EVERY DAY Taking Carbidopa-Levodopa 10-100 MG Tablet 1 tablet Orally 4 times a day Taking Wixela Inhub 250-50 MCG/ACT Aerosol Powder Breath Activated INHALE 1 PUFF EVERY 12 HOURS BY MOUTH 90 Taking Albuterol Sulfate HFA 108 (90 Base) MCG/ACT Aerosol Solution INHALE 2 PUFFS BY MOUTH EVERY 6 HOURS NEEDED 17 Taking Tamsulosin HCl 0.4 MG Capsule TAKE 1 CAPSULE BY MOUTH EVERY DAY FOR 30 DAYS Not-Taking/PRNEliquis 5 MG Tablet as directed Orally bid Atorvastatin Calcium 80 MG Tablet TAKE 1 TABLET BY MOUTH EVERY DAY Ventolin HFA * 108 (90 Base) MCG/ACT Aerosol Solution 2 puffs as needed Inhalation every 4 hrs Ipratropium-Albuterol 0.5-2.5 (3) MG/3ML Solution 3 ml Inhalation Four times a day as needed Meclizine HCl 12.5 MG Tablet 1 tablet as needed Orally twice a day Ibuprofen 800 MG Tablet 1 tablet Orally Three times a day Medication List reviewed and reconciled with the patientNot-Taking/PRN Eliquis 5 MG Tablet as directed Orally bid Not-Taking/PRN Atorvastatin Calcium 80 MG Tablet TAKE 1 TABLET BY MOUTH EVERY DAY Not- Taking/PRN Ventolin HFA * 108 (90 Base) MCG/ACT Aerosol Solution 2 puffs as needed Inhalation every 4 hrs Not-Taking/PRN Ipratropium-Albuterol 0.5-2.5 (3) MG/3ML Solution 3 ml Inhalation Four times a day as needed Not-Taking/PRN Meclizine HCl 12.5 MG Tablet 1 tablet as needed Orally twice a day Not-Taking/PRN Ibuprofen 800 MG Tablet 1 tablet Orally Three times a day Medication List reviewed and reconciled with the patient * Allergies: N .K.D.A.yes[Allergies Verified] Objective: * Vitals: H t: 66, Wt: 182, BMI:29.37, BP:158/60, Repeat BP:120/60, Wt-k.55. * Examination: G eneral Examination: GENERAL APPEARANCE: a lert, well hydrated, in no distress.? HEAD: n ormocephalic. SKIN: g ood turgor. HEART: r egular rate and rhythm, no murmurs, rubs, gallops.? LUNGS: d iminished breath sounds throughout. ? Assessment: * Assessment: 1. P arkinson's disease with dyskinesia, unspecified whether manifestations fluctuate - G20.B1 (Primary) 2 . P anlobular emphysema - J43.1 3 . P rostatism - N40.0 Plan: * Treatment: 2. P anlobular emphysema Notes: discussed smoking and maybe try vaping * Procedure Codes: * * Sign off status: Completed true * Provider: Adan Benoit MD Date: 0 06/23/2024 Generated for Reed briceno/Naeem/Geo on: 0 10/26/2024 01:15 PM EDT History and Physical Notes * HPI (History of Present Illness) Category Sub-Category Detail Notes Category Not es Symptom(s) patient is a 78 yo male here with complaint of pain in the back of the head Examination Category Sub-Category Detail Notes Category Not es General Examination GENERAL APPEARANCE: alert, w ell hydrated, in no distress HEAD: normocephalic HEART: regular rate and rhy thm, no murmurs, rubs, gallops LUNGS: diminished breath so unds throughout SKIN: good turgor
--- OUTSIDE RECORDS SUMMARY | 2024-08-15 11:15 | XMS_ITS ---
Author Organization Donal Benoit MD Address [address] [place] [phone] Care Team Providers Care Tin Pot Operator Name Role Phone Donal Benoit Primary Care Provider Allergies No Known Allergies REASON FOR VISIT cough temp 100 x 5 days tested negative for Covid this AM, Video [phone] Medications Medication SIG (Take, Route, Frequency, Duration) Notes Start Date End Date Status Meclizine HCl 12.5 MG 1 tablet as needed Orally twice a day for 7 days 12/12/2019 Not-Taking Ipratropium-Albuterol 0.5-2.5 (3) MG/3ML 3 ml Inhalation Four times a day as needed for 30 days 12/12/2018 Not-Taking Ventolin HFA * 108 (90 Base) MCG/ACT 2 puffs as needed Inhalation every 4 hrs for 30 day(s) 05/22/2011 Not-Taking Atorvastatin Calcium 80 MG TAKE 1 TABLET BY MOUTH EVERY DAY for 90 Not-Taking Eliquis 5 MG as directed Orally b id for 30 days Not-Taking Wixela Inhub 250-50 MCG/ACT INHALE 1 PUFF EVERY 12 HOURS BY MOUTH 90 Active Carbidopa-Levodopa 10-100 MG 1 tablet Orally 4 times a day Active Omeprazole 20 MG TAKE 1 CAPSULE BY [place] EVERY DAY Active Tamsulosin HCl 0.4 MG TAKE 1 CAPSULE BY MOUTH EVERY DAY FOR 30 DAYS for 90 Active Albuterol Sulfate HFA 108 (90 Base) MCG/ACT INHALE 2 PUFFS BY MOUTH EVERY 6 HOURS NEEDED 17 Active Zinc 50 MG 1 tablet Orally Once a day Active predniSONE 10 MG 1 tablet with food o r milk Orally 4 tabs for 3 days,3tabs for 3 days, 2 tabs for 3 days, and 1 tab for 3 days for 14 days 08/15/2024 Active Aleve 220 MG 1 tablet with food o r milk as needed Orally every 12 hrs Active Zithromax Z-Tobi 250 MG 2 tablet on the irst day, then 1 tablet daily for 4 days Orally Once a day for 5 day(s) 08/15/2024 Active Sertraline HCl 50 MG 1 tablet Orally Onc e a day Active Ibuprofen 800 MG 1 tablet Orally Thre e times a day for 90 Not-Taking Social History Sex Assigned At : Social History Observation Description Sex Assigned At Male Problems Problem Type SNOMED Code ICD Code Onset Dates Problem Status W/U Status Risk Notes Problem Chronic obstructive pulmonary disease with acute lower respiratory infection (627353785) COPD (chronic obstructive pulmonary disease) with acute bronchitis (J44.0) Active confirmed Encounters Encounter Location Date Provider Diagnosis Donal Benoit MD [address] [place] [address] [place] [phone] 08/15/2024 Donal Benoit COPD (chronic obstructive pulmonary disease) with acute bronchitis J44.0 Assessments Encounter Date Diagnosis (ICD Code) Assessment Notes Treatment Notes Treatment Clinical Notes Section Notes 08/15/2024 COPD (chronic obstructive pulmonary disease) with acute bronchitis (ICD-10 - J44.0) patient verbalized understanding of medication and directions for use Plan Of Treatment Medication Medication Name Sig Start Date Stop Date Notes predniSONE 10 MG 1 tablet with food o r milk Orally 4 tabs for 3 days,3tabs for 3 days, 2 tabs for 3 days, and 1 tab for 3 days for 14 days 08/15/2024 Zithromax Z-Tobi 250 MG 2 tablet on the f irst day, then 1 tablet daily for 4 days Orally Once a day for 5 day(s) 08/15/2024 Treatment Notes Assessment Notes COPD (chronic obstructive pu lmonary disease) with acute bronchitis patient verbalized understanding of medication and directions for use Next Appt Details Provider Name:Donal Montoya ier, 11/13/2024 07:15:00 AM, [address] [place] [address], [address], [phone], Provider Name:Donal de leonr, 11/20/2024 01:45:00 PM, [address] [place] [address], [address], [phone], Provider Name:Donal de leonr, 04/23/2025 07:30:00 AM, [address] [place] [address], [address], [phone], Provider Name:Donal de leonr, 05/24/2025 01:00:00 PM, [address] [place] [address], [address], [phone], Progress Notes * William FANG CDOB: 6 (78 yo M)Acc No.[id number]:08/15/2024 Patient: William GREER Provider: Adan Benoit MD :1945 A ge:78 Y S ex:Male Date:08/15/2024 Address:[address] [place] [address], [address], [id number] Subjective: * Chief Complaints: * c ough temp 100 x 5 days tested negative for Covid this AMVideo [phone] * HPI: S ymptom(s): Telehealth L ocation of provider rendering services: [address], [address], L ocation of patient: a t address listed in demographics for today's visit, P gordon identification confirmed using: KRYSTA Alejandra ame, T elehealth method: V ideo conference where patient is visible to the provider of care, C onsent: P atient verbally consented to treatment, Patient verbally consented to billing insurance company, Patient informed of any privacy concerns related to method of visit, T otal time spend talking with patient (minutes) 1 8. patient is a 78 yo male feels video telehalth visit, feeling terrible. coughing and not able to catch breath at time. temp of 100.7/ negative covid. * ROS: G eneral/Constitutional: Denies C hills. A dmits F atigue. A dmits F ever. D enies H eadache. E NT: Denies S ore throat. R espiratory: Admits C ough. A dmits S hortness of breath at rest. A dmits S hortness of breath with exertion. A dmits S putum production. A dmits W heezing. G astrointestinal: Denies D iarrhea. D enies N ausea. * Medical History: * Surgical History: * Hospitalization/Major Diagno stic Procedure: * Medications: T akingSertraline HCl 50 MG Tablet 1 tablet Orally Once a day Aleve 220 MG Capsule 1 tablet with [...] MOUTH EVERY DAY FOR 30 DAYS Taking Sertraline HCl 50 MG Tablet 1 tablet Orally Once a day Taking Aleve 220 MG Capsule 1 tablet with food or milk as needed Orally every 12 hrs Taking Zinc 50 MG Tablet 1 tablet Orally Once a day Taking Omeprazole 20 MG Capsule Delayed Release TAKE 1 CAPSULE BY MOUTH EVERY DAY Taking Carbidopa- Levodopa 10-100 MG Tablet 1 tablet Orally 4 [...] Allergies: N .K.D.A.yes[Allergies Verified] Objective: * Vitals: * Examination: G eneral Examination: GENERAL APPEARANCE: a lert, well hydrated, in no distress.? HEAD: n ormocephalic. Assessment: * Assessment: 1. C OPD (chronic obstructive pulmonary disease) with acute bronchitis - J44.0 (Primary) ? Plan: * Treatment: * Procedure Codes: * * Sign off status: Completed true * Provider: Adan Benoit MD Date: 0 08/15/2024 Generated for Reed briceno/Naeem/Aichaitting on: 0 10/26/2024 01:15 PM EDT History and Physical Notes * HPI (History of Present Illness) Category Sub-Category Detail Notes Category Not es Symptom(s) [facility] [address], [address] patient is a 78 yo male feels video telehalth visit, feeling terrible. coughing and not able to catch breath at time. temp of 100.7/ negative covid. Location of patient:: at address listed in demographics for today's visit Patient identification confirmed using:: Name, Telehealth method:: Video co nference where patient is visible to the provider of care Consent:: Patient verbally c onsented to treatment, Patient verbally consented to billing insurance company, Patient informed of any privacy concerns related to method of visit Total time spend talking with patient (m inutes): 18 Examination Category Sub-Category Detail Notes Category Not es General Examination GENERAL APPEARANCE: alert, w ell hydrated, in no distress HEAD: normocephalic
--- OUTSIDE RECORDS SUMMARY | 2024-09-08 10:15 | XMS_ITS ---
Author Organization Donal Benoit MD Address [address] [place] [phone] Care Team Providers Care Tobacco Drummer Name Role Phone Donal Benoit Primary Care Provider [phone] Allergies No Known Allergies Reason For Referral Reason PROSTATISM Diagnosis 1 Prostatism (N40.0) Referral Organization Donal Benoit MD Referring Provider First Name Donal Referring Provider Last Name Cy Referring Provider Speciality Internal M edicine Referred Provider Shiva Martinez Referred Provider Specialty Urology General Notes Geni Meyer 09/08/2024 02:18:56 PM >REFERRAL MADE AND FAXED TO [facility], Geni Meyer 09/11/2024 12:00:43 PM >APPT SCHEDULED FOR 10/24/[address] ESPINOSA . PATIENT IS AWARE, Geni Meyer 10/02/2024 09:37:16 AM >APPT MOVED TO 10/02 AND OFFICE NOTE RECD Referral Priority Routine Referral Appointment Date 10/02/2024 REASON FOR VISIT DISCUSS A UROLOGY REFERRAL Medications Medication SIG (Take, Route, Frequency, Duration) Notes Start Date End Date Status Ibuprofen 800 MG 1 tablet Orally Thre e times a day for 90 Not-Taking Meclizine HCl 12.5 MG 1 tablet as needed Orally twice a day for 7 days 12/12/2019 Not-Taking Ipratropium-Albuterol 0.5-2.5 (3) MG/3ML 3 ml Inhalation Four times a day as needed for 30 days 12/12/2018 Not-Taking Atorvastatin Calcium 80 MG TAKE 1 TABLET BY MOUTH EVERY DAY for 90 Not-Taking Ventolin HFA * 108 (90 Base) MCG/ACT 2 puffs as needed Inhalation every 4 hrs for 30 day(s) 05/22/2011 Not-Taking predniSONE 10 MG 1 tablet with food o r milk Orally 4 tabs for 3 days,3tabs for 3 days, 2 tabs for 3 days, and 1 tab for 3 days for 14 days 08/15/2024 Active Albuterol Sulfate HFA 108 (90 Base) MCG/ACT INHALE 2 PUFFS BY MOUTH EVERY 6 HOURS NEEDED 17 Active Eliquis 5 MG as directed Orally b id for 30 days Not-Taking Wixela Inhub 250-50 MCG/ACT INHALE 1 PUFF EVERY 12 HOURS BY MOUTH 90 Active Carbidopa-Levodopa 10-100 MG 1 tablet Orally 4 times a day Active Omeprazole 20 MG TAKE 1 CAPSULE BY [facility] EVERY DAY Active Zinc 50 MG 1 tablet Orally Once a day Active Aleve 220 MG 1 tablet with food o r milk as needed Orally every 12 hrs Active Finasteride 5 MG 1 tablet Orally Once a day for 30 days 09/08/2024 Active Sertraline HCl 50 MG 1 tablet Orally Onc e a day Active Social History Sex Assigned At : Social History Observation Description Sex Assigned At Male Vital Signs Blood pressure systolic 140 mm Hg 09/09/19 25 Blood pressure diastolic 84 mm Hg 025 Height 66 in 09/08/2024 Weight 172 lbs 09/08/2024 BMI 27.76 kg/m2 09/08/2024 weight is down 10 pounds sin ce 5-2 Encounters Encounter Location Date Provider Diagnosis Donal Benoit MD [address] [place] [address] [place] [phone] 09/08/2024 Donal Benoit Prostatism N40.0 and Panlobular emphysema J43.1 Assessments Encounter Date Diagnosis (ICD Code) Assessment Notes Treatment Notes Treatment Clinical Notes Section Notes 09/08/2024 Prostatism (ICD-10 - N40.0) patient verbalized understanding of medication and directions for use, referral to urology in [place],. REFERRAL MADE AND FAXED TO UROLOGY, PATIENT AWARE. 09/08/2024 Panlobular emphysema (ICD-10 - J43.1) having to use inhaler frequently with this hot weather, will contiue current regiment Plan Of Treatment Medication Medication Name Sig Start Date Stop Date Notes Finasteride 5 MG 1 tablet Orally Once a day for 30 days Treatment Notes Assessment Notes Prostatism patient verbalized u nderstanding of medication and directions for use, referral to urology in [place],. REFERRAL MADE AND FAXED TO UROLOGY, PATIENT AWARE. Panlobular emphysema having to use inhal er frequently with this hot weather, will contiue current regiment Referrals Referral Date Details 09/08/2024 09/08/2024, PROSTATI SMShiva Next Appt Details Provider Name:Donal martinez, 11/13/2024 07:15:00 AM, [address] [place] [address], [address] [place] [address], [phone], Provider Name:Donal martinez, 11/20/2024 01:45:00 PM, [address] [place] [address], [address] [place] [address], [phone], Provider Name:Donal martinez, 04/23/2025 07:30:00 AM, [address] [place] [address], [address] [place] [address], [phone], Provider Name:Donal martinez, 05/24/2025 01:00:00 PM, [address], [address], [place], [place], [phone], Progress Notes * William FANG CDOB: 6 (79 yo M)Acc No.[id number]:09/08/2024 Progress Notes Patient: William GREER Provider: Adan Benoit MD :1945 A ge:78 Y S ex:Male Date:09/08/2024 Address:[address] [place] [address], [address], [place], [id number] Subjective: * Chief Complaints: * D ISCUSS A UROLOGY REFERRAL * HPI: S ymptom(s): patient is a 78 yo male here to discuss referral to Urology/ for last 2 months lot of urination. 5 to 6 times per night. * ROS: G eneral/Constitutional: Denies C hills. D enies F atigue. D enies F ever. D enies H eadache. E NT: Denies S ore throat. R espiratory: Denies C ough. D enies S hortness of breath at rest. D enies S hortness of breath with exertion. G astrointestinal: Denies D iarrhea. D enies N ausea. G enitourinary: Denies A bdominal pain/swelling. D enies B lood in urine. A dmits F requent urination. * Medical History: * Surgical History: * [...] BY MOUTH EVERY 6 HOURS NEEDED 17 predniSONE 10 MG Tablet 1 tablet with food or milk Orally 4 tabs for 3 days,3tabs for 3 days, 2 tabs for 3 days, and 1 tab for 3 days Taking Sertraline HCl 50 MG Tablet 1 [...] MOUTH EVERY 6 HOURS NEEDED 17 Taking predniSONE 10 MG Tablet 1 tablet with food or milk Orally 4 tabs for 3 days,3tabs for 3 days, 2 tabs for 3 days, and 1 tab for 3 days Not- Taking/PRNEliquis 5 MG Tablet as directed Orally bid [...] 1 tablet Orally Three times a day Not-Taking/PRN Eliquis 5 MG Tablet as directed [...] 1 tablet Orally Three times a day DiscontinuedTamsulosin HCl 0.4 MG Capsule TAKE 1 CAPSULE BY MOUTH EVERY DAY FOR 30 DAYS Zithromax Z-Tobi 250 MG Tablet 2 tablet on the first day, then 1 tablet daily for 4 days Orally Once a day Medication List reviewed and reconciled with the patientDiscontinued Tamsulosin HCl 0.4 MG Capsule TAKE 1 CAPSULE BY MOUTH EVERY DAY FOR 30 DAYS Discontinued Zithromax Z-Tobi 250 MG Tablet 2 tablet on the first day, then 1 tablet daily for 4 days Orally Once a day Medication List reviewed and reconciled with the patient * Allergies: N .K.D.A.yes[Allergies Verified] Objective: * Vitals: H t: 66, Wt: 172, BMI:27.76, BP:140/84, Wt-k.02. weight is down 10 pounds since 06-23-24. * Examination: G eneral Examination: GENERAL APPEARANCE: a lert, well hydrated, in no distress.? HEAD: n ormocephalic. SKIN: g ood turgor. HEART: n o murmurs, rubs, gallops, regular rate and rhythm.? LUNGS: n o wheezes, rales, rhonchi, good air movement, clear to auscultation bilaterally. Assessment: * Assessment: 1. P rostatism - N40.0 (Primary) 2 . P anlobular emphysema - J43.1 ? Plan: * Treatment: 2. P anlobular emphysema Notes: having to use inhaler frequently with this hot weather, will contiue current regiment ? * Procedure Codes: * * Sign off status: Completed true * Provider: Adan Benoit MD Date: 09/08/2024 Generated for Reed briceno/Naeem/eTransmitting on: 10/26/2024 01:14 PM EDT History and Physical Notes * HPI (History of Present Illness) Category Sub-Category Detail Notes Category Not es Symptom(s) patient is a 78 yo male here to discuss referral to Urology/ for last 2 months lot of urination. 5 to 6 times per night. Examination Category Sub-Category Detail Notes Category Not es General Examination GENERAL APPEARANCE: alert, w ell hydrated, in no distress HEAD: normocephalic HEART: no murmurs, rubs, ga llops, regular rate and rhythm LUNGS: no wheezes, rales, r honchi, good air movement, clear to auscultation bilaterally SKIN: good turgor Consultation Request Notes Referral Date Referring Provider Referred Provider Not es 09/08/2024 Donal Benoit, Shiva GODFREY IS
--- OUTSIDE RECORDS SUMMARY | 2024-10-02 06:05 | XMS_ITS ---
Author Organization Donal Benoit MD Address [address] [place] [phone] Care Team Providers Care C Architect Name Role Phone Donal Benoit Primary Care Provider REASON FOR VISIT discharge Social History Sex Assigned At : Social History Observation Description Sex Assigned At Male Encounters Encounter Location Date Provider Diagnosis Donal Benoit MD [address] [facility] [address] [place] [phone] 10/02/2024 Donal Benoit Plan Of Treatment Next Appt Details Provider Name:Donal martinez, 11/13/2024 07:15:00 AM, [address], [address], [place], [place], [phone], Provider Name:Donal Montoya ier, 11/20/2024 01:45:00 PM, [address] [place] [address], [address], [place], [phone], Provider Name:Donal Montoya ier, 04/23/2025 07:30:00 AM, [address] [place] [address], [address], [place], [phone], Provider Name:Donal Montoya ier, 05/24/2025 01:00:00 PM, [address] [place] [address], [address], [place], [phone], Progress Notes * William FANG CDOB: (79 yo M)Acc No.[id number]:10/02/2024 Patient: Maribell PARISI William Vega :1945 A ge:79 Y S ex:Male Address:[address] [place] [address], [address], [place] [id number] * true * Date: Generated for Reed briceno/Naeem/eTransmitting on: 0 10/26/2024 01:14 PM EDT
--- OUTSIDE RECORDS SUMMARY | 2024-10-12 07:30 | XMS_ITS ---
Author Organization Donal Benoit MD Address [address] [place] [phone] Care Team Providers Care Beauty Consultant Name Role Phone Donal Benoit Primary Care Provider [phone] Allergies No Known Allergies REASON FOR VISIT [...] Location Date Provider Diagnosis Donal Benoit MD [address] [place] [address] Drive [address] [place] [phone] 10/12/2024 Donal Benoit Pneumonia J18.9 and Seborrheic [...] 10/26/2024 Next Appt Details Provider Name:Donal martinez, 11/13/2024 07:15:00 AM, [address] [place] [address] Drive, [address], [place], [place], [phone], Provider Name:Donal Montoya ier, 11/20/2024 01:45:00 PM, [address], [address], [place], [place], [phone], Provider Name:Donal Montoya ier, 04/23/2025 07:30:00 AM, [address], [address], [place], [place], [phone], Provider Name:Donal Montoya ier, 05/24/2025 01:00:00 PM, [address], [address], [place], [place], [phone], Progress Notes * Willaim FANG CDOB: 6 (79 yo M)Acc No.[id number]:10/12/2024 Progress Notes Patient: William GREER Provider: Adan Benoit MD :1945 A ge:79 Y S ex:Male Date:10/12/2024 Address:[address] [place] [address], [address], [place], [id number] Subjective: * Chief Complaints: * P neumonia [...] 10/12/2024 Generated for Reed briceno/Naeem/Aichaitting on: 0 10/26/2024 01:14 PM EDT History and Physical [...]
--- NOTE | ~2024-10-26 | XR_ITS ---
EXAMINATION: XR CHEST CLINICAL INFORMATION: J18.9 PNA COMPARISON: September 27, 2024. TECHNIQUE: 2 views of the chest were obtained. FINDINGS: Hyperinflated lungs. Pulmonary reticular pattern. Haziness in both lower hemithorax is best seen on the lateral projection. No gross consolidation. No pneumothorax. Cardiomediastinal silhouette size is normal. Calcified plaque thoracic aorta. Multilevel thoracolumbar spondylosis, moderate to severe. Degenerative changes in the acromioclavicular joints.. XR/XR chest 2V IMPRESSION: COPD emphysematous type changes with the questionable small volume pleural effusions versus pleural thickening. Superimposed small airway inflammatory process cannot be excluded. Electronically signed by: Jerry Joaquin MD 10/26/2024 11:56 AM EDT
--- OUTSIDE RECORDS SUMMARY | 2024-10-26 13:15 | XMS_ITS | Patient Health Record ---
Author Organization Donal Benoit MD Address [address] [place] [phone] Care Team Providers Care Vessel Builder Name Role Phone Donal Benoit Primary Care Provider Allergies No Known Allergies Results Component Value Reference Range Notes Hemoglobin A1c Reviewed date:03/14/2024 11:24:21 AM Interpretation: Performing Lab: Notes/Report: Hemoglobin A1c 5.1 Liver Panel Reviewed date:11/12/2023 12:22:16 PM Interpretation: Performing Lab:[facility], [address] [place] [phone] Notes/Report: Bilirubin Total 0.6 0.0-1.0 mg/dL Bilirubin Direct 0.2 0.0-0.5 mg/dL Aspartate Amino Transferase 13 5-37 U/L Alanine Aminotransferase 12 0-40 U/L Total Protein 6.8 6.5-8.0 g/dL Albumin Level 4.0 3.5-5.0 g/dL Alkaline Phosphatase 109 39-117 U/L Glucose Fasting Reviewed date:11/12/2023 12:22:24 PM Interpretation: Performing Lab:[facility], [address] [place] [phone] Notes/Report: Glucose Fasting 88 60-99 mg/dL Lipid Panel with Reflex Reviewed date:11/12/2023 12:32:34 PM Interpretation: Performing Lab:[facility], [address] [place] [phone] Notes/Report: Triglycerides 74 <150 mg/dL Desirable Triglyceride: [...] A1c Reviewed date:11/12/2023 12:22:32 PM Interpretation: Performing Lab:[facility], [address] [place] [phone] Notes/Report: Hemoglobin A1c % 5.1 <6.0 % [...] average glucose, using the formula of the S9M-Dqtzpxe Average Glucose study (ADAG), Diabetes Care, Vol.31,#8, 2007 Complete Blood Count Auto Di ff Reviewed date:05/15/2024 05:18:52 PM Interpretation: Performing Lab:[facility], [address] [place] [phone] Notes/Report: White Blood Count 7.3 4.8-10.8 X10*3/uL [...] 0.0-0.2 /100WBC Neutrophils Absolute Auto 4.0 2.0-8.3 x10*3/u L Imm Gran Abs Auto 0.02 0.00-0.03 X10*3/uL Lymphocytes Absolute Auto 2.3 1.2-4.9 X10*3/u L Monocytes Absolute Auto 0.7 0.1-1.2 X10*3/uL Eosinophils Absolute Auto 0.2 0.0-0.4 X10*3/u L Basophils Absolute Auto 0.0 0.0-0.2 X10*3/uL NRBC Abs Auto 0.000 0.0-0.012 X10*3/uL Comprehensive [place]. Panel Fa st Reviewed date:05/15/2024 05:16:00 PM Interpretation: Performing Lab:[facility] [address] Notes/Report: Sodium 144 135-145 mmol/L Potassium 3.9 [...] Panel Reviewed date:05/15/2024 12:41:57 PM Interpretation: Performing Lab:[address] [address] Notes/Report: Triglycerides 86 <150 mg/dL Desirable Triglyceride: [...] (Free>4and<10) Reviewed date:05/15/2024 12:41:10 PM Interpretation: Performing Lab:[address] [address] Notes/Report: PSA,Total (Free>4and<10) 1.24 0.00-4.00 ng/mL A [...] Random Reviewed date:05/15/2024 12:41:28 PM Interpretation: Performing Lab:[address] [address] Notes/Report: Creatinine Urine 93.61 Microalbumin Urine 23.0 Microalbum/Creatinine Ratio Ur 24.5 <30 ug/mg cr Albumin/Creatinine Ratio Reference Ranges: Normal: < 30 ug/mg creatinine Microalbuminuria: 30 - 300 ug/mg creatinine Clinical Albuminuria: > 300 ug/mg creatinine Hemoglobin A1c Reviewed date:05/15/2024 12:41:03 PM Interpretation: Performing Lab:[address] [address] Notes/Report: Hemoglobin A1c % 5.2 <6.0 % [...] average glucose, using the formula of the O4F-Mxudzaq Average Glucose study (ADAG), Diabetes Care, Vol.31,#8, Sep. 2007 UA ClnCatch+Micro w/rflx Cul t Reviewed date:05/15/2024 05:19:28 PM Interpretation: Performing Lab:[address] [address] Notes/Report: Urine, Clean Catch Color Urine Yellow Appearance Urine Clear PH 6.5 5.0-9.0 Glucose Urine UA Negative Negative mg/dL Urine Blood Negative Negative Specific [place] - Urine 1.010 1.005-1.025 Urine Protein Negative [...] date:11/30/2023 11:05:27 AM Interpretation: Performing Lab: Notes/Report: [address] [address] XRay Report Signed Patient: William Fang MR#: [id number] [birth year] : 1945 Acct:[id number] Age/Sex: 78 / M ADM Date: 11/23/23 Loc: HO.XRAY Attending Dr: Donal Benoit MD Ordering Physician: Donal Benoit MD Date of Service: 11/23/23 Procedure(s): XR cervical spine 4V Accession Number(s): [id number] cc: Donal Benoit MD EXAMINATION: XR CERVICAL [...] Everardo Arias MD in OV> 11/30/23923 DD/ 114 TD/TT: 11/23/23 [address] [employer] [employer] [address] Supervisor: MIRIAM [place] [address] XRay Report Signed Patient: Basim Fang MR#: [id number] [birth year] : 1945 Acct:[id number] Age/Sex: 78 / M ADM Date: 11/23/23 Loc: HO.XRAY Attending Dr: Donal Benoit MD Ordering Physician: Donal Benoit MD Date of Service: 11/23/23 Procedure(s): XR cervical spine 4V Accession Number(s): [id number] cc: Donal Benoit MD EXAMINATION: XR CERVICAL [...] of the dens, by overlapping densities. No suspic ious findings in lung apices. X R/XR cervical spine 4V IMPRESSION: No radiographic evid ence of acute fracture in the visualized portion [...] OV> 11/30/23923 DD/ 1143 TD/TT: 11/23/23 [address] [employer] [address] Supervisor: HB Glucose, finger stick Reviewed date:03/14/2024 11:17:02 AM Interpretation: Performing Lab: Notes/Report: Value 110 Hold Gold Reviewed date:11/12/2023 12:24:59 PM Interpretation: Performing Lab:[facility], [address] [facility], [place] [address] Notes/Report: Hold Gold See Note Specimen held untested for 24 hours; Call to request Chemistry testing. XR cervical spine w flex/ext Reviewed date:12/30/2023 08:43:45 AM Interpretation:CBACK 12/28/23 Performing Lab: Notes/Report: [facility] [place] [address] XRay Report Signed Patient: William Fang MR#: [id number] [birth year] : 1945 Acct:[id number] Age/Sex: 78 / M ADM Date: 11/30/23 Loc: .HMGCX Attending Dr: Donal Benoit MD Ordering Physician: Donal Benoit MD Date of Service: 11/30/23 Procedure(s): XR cervical spine w flex/ext Accession Number(s): [id number] cc: Donal Benoit MD EXAMINATION: XR CERVICAL [...] 12/21/23 1257 DD/ 1335 TD/TT: 11/30/23 [address] [employer] [address] Supervisor: [facility] [address] [place] [address] [place] [address] XRay Report Signed Patient: Basim Fang MR#: [id number] [birth year] : 1945 Acct:[id number] Age/Sex: 78 / M ADM Date: 11/30/23 Loc: .HMGCX Attending Dr: Donal Benoit MD Ordering Physician: Donal Benoit MD Date of Service: 11/30/23 Procedure(s): XR cervical spine w flex/ext Accession Number(s): [id number] cc: Donal Benoit MD EXAMINATION: XR CERVICAL SPINE CLINICAL INFORMATION: Acute torticollis. COMPARISON: 11/23/2023. TECHNIQUE: 10 views of the cerv ical spine, inclusive of flexion and extension views, were obtained. FINDINGS: Bilateral multilevel facet arthritis. Multilevel cervical spondylosis. Mild anterior subluxation of C4 on C5 on flexion and exten donna views with moderate loss of disc space height. Minimal anterior subluxation of C5 on C6 on flexion and extension views with moderate loss o f disc space height. Marked degenerative changes with loss of disc space height at C6-C7. Limited visualizatio n of C7 due to overlying bony and soft tissue structures. Bilateral multilevel facet arthritis with neural foraminal encroachment. X R/XR cervical spine w flex/ext IMPRESSION: Advanced multilevel cervical spondylosis. Electronically donna d by: Tonia Barrett MD 12/21/2023 12:57 PM EDT Dictated By: Tonia Barrett MD Signed By: <Electronically signed by Tonia Barrett MD in OV> 12/21/23 1257 DD/ 1335 TD/TT: 11/30/23 134 [employer] [employer] [address] Supervisor: Pathology Reviewed date:01/26/2024 07:20:34 PM Interpretation: Performing Lab:[facility], [address] [place] [phone] Notes/Report: ---- Name: William Fang Age/Sex: 78/M : 1945 Unit#: [id number] Attend Dr: Moses Pérez MD Re01/24/24 Status : [facility] Location: [facility] Disch: ---- SPEC : [id number] RECD : 01/25/24 STATUS: RYANN HARTMAN NUM: [id number] JAKE: 01/24/241547 [facility] DR: Moses Pérez MD ENTERED: 01/25/24 [...] fragment, submitted in toto, in a cassette labeled A. CEDS Copies To: Donal Benoit MD [facility] [address] [place] [id number] Moses Pérez MD [place] [place] [address] ---- Signed (signature on file) Italo Galvan MD 01/26/24 1528 ---- END OF REPORT XR chest 2V Reviewed date:10/26/2024 12:37:15 PM Interpretation: Performing Lab: Notes/Report: [facility] [address] [facility] [place] [address] XRay Report Signed Patient: William Fang MR#: [id number] [birth year] : 1945 Acct:[id number] Age/Sex: 79 / M ADM Date: 10/26/24 Loc: HO.HMGCX Attending Dr: Donal Benoit MD Ordering Physician: Donal Benoit MD Date of Service: 10/26/24 Procedure(s): XR chest 2V Accession Number(s): [id number] cc: Donal Benoit MD Reason for Exam: J18.9 PNA EXAMINATION: XR CHEST CLINICAL INFORMATION: J18.9 PNA COMPARISON: September 27, 2024. TECHNIQUE: 2 views of the chest were obtained. FINDINGS: Hyperinflated lungs. Pulmonary reticular pattern. Haziness in both lower hemithorax is best seen on the lateral projection. No gross consolidation. No pneumothorax. Cardiomediastinal silhouette size is normal. Calcified plaque thoracic aorta. Multilevel thoracolumbar spondylosis, moderate to severe. Degenerative changes in the acromioclavicular joints.. XR/XR chest 2V IMPRESSION: COPD emphysematous type changes with the questionable small volume pleural effusions versus pleural thickening. Superimposed small airway inflammatory process cannot be excluded. Electronically signed by: Jerry Joaquin MD 10/26/2024 11:56 AM EDT RP Dictated By: Jerry Degroot MD Signed By: <Electronically signed by Jerry Bauer MD in OV> 10/26/24 1156 DD/ 1138 TD/TT: 10/26/24 [address] [employer] [address] Supervisor: [facility] [address] [place] [address] Dr. [place], [place] [address] XRay Report Signed Patient: Basim Fang MR#: [id number] [birth year] : 1945 Acct:[id number] Age/Sex: 79 / M ADM Date: 10/26/24 Loc: .HMGCX Attending Dr: Donal Benoit MD Ordering Physician: Donal Benoit MD Date of Service: 10/26/24 Procedure(s): XR shy st 2V Accession Number(s): [id number] cc: Donal Benoit MD Reason for Exam: J18 .9 PNA EXAMINATION: XR CHEST CLINICAL INFORMATION: J18.9 PNA COMPARISON: September 27, 2024. TECHNIQUE: 2 views of the chest were obtained. FINDINGS: Hyperinflated lungs. Pulmonary reticular pattern. Haziness in both low er hemithorax is best seen on the lateral projection. No gross consolidation. No pneumothorax. Cardiomediastinal silhouette size is normal. Calcified plaque thoracic aorta. Multilevel thoracolu mbar spondylosis, moderate to severe. Degenerative changes in the acromioclavicular joints.. X R/XR chest 2V IMPRESSION: COPD emphysematous t ype changes with the questionable small volume pleural effusions ve rsus pleural thickening. Superimposed small airway inflammatory process cannot be excluded. Electronically donna d by: Jerry Joaquin MD 10/26/2024 11:56 AM EDT RP Dictated By: Jerry Chavis MD Signed By: <Electronically signed by Jerry Bauer MD in OV> 10/26/24 1156 DD/ 1138 TD/TT: 10/26/24 [address] [employer] [employer] [address] Supervisor: Reason For Referral Reason TORTICOLLIS Diagnosis 1 Torticollis, acute ( M43.6) Referral Organization Donal Benoit MD Referring Provider First Name Donal Referring Provider Last Name Cy Referring Provider Speciality Internal edicine Referred Provider [facility] Referred Provider Specialty Physical The rapist [...] Referring Provider Speciality Internal edicine Referred Provider [facility] Maritza Khan, [...] Date 01/26/2024 Reason neck pain please [place] and treat for physical therapy Diagnosis 1 Neck pain (M54.2) Referral Organization Donal Benoit MD Referring Provider First Name Donal Referring Provider Last Name Cy Referring Provider Speciality Internal edicine Referred Provider [facility] Maritza Khan, [...] PM >REFERRAL MADE AND FAXED TO UROLOGY, Karen Meyeryogesh Barbour 09/11/2024 12:00:43 PM >APPT SCHEDULED FOR 10/24/[address] ESPINOSA . PATIENT IS AWARE, Geni Meyer 10/02/2024 09:37:16 AM >APPT MOVED TO 10/02 AND OFFICE NOTE RECD Referral Priority Routine Referral Appointment Date 10/02/2024 Medications Medication SIG (Take, Route, Frequency, Duration) Notes Start Date End Date Status Atorvastatin Calcium 80 MG TAKE 1 TABLET BY MOUTH EVERY DAY for 90 Not-Taking Sertraline HCl 50 MG 1 tablet Orally Onc e a day Active Eliquis 5 MG as directed Orally b id for 30 days Not-Taking Albuterol Sulfate HFA 108 (90 Base) MCG/ACT INHALE 2 PUFFS BY MOUTH EVERY 6 HOURS NEEDED 17 Active Carbidopa-Levodopa 10-100 MG 1 tablet Orally 4 times a day Active Wixela Inhub 250-50 MCG/ACT INHALE 1 PUFF EVERY 12 HOURS BY MOUTH 90 Active Zinc 50 MG 1 tablet Orally Once a day Active Meclizine HCl 12.5 MG 1 tablet as needed Orally twice a day for 7 days 12/12/2019 Not-Taking Omeprazole 20 MG TAKE 1 CAPSULE BY [facility] EVERY DAY Active Ibuprofen 800 MG 1 tablet Orally Thre e times a day for 90 Not-Taking Ventolin HFA * 108 (90 Base) MCG/ACT 2 puffs as needed Inhalation every 4 hrs for 30 day(s) 05/22/2011 Not-Taking Aleve 220 MG 1 tablet with food o r milk as needed Orally every 12 hrs Active Ipratropium-Albuterol 0.5-2.5 (3) MG/3ML 3 ml Inhalation Four times a day as needed for 30 days 12/12/2018 Not-Taking Immunizations Vaccine Route Administration Date Status [...] to harlan t Additional Findings: Tobacco User Curren t cigarette smoker, not currently using another [...] W/U Status Risk Notes Problem Erectile dysfunction (002653131) Erectile Dysfunction (607.84) Active confirmed Problem 106258519 Thrombocytopenia (D69.6) Active confirmed Problem 04094198 Prostatism (N40.0) Active confirmed Problem 198928906 Essential tremor (G25.0) Active confirmed Problem 5929066 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) Active confirmed Problem 543201424 Lumbar disc dise ase (M51.9) Active confirmed Problem 199555931 Gastroesophageal reflux disease without esophagitis (K21.9) Active confirmed Problem 5515490 Prediabetes (R73.09) Active confirmed Problem 995296836 Lung nodule (R91.1) Active confirmed Problem 571927158 Atherosclerosis of [place] coronary artery of [place] heart without angina pectoris (I25.10) Active confirmed Problem 039497608 Cervical disc di sease (M50.90) Active confirmed Problem 29311344 Current smoker (F17.200) Active confirmed Problem 768874475 Acquired spondylolisthesis (M43.10) Active confirmed Problem Chronic obstructive pulmonary disease with acute lower respiratory infection (431012274) COPD (chronic obstructive pulmonary disease) with acute bronchitis (J44.0) Active confirmed Problem 69824531 Sciatica of righ t side (M54.31) Active confirmed Problem 779671445 Pure hypercholesterolemia (E78.00) Active confirmed Problem 011299053 COPD with acute exacerbation (J44.1) Active confirmed Problem 981508998 Adenomatous poly p of colon, unspecified part of colon (D12.6) Active confirmed Problem 77279939 Esophageal dysph agia (R13.10) Active confirmed Problem 06039581080978515 AYESHA (acute kid ruben injury) (N17.9) Active confirmed Problem 03563121022266717 Brachial arter y aneurysm, 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 Problem 96836701 Multiple subsegm ental pulmonary emboli without acute cor pulmonale (I26.94) Active confirmed Problem 277324102 Cervical arthrit is (M47.812) Active confirmed Problem 623105702 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) Active confirmed Problem 18581499 Retropulsion (R26.89) Active confirmed Problem Parkinson's dise ase with dyskinesia, unspecified whether manifestations fluctuate (G20.B1) Active confirmed Vital Signs Blood pressure diastolic 74 mm Hg 10/12/2024 Height 66 in 10/12/2024 Blood pressure systolic 170 mm Hg 10/12/2024 Weight 172 lbs 10/12/2024 BMI 27.76 kg/m2 10/12/2024 Procedures Procedure Date Ordered Date Performed Result Body Sit e Colonoscopy, Screening 01/31/2024 01/31/2024 No fu rther colonoscopy's needed Encounters Encounter Location Date Provider Diagnosis Donal Benoit MD [address] [place] [id number] 11/12/2023 Donal Benoit Prediabetes R73.09 ; Encounter for immunization Z23 and Pure hypercholesterolemia E78.00 Donal Benoit MD [address] [place] [address] [id number] 05/15/2024 Donal Benoit Blood tests for rout ine general physical examination Z00.00 ; Pure hypercholesterolemia E78.00 ; Prediabetes R73.09 ; Thrombocytopenia D69.6 and Prostatism N40.0 Donal Benoit MD [address] [place] [address] [id number] 11/18/2023 Donalcharlie Mooreardier Torticollis, acute M 43.6 ; Parkinson's disease with dyskinesia, unspecified whether manifestations fluctuate G20.B1 and Prostatism N40.0 Donal Benoit MD [address] [place] [address] [id number] 11/23/2023 Donalcharlie Mooreardier Torticollis, acute M 43.6 Donal Benoit MD [address] [place] [address] [id number] 11/29/2023 Donal Bombardier Torticollis, acute M 43.6 Donal Benoit MD [address] [place] [address] [id number] 12/03/2023 Donal Bombardier Cervical arthritis M 47.812 Donal Benoit MD [address] [place] [address] [id number] 12/28/2023 Donal Bombardier Muscle spasm of back M62.830 Donal Benoit MD [address] [place] [address] [id number] 01/13/2024 Donal Bombardier Muscle spasm of back M62.830 ; Primary parkinsonism G20.C ; Prediabetes R73.09 and Pure hypercholesterolemia E78.00 Donal Benoit MD [address] [place] [address] [id number] 03/14/2024 Donal Benoit Prediabetes R73.09 ; Atherosclerosis of [place] coronary artery of [place] heart without angina pectoris I25.10 ; Current smoker F17.200 and Panlobular emphysema J43.1 Donal Benoit MD [address] [place] [address] [id number] 05/22/2024 Donal Benoit Pure hypercholestero lemia E78.00 ; Annual physical exam Z00.00 ; Current smoker F17.200 ; Parkinson disease, symptomatic G20.A1 ; Gastroesophageal reflux disease without esophagitis K21.9 ; Prediabetes R73.09 ; Panlobular emphysema J43.1 and Prostatism N40.0 Donal Benoit MD [address] [place] [address] [id number] 05/30/2024 Donal Benoit Headache, unspecifie d R51.9 and Family history of aneurysm Z82.49 Donal Benoit MD [address] [place] [address] [id number] 06/23/2024 Donal Benoit Panlobular emphysema J43.1 ; Parkinson's disease with dyskinesia, unspecified whether manifestations fluctuate G20.B1 and Prostatism N40.0 Donal Benoit MD [address] [place] [address] [id number] 08/15/2024 Donal Benoit COPD (chronic obstru ctive pulmonary disease) with acute bronchitis J44.0 Donal Benoit MD [address] [place] [address] [id number] 09/08/2024 Donal Benoit Prostatism N40.0 and Panlobular emphysema J43.1 Donal Benoit MD [address] [place] [address] [id number] 10/12/2024 Donal Benoit Pneumonia J18.9 and Seborrheic keratoses L82.1 Donal Benoit MD [address] [place] [address] [id number] 11/30/2023 Donal Benoit Torticollis, acute M 43.6 Donal Benoit MD [address] [place] [address] [id number] 11/30/2023 Donal Benoit MD [address] [place] [address] [id number] 12/14/2023 Donal Benoit MD [address] [place] [address] [id number] 04/20/2024 Donal Benoit MD [address] [place] [address] [id number] 10/02/2024 Donal Benoit Assessments Encounter Date Diagnosis (ICD [...] medication at this time 03/14/2024 Atherosclerosis of [place] coronary artery of [place] heart without angina pectoris (ICD-10 - I25.10) [...] directions for use, referral to urology in [place],. REFERRAL MADE AND FAXED TO UROLOGY, PATIENT AWARE. 10/12/2024 Pneumonia (ICD-10 - J18.9) order given to patient , pending diagnostic testing 10/12/2024 Seborrheic keratoses (ICD-10 - L82.1) no treatment 11/12/2023 Pure hypercholesterolemia (ICD-10 - E78.00) 05/15/2024 [...] con 01/10/2022 CT CHEST NO CONTRAST 01/04/2023 XR CHEST 2 VIEW PA & LAT 10/26/2024 Next Appt Details Provider Name:Donal martinez, 11/13/2024 07:15:00 AM, [address] [place] [address], [address], [place], [place], [phone], Provider Name:Donal martinez, 11/20/2024 01:45:00 PM, [address] [place] [address], [address], [place], [place], [phone], Provider Name:Donal martinez, 04/23/2025 07:30:00 AM, [address], [address], [place], [place], [phone], Provider Name:Donal de leonr, 05/24/2025 01:00:00 PM, [address], [address], [place], [phone], Insurance Providers Payer Name Payer Address Payer Phone Subscriber Number Group Number Insured Name Patient Relationship to Insured Coverage Start Date Coverage End Date [facility] [address] [place], [place] [id number] [phone] [id number] William Fang Self - patient is the insured Medical (General) History Medical History History ICD Code supraclavicular node on lt 2010 colonoscopy 07/24/2011 due in 3 years; colonoscopy done 09/06/14 w/Dr Hall - repeat 5 years(2019) yearly chest ct. discussed 2020 colonoscopy done 06/14/20 due 3 yrs with Rafael
--- OUTSIDE RECORDS SUMMARY | 2024-10-26 13:15 | XMS_ITS | Patient Health Record ---
Author Organization [facility] Address [address] [place] [address] Care Team Providers Care Civil Transportation Engineer Name Role Phone Donal Benoit MD Primary Care Provider Moses Porter Unavailable [phone] Allergies No Known Allergies Results Component Value Reference Range Notes Pathology (Not yet reviewed by provider) Interpretation: Performing Lab:[facility], [address] [place] [phone] Notes/Report: Reason For Referral No Information Medications Medication SIG (Take, Route, Frequency, Duration) [...] Carbidopa-Levodopa 25-100 MG Oral for 90 Active Social History Tobacco Use: Social History Observation Description Date Details (start date - stop date) Current Smoker NA - NA Tobacco Use/Smoking Question Answer Notes Patient is [...] point) Points 4 Interpretation Positive Section Notes: Smokes approx 1/2 ppd; 2 bee rs QD Problems Problem Type SNOMED Code ICD Code Onset Dates Problem Status W/U Status Risk Notes Problem Colon cancer screening (834077666) Colon cancer screening (Z12.11) Active confirmed Problem Screening for malignant neoplasm of colon (888898391) Encounter for screening for malignant neoplasm of colon (Z12.11) Active confirmed Problem Pre-procedure evaluation check (877432395) Encounter for other preprocedural examination (Z01.818) Active confirmed Problem Diverticular disease of colon (387640998) Diverticulosis of large intestine without perforation or abscess without bleeding (K57.30) Active confirmed Problem History of polyp of colon (873834387) History of colon polyps (Z86.010) Active confirmed Encounters Encounter Location Date Provider Diagnosis [facility] [place] Outpatient [address] [place], [place] [phone] 01/24/2024 Moses Pérez Colon cancer screeni ng Z12.11 ; Colon polyps K63.5 ; Diverticulosis of large intestine without perforation or abscess without bleeding K57.30 and Other hemorrhoids K64.8 [facility] [address] [place] [address] 01/07/2024 Moses Pérez Assessments Encounter Date Diagnosis (ICD Code) Assessment Notes Treatment Notes Treatment Clinical Notes Section Notes 01/24/2024 Colon cancer screening (ICD-10 - Z12.11) 01/24/2024 Colon polyps (ICD-10 - K63.5) 01/24/2024 Diverticulosis of large intestine without perforation or abscess without bleeding (ICD-10 - K57.30) 01/24/2024 Other hemorrhoids (ICD-10 - K64.8) Plan Of Treatment Pending Test Test Name Order Date Pathology 01/24/2024 Future Test Test Name Order Date COLONOSCOPY 10/06/2023 Insurance Providers Payer Name Payer Address Payer Phone Subscriber Number Group Number Insured Name Patient Relationship to Insured Coverage Start Date Coverage End Date [facility] [address] [place] [address] [id number] FLAQUITO BURLESON Self - patient is the insured Medical (General) History Medical History History ICD Code Hypercholesterolemia COPD Parkinson's disease GERD Colon polyps with previous c olonoscopies in [place]--last one in 2019 Denies OK,DM,CVA,renal disease Surgical History Surgery Date(Month/Year) 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 Gonzales--didnot require a colostomy Back surgery x 1 for 3 ruptured discs 19 46
== END 2024-10-26 11:33 | disposition home or self-care (01) ==
LOC: HO.HMGCX 11:32
PROVIDERS: PCP Internal Medicine; Visit Provider Internal Medicine
DX: J18.9 Pneumonia, unspecified organism (principal)
CPT/HCPCS: 71046

== ENCOUNTER → 2024-10-26 11:38 | Outpatient (BNV) | payer BC, SELFPAY | PROVIDERS: PCP Internal Medicine; Visit Provider Radiology Diagnostic Radiology | DX: J43.9 Emphysema, unspecified (principal) | CPT/HCPCS: 71046 ==

== ENCOUNTER 2024-11-13 11:51 | Outpatient (REF) | payer BC, SELFPAY ==
--- OUTSIDE RECORDS SUMMARY | 2024-01-17 07:40 | XMS_ITS ---
Demographics Address [address] [place] [address] [address] [place] [address] Mobile Preferred Language en Marital Status Anabaptism Affiliation Unknown Race White Ethnic Group Unknown Author Organization [facility] Address [address] [place] [address] Care Team Providers Care Torch Shearer Name Role Phone Cy SIMMS, Donal Primary Care Provider Moses Porter [phone] REASON FOR VISIT screening,hx polyps Encounters Encounter Location Date Provider Diagnosis [facility] [place] Out[place] [address] [place], [place] [phone] 01/17/2024 Moses Pérez Plan Of Treatment No Information Progress Notes * FLAQUITO BURLESON CDOB: 6 (79 yo M)Acc No.[id number]:01/17/2024 COLON WITH MAC Patient: FLAQUITO GREER Provider: Tabitha Pérez MD :1945 A ge:78 Y S ex:Male Date:01/17/2024 Address:[address] [place] [address] [address] , [place] [id number] Pcp:Donal Benoit MD Subjective: * Chief Complaints: * 1 . Screening,hx polyps. * Medical History: Objective: * Vitals: Assessment: Plan: * Treatment: * * The named appointment provid er may or may not be the originator of this progress note, and it is not deemed complete until electronically signed by the appointment provider. Sign off status: Pending * Provider: Tabitha Pérez MD Date: 03/18/2023 Generated for Beulahi ng/Fadallasg/eTransmitting on: 0 11/13/2024 02:34 PM EDT
--- OUTSIDE RECORDS SUMMARY | 2024-01-24 10:30 | XMS_ITS ---
Author Organization [facility] Address [address] [place] [address] Care Team Providers Care Grounds And Nursery Specialist Name Role Phone Donal Benoit MD Primary Care Provider Moses Porter Unavailable [phone] REASON FOR VISIT screening,hx polys Problems Problem Type SNOMED Code ICD Code Onset Dates Problem Status W/U Status Risk Notes Problem Diverticular disease of colon (604365949) Diverticulosis of large intestine without perforation or abscess without bleeding (K57.30) Active confirmed Encounters Encounter Location Date Provider Diagnosis [facility] [place] [address] [place] [address] [id number] 01/24/2024 Moses Pérez Colon cancer scree marion Z12.11 ; Colon polyps K63.5 ; Diverticulosis of large intestine without perforation or abscess without bleeding K57.30 and Other hemorrhoids K64.8 Assessments Encounter Date Diagnosis (ICD Code) Assessment Notes Treatment Notes Treatment Clinical Notes Section Notes 01/24/2024 Colon cancer screening (ICD-10 - Z12.11) 01/24/2024 Colon polyps (ICD-10 - K63.5) 01/24/2024 Diverticulosis of large intestine without perforation or abscess without bleeding (ICD-10 - K57.30) 01/24/2024 Other hemorrhoids (ICD-10 - K64.8) Plan Of Treatment No Information Progress Notes * FLAQUITO BURLESON CDOB: 6 (79 yo M)Acc No.[id number]:01/24/2024 COLON WITH MAC Patient: FLAQUITO GREER Provider: Tabitha Pérez MD :1945 A ge:78 Y S ex:Male Date:01/24/2024 Address:[address] [place] [address] Paige , At[address] [id number] Pcp:Donal Benoit MD Subjective: * Chief Complaints: * 1 . Screening,hx polys. * Medical History: Objective: * Vitals: Assessment: * Assessment: 1. C olon cancer screening - Z12.11 (Primary) 2 . C olon polyps - K63.5? 3. D iverticulosis of large intestine without perforation or abscess without bleeding - K57.30 4 . O ther hemorrhoids - K64.8 Plan: * Treatment: * Procedure Codes: 4 5385 LESION REMOVAL COLONOSCOPY, Modifiers: PT * * The named appointment provid er may or may not be the originator of this progress note, and it is not deemed complete until electronically signed by the appointment provider. Sign off status: Pending * Provider: Tabitha Pérez MD Date: 1 03/26/2023 Generated for Reed briceno/Naeem/Aichaitting on: 0 11/13/2024 02:34 PM EDT
--- OUTSIDE RECORDS SUMMARY | 2024-08-15 11:15 | XMS_ITS ---
Author Organization Donal Benoit MD Address [address] [place] [phone] Care Team Providers Care Probation Agent Name Role Phone Donal Benoit Primary Care Provider [phone] Allergies No Known Allergies REASON FOR VISIT cough temp 100 x 5 days tested negative for Covid this AM, Video [phone] Medications Medication SIG (Take, Route, Frequency, Duration) [...] pulmonary disease with acute lower respiratory infection (822280395) COPD (chronic obstructive pulmonary disease) with acute bronchitis (J44.0) Active confirmed Encounters Encounter Location Date Provider Diagnosis Donal Benoit MD [address] [place] [address] [place] [phone] 08/15/2024 Donal Benoit COPD (chronic obstructive pulmonary [...] for use Next Appt Details Provider Name:Donal martinez, 11/20/2024 01:45:00 PM, [address] [place] [address], [place] [address], [place], [place], [phone], Provider Name:Donal martinez, 04/23/2025 07:30:00 AM, [address] [place] [address], [address], [phone], Provider Name:Donal de leonr, 05/24/2025 01:00:00 PM, [address] [place] [address], Suite [facility], [place], [place], [phone], Progress Notes * William FANG CDOB: 6 (78 yo M)Acc No.[id number]:08/15/2024 Patient: William GREER Provider: Adan Benoit MD :1945 A ge:78 Y S ex:Male Date:08/15/2024 Address:[address] [place] [address], [address], [id number] Subjective: * Chief Complaints: * c ough temp 100 x 5 days tested negative for Covid this AMVideo [phone] * HPI: S ymptom(s): Telehealth L ocation of provider rendering services: [address] [facility], [address], L ocation of patient: a t address listed in demographics for today's visit, P atient identification confirmed using: KRYSTA Alejandra ame, T elehealth method: V ideo conference where patient is visible to the provider of care, C onsent: P atient verbally consented to treatment, Patient verbally consented to billing insurance company, Patient informed of any privacy concerns related to method of visit, T mei time spend talking with patient (minutes) 1 [...] heezing. G astrointestinal: Denies D iarrhea. D enjavier N ausea. * Medical History: * Surgical [...] MD Date: 0 08/15/2024 Generated for Reed briceno/Naeem/Geo on: 11/13/2024 02:34 PM EDT History and Physical Notes * HPI (History of Present Illness) Category Sub-Category Detail Notes Category Not es Symptom(s) Telehealth Location of [facility] ider rendering services:: [address], [address] [...]
--- OUTSIDE RECORDS SUMMARY | 2024-09-08 10:15 | XMS_ITS ---
Author Organization Donal Benoit MD Address [address] [place] [phone] Care Team Providers Care Coverer Name Role Phone Donal Benoit Primary Care Provider Allergies No Known Allergies Reason For Referral [...] Omeprazole 20 MG TAKE 1 CAPSULE BY [facility] EVERY DAY Active Zinc 50 MG 1 [...] weight is down 10 pounds sin ce 5-2- Encounters Encounter Location Date Provider Diagnosis Donal Benoit MD [address] [place] [address] [place] [phone] 09/08/2024 Donal Benoit Prostatism N40.0 and Panlobular emphysema J43.1 Assessments Encounter Date Diagnosis (ICD Code) Assessment Notes Treatment Notes Treatment Clinical Notes Section Notes 09/08/2024 Prostatism (ICD-10 - N40.0) patient verbalized understanding of medication and directions for use, referral to urology in [place],. REFERRAL MADE AND FAXED TO UROLOGY, PATIENT [...] directions for use, referral to urology in [place],. REFERRAL MADE AND FAXED TO UROLOGY, PATIENT AWARE. Panlobular emphysema having to use inhal er frequently with this hot weather, will contiue current regiment Referrals Referral Date Details 09/08/2024 09/08/2024, PROSTATI Shiva MCFARLANE Next Appt Details Provider Name:Donal martinez, 11/20/2024 01:45:00 PM, [address] [place] [address], [address] [place] [address], [phone], Provider Name:Donal martinez, 04/23/2025 07:30:00 AM, [address] [place] [address], Suite [facility], [place], [place], [phone], Provider Name:Donal martinez, 05/24/2025 01:00:00 PM, [address] [place] [address], Suite [facility], [place], [place], [phone], Progress Notes * William FANG CDOB: 6 (79 yo M)Acc No.[id number]:09/08/2024 Progress Notes Patient: William GREER Provider: Adan Benoit MD :1945 A ge:78 Y S ex:Male Date:09/08/2024 Address:[address] [place] [address], [address], [place], [id number] Subjective: * Chief Complaints: * D ISCUSS [...] Date: 09/08/2024 Generated for Reed briceno/Naeem/eTransmitting on: 11/13/2024 02:34 PM EDT History and [...] Provider Referred Provider Not es 09/08/2024 Donal Benoit William PROSTAT ISM
--- OUTSIDE RECORDS SUMMARY | 2024-10-02 06:05 | XMS_ITS ---
Author Organization Donal Benoit MD Address [address] [place] [phone] Care Team Providers Care Rubber Trimmer Name Role Phone Donal Benoit Primary Care Provider REASON FOR VISIT discharge Social History Sex Assigned At : Social History Observation Description Sex Assigned At Male Encounters Encounter Location Date Provider Diagnosis Donal Benoit MD [address] [place] [phone] 10/02/2024 Donal Benoit Plan Of Treatment Next Appt Details Provider Name:Donal martinez, 11/20/2024 01:45:00 PM, [address], [address], [place], [place], [phone], Provider Name:Donal Montoya ier, 04/23/2025 07:30:00 AM, [address], [address], [place], [phone], Provider Name:Donal Montoya ier, 05/24/2025 01:00:00 PM, [address] [facility], [address], [place], [phone], Progress Notes * William FANG CDOB: 6 (79 yo M)Acc No.[id number]:10/02/2024 Patient: Maribell ISAK William Vega :1945 A ge:79 Y S ex:Male Address:[address] [place] [address], [place] [address], [place] [address] * true * Date: Generated for Reed briceno/Naeem/eTnikitasmitting on: 0 11/13/2024 02:34 PM EDT
--- OUTSIDE RECORDS SUMMARY | 2024-10-12 07:30 | XMS_ITS ---
Author Organization Donal Benoit MD Address [address] [place] [phone] Care Team Providers Care Vice President Of Human Resources Name Role Phone Donal Benoit Primary Care Provider Allergies No Known Allergies REASON FOR VISIT Pneumonia Medications Medication SIG (Take, Route, Frequency, Duration) Notes Start Date End Date Status Meclizine HCl 12.5 MG 1 tablet as needed Orally twice a day for 7 days 12/12/2019 Not-Taking Ibuprofen 800 MG 1 tablet Orally Thre e times a day for 90 Not-Taking Ventolin HFA * 108 (90 Base) MCG/ACT 2 puffs as needed Inhalation every 4 hrs for 30 day(s) 05/22/2011 Not-Taking Ipratropium-Albuterol 0.5-2.5 (3) MG/3ML 3 ml Inhalation Four times a day as needed for 30 days 12/12/2018 Not-Taking Atorvastatin Calcium 80 MG TAKE 1 TABLET BY MOUTH EVERY DAY for 90 Not-Taking Albuterol Sulfate HFA 108 (90 Base) MCG/ACT INHALE 2 PUFFS BY MOUTH EVERY 6 HOURS NEEDED 17 Active Wixela Inhub 250-50 MCG/ACT INHALE 1 PUFF EVERY 12 HOURS BY MOUTH 90 Active Eliquis 5 MG as directed Orally b id for 30 days Not-Taking Carbidopa-Levodopa 10-100 MG 1 tablet Orally 4 times a day Active Zinc 50 MG 1 tablet Orally Once a day Active Omeprazole 20 MG TAKE 1 CAPSULE BY MO UTH EVERY DAY Active Aleve 220 MG 1 tablet with food o r milk as needed Orally every 12 hrs Active Sertraline HCl 50 MG 1 tablet Orally Onc e a day Active Social History Sex Assigned At : Social History Observation Description Sex Assigned At Male Vital Signs Blood pressure systolic 170 mm Hg 10/13/19 25 Blood pressure diastolic 74 mm Hg 025 Height 66 in 10/12/2024 Weight 172 lbs 10/12/2024 BMI 27.76 kg/m2 10/12/2024 Encounters Encounter Location Date Provider Diagnosis Donal Benoit MD [address] [place] [address] Drive [address] [place] [phone] 10/12/2024 Donal Benoit Pneumonia J18.9 and Seborrheic keratoses L82.1 Assessments Encounter Date Diagnosis (ICD Code) Assessment Notes Treatment Notes Treatment Clinical Notes Section Notes 10/12/2024 Pneumonia (ICD-10 - J18.9) order given to patient , pending diagnostic testing 10/12/2024 Seborrheic keratoses (ICD-10 - L82.1) no treatment Plan Of Treatment Treatment Notes Assessment Notes Pneumonia order given to patie nt , pending diagnostic testing Seborrheic keratoses no treatment Future Test Test Name Order Date XR CHEST 2 VIEW PA & LAT 10/26/2024 Next Appt Details Provider Name:Donal martinez, 11/20/2024 01:45:00 PM, [address] [place] [address] Drive, [address], [place], [place], [phone], Provider Name:Donal Montoya ier, 04/23/2025 07:30:00 AM, [address], [address], [place], [place], [phone], Provider Name:Donal Montoya ier, 05/24/2025 01:00:00 PM, [address], [address], [place], [place], [phone], Progress Notes * William FANG CDOB: 6 (79 yo M)Acc No.[id number]:10/12/2024 Progress Notes Patient: William GREER Provider: Adan Benoit MD :1945 A ge:79 Y S ex:Male Date:10/12/2024 Address:[address] [place] [address], [facility], [id number] Subjective: * Chief Complaints: * P neumonia * HPI: S ymptom(s): patient is a 79 yo male here for follow up visit pneumonia/ had double pneumonia both lungs.still short of breath. * ROS: G eneral/Constitutional: Denies C hills. D enies F atigue. D enies F ever. D enies H eadache. E NT: Denies S ore throat. R espiratory: Admits C ough. A dmits S hortness of breath with exertion. A dmits S putum production. G astrointestinal: Denies D iarrhea. D enies [...] MOUTH EVERY 6 HOURS NEEDED 17 Taking Sertraline HCl 50 MG Tablet 1 [...] BY MOUTH EVERY 6 HOURS NEEDED 17 Not-Taking/PRNEliquis 5 MG Tablet as directed Orally [...] 1 tablet Orally Three times a day DiscontinuedpredniSONE 10 MG Tablet 1 tablet with food or milk Orally 4 tabs for 3 days,3tabs for 3 days, 2 tabs for 3 days, and 1 tab for 3 days Finasteride 5 MG Tablet 1 tablet Orally Once a day Medication List reviewed and reconciled with the patientDiscontinued predniSONE 10 MG Tablet 1 tablet with food or milk Orally 4 tabs for 3 days,3tabs for 3 days, 2 tabs for 3 days, and 1 tab for 3 days Discontinued Finasteride 5 MG Tablet 1 tablet Orally Once a day Medication List reviewed and reconciled with the patient * Allergies: N .K.D.A.yes[Allergies Verified] Objective: * Vitals: H t: 66, Wt: 172, BMI:27.76, BP:170/74, Repeat BP:120/60, Wt-k.02. * Examination: G eneral Examination: GENERAL APPEARANCE: a lert, well hydrated, in no distress.? HEAD: n ormocephalic. SKIN: m ultiple lesions consistent with seborrheic keratosis. HEART: n o murmurs, rubs, gallops, regular rate and rhythm.? LUNGS: n o wheezes, abnormal with ralses in lower lobes, , rhonchi, good air movement, clear to auscultation bilaterally . Assessment: * Assessment: 1. P neumonia - J18.9 (Primary) 2 . S eborrheic keratoses - L82.1 ? Plan: * Treatment: 2. S eborrheic keratoses Notes: no treatment * Procedure Codes: * * Sign off status: Completed true * Provider: Adan Benoit MD Date: 0 10/12/2024 Generated for Reed briceno/Naeem/Aichaitting on: 0 11/13/2024 02:34 PM EDT History and Physical Notes * HPI (History of Present Illness) Category Sub-Category Detail Notes Category Not es Symptom(s) patient is a 79 yo male here for follow up visit pneumonia/ had double pneumonia both lungs.still short of breath Examination Category Sub-Category Detail Notes Category Not es General Examination GENERAL APPEARANCE: alert, w ell hydrated, in no distress HEAD: normocephalic HEART: no murmurs, rubs, ga llops, regular rate and rhythm LUNGS: no wheezes, abnormal with ralses in lower lobes, , rhonchi, good air movement, clear to auscultation bilaterally SKIN: multiple lesions con sistent with seborrheic keratosis
--- OUTSIDE RECORDS SUMMARY | 2024-11-13 03:15 | XMS_ITS ---
Author Organization Donal Benoit MD Address [address] [place] [phone] Care Team Providers Care Plastic Fabricator Name Role Phone Donal Benoit Primary Care Provider Results Component Value Reference Range Notes Lipid Panel with Reflex Reviewed date:11/13/2024 12:30:41 PM Interpretation: Performing Lab:[facility], [address] [place] [phone] Notes/Report: Triglycerides 65 <150 mg/dL Desirable Triglyceride: less than 150 mg/dL Borderline High Triglyceride 150-199 mg/dL High Triglyceride: 200-499 mg/dL Very High Triglyceride: greater than or equal to 5OO mg/dL Cholesterol 192 <200 mg/dL Desirable Cholesterol: less than 200 mg/dL Borderline High Cholesterol: 200-239 mg/dL High Cholesterol: greater than 239 mg/dL LDL Cholesterol Calculated 124 <100 mg/dL Desirable LDL: less than 100 mg/dL Near Optimal/Above Optimal LDL: 110-129 mg/dL Borderline High LDL: 130-159 mg/dL High LDL: 160-189 mg/dL Very High LDL: greater than or equal to 190 mg/dL HDL Cholesterol 55 >40 mg/dL Desirable HDL: greater than 40 mg/dL Note: This HDL assay may give artificially low results in patients with liver disease. REASON FOR VISIT fasting lipids Social History Sex Assigned At : Social History Observation Description Sex Assigned At Male Encounters Encounter Location Date Provider Diagnosis Donal Benoit MD [address] [place] [phone] 11/13/2024 Donal Benoit Pure hypercholestero lemia E78.00 Assessments Encounter Date Diagnosis (ICD Code) Assessment Notes Treatment Notes Treatment Clinical Notes Section Notes 11/13/2024 Pure hypercholesterolemia (ICD-10 - E78.00) Plan Of Treatment Next Appt Details Provider Name:Donal martinez, 11/20/2024 01:45:00 PM, [address] [place] [address], [address], [phone], Provider Name:Donal martinez, 04/23/2025 07:30:00 AM, [address] [place] [address], [address], [phone], Provider Name:Donal martinez, 05/24/2025 01:00:00 PM, [address] [place] [address], [address], [phone], Progress Notes * BENJY William CDOB: 6 (79 yo M)Acc No.[id number]:11/13/2024 Progress Note Patient: William GREER Provider: Adan Benoit MD :1945 A ge:79 Y S ex:Male Date:11/13/2024 Address:[address] [place] [address], [address], [phone] Subjective: * Chief Complaints: * 1 . Fasting lipids. * Medical History: Objective: * Vitals: Assessment: * Assessment: 1. P ure hypercholesterolemia - E78.00 (Primary) Plan: * Treatment: * Procedure Codes: 3 6415 VENIPUNCT, ROUTINE* * * The named appointment provid er may or may not be the originator of this progress note, and it is not deemed complete until electronically signed by the appointment provider. Sign off status: Pending * Provider: Adan Benoit MD Date: 11/13/2024 Generated for Reed briceno/Naeem/Aichaitting on: 11/13/2024 02:35 PM EDT
[2024-11-13 12:16] LABS: Cholesterol 192 mg/dL (<200); HDL Cholesterol 55 mg/dL (>40); Triglycerides 65 mg/dL (<150)
[2024-11-13 12:25] LABS: Reflex LDLD? No
--- OUTSIDE RECORDS SUMMARY | 2024-11-13 14:34 | XMS_ITS | Patient Health Record ---
Author Organization Donal Benoit MD Address [address] [place] [phone] Care Team Providers Care Pediatrician Active Practice Name Role Phone Donal Benoit Primary Care Provider [phone] Allergies No Known Allergies Results Component Value Reference Range Notes Hemoglobin A1c Reviewed date:03/14/2024 11:24:21 AM Interpretation: Performing Lab: Notes/Report: Hemoglobin A1c 5.1 Complete Blood Count Auto Di ff Reviewed date:05/15/2024 05:18:52 PM Interpretation: Performing Lab:[facility], [address] [place] [phone] Notes/Report: White Blood Count 7.3 4.8-10.8 X10*3/uL [...] NRBC Abs Auto 0.000 0.0-0.012 X10*3/uL Comprehensive [place]. Panel Fa st Reviewed date:05/15/2024 05:16:00 PM Interpretation: Performing Lab:[facility], [address] [place] [phone] Notes/Report: Sodium 144 135-145 mmol/L Potassium 3.9 [...] Panel Reviewed date:05/15/2024 12:41:57 PM Interpretation: Performing Lab:[address] [phone] Notes/Report: Triglycerides 86 <150 mg/dL Desirable Triglyceride: [...] (Free>4and<10) Reviewed date:05/15/2024 12:41:10 PM Interpretation: Performing Lab:[address] [phone] Notes/Report: PSA,Total (Free>4and<10) 1.24 0.00-4.00 ng/mL A [...] Random Reviewed date:05/15/2024 12:41:28 PM Interpretation: Performing Lab:[address] [address] Notes/Report: Creatinine Urine 93.61 Microalbumin Urine 23.0 Microalbum/Creatinine Ratio Ur 24.5 <30 ug/mg cr Albumin/Creatinine Ratio Reference Ranges: Normal: < 30 ug/mg creatinine Microalbuminuria: 30 - 300 ug/mg creatinine Clinical Albuminuria: > 300 ug/mg creatinine Hemoglobin A1c Reviewed date:05/15/2024 12:41:03 PM Interpretation: Performing Lab:[address] [address] Notes/Report: Hemoglobin A1c % 5.2 <6.0 % [...] average glucose, using the formula of the H5R-Petrfro Average Glucose study (ADAG), Diabetes Care, Vol.31,#8, Sep. 2007 UA ClnCatch+Micro w/rflx Cul t Reviewed date:05/15/2024 05:19:28 PM Interpretation: Performing Lab:[facility], [address] [place] [phone] Notes/Report: Urine, Clean Catch Color Urine Yellow Appearance Urine Clear PH 6.5 5.0-9.0 Glucose Urine UA Negative Negative mg/dL Urine Blood Negative Negative Specific [place] - Urine 1.010 1.005-1.025 Urine Protein Negative Neg-Trace mg/dL Urine Ketones Negative Negative mg/dL Nitrite Urine Negative Negative Leukocyte Esterase Urine Negative Negative RBC Urine 0-2 0-2 /HPF WBC Urine 0-5 0-5 /HPF Squamous Epithelial Cell Urine 0-2 0-2 /HPF Bacteria Urine None Seen None Seen Hyaline Casts Urine 0-2 0-2 /LPF Lipid Panel with Reflex Reviewed date:11/13/2024 12:30:41 PM Interpretation: Performing Lab:[facility], [address] [place] [phone] Notes/Report: Triglycerides 65 <150 mg/dL Desirable Triglyceride: [...] low results in patients with liver disease. XR cervical spine 4V Reviewed date:11/30/2023 11:05:27 AM Interpretation: Performing Lab: Notes/Report: [address] [address] XRay Report Signed Patient: William Fang MR#: [id number] [birth year] : 1945 Acct:[id number] Age/Sex: 78 / M ADM Date: 11/23/23 Loc: HODAN Attending Dr: Donal Benoit MD Ordering Physician: Donal Benoit MD Date of Service: 11/23/23 Procedure(s): XR cervical spine 4V Accession Number(s): [id number] cc: Donal Benoit MD EXAMINATION: XR CERVICAL [...] OV> 11/30/23923 DD/ 1143 TD/TT: 11/23/23 1152 Crop Duster: [place] [address] XRay Report Signed Patient: Basim Fang MR#: [id number] [birth year] : 1945 Acct:[id number] Age/Sex: 78 / M ADM Date: 11/23/23 Loc: HO.CHAPITO Attending Dr: Donal Benoit MD Ordering Physician: Donal Benoit MD Date of Service: 11/23/23 Procedure(s): XR cervical spine 4V Accession Number(s): [id number] cc: Donal Benoit MD EXAMINATION: XR CERVICAL [...] November 30, 2023 Electronically donna d by: Everarod Arias MD 11/30/2023 09:24 AM EDT RP Dictated By: Everardo Arias MD Signed By: <Electronically signed by Everardo Arias MD in OV> 11/30/23923 DD/ 1143 TD/TT: 11/23/23 1152 Crop Duster: HB Glucose, finger stick Reviewed date:03/14/2024 11:17:02 AM Interpretation: Performing Lab: Notes/Report: Value 110 XR cervical spine w flex/ext Reviewed date:12/30/2023 08:43:45 AM Interpretation:CBACK 12/28/23 Performing Lab: Notes/Report: [facility] [place] [address] XRay Report Signed Patient: William Fang MR#: [id number] [birth year] : 1945 Acct:[id number] Age/Sex: 78 / M ADM Date: 11/30/23 Loc: .HMGCX Attending Dr: Donal Benoit MD Ordering Physician: Donal Benoit MD Date of Service: 11/30/23 Procedure(s): XR cervical spine w flex/ext Accession Number(s): [id number] cc: Donal Benoit MD EXAMINATION: XR CERVICAL [...] Tonia Barrett MD 12/21/2023 12:57 PM EDT RP Dictated By: Tonia Barrett MD Signed By: <Electronically signed by Tonia Barrett MD in OV> 12/21/23 1257 DD/ 1335 TD/TT: 11/30/23 1342 Crop Duster: [facility] [address] [place] [address] [place] [address] XRay Report Signed Patient: Basim Fang MR#: [id number] [birth year] : 1945 Acct:[id number] Age/Sex: 78 / M ADM Date: 11/30/23 Loc: .HMGCX Attending Dr: Donal Benoit MD Ordering Physician: Donal Benoit MD Date of Service: 11/30/23 Procedure(s): XR cervical spine w flex/ext Accession Number(s): [id number] cc: Donal Benoit MD EXAMINATION: XR CERVICAL [...] Tonia Barrett MD 12/21/2023 12:57 PM EDT RP Dictated By: Tonia Barrett MD Signed By: <Electronically signed by Tonia Barrett MD in OV> 12/21/23 1257 DD/ 1335 TD/TT: 11/30/23 1342 Crop Duster: Pathology Reviewed date:01/26/2024 07:20:34 PM Interpretation: Performing Lab:[facility], [address] [place] [phone] Notes/Report: ---- Name: LeoncioWilliam Silvia Age/Sex: 78/M : 1945 Unit#: [id number] Attend Dr: Moses Pérez MD Re01/24/24 Status : [facility] Location: [place] Disch: ---- SPEC : [id number] RECD : 01/25/2437 STATUS: [facility] NUM: [id number] JAKE: 01/24/24-1547 [facility] DR: Moses Pérez MD ENTERED: 01/25/24 [...] Donal Benoit MD [facility] [address] [place] [address] Moses Pérez MD [facility] [address] [place] [address] ---- Signed (signature on file) Italo Galvan MD 01/26/24 1528 ---- END OF REPORT XR chest 2V Reviewed date:10/26/2024 12:37:15 PM Interpretation: Performing Lab: Notes/Report: [facility] [address] [facility] [place] [address] XRay Report Signed Patient: William Fang MR#: [id number] [birth year] : 1945 Acct:[id number] Age/Sex: 79 / M ADM Date: 10/26/24 Loc: HO.HMGCX Attending Dr: Donal Benoit MD Ordering Physician: Donal Benoit MD Date of Service: 10/26/24 Procedure(s): XR chest 2V Accession Number(s): [id number] cc: Donal Benoit MD Reason for Exam: [...] 10/26/24 1156 DD/ 1138 TD/TT: 10/26/24 1141 Crop Duster: [facility] [address] [place] [address] [place] [address] XRay Report Signed Patient: Basim Fang MR#: [id number] [birth year] : 1945 Acct:[id number] Age/Sex: 79 / M ADM Date: 10/26/24 Loc: .HMGCX Attending Dr: Donal Benoit MD Ordering Physician: Donal Benoit MD Date of Service: 10/26/24 Procedure(s): XR shy st 2V Accession Number(s): [id number] cc: Donal Benoit MD Reason for Exam: [...] 11:56 AM EDT RP Dictated By: Jerry Li MD Signed By: <Electronically signed by Jerry Bauer MD in OV> 10/26/24 1156 DD/ 1138 TD/TT: 10/26/24 1141 Crop Duster: Jasmin Montoya Reviewed date:11/13/2024 12:29:29 PM Interpretation: Performing Lab:[facility], [address] [place] [phone] Notes/Report: Jasmin Montoya See Note Specimen held untested for 24 hours; Call to request Chemistry testing. Reason For Referral Reason TORTICOLLIS Diagnosis 1 Torticollis, acute ( M43.6) Referral Organization Donal Benoit MD Referring Provider First Name Donal Referring Provider Last Name Cy Referring Provider Speciality Internal M edicine Referred Provider [facility] Referred Provider Specialty Physical The rapist [...] Referring Provider Speciality Internal edicine Referred Provider Shiva Martinez Referred Provider Specialty Urology General Notes Geni Meyer 09/08/2024 02:18:56 PM >REFERRAL MADE AND FAXED TO UROLOGYMitch Patti A 09/11/2024 12:00:43 PM >APPT SCHEDULED FOR 10/24/24 [...] Omeprazole 20 MG TAKE 1 CAPSULE [facility] EVERY DAY Active Ibuprofen 800 MG 1 [...] to harlan t Additional Findings: Tobacco User Irina bonilla cigarette smoker, not currently using another form [...] W/U Status Risk Notes Problem Erectile dysfunction (345011388) Erectile Dysfunction (607.84) Active confirmed Problem 165469725 Thrombocytopenia (D69.6) Active confirmed Problem 19266651 Prostatism (N40.0) Active confirmed Problem 776073480 Essential tremor (G25.0) Active confirmed Problem 9720588 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) Active confirmed Problem 968930367 Lumbar disc dise ase (M51.9) Active confirmed Problem 334982370 Gastroesophageal reflux disease without esophagitis (K21.9) Active confirmed Problem 8993446 Prediabetes (R73.09) Active confirmed Problem 663899367 Lung nodule (R91.1) Active confirmed Problem 457367093 Atherosclerosis of [place] coronary artery of [place] heart without angina pectoris (I25.10) Active confirmed Problem 470019386 Cervical disc di sease (M50.90) Active confirmed Problem 90118210 Current smoker (F17.200) Active confirmed Problem 448755124 Acquired spondylolisthesis (M43.10) Active confirmed Problem Chronic obstructive pulmonary disease with acute lower respiratory infection (770639008) COPD (chronic obstructive pulmonary disease) with acute bronchitis (J44.0) Active confirmed Problem 85390742 Sciatica of righ t side (M54.31) Active confirmed Problem 944562579 Pure hypercholesterolemia (E78.00) Active confirmed Problem 277311193 COPD with acute exacerbation (J44.1) Active confirmed Problem 006577337 Adenomatous poly p of colon, unspecified part of colon (D12.6) Active confirmed Problem 69718374 Esophageal dysph agia (R13.10) Active confirmed Problem 83960365519172571 AYESHA (acute kid ruben injury) (N17.9) Active confirmed Problem 63779058281724407 Brachial arter y aneurysm, 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 Problem 61315057 Multiple subsegm ental pulmonary emboli without acute cor pulmonale (I26.94) Active confirmed Problem 796903566 Cervical arthrit is (M47.812) Active confirmed Problem 609813468 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) Active confirmed Problem 90677156 Retropulsion (R26.89) Active confirmed Problem Parkinson's dise [...] Donal Benoit MD [address] [place] [id number] 05/15/2024 Donal Benoit Blood tests for rout ine general physical examination Z00.00 ; Pure hypercholesterolemia E78.00 ; Prediabetes R73.09 ; Thrombocytopenia D69.6 and Prostatism N40.0 Donal Benoit MD [address] [place] [id number] 11/13/2024 Donal Benoit Pure hypercholestero lemia E78.00 Donal Benoit MD [address] [place] [id number] 11/18/2023 Donal Mooreardijones Torticollis, acute M 43.6 ; Parkinson's disease with dyskinesia, unspecified whether manifestations fluctuate G20.B1 and Prostatism N40.0 Donal Benoit MD [address] [place] [id number] 11/23/2023 Donal Benoit Torticollis, acute M 43.6 Donal Benoit MD [address] [place] [id number] 11/29/2023 Donal Mooreardier Torticollis, acute M 43.6 Donal Benoit MD [address] [place] [id number] 12/03/2023 Donal Mooreardijones Cervical arthritis M 47.812 Donal Benoit MD [address] [place] [id number] 12/28/2023 Donal Benoit Muscle spasm of back M62.830 Donal Benoit MD [address] [place] [id number] 01/13/2024 Donal Benoit Muscle spasm of back M62.830 ; Primary parkinsonism G20.C ; Prediabetes R73.09 and Pure hypercholesterolemia E78.00 Donal Benoit MD [address] [place] [id number] 03/14/2024 Donal Benoit Prediabetes R73.09 ; Atherosclerosis of [place] coronary artery of [place] heart without angina pectoris I25.10 ; Current smoker F17.200 and Panlobular emphysema J43.1 Donal Benoit MD [address] [place] [id number] 05/22/2024 Donal Benoit Pure hypercholestero lemia E78.00 ; Annual physical exam Z00.00 ; Current smoker F17.200 ; Parkinson disease, symptomatic G20.A1 ; Gastroesophageal reflux disease without esophagitis K21.9 ; Prediabetes R73.09 ; Panlobular emphysema J43.1 and Prostatism N40.0 Donal Benoit MD [address] [place] [id number] 05/30/2024 Donal Benoit Headache, unspecifie d R51.9 and Family history of aneurysm Z82.49 Donal Benoit MD [address] [place] [id number] 06/23/2024 Donal Beonit Panlobular emphysema J43.1 ; Parkinson's disease with dyskinesia, unspecified whether manifestations fluctuate G20.B1 and Prostatism N40.0 Donal Benoit MD [address] [place] [id number] 08/15/2024 Donal Benoit COPD (chronic obstru ctive pulmonary disease) with acute bronchitis J44.0 Donal Benoit MD [address] [place] [id number] 09/08/2024 Donal Benoit Prostatism N40.0 and Panlobular emphysema J43.1 Donal Benoit MD [address] [place] [id number] 10/12/2024 Donal Benoit Pneumonia J18.9 and Seborrheic keratoses L82.1 Donal Benoit MD [address] [place] [id number] 11/30/2023 Donal Benoit Torticollis, acute M 43.6 Donal Benoit MD [address] [place] [id number] 11/30/2023 Donal Benoit MD [address] [place] [id number] 12/14/2023 Donal Benoit MD [address] [place], [place] [id number] 04/20/2024 Donal Benoit MD [address] [place] [id number] 10/02/2024 Donal Benoit Assessments Encounter Date Diagnosis (ICD Code) Assessment Notes Treatment Notes Treatment Clinical Notes Section Notes 05/15/[address] ine general physical examination (ICD-10 - Z00.00) 11/13/2024 Pure hypercholesterolemia (ICD-10 - E78.00) 11/18/2023 Torticollis, acute (ICD-10 - M43.6) patient [...] medication at this time 03/14/2024 Atherosclerosis of [place] coronary artery of [place] heart without angina pectoris (ICD-10 - I25.10) [...] directions for use, referral to urology in [place],. REFERRAL MADE AND FAXED TO UROLOGY, PATIENT AWARE. 10/12/2024 Pneumonia (ICD-10 - J18.9) order given to patient , pending diagnostic testing 10/12/2024 Seborrheic keratoses (ICD-10 - L82.1) no treatment 05/15/2024 Pure hypercholesterolemia (ICD-10 - E78.00) 11/18/2023 [...] Provider Name:Donal martinez, 11/20/2024 01:45:00 PM, [address], [address], [facility] [place], [phone], Provider Name:Donal Montoya ier, 04/23/2025 07:30:00 AM, [address], [address], [place], [phone], Provider Name:Donal Montoya ier, 05/24/2025 01:00:00 PM, [address], [address], [place], [phone], Insurance Providers Payer Name Payer Address Payer Phone Subscriber Number Group Number Insured Name Patient Relationship to Insured Coverage Start Date Coverage End Date [employer]UE [employer] [facility] [address] [place], [place] [id number] William Fang Self - patient is the insured Medical (General) History Medical History History ICD Code supraclavicular node on lt 2010 colonoscopy 07/24/2011 due in 3 years; colonoscopy done 09/06/14 w/Dr Hall - repeat 5 years(2019) yearly chest ct. discussed 2020 colonoscopy done 06/14/20 due 3 yrs with Rafael
--- OUTSIDE RECORDS SUMMARY | 2024-11-13 14:35 | XMS_ITS | Patient Health Record ---
Author Organization [facility] Address [address] [place] [address] Care Team Providers Care Director Of Media Name Role Phone Donal Benoit MD Primary Care Provider Moses Porter Unavailable [phone] Allergies No Known Allergies Results Component Value Reference Range Notes Pathology (Not yet reviewed by provider) Interpretation: Performing Lab:[facility], [address] [place] [id number] Notes/Report: Reason For Referral No Information Medications [...] Status Risk Notes Problem Colon cancer screening (656907992) Colon cancer screening (Z12.11) Active confirmed Problem Screening for malignant neoplasm of colon (280818847) Encounter for screening for malignant neoplasm of colon (Z12.11) Active confirmed Problem Pre-procedure evaluation check (459775356) Encounter for other preprocedural examination (Z01.818) Active confirmed Problem Diverticular disease of colon (004750788) Diverticulosis of large intestine without perforation or abscess without bleeding (K57.30) Active confirmed Problem History of polyp of colon (049873087) History of colon polyps (Z86.010) Active confirmed Encounters Encounter Location Date Provider Diagnosis [facility] [place] Outpatient [address], [place] [id number] 01/24/2024 Moses Pérez Colon cancer screeni ng Z12.11 ; Colon polyps K63.5 ; Diverticulosis of large intestine without perforation or abscess without bleeding K57.30 and Other hemorrhoids K64.8 [facility] [address] [place] [address] 01/07/2024 Moses Pérez Assessments Encounter Date Diagnosis [...] Insured Coverage Start Date Coverage End Date [facility] [address] [place] [address] [id number] FLAQUITO BURLESON Self - patient is the insured Medical (General) History Medical History History ICD Code Hypercholesterolemia COPD Parkinson's disease GERD Colon polyps with previous c olonoscopies in [place]--last one in 2019 Denies TN,DM,CVA,renal disease Surgical History Surgery Date(Month/Year) 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 Gonzales--didnot require a colostomy Back surgery x 1 for 3 ruptured discs 19 59
== END 2024-11-13 11:52 | disposition home or self-care (01) ==
LOC: HO.LNP 11:51
PROVIDERS: Visit Provider Internal Medicine
DX: E78.00 Pure hypercholesterolemia, unspecified (principal)
CPT/HCPCS: 80061

== ENCOUNTER 2024-12-01 15:14 | Outpatient (REF) | payer BC, SELFPAY ==
--- NOTE | ~2024-12-01 | XR_ITS ---
EXAMINATION: XR CHEST CLINICAL INFORMATION: J44.1 - Chronic obstructive pulmonary disease with (acute) exacerbation COMPARISON: X-ray 11/05/2024 TECHNIQUE: 2 views of the chest were obtained. FINDINGS: Devices: None. Cardiomediastinal: Cardiac silhouette size is stable, within normal limits.Aortic arch calcification. Lungs and pleura: Hyperinflated lungs. Bibasilar hazy opacities could reflect atelectasis/scarring. No new dense consolidation. No effusion. No pneumothorax. Bones: Multilevel thoracolumbar spondylosis. Miscellaneous: None. XR/XR chest 2V IMPRESSION: Bibasilar hazy opacities could reflect atelectasis/scarring. Electronically signed by: Everardo Arias MD 12/01/2024 04:19 PM EDT
[2024-12-02 12:41] LABS: Resp Syncy Virus RNA Qual PCR NEGATIVE (Negative); SARS COV2 PCR INHOUSE NEGATIVE (Negative)
== END 2024-12-01 15:15 | disposition home or self-care (01) ==
LOC: HO.HMGCX 15:14
PROVIDERS: PCP Internal Medicine; Visit Provider Physician Assistant Medical
DX: J44.1 Chronic obstructive pulmonary disease with (acute) exacerbation (principal); J18.9 Pneumonia, unspecified organism; J06.9 Acute upper respiratory infection, unspecified; F17.210 Nicotine dependence, cigarettes, uncomplicated; Z79.899 Other long term (current) drug therapy
CPT/HCPCS: 71046; 87637; 94640

== ENCOUNTER 2024-12-01 15:14 | Outpatient (AMB) | payer BC, SELFPAY ==
--- NOTE | 2024-12-01 15:22 | AM.OFFWIN_ITS ---
Intake Vital Signs 12/01/24 15:25 Height 5 ft 8 in Weight 172 lb BMI 26.1 BP 162/80 H Blood Pressure Location Lt brachial Position Sitting Respiration 17 Pulse 78 Pulse Source Pulse Oximeter Temp 97.7 F Temp Source Oral Pulse Oximetry (%) 93 Oxygen Delivery Method Room Air Intake Visit Reasons: ep bad cough Intake Note: Pt is here today c/o bad cough and congestion x2days Patient Tobacco Use Status: Current everyday Tobacco user Allergies No Known Allergies (No Known Allergies*) Allergy (Verified 12/01/24 15:22) HPI HPI Comments 2 History of Present Illness Details This is a 79-year-old male with past medical history significant for chronic obstructive pulmonary disease who presented to the walk-in clinic complaining of a productive cough, shortness of breath, and fever x3 days. Patient states he recently drove to [place] with his . He then developed viral URI symptoms upon return including nasal congestion, rhinorrhea, sore throat, and fatigue. Patient then developed a productive cough with yellow-green sputum as well as shortness of breath mostly with exertion but sometimes at rest. He also had a fever with T-max of 102? F 2 days ago but has been afebrile since. He denies any lower extremity edema. He denies any hemoptysis. Of note, satnam krishnamurthy was recently admitted to [facility] in September of 2024 due to acute hypoxic respiratory failure and acute COPD exacerbation secondary to bilateral pneumonia. [facility] Medical History Migraines Parkinsons disease Thrombocytopenia Pulmonary embolism MAGGY (obstructive sleep apnea) Somnolence, daytime Smoker Dyslipidemia COPD (chronic obstructive pulmonary disease) Surgical History History of back surgery H/O colonoscopy History of partial colectomy Social History Household Members: Spouse Housing: House Are you a primary rn acute care to a significant other at home: No Do you presently have visiting nurse or other home services: No Alcohol intake: current Alcohol intake frequency: holidays/special occasions only Alcohol type: beer Comment: refusing bed alarm Patient Tobacco Use Status: Current everyday Tobacco user Tobacco use type: Cigarette Cigarette Packs Per Day: 0.5 Cigarettes Per Day: 9 Years Smoked: 65 Second Hand Smoke Exposure: No service: No Current occupational status: employed Review of Systems Const All systems reviewed & are unremarkable except as noted in HPI and below Reports no additional complaints Eyes Reports no additional complaints ENT Reports no additional complaints Card Reports no additional complaints Resp Reports no additional complaints GI Reports no additional complaints Reports no additional complaints Musc Reports no additional complaints Skin/Breast Reports system reviewed and no additional complaints, except as documented Neuro Reports no additional complaints Psych Reports no additional complaints Endo Reports no additional complaints Musa/Lymph Reports no additional complaints Aller/Immun Reports no additional complaints Physical Exam Exam Exam: Vital signs reviewed. Constitutional: Slightly ill-appearing. No acute distress. Well-developed and well-nourished. HEENT: Normocephalic and atraumatic. PERRL/EOMI. Moist mucous membranes. No posterior pharyngeal erythema or exudates. Skin: Warm and dry. No rashes or lesions noted. Neck: Full and painless range of motion. No cervical lymphadenopathy. Cardio: Regular rate and rhythm. No murmurs, gallops, or rubs. No lower extremity edema. Pulmonary: No respiratory distress. No accessory muscle usage. He has scattered rhonchorous breath sounds as well as expiratory wheezing throughout both lungs. Gastrointestinal: Soft, non-tender, and non-distended in all 4 quadrants. Musculoskeletal: Normal range of motion in joints throughout the body. No deformity or other signs of injury. Neuro: Alert and oriented x4. Cranial nerves 2-12 grossly intact. No focal deficits appreciated. Psych: Normal mood and affect. Vital Signs: Last Vital Signs Temp 97.7 F 12/01/24 15:25 Pulse 78 12/01/24 15:25 Resp 17 12/01/24 15:25 BP 162/80 H 12/01/24 15:25 Pulse Ox 93 12/01/24 15:25 Oxygen Delivery Method Room Air 12/01/24 15:25 BMI result Body Mass Index 26.1 Office Procedures Nebulizer Treatment Nebulizer Treatment 56082-Ihoxepoqe/MDI RX initial, or Nebulizer Subsequent Treatment Office Meds ipratropium 0.5 mg-albuterol 3 mg (2.5 mg base)/3 mL nebulization soln Performing Provider: CHELSEY De Leon Performing Location: [facility] [place] [facility] Administered by: CHELSEY De Leon on 12/01/24 16:27 Dose Route Admin Location Dispensed Lot Number Expiration Date NDC [employer] 3 mL inhalation 3 mL [id number] 03/24/26 84164-869-12 [employer] Assessment & Plan Assessment & Plan (1) COPD with acute exacerbation: Code(s): J44.1 - Chronic obstructive pulmonary disease with (acute) exacerbation (2) Community acquired pneumonia: Code(s): J18.9 - Pneumonia, unspecified organism Qualifiers: Laterality: unspecified laterality Qualified Code(s): J18.9 - Pneumonia, unspecified organism Plan 79-year-old male with past medical history significant for chronic obstructive pulmonary disease who presented to the walk-in clinic complaining of a productive cough, shortness of breath, and fever x3 days. On physical examination, patient has rhonchorous breath sounds and wheezing throughout both lungs. A chest x-ray was obtained, which appears to show hazy opacities of bilateral lungs concerning for community-acquired pneumonia. Patient was given a nebulizer treatment in office with significant improvement in his lung sounds and symptoms. He was given a prescription for p.o. amoxicillin/clavulanate 875/125 mg twice daily x5 days as well as p.o. azithromycin 500 mg today followed by 250 mg daily x4 days for treatment of community-acquired pneumonia. He was also given a prednisone taper for treatment of acute COPD exacerbation. Patient was instructed to continue his inhaler and nebulizer treatments at home. He was instructed to monitor his oxygen saturation daily during treatment and he was instructed to proceed directly to the emergency room for oxygen saturation less than 88%. He was instructed to proceed directly to the emergency room if he were to develop any hemoptysis, unilateral leg swelling, or persistent/worsening shortness of breath. Patient verbalized understanding and he is in agreement with the plan. Orders: Orders SARS-CoV2/FLU/RSV Today J06.9 - Acute upper respiratory infection, unspecified AMB Nebulizer Treatment Today J44.1 - Chronic obstructive pulmonary disease with (acute) exacerbation XR chest 2V Today J44.1 - Chronic obstructive pulmonary disease with (acute) exacerbation Medications: New amoxicillin-pot clavulanate 875-125 mg 1 tab PO BID 10 tabs 0RF azithromycin For 250 mg dose pack: take 500 mg today (day 1), then 250 mg for 4 days (days 2-5) PO 6 tabs 0RF prednisone Take 4 tablets daily x3 days followed by 3 tablets daily x3 days followed by 2 tablets daily x3 days followed by 1 tablet daily x3 days. 10 mg PO DIRECTED 30 tabs 0RF Coding Level of Care Code Est Pt Level 3 (93098) Diagnoses COPD with acute exacerbation J44.1 Community acquired pneumonia, unspecified laterality J18.9 Laterality: unspecified laterality CPT Codes Nebulizer Treatment - Nebulizer Treatment, initial or subsequent: 57215- Nebulizer/MDI RX initial, or Nebulizer Subsequent Treatment ([id number])
[2024-12-01 15:25] VITALS: BP 162/80; PULSE 78; RESP 17; TEMP 36.5; O2SAT 93; BMI 26.1
== END 2024-12-01 16:38 | disposition home or self-care (01) ==
PROVIDERS: PCP Internal Medicine; Visit Provider Physician Assistant Medical
DX: J44.1 Chronic obstructive pulmonary disease with (acute) exacerbation (principal); J18.9 Pneumonia, unspecified organism

== ENCOUNTER → 2024-12-01 16:04 | Outpatient (BNV) | payer BC, SELFPAY | PROVIDERS: PCP Internal Medicine; Visit Provider Radiology Diagnostic Ultrasound | DX: R05.1 Acute cough (principal) | CPT/HCPCS: 71046 ==

== ENCOUNTER 2024-12-14 12:55 | Outpatient (AMB) | payer BC, SELFPAY ==
--- NOTE | 2024-12-14 13:02 | MHC.OFFVIS ---
Intake Visit Reasons: 3m Allergies No Known Allergies (No Known Allergies*) Allergy (Verified 12/14/24 13:08) Medication List - Last Reconciled 12/14/24 by Iesla Brito CNP albuterol sulfate 90 mcg/actuation 2 puffs inhalation Q4H PRN amitriptyline 10 mg PO BEDTIME amoxicillin-pot clavulanate 875-125 mg 1 tab PO BID azithromycin For 250 mg dose pack: take 500 mg today (day 1), then 250 mg for 4 days (days 2-5) PO carbidopa-levodopa 25-100 mg 1 tab PO QID finasteride 5 mg PO DAILY fluticasone propion-salmeterol 250-50 mcg/dose (Wixela Inhub) 1 ea inhalation Q12H omeprazole 20 mg PO DAILY@0630 prednisone 10 mg PO DIRECTED sertraline 50 mg PO DAILY tamsulosin 0.4 mg PO DAILY zinc acetate 50 mg PO DAILY HPI Comments Details: 79-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 He was doing okay. He has been taking carbidopa-levodopa 2 tablets in the morning and 2 tablets at night. He thought this regimen was helping with tremors. Tremors were okay in the morning after taking medication and slowly increased as the day went on until he took next dose. Balance was off at times, but no falls. Mood was okay with sertraline. Headaches were okay. Memory was about the same, forgetful at times. He was still working full-time. Sleep was okay. [facility] Medical History (Updated 12/14/24 @ 13:08 by Isela Brito CNP) Migraines Parkinsons disease Thrombocytopenia Pulmonary embolism MAGGY (obstructive sleep apnea) Somnolence, daytime Smoker Dyslipidemia COPD (chronic obstructive pulmonary disease) Surgical History History of back surgery H/O colonoscopy History of partial colectomy Social History Household Members: Spouse Housing: House Are you a primary career technical education teacher to a significant other at home: No Do you presently have visiting nurse or other home services: No Alcohol intake: current Alcohol intake frequency: holidays/special occasions only Alcohol type: beer Comment: refusing bed alarm Patient Tobacco Use Status: Current everyday Tobacco user Tobacco use type: Cigarette Cigarette Packs Per Day: 0.5 Cigarettes Per Day: 9 Years Smoked: 65 Second Hand Smoke Exposure: No service: No Current occupational status: employed Review of Systems Const Denies chills, Denies daytime sleepiness, Denies difficulty sleeping, Denies fatigue, Denies fever(s), Denies frequent falls, Denies headache(s), Denies increased appetite, Denies poor appetite, Denies snoring, Denies weakness, Denies weight gain and Denies weight loss Eyes Denies loss of vision ENT Denies vertigo, Denies dizziness and Denies headache(s) Card Denies chest pain at rest, Denies chest pain with activity, Denies syncope, Denies leg edema and Denies palpitations Resp Denies snoring GI Denies constipation, Denies heartburn, Denies diarrhea and Denies nausea Denies urinary frequency, Denies urinary incontinence and Denies urinary urgency Musc Denies abnormal gait, Denies numbness and Denies tingling Skin/Breast Denies dry skin and Denies rash Neuro Denies abnormal gait, Denies vertigo, Denies dizziness, Denies syncope, Denies frequent falls, Denies headache(s), Denies lack of coordination, Denies loss of vision, Denies memory loss, Denies numbness, Denies restless legs, Denies seizure-like activity, Denies tingling, Denies paresthesias, Reports tremor(s) and Denies weakness Psych Denies anxiety, Reports depression, Denies auditory hallucinations, Denies memory loss, Denies visual hallucinations and Denies suicidal ideation Endo Denies fatigue and Denies palpitations Physical Exam Const Other: General Appearance:? normal, in no acute distress. Skin:? no rashes, no significant birthmarks. Heart:? S1, S2 normal, no murmurs. Lungs:? clear anteriorly and posteriorly. Extremities:? no edema. Psych:? alert, oriented, cognitive function intact, cooperative with exam. Neuro Other: Mental Status:?Normal attention, orientation, memory and affect.? Cranial Nerves:?Pupils are equal, round and reactive to light. External occular muscles are intact. Visual mcdonald are full. Face is symmetrical. Facial sensations are normal. Tongue is midline. Palate elevates symmetrically. Shoulder shrugging is normal. Hearing to bedside conversation is normal. Sensory Exam:?....? Coordination:?No ataxia,?no titubation.? Gait Exam: Within normal limits. Cerebellar Signs:?Cmgiby-il-wzyz is okay. Extrapyramidal System:?Facial expressions are symmetrical. No significant bradykinesia. Mild to moderate right hand cogwheeling-type rigidity upon reinforcement. Pronator Drift:?Not present.? Involuntary Movements:?Mild bilateral postural tremor, R > L. Speech:?Normal.? Results Reviewed Results Reviewed: MRI brain WO at [facility] in Jan 2023: Mild diff atrophy, mild MVD. Assessment & Plan Assessment & Plan (1) Parkinsons disease: Comment: newer dx-following w/Dr. Mancia Code(s): G20.A1 - Parkinson's disease without dyskinesia, without mention of fluctuations Category: Medical Plan: He was advised to take carbidopa-levodopa 25-100mg 1 tablet four times a day at 6am, 10am, 2pm, 6pm. (2) Tremor: Code(s): R25.1 - Tremor, unspecified Category: Medical (3) Migraines: Code(s): G43.909 - Migraine, unspecified, not intractable, without status migrainosus Category: Medical Qualifiers: Intractability: not intractable Migraine type: unspecified Status migrainosus presence: without status migrainosus Qualified Code(s): G43.909 - Migraine, unspecified, not intractable, without status migrainosus Plan: Continue amitriptyline 10mg 1 tablet at bedtime. (4) Depression: Code(s): F32.A - Depression, unspecified Category: Medical Qualifiers: Depression Type: unspecified Qualified Code(s): F32.A - Depression, unspecified Plan: Continue sertraline 50mg 1 tablet daily. Plan . Medications: Changed From carbidopa-levodopa 25-100 mg 1 tab PO QID To carbidopa-levodopa 25-100 mg 6am, 10am, 2pm, 6pm 1 tab PO QID 360 tabs 1RF 90 days Coding Level of Care Code Est Pt Level 4 (50399) Diagnoses Parkinsons disease G20.A1 Tremor R25.1 Migraine without status migrainosus, not intractable, unspecified migraine type G43.909 Intractability: not intractable Migraine type: unspecified Status migrainosus presence: without status migrainosus Depression, unspecified depression type F32.A Depression Type: unspecified
== END 2024-12-14 13:39 | disposition home or self-care (01) ==
LOC: HO.HSM 12:55
PROVIDERS: PCP Internal Medicine; Visit Provider Registered Nurse
DX: G20.A1 Parkinson's disease without dyskinesia, without mention of fluctuations (principal); R25.1 Tremor, unspecified; G43.909 Migraine, unspecified, not intractable, without status migrainosus; F32.A Depression, unspecified
CPT/HCPCS: 99214